=== PATIENT | male | born 1955 | race Caucasian/White ===

== ENCOUNTER 2020-03-31 13:02 | Inpatient (IN) | payer OTHER ==
[~2020-03-31] VITALS: Ht 182.9 cm; Wt 99.9 kg
[2020-03-31] MEDS ORDERED: DEXTROSE 50% 25 GM / 50ML DISP.SYRIN. IV ONE ×2 (13:15→15:30)
[2020-03-31 13:38] LABS: BASO % 0 % (0-3); EOS % 1 % (0-3); HEMATOCRIT 27.5 % (39.0-53.0); HEMOGLOBIN 9.1 g/dL (13.0-17.5); LYMPH # 0.4 x10^3/uL (1.0-4.8); LYMPH % 7 % (24-48); MEAN CORPUSCULAR HEMOGLOBIN 31 pg (25-35); MEAN CORPUSCULAR HGB CONC 33 g/dL (31-37); MEAN CORPUSCULAR VOLUME 93 fL (79-100); MONO # 0.4 x10^3/uL (0.0-1.1); MONO % 8 % (0-9); NEUT # 4.9 x10^3/uL (1.8-7.7); NEUT % 84 % (31-73); PLATELET COUNT 84 x10^3/uL (140-400); RED BLOOD COUNT 2.97 x10^6/uL (4.30-5.70); RED CELL DISTRIBUTION WIDTH 28.4 % (11.5-14.5); WHITE BLOOD COUNT 5.8 x10^3/uL (4.0-11.0)
--- NOTE | 2020-03-31 14:00 | RAD ---
EXAM: Chest, single view. HISTORY: Aspiration. COMPARISON: None. FINDINGS: A frontal view of the chest is obtained. There is diffuse interstitial infiltrate. There ar e small pleural effusions. There is a right central venous catheter with the tip in the superior cavo atrial junction. There is no pneumothorax. The heart is normal in size for supine portable technique. IMPRESSION: Diffuse interstitial infiltrate and small pleural effusions. Electronically signed by: Beata Turner MD (03/31/2020 1:57 PM) [facility]
[2020-03-31 14:10] LABS: ALBUMIN 2.6 g/dL (3.4-5.0); ALBUMIN/GLOBULIN RATIO 0.7 (1.0-1.7); CALCIUM 9.2 mg/dL (8.5-10.1); CREATININE 6.2 mg/dL (0.7-1.3); GFR 9.2; MAGNESIUM 2.6 mg/dL (1.8-2.4); TOTAL BILIRUBIN 4.3 mg/dL (0.2-1.0); TOTAL PROTEIN 6.1 g/dL (6.4-8.2)
[2020-03-31 14:16] LABS: POTASSIUM 2.6 mmol/L (3.5-5.1)
[2020-03-31] MEDS ORDERED: PIPERACILLIN/TAZOBACTAM 3.375 GM in IV NORMAL SALINE 50ML 50 ML IV ONE (15:30)
[2020-03-31] MEDS ORDERED: IV NORMAL SALINE 1000ML BAG 1,000 ML IV ONE (15:30)
[2020-03-31] MEDS: POTASSIUM CHLORIDE 40 MEQ in IV DEXTROSE 5% 1,000 ML IV SCH (15:48)
--- NOTE | 2020-03-31 16:03 | PHYS DOC ---
Past Medical History Past Medical History: Diabetes-Type I, Renal Failure (LINDA JOAQUIN DO) General Adult EDM: Chief Complaint: ALTERED MENTAL STATUS HPI: HPI: Patient is a 64 year old male with a history of end-stage renal failure on hemodialysis and diabetes who was sent here for from the dialysis center due to altered mental status. Not much history was able to obtain. Patient was dropped off to the dialysis center for dialysis today, when they tried to obtain his vital signs patient was very confused. They checked his blood sugar and it was really low so EMS were called to take him here for evaluation. His blood sugar was 24 per EMS. Upon arrival to room patient was cold to the touch. COVID STATUS is unknown. (LINDA JOAQUIN DO) Review of Systems: Review of Systems: NOT ABLE TO OBTAIN DUE TO HIS CONDITION. (LINDA JOAQUIN DO) Heart Score: Risk Factors: Risk Factors: DM, Current or recent (<one month) smoker, HTN, HLP, family history of CAD, obesity. Risk Scores: Score 0 - 3: 2.5% MACE over next 6 weeks - Discharge Home Score 4 - 6: 20.3% MACE over next 6 weeks - Admit for Clinical Observation Score 7 - 10: 72.7% MACE over next 6 weeks - Early Invasive Strategies (LINDA JOAQUIN DO) Current Medications: Current Medications Medications (Trade) Dose Ordered Sig/Missy Start Time Stop Time Status Last Admin Dose Admin Cefepime HCl (Maxipime) 2 gm 1X ONCE 03/31/20 16:15 03/31/20 16:16 Dextrose (Dextrose 50%-Water Syringe) 25 gm 1X ONCE 03/31/20 15:30 03/31/20 15:31 DC 03/31/20 15:36 25 GM Lorazepam (Ativan Inj) 1 mg 1X ONCE 03/31/20 15:45 03/31/20 15:46 DC 03/31/20 15:46 1 MG Piperacillin Sod/ Tazobactam Sod 3.375 gm/Sodium Chloride 50 ml @ 100 mls/hr 1X ONCE 03/31/20 15:30 03/31/20 15:59 DC Potassium Chloride 40 meq/ Dextrose 1,020 ml @ 75 mls/hr [id number] 03/31/20 16:00 03/31/20 15:48 75 MLS/HR Sodium Chloride 1,000 ml @ 1,000 mls/hr 1X ONCE 03/31/20 15:30 03/31/20 16:29 (LINDA JOAQUIN DO) Allergies: Allergies: Allergies Coded Allergies Type Severity Reaction Last Updated Verified peanut Allergy Severe Anaphylaxis 03/31/20 Yes Penicillins Allergy Intermediate hives 03/31/20 Yes aspirin Allergy Intermediate rash 03/31/20 Yes latex Allergy Intermediate 03/31/20 Yes metformin Allergy Intermediate 03/31/20 Yes nitroglycerin Allergy Intermediate 03/31/20 Yes ondansetron Allergy Intermediate 03/31/20 Yes (LINDA JOAQUIN DO) Physical Exam: PE: Constitutional: Well developed, well nourished, LETHARGIC.[] HENT: Normocephalic, atraumatic, bilateral external ears normal, oropharynx moist, no oral exudates, nose normal. [] Eyes: PERRLA, EOMI, conjunctiva normal, no discharge. [] Neck: Normal range of motion, no tenderness, supple, no stridor. [] Cardiovascular:Heart rate regular rhythm, no murmur [] Lungs & Thorax: Bilateral breath sounds clear to auscultation [] Abdomen: Bowel sounds normal, soft, no tenderness, no masses, no pulsatile masses. [] Skin:COLD TO TOUCH, no erythema, no rash. [] Back: No tenderness, no CVA tenderness. [] Extremities: No tenderness, no cyanosis, no clubbing, ROM intact, no edema. [] Neurologic: LETHARGIC.. Psychologic: NOT ABLE TO EVALUATE (LINDA JOAQUIN DO) Current Patient Data: Labs: Laboratory Tests Test 03/31/20 13:07 03/31/20 13:20 03/31/20 14:18 03/31/20 15:26 Glucose (Fingerstick) 48 mg/dL (70-99) *L 138 mg/dL (70-99) H 92 mg/dL (70-99) White Blood Count 5.8 x10^3/uL (4.0-11.0) Red Blood Count 2.97 x10^6/uL (4.30-5.70) L Hemoglobin 9.1 g/dL (13.0-17.5) L Hematocrit 27.5 % (39.0-53.0) L Mean Corpuscular Volume 93 fL (79-100) Mean Corpuscular Hemoglobin 31 pg (25-35) Mean Corpuscular Hemoglobin Concent 33 g/dL (31-37) Red Cell Distribution Width 28.4 % (11.5-14.5) H Platelet Count 84 x10^3/uL (140-400) L Neutrophils (%) (Auto) 84 % (31-73) H Lymphocytes (%) (Auto) 7 % (24-48) L Monocytes (%) (Auto) 8 % (0-9) Eosinophils (%) (Auto) 1 % (0-3) Basophils (%) (Auto) 0 % (0-3) Neutrophils # (Auto) 4.9 x10^3/uL (1.8-7.7) Lymphocytes # (Auto) 0.4 x10^3/uL (1.0-4.8) L Monocytes # (Auto) 0.4 x10^3/uL (0.0-1.1) Eosinophils # (Auto) 0.0 x10^3/uL (0.0-0.7) Basophils # (Auto) 0.0 x10^3/uL (0.0-0.2) Platelet Estimate Pending Sodium Level 126 mmol/L (136-145) L Potassium Level 2.6 mmol/L (3.5-5.1) *L Chloride Level 88 mmol/L (98-107) L Carbon Dioxide Level 18 mmol/L (21-32) L Anion Gap 20 (6-14) H Blood Urea Nitrogen 62 mg/dL (8-26) H Creatinine 6.2 mg/dL (0.7-1.3) H Estimated GFR (Cockcroft-Gault) 9.2 BUN/Creatinine Ratio 10 (6-20) Glucose Level 47 mg/dL (70-99) L Lactic Acid Level 3.8 mmol/L (0.4-2.0) H Calcium Level 9.2 mg/dL (8.5-10.1) Magnesium Level 2.6 mg/dL (1.8-2.4) H Total Bilirubin 4.3 mg/dL (0.2-1.0) H Aspartate Amino Transferase (AST) 40 U/L (15-37) H Alanine Aminotransferase (ALT) 30 U/L (16-63) Alkaline Phosphatase 190 U/L (46-116) H Total Protein 6.1 g/dL (6.4-8.2) L Albumin 2.6 g/dL (3.4-5.0) L Albumin/Globulin Ratio 0.7 (1.0-1.7) L Laboratory Tests 03/31/20 13:20 Laboratory Tests 03/31/20 13:20 (LINDA JOAQUIN DO) EKG: EKG: EKG was done at 1320, heart rate of 70 beats per minute, sinus rhythm, no ST segment elevation. (LINDA JOAQUIN DO) Radiology/Procedures: Radiology/Procedures: [][facility] [address] [place] [address] IMAGING REPORT Signed PATIENT: HILDA MORE ACCOUNT: [id number] : 1955 LOCATION: ER AGE: 64 SEX: M EXAM STATUS: REG ER ORD. PHYSICIAN: LINDA JOAQUIN DO REASON: ams PROCEDURE: CT HEAD WO CONTRAST Exam: CT head INDICATION: Altered mental status TECHNIQUE: Sequential axial images through the head were obtained without the administration of IV contrast. Comparisons: None FINDINGS: No focal parenchymal lesion or hemorrhage is identified. There is no midline s hift or sulcal effacement. Patchy hypodensity in the periventricular white matter. No acute vascular territory infarction is identified. Conn-white distinction is preserved. The ventricular system is within normal limits without compression hydrocephalus. The basal cisterns are well maintained. The visualized portions of the paranasal sinuses and mastoid air cells are well- pneumatized. No acute fractures. IMPRESSION: Mild small vessel ischemic change, technically age indeterminate without recent prior imaging Exposure: One or more of the following in the visualized dose reduction techniqu es were utilized for this examination: 1. Automated exposure control 2. Adjustment of the MA and/or KV according to patient size Use of iterative of reconstructive technique Electronically signed by: Ethan Lopez MD (03/31/2020 4:18 PM) [facility] DICTATED and SIGNED BY: ETHAN LOPEZ MD DATE: 03/31/20 [id number] [place] [address] IMAGING REPORT Signed PATIENT: HILDA MORE ACCOUNT: [id number] : 1955 LOCATION: ER AGE: 64 SEX: M EXAM STATUS: PRE ER ORD. PHYSICIAN: LINDA JOAQUIN DO REASON: aspiration PROCEDURE: CHEST AP ONLY EXAM: Chest, single view. HISTORY: Aspiration. COMPARISON: None. FINDINGS: A frontal view of the chest is obtained. There is diffuse interstitial infiltrate. There are small pleural effusions. There is a right central venous catheter with the tip in the superior cavoatrial junction. There is no pneu mothorax. The heart is normal in size for supine portable technique. IMPRESSION: Diffuse interstitial infiltrate and small pleural effusions. Electronically signed by: Jarrett Raza MD (03/31/2020 1:57 PM) [facility] DICTATED and SIGNED BY: JARRETT RAZA MD DATE: 03/31/20 [id number] (LINDA JOAQUIN DO) Course & Med Decision Making: Course & Med Decision Making Pertinent Labs and Imaging studies reviewed. (See chart for details) Patient is a 64-year-old male who was brought here by EMS from the dialysis c enter due to altered mental status. Patient was found to be hypoglycemic, hypothermia, lactic acidosis, infiltration on chest x-ray consistent with severe sepsis. Patient also had low potassium level. Patient was given IV fluid, IV potassium, IV antibiotic, dextrose. Patient will need to be admitted to hospital for further evaluation and treatment. Discussed with Dr. Daly who agrees admit the patient. (LINDA JOAQUIN DO) Dragon Disclaimer: Dragon Disclaimer: This electronic medical record was generated, in whole or in part, using a voice recognition dictation system. (LINDA JOAQUIN DO) Departure Departure Impression: Primary Impression: Severe sepsis Additional Impressions: Hypokalemia Hypoglycemia ESRD (end stage renal disease) on dialysis Disposition: ADMITTED INPT THIS HOSP Admitting Physician: SKYLAR SILVESTRE) (LINDA JOAQUIN DO) Condition: CRITICAL Referrals: RAY WARD (PCP) LINDA JOAQUIN DO Mar 31, 2020 16:03 ARSEN DALY MD Mar 31, 2020 21:04
[2020-03-31] MEDS ORDERED: CEFEPIME HCL IV Push 2 GM VIAL. IVP ONE (16:15)
--- NOTE | 2020-03-31 16:21 | RAD ---
Exam: CT head INDICATION: Altered mental status TECHNIQUE: Sequential axial images through the head were obtained without the administration of IV co ntrast. Comparisons: None FINDINGS: No focal parenchymal lesion or hemorrhage is identified. There is no midline shift or sulcal effaceme nt. Patchy hypodensity in the periventricular white matter. No acute vascular territory infarction is yuliya ntified. Conn-white distinction is preserved. The ventricular system is within normal limits without compression hydrocephalus. The basal cisterns are well maintained. The visualized portions of the paranasal sinuses and mastoid air cells are well-pneumatized. No acute fractures. IMPRESSION: Mild small vessel ischemic change, technically age indeterminate without recent prior imaging Exposure: One or more of the following in the visualized dose reduction techniques were utilized for this examination: 1. Automated exposure control 2. Adjustment of the MA and/or KV according to patient size Use of iterative of reconstructive technique Electronically signed by: Ethan Love MD (03/31/2020 4:18 PM) [facility]
[2020-03-31] MEDS: IV NORMAL SALINE 1000ML BAG 1,000 ML IV SCH ×3 (18:36→23:30)
--- NOTE | 2020-03-31 18:49 | PDOC1 ---
History and Physical Date of Admission Date of Admission DATE: 03/31/20 TIME: 18:48 Identification/Chief Complaint Chief Complaint seen in er with hypothermia, 64 year old male with a history of end-stage renal failure on hemodialysis and diabetes who was sent here for from the dialysis center due to altered mental status. Not much history was able to obtain. Patient was dropped off to the dialysis center by van transport , for dialysis today, when they tried to obtain his vital signs patient was very confused. EMS was, called blood sugar was 24 per EMS. Upon arrival to room patient was hypothermic and encephalopathic COVID STATUS is unknown. no family present to assist with history Past Medical History Past Medical History Past Medical History Past Medical History Past Medical History: Diabetes-Type I, Renal Failure Cardiovascular: HTN Renal/: Chronic renal failure Endocrine: Diabetes Family History Family History: No Significant, Hypertension Social History Smoke: No ALCOHOL: none Drugs: None Current Problem List Problem List Problems Medical Problems: (1) ESRD (end stage renal disease) on dialysis Status: Acute (2) Hypoglycemia Status: Acute (3) Hypokalemia Status: Acute (4) Severe sepsis Status: Acute Current Medications Current Medications Current Medications Dextrose (Dextrose 50%-Water Syringe) 25 gm 1X ONCE IV Last administered on 03/31/20at 13:51; Start 03/31/20 at 13:15; Stop 03/31/20 at 13:26; Status DC Sodium Chloride 1,000 ml @ 1,000 mls/hr 1X ONCE IV Last administered on 03/31/20at 17:34; Start 03/31/20 at 15:30; Stop 03/31/20 at 16:29; Status DC Piperacillin Sod/ Tazobactam Sod 3.375 gm/Sodium Chloride 50 ml @ 100 mls/hr 1X ONCE IV ; Start 03/31/20 at 15:30; Stop 03/31/20 at 15:59; Status DC Potassium Chloride 40 meq/ Dextrose 1,020 ml @ 75 mls/hr [id number] IV Last administered on 03/31/20at 15:48; Start 03/31/20 at 16:00 Dextrose (Dextrose 50%-Water Syringe) 25 gm 1X ONCE IV Last administered on 03/31/20at 15:36; Start 03/31/20 at 15:30; Stop 03/31/20 at 15:31; Status DC Lorazepam (Ativan Inj) 1 mg 1X ONCE IVP Last administered on 03/31/20at 15:46; Start 03/31/20 at 15:45; Stop 03/31/20 at 15:46; Status DC Cefepime HCl (Maxipime) 2 gm 1X ONCE IVP Last administered on 03/31/20at 16:53; Start 03/31/20 at 16:15; Stop 03/31/20 at 16:16; Status DC Sodium Chloride 1,000 ml @ 75 mls/hr [id number] IV Last administered on 03/31/20at 18:36; Start 03/31/20 at 17:30; Stop 04/01/20 at 17:29 Allergies Allergies: Coded Allergies: peanut (Verified Allergy, Severe, Anaphylaxis, 03/31/20) Penicillins (Verified Allergy, Intermediate, hives, 03/31/20) aspirin (Verified Allergy, Intermediate, rash, 03/31/20) latex (Verified Allergy, Intermediate, 03/31/20) metformin (Verified Allergy, Intermediate, 03/31/20) nitroglycerin (Verified Allergy, Intermediate, 03/31/20) ondansetron (Verified Allergy, Intermediate, 03/31/20) ROS Review of System unable to review due to AMS PSYCHOLOGICAL ROS: YES: Disorientation Neurological: Yes Confusion Physical Exam Physical Exam Skin:COLD TO TOUCH, no erythema, no rash. [] Back: No tenderness, no CVA tenderness. [] Extremities: No tenderness, no cyanosis, no clubbing, ROM intact, no edema. [] Neurologic: LETHARGIC.. General: Cooperative, mild distress HEENT: Atraumatic, PERRLA, EOMI, Mucous membr. moist/pink Lungs: Normal air movement Heart: RRR, no thrills Breasts: Not examined Abdomen: Normal bowel sounds, Soft Rectal Exam: not examined PELVIC: Examination not indicated Extremities: No cyanosis Vitals Vitals Vital Signs Date Time Temp Pulse Resp B/P (MAP) Pulse Ox O2 Delivery O2 Flow Rate FiO2 03/31/20 17:47 82 20 95 03/31/20 17:42 93.7 93.7 03/31/20 13:02 113/56 (75) Room Air Labs Labs Laboratory Tests Test 03/31/20 13:07 03/31/20 13:20 03/31/20 14:18 03/31/20 15:26 Glucose (Fingerstick) 48 mg/dL (70-99) 138 mg/dL (70-99) 92 mg/dL (70-99) White Blood Count 5.8 x10^3/uL (4.0-11.0) Red Blood Count 2.97 x10^6/uL (4.30-5.70) Hemoglobin 9.1 g/dL (13.0-17.5) Hematocrit 27.5 % (39.0-53.0) Mean Corpuscular Volume 93 fL (79-100) Mean Corpuscular Hemoglobin 31 pg (25-35) Mean Corpuscular Hemoglobin Concent 33 g/dL (31-37) Red Cell Distribution Width 28.4 % (11.5-14.5) Platelet Count 84 x10^3/uL (140-400) Neutrophils (%) (Auto) 84 % (31-73) Lymphocytes (%) (Auto) 7 % (24-48) Monocytes (%) (Auto) 8 % (0-9) Eosinophils (%) (Auto) 1 % (0-3) Basophils (%) (Auto) 0 % (0-3) Neutrophils # (Auto) 4.9 x10^3/uL (1.8-7.7) Lymphocytes # (Auto) 0.4 x10^3/uL (1.0-4.8) Monocytes # (Auto) 0.4 x10^3/uL (0.0-1.1) Eosinophils # (Auto) 0.0 x10^3/uL (0.0-0.7) Basophils # (Auto) 0.0 x10^3/uL (0.0-0.2) Sodium Level 126 mmol/L (136-145) Potassium Level 2.6 mmol/L (3.5-5.1) Chloride Level 88 mmol/L (98-107) Carbon Dioxide Level 18 mmol/L (21-32) Anion Gap 20 (6-14) Blood Urea Nitrogen 62 mg/dL (8-26) Creatinine 6.2 mg/dL (0.7-1.3) Estimated GFR (Cockcroft-Gault) 9.2 BUN/Creatinine Ratio 10 (6-20) Glucose Level 47 mg/dL (70-99) Lactic Acid Level 3.8 mmol/L (0.4-2.0) Calcium Level 9.2 mg/dL (8.5-10.1) Magnesium Level 2.6 mg/dL (1.8-2.4) Total Bilirubin 4.3 mg/dL (0.2-1.0) Aspartate Amino Transf (AST/SGOT) 40 U/L (15-37) Alanine Aminotransferase (ALT/SGPT) 30 U/L (16-63) Alkaline Phosphatase 190 U/L (46-116) Total Protein 6.1 g/dL (6.4-8.2) Albumin 2.6 g/dL (3.4-5.0) Albumin/Globulin Ratio 0.7 (1.0-1.7) Test 03/31/20 16:58 03/31/20 17:45 Glucose (Fingerstick) 152 mg/dL (70-99) Lactic Acid Level 2.9 mmol/L (0.4-2.0) Laboratory Tests Test 03/31/20 13:07 03/31/20 13:20 03/31/20 14:18 03/31/20 15:26 Glucose (Fingerstick) 48 mg/dL (70-99) 138 mg/dL (70-99) 92 mg/dL (70-99) White Blood Count 5.8 x10^3/uL (4.0-11.0) Red Blood Count 2.97 x10^6/uL (4.30-5.70) Hemoglobin 9.1 g/dL (13.0-17.5) Hematocrit 27.5 % (39.0-53.0) Mean Corpuscular Volume 93 fL (79-100) Mean Corpuscular Hemoglobin 31 pg (25-35) Mean Corpuscular Hemoglobin Concent 33 g/dL (31-37) Red Cell Distribution Width 28.4 % (11.5-14.5) Platelet Count 84 x10^3/uL (140-400) Neutrophils (%) (Auto) 84 % (31-73) Lymphocytes (%) (Auto) 7 % (24-48) Monocytes (%) (Auto) 8 % (0-9) Eosinophils (%) (Auto) 1 % (0-3) Basophils (%) (Auto) 0 % (0-3) Neutrophils # (Auto) 4.9 x10^3/uL (1.8-7.7) Lymphocytes # (Auto) 0.4 x10^3/uL (1.0-4.8) Monocytes # (Auto) 0.4 x10^3/uL (0.0-1.1) Eosinophils # (Auto) 0.0 x10^3/uL (0.0-0.7) Basophils # (Auto) 0.0 x10^3/uL (0.0-0.2) Sodium Level 126 mmol/L (136-145) Potassium Level 2.6 mmol/L (3.5-5.1) Chloride Level 88 mmol/L (98-107) Carbon Dioxide Level 18 mmol/L (21-32) Anion Gap 20 (6-14) Blood Urea Nitrogen 62 mg/dL (8-26) Creatinine 6.2 mg/dL (0.7-1.3) Estimated GFR (Cockcroft-Gault) 9.2 BUN/Creatinine Ratio 10 (6-20) Glucose Level 47 mg/dL (70-99) Lactic Acid Level 3.8 mmol/L (0.4-2.0) Calcium Level 9.2 mg/dL (8.5-10.1) Magnesium Level 2.6 mg/dL (1.8-2.4) Total Bilirubin 4.3 mg/dL (0.2-1.0) Aspartate Amino Transf (AST/SGOT) 40 U/L (15-37) Alanine Aminotransferase (ALT/SGPT) 30 U/L (16-63) Alkaline Phosphatase 190 U/L (46-116) Total Protein 6.1 g/dL (6.4-8.2) Albumin 2.6 g/dL (3.4-5.0) Albumin/Globulin Ratio 0.7 (1.0-1.7) Test 03/31/20 16:58 03/31/20 17:45 Glucose (Fingerstick) 152 mg/dL (70-99) Lactic Acid Level 2.9 mmol/L (0.4-2.0) Images Images EXAM: Chest, single view. HISTORY: Aspiration. COMPARISON: None. FINDINGS: A frontal view of the chest is obtained. There is diffuse interstitial infiltrate. There are small pleural effusions. There is a right central venous catheter with the tip in the superior cavoatrial junction. There is no pneumothorax. The heart is normal in size for supine portable technique. IMPRESSION: Diffuse interstitial infiltrate and small pleural effusions. Electronically signed by: Beata Raza MD (03/31/2020 1:57 PM) [facility] DICTATED and SIGNED BY: BEATA RAZA MD DATE: 03/31/20 [id number] Exam: CT head INDICATION: Altered mental status TECHNIQUE: Sequential axial images through the head were obtained without the ad ministration of IV contrast. Comparisons: None FINDINGS: No focal parenchymal lesion or hemorrhage is identified. There is no midline shift or sulcal effacement. Patchy hypodensity in the periventricular white matter. No acute vascular territory infarction is identified. Conn-white distinction is preserved. The ventricular system is within normal limits without compression hydr ocephalus. The basal cisterns are well maintained. The visualized portions of the paranasal sinuses and mastoid air cells are well- pneumatized. No acute fractures. IMPRESSION: Mild small vessel ischemic change, technically age indeterminate without recent prior imaging Exposure: One or more of the following in the visualized dose reduction techniques were utilized for this examination: 1. Automated exposure control 2. Adjustment of the MA and/or KV according to patient size Use of iterative of reconstructive technique Electronically signed by: Ethan Lopez MD (03/31/2020 4:18 PM) [facility] DICTATED and SIGNED BY: ETHAN LOPEZ MD DATE: 03/31/20 [id number] VTE Prophylaxis Ordered VTE Prophylaxis Devices: Yes VTE Pharmacological Prophylaxi: Yes Assessment/Plan Assessment/Plan IMPRESSION: SEVERE Sepsis acute metabolic encephalopathy Diffuse interstitial infiltrate and small pleural effusions. severe hypothermia severe hypokalemia ESRD ON DIALYSIS PLAN ADMIT ICU BED Blood cultures warming blanket consult nephrology consult ID Emperic iv antibiotics sepsis protocol NEED RECENT RECORDS [facility] 45 min cc time Justifications for Admission Other Justification ARSEN DALY MD Mar 31, 2020 18:48
[2020-03-31 19:41] LABS: ANISOCYTOSIS MARKED; HYPOCHROMIA SLIGHT; PLT ESTIMATE DECREASED (ADEQUATE); POIKILOCYTOSIS SLIGHT; POLYCHROMASIA SLIGHT; TARGET CELLS OCC
[2020-03-31 19:42] LABS: SCHISTOCYTES OCC
[2020-03-31] MEDS ORDERED: IV NORMAL SALINE 500ML BAG 500 ML IV PRN (21:15)
[2020-03-31 21:50] LABS: D-DIMER 9.36 ug/mlFEU (0.00-0.50)
[2020-04-01] VITALS (13 sets, daily range): BP systolic 62–140; BP diastolic 46–74
[2020-04-01] MEDS: IV NORMAL SALINE 1000ML BAG 1,000 ML IV SCH ×2 (01:05→06:50)
[2020-04-01 01:33] LABS: BASO % 1 % (0-3); EOS # 0.1 x10^3/uL (0.0-0.7); EOS % 2 % (0-3); HEMATOCRIT 23.3 % (39.0-53.0); HEMOGLOBIN 7.9 g/dL (13.0-17.5); LYMPH # 0.5 x10^3/uL (1.0-4.8); LYMPH % 8 % (24-48); MEAN CORPUSCULAR HEMOGLOBIN 31 pg (25-35); MEAN CORPUSCULAR HGB CONC 34 g/dL (31-37); MEAN CORPUSCULAR VOLUME 91 fL (79-100); MONO # 0.6 x10^3/uL (0.0-1.1); MONO % 10 % (0-9); NEUT # 4.6 x10^3/uL (1.8-7.7); NEUT % 79 % (31-73); PLATELET COUNT 107 x10^3/uL (140-400); RED BLOOD COUNT 2.55 x10^6/uL (4.30-5.70); RED CELL DISTRIBUTION WIDTH 28.1 % (11.5-14.5); WHITE BLOOD COUNT 5.9 x10^3/uL (4.0-11.0)
[2020-04-01 04:23] LABS: ALBUMIN 2.1 g/dL (3.4-5.0); ALBUMIN/GLOBULIN RATIO 0.7 (1.0-1.7); CALCIUM 8.2 mg/dL (8.5-10.1); CREATININE 6.2 mg/dL (0.7-1.3); GFR 9.2; TOTAL BILIRUBIN 3.5 mg/dL (0.2-1.0); TOTAL PROTEIN 5.1 g/dL (6.4-8.2)
[2020-04-01 04:32] LABS: POTASSIUM 2.8 mmol/L (3.5-5.1)
[2020-04-01] MEDS ORDERED: DEXTROSE 50% 25 GM / 50ML DISP.SYRIN. IV ONE ×2 (05:20→08:45)
[2020-04-01] MEDS: FOLIC/VIT B COMP W-C (RENAL) TABLET. PO SCH (09:00)
[2020-04-01] MEDS: POTASSIUM CHLORIDE 40 MEQ in IV DEXTROSE 5% 1,000 ML IV SCH (09:55)
--- NOTE | 2020-04-01 10:54 | PDOC ---
PROGRESS NOTES Date of Service: DATE: 04/01/20 TIME: 10:54 Chief Complaint Chief Complaint VTE Prophylaxis Ordered VTE Prophylaxis Devices: Yes VTE Pharmacological Prophylaxi: Yes Assessment/Plan Assessment/Plan IMPRESSION: SEVERE Sepsis with shock ALTERED Mental status acute metabolic encephalopathy Diffuse interstitial infiltrate and small pleural effusions. severe hypothermia severe hypokalemia SEVERE Hypoglycemia ESRD ON DIALYSIS PUI COVID recent WV hy hypothyroid state PLAN ADMIT ICU BED Blood cultures warming blanket consult nephrology consult ID Emperic iv antibiotics sepsis protocol CONSULT DR ARTEAGA cardiology consult May need tunneled dialysis catheter removal in the near future glucose management protocol D/W RN NO FAMILY PRESENT to give accurate hx NEED RECENT RECORDS [facility] 35 min cc time Justifications for Admission Justifications for Admission Other Justification History of Present Illness History of Present Illness Identification/Chief Complaint Chief Complaint seen in er with hypothermia, 64 year old male with a history of end-stage renal failure on hemodialysis and diabetes who was [facility] due to altered mental status. Not much history was able to obtain. Patient was dropped off to the dialysis center by van transport , for dialysis today, when they tried to obtain his vital signs patient was very confused. EMS was, called blood sugar was 24 per EMS. Upon arrival to room patient was hypothermic and encephalopathic COVID STATUS is unknown. no family present to assist with history Past Medical History Past Medical History Past Medical History Past Medical History Past Medical History: Diabetes-Type I, Renal Failure Cardiovascular: HTN Renal/: Chronic renal failure Endocrine: Diabetes Family History Family History: No Significant, Hypertension Social History Smoke: No ALCOHOL: none Drugs: None Current Problem List Problem List Problems Medical Problems: (1) ESRD (end stage renal disease) on dialysis Status: Acute (2) Hypoglycemia Status: Acute Vitals Vitals Vital Signs Date Time Temp Pulse Resp B/P (MAP) Pulse Ox O2 Delivery O2 Flow Rate FiO2 04/01/20 05:17 91 22 95 04/01/20 03:17 96.3 96.3 03/31/20 13:02 113/56 (75) Room Air Physical Exam Physical Exam Back: No tenderness, no CVA tenderness. [] Extremities: No tenderness, no cyanosis, no clubbing, ROM intact, no edema. [] Neurologic: LETHARGIC.. General: Cooperative, mild distress HEENT: Atraumatic, PERRLA, EOMI, Mucous membr. moist/pink Lungs: Normal air movement Heart: RRR, no thrills Breasts: Not examined Abdomen: Normal bowel sounds, Soft Rectal Exam: not examined PELVIC: Examination not indicated Extremities: No cyanosis General: Cooperative, mild distress Abdomen: Normal bowel sounds, Soft Extremities: No cyanosis Labs LABS XR CHEST 1V INDICATION: SEPSIS . COMPARISON STUDY: 03/31/2020. FINDINGS: Life Support Devices: Stable right IJ dual-lumen catheter. Lungs: Low lung volume. Bilateral interstitial opacities, improving on the right. Pleura: Stable small left pleural effusion. Heart and Mediastinum: Stable cardiomediastinal silhouette and great vessels. IMPRESSION: 1. Bilateral opacities, improving on the right. 2. Stable small left pleural effusion. Electronically signed by: Madison Eubanks MD (04/01/2020 1:07 PM) [id number] DICTATED and SIGNED BY: MADISON EUBANKS MD Images Images EXAM: Chest, single view. HISTORY: Aspiration. COMPARISON: None. FINDINGS: A frontal view of the chest is obtained. There is diffuse interstitial infiltrate. There are small pleural effusions. There is a right central venous catheter with the tip in the superior cavoatrial junction. There is no pneumot horax. The heart is normal in size for supine portable technique. IMPRESSION: Diffuse interstitial infiltrate and small pleural effusions. Electronically signed by: Beata Raza MD (03/31/2020 1:57 PM) [facility] DICTATED and SIGNED BY: BEATA RAZA MD DATE: 03/31/20 [id number] Exam: CT head INDICATION: Altered mental status TECHNIQUE: Sequential axial images through the head were obtained without the administration of IV contrast. Comparisons: None FINDINGS: No focal parenchymal lesion or hemorrhage is identified. There is no midline shift or sulcal effacement. Patchy hypodensity in the periventricular white matter. No acute vascular territory infarction is identified. Conn-white distinction is preserved. The ventricular system is within normal limits without compression hydrocephalus. The basal cisterns are well maintained. The visualized portions of the paranasal sinuses and mastoid air cells are well- pneumatized. No acute fractures. IMPRESSION: Mild small vessel ischemic change, technically age indeterminate without recent prior imaging Exposure: One or more of the following in the visualized dose reduction techniques were utilized for this examination: 1. Automated exposure control 2. Adjustment of the MA and/or KV according to patient size Use of iterative of reconstructive technique Electronically signed by: Ethan Love MD (03/31/2020 4:18 PM) [facility] Laboratory Tests Test 03/31/20 13:07 03/31/20 13:20 03/31/20 13:30 03/31/20 14:18 Glucose (Fingerstick) 48 mg/dL (70-99) 138 mg/dL (70-99) White Blood Count 5.8 x10^3/uL (4.0-11.0) Red Blood Count 2.97 x10^6/uL (4.30-5.70) Hemoglobin 9.1 g/dL (13.0-17.5) Hematocrit 27.5 % (39.0-53.0) Mean Corpuscular Volume 93 fL (79-100) Mean Corpuscular Hemoglobin 31 pg (25-35) Mean Corpuscular Hemoglobin Concent 33 g/dL (31-37) Red Cell Distribution Width 28.4 % (11.5-14.5) Platelet Count 84 x10^3/uL (140-400) Neutrophils (%) (Auto) 84 % (31-73) Lymphocytes (%) (Auto) 7 % (24-48) Monocytes (%) (Auto) 8 % (0-9) Eosinophils (%) (Auto) 1 % (0-3) Basophils (%) (Auto) 0 % (0-3) Neutrophils # (Auto) 4.9 x10^3/uL (1.8-7.7) Lymphocytes # (Auto) 0.4 x10^3/uL (1.0-4.8) Monocytes # (Auto) 0.4 x10^3/uL (0.0-1.1) Eosinophils # (Auto) 0.0 x10^3/uL (0.0-0.7) Basophils # (Auto) 0.0 x10^3/uL (0.0-0.2) Platelet Estimate Decreased (ADEQUATE) Polychromasia Slight Hypochromasia Slight Poikilocytosis Slight Anisocytosis Marked Target Cells Occ Schistocytes Occ Sodium Level 126 mmol/L (136-145) Potassium Level 2.6 mmol/L (3.5-5.1) Chloride Level 88 mmol/L (98-107) Carbon Dioxide Level 18 mmol/L (21-32) Anion Gap 20 (6-14) Blood Urea Nitrogen 62 mg/dL (8-26) Creatinine 6.2 mg/dL (0.7-1.3) Estimated GFR (Cockcroft-Gault) 9.2 BUN/Creatinine Ratio 10 (6-20) Glucose Level 47 mg/dL (70-99) Lactic Acid Level 3.8 mmol/L (0.4-2.0) Calcium Level 9.2 mg/dL (8.5-10.1) Magnesium Level 2.6 mg/dL (1.8-2.4) Total Bilirubin 4.3 mg/dL (0.2-1.0) Aspartate Amino Transf (AST/SGOT) 40 U/L (15-37) Alanine Aminotransferase (ALT/SGPT) 30 U/L (16-63) Alkaline Phosphatase 190 U/L (46-116) Total Protein 6.1 g/dL (6.4-8.2) Albumin 2.6 g/dL (3.4-5.0) Albumin/Globulin Ratio 0.7 (1.0-1.7) Fibrinogen 313 mg/dL (200-440) D-Dimer (Radha) 9.36 ug/mlFEU (0.00-0.50) Procalcitonin 1.10 ng/mL (0.00-0.10) Test 03/31/20 15:26 03/31/20 16:58 03/31/20 17:45 03/31/20 18:40 Glucose (Fingerstick) 92 mg/dL (70-99) 152 mg/dL (70-99) Lactic Acid Level 2.9 mmol/L (0.4-2.0) Ammonia 62 mcmol/L (11-34) Test 03/31/20 20:39 03/31/20 22:40 04/01/20 01:20 04/01/20 03:20 Glucose (Fingerstick) 110 mg/dL (70-99) Lactic Acid Level 2.4 mmol/L (0.4-2.0) White Blood Count 5.9 x10^3/uL (4.0-11.0) Red Blood Count 2.55 x10^6/uL (4.30-5.70) Hemoglobin 7.9 g/dL (13.0-17.5) Hematocrit 23.3 % (39.0-53.0) Mean Corpuscular Volume 91 fL (79-100) Mean Corpuscular Hemoglobin 31 pg (25-35) Mean Corpuscular Hemoglobin Concent 34 g/dL (31-37) Red Cell Distribution Width 28.1 % (11.5-14.5) Platelet Count 107 x10^3/uL (140-400) Neutrophils (%) (Auto) 79 % (31-73) Lymphocytes (%) (Auto) 8 % (24-48) Monocytes (%) (Auto) 10 % (0-9) Eosinophils (%) (Auto) 2 % (0-3) Basophils (%) (Auto) 1 % (0-3) Neutrophils # (Auto) 4.6 x10^3/uL (1.8-7.7) Lymphocytes # (Auto) 0.5 x10^3/uL (1.0-4.8) Monocytes # (Auto) 0.6 x10^3/uL (0.0-1.1) Eosinophils # (Auto) 0.1 x10^3/uL (0.0-0.7) Basophils # (Auto) 0.0 x10^3/uL (0.0-0.2) Sodium Level 127 mmol/L (136-145) Potassium Level 2.8 mmol/L (3.5-5.1) Chloride Level 92 mmol/L (98-107) Carbon Dioxide Level 18 mmol/L (21-32) Anion Gap 17 (6-14) Blood Urea Nitrogen 61 mg/dL (8-26) Creatinine 6.2 mg/dL (0.7-1.3) Estimated GFR (Cockcroft-Gault) 9.2 BUN/Creatinine Ratio 10 (6-20) Glucose Level 53 mg/dL (70-99) Calcium Level 8.2 mg/dL (8.5-10.1) Total Bilirubin 3.5 mg/dL (0.2-1.0) Aspartate Amino Transf (AST/SGOT) 43 U/L (15-37) Alanine Aminotransferase (ALT/SGPT) 29 U/L (16-63) Alkaline Phosphatase 153 U/L (46-116) Total Protein 5.1 g/dL (6.4-8.2) Albumin 2.1 g/dL (3.4-5.0) Albumin/Globulin Ratio 0.7 (1.0-1.7) Test 04/01/20 05:19 04/01/20 05:40 04/01/20 08:01 Glucose (Fingerstick) 38 mg/dL (70-99) 132 mg/dL (70-99) 78 mg/dL (70-99) Assessment and Plan Assessmemt and Plan Problems Medical Problems: (1) ESRD (end stage renal disease) on dialysis Status: Acute (2) Hypoglycemia Status: Acute (3) Hypokalemia Status: Acute (4) Severe sepsis Status: Acute Comment Review of Relevant I have reviewed the following items jaqueline (where applicable) has been applied. Labs Laboratory Tests Test 03/31/20 13:07 03/31/20 13:20 03/31/20 13:30 03/31/20 14:18 Glucose (Fingerstick) 48 mg/dL (70-99) 138 mg/dL (70-99) White Blood Count 5.8 x10^3/uL (4.0-11.0) Red Blood Count 2.97 x10^6/uL (4.30-5.70) Hemoglobin 9.1 g/dL (13.0-17.5) Hematocrit 27.5 % (39.0-53.0) Mean Corpuscular Volume 93 fL (79-100) Mean Corpuscular Hemoglobin 31 pg (25-35) Mean Corpuscular Hemoglobin Concent 33 g/dL (31-37) Red Cell Distribution Width 28.4 % (11.5-14.5) Platelet Count 84 x10^3/uL (140-400) Neutrophils (%) (Auto) 84 % (31-73) Lymphocytes (%) (Auto) 7 % (24-48) Monocytes (%) (Auto) 8 % (0-9) Eosinophils (%) (Auto) 1 % (0-3) Basophils (%) (Auto) 0 % (0-3) Neutrophils # (Auto) 4.9 x10^3/uL (1.8-7.7) Lymphocytes # (Auto) 0.4 x10^3/uL (1.0-4.8) Monocytes # (Auto) 0.4 x10^3/uL (0.0-1.1) Eosinophils # (Auto) 0.0 x10^3/uL (0.0-0.7) Basophils # (Auto) 0.0 x10^3/uL (0.0-0.2) Platelet Estimate Decreased (ADEQUATE) Polychromasia Slight Hypochromasia Slight Poikilocytosis Slight Anisocytosis Marked Target Cells Occ Schistocytes Occ Sodium Level 126 mmol/L (136-145) Potassium Level 2.6 mmol/L (3.5-5.1) Chloride Level 88 mmol/L (98-107) Carbon Dioxide Level 18 mmol/L (21-32) Anion Gap 20 (6-14) Blood Urea Nitrogen 62 mg/dL (8-26) Creatinine 6.2 mg/dL (0.7-1.3) Estimated GFR (Cockcroft-Gault) 9.2 BUN/Creatinine Ratio 10 (6-20) Glucose Level 47 mg/dL (70-99) Lactic Acid Level 3.8 mmol/L (0.4-2.0) Calcium Level 9.2 mg/dL (8.5-10.1) Magnesium Level 2.6 mg/dL (1.8-2.4) Total Bilirubin 4.3 mg/dL (0.2-1.0) Aspartate Amino Transf (AST/SGOT) 40 U/L (15-37) Alanine Aminotransferase (ALT/SGPT) 30 U/L (16-63) Alkaline Phosphatase 190 U/L (46-116) Total Protein 6.1 g/dL (6.4-8.2) Albumin 2.6 g/dL (3.4-5.0) Albumin/Globulin Ratio 0.7 (1.0-1.7) Fibrinogen 313 mg/dL (200-440) D-Dimer (Radha) 9.36 ug/mlFEU (0.00-0.50) Procalcitonin 1.10 ng/mL (0.00-0.10) Test 03/31/20 15:26 03/31/20 16:58 03/31/20 17:45 03/31/20 18:40 Glucose (Fingerstick) 92 mg/dL (70-99) 152 mg/dL (70-99) Lactic Acid Level 2.9 mmol/L (0.4-2.0) Ammonia 62 mcmol/L (11-34) Test 03/31/20 20:39 03/31/20 22:40 04/01/20 01:20 04/01/20 03:20 Glucose (Fingerstick) 110 mg/dL (70-99) Lactic Acid Level 2.4 mmol/L (0.4-2.0) White Blood Count 5.9 x10^3/uL (4.0-11.0) Red Blood Count 2.55 x10^6/uL (4.30-5.70) Hemoglobin 7.9 g/dL (13.0-17.5) Hematocrit 23.3 % (39.0-53.0) Mean Corpuscular Volume 91 fL (79-100) Mean Corpuscular Hemoglobin 31 pg (25-35) Mean Corpuscular Hemoglobin Concent 34 g/dL (31-37) Red Cell Distribution Width 28.1 % (11.5-14.5) Platelet Count 107 x10^3/uL (140-400) Neutrophils (%) (Auto) 79 % (31-73) Lymphocytes (%) (Auto) 8 % (24-48) Monocytes (%) (Auto) 10 % (0-9) Eosinophils (%) (Auto) 2 % (0-3) Basophils (%) (Auto) 1 % (0-3) Neutrophils # (Auto) 4.6 x10^3/uL (1.8-7.7) Lymphocytes # (Auto) 0.5 x10^3/uL (1.0-4.8) Monocytes # (Auto) 0.6 x10^3/uL (0.0-1.1) Eosinophils # (Auto) 0.1 x10^3/uL (0.0-0.7) Basophils # (Auto) 0.0 x10^3/uL (0.0-0.2) Sodium Level 127 mmol/L (136-145) Potassium Level 2.8 mmol/L (3.5-5.1) Chloride Level 92 mmol/L (98-107) Carbon Dioxide Level 18 mmol/L (21-32) Anion Gap 17 (6-14) Blood Urea Nitrogen 61 mg/dL (8-26) Creatinine 6.2 mg/dL (0.7-1.3) Estimated GFR (Cockcroft-Gault) 9.2 BUN/Creatinine Ratio 10 (6-20) Glucose Level 53 mg/dL (70-99) Calcium Level 8.2 mg/dL (8.5-10.1) Total Bilirubin 3.5 mg/dL (0.2-1.0) Aspartate Amino Transf (AST/SGOT) 43 U/L (15-37) Alanine Aminotransferase (ALT/SGPT) 29 U/L (16-63) Alkaline Phosphatase 153 U/L (46-116) Total Protein 5.1 g/dL (6.4-8.2) Albumin 2.1 g/dL (3.4-5.0) Albumin/Globulin Ratio 0.7 (1.0-1.7) Test 04/01/20 05:19 04/01/20 05:40 04/01/20 08:01 Glucose (Fingerstick) 38 mg/dL (70-99) 132 mg/dL (70-99) 78 mg/dL (70-99) Laboratory Tests Test 03/31/20 13:07 03/31/20 13:20 03/31/20 13:30 03/31/20 14:18 Glucose (Fingerstick) 48 mg/dL (70-99) 138 mg/dL (70-99) White Blood Count 5.8 x10^3/uL (4.0-11.0) Red Blood Count 2.97 x10^6/uL (4.30-5.70) Hemoglobin 9.1 g/dL (13.0-17.5) Hematocrit 27.5 % (39.0-53.0) Mean Corpuscular Volume 93 fL (79-100) Mean Corpuscular Hemoglobin 31 pg (25-35) Mean Corpuscular Hemoglobin Concent 33 g/dL (31-37) Red Cell Distribution Width 28.4 % (11.5-14.5) Platelet Count 84 x10^3/uL (140-400) Neutrophils (%) (Auto) 84 % (31-73) Lymphocytes (%) (Auto) 7 % (24-48) Monocytes (%) (Auto) 8 % (0-9) Eosinophils (%) (Auto) 1 % (0-3) Basophils (%) (Auto) 0 % (0-3) Neutrophils # (Auto) 4.9 x10^3/uL (1.8-7.7) Lymphocytes # (Auto) 0.4 x10^3/uL (1.0-4.8) Monocytes # (Auto) 0.4 x10^3/uL (0.0-1.1) Eosinophils # (Auto) 0.0 x10^3/uL (0.0-0.7) Basophils # (Auto) 0.0 x10^3/uL (0.0-0.2) Platelet Estimate Decreased (ADEQUATE) Polychromasia Slight Hypochromasia Slight Poikilocytosis Slight Anisocytosis Marked Target Cells Occ Schistocytes Occ Sodium Level 126 mmol/L (136-145) Potassium Level 2.6 mmol/L (3.5-5.1) Chloride Level 88 mmol/L (98-107) Carbon Dioxide Level 18 mmol/L (21-32) Anion Gap 20 (6-14) Blood Urea Nitrogen 62 mg/dL (8-26) Creatinine 6.2 mg/dL (0.7-1.3) Estimated GFR (Cockcroft-Gault) 9.2 BUN/Creatinine Ratio 10 (6-20) Glucose Level 47 mg/dL (70-99) Lactic Acid Level 3.8 mmol/L (0.4-2.0) Calcium Level 9.2 mg/dL (8.5-10.1) Magnesium Level 2.6 mg/dL (1.8-2.4) Total Bilirubin 4.3 mg/dL (0.2-1.0) Aspartate Amino Transf (AST/SGOT) 40 U/L (15-37) Alanine Aminotransferase (ALT/SGPT) 30 U/L (16-63) Alkaline Phosphatase 190 U/L (46-116) Total Protein 6.1 g/dL (6.4-8.2) Albumin 2.6 g/dL (3.4-5.0) Albumin/Globulin Ratio 0.7 (1.0-1.7) Fibrinogen 313 mg/dL (200-440) D-Dimer (Radha) 9.36 ug/mlFEU (0.00-0.50) Procalcitonin 1.10 ng/mL (0.00-0.10) Test 03/31/20 15:26 03/31/20 16:58 03/31/20 17:45 03/31/20 18:40 Glucose (Fingerstick) 92 mg/dL (70-99) 152 mg/dL (70-99) Lactic Acid Level 2.9 mmol/L (0.4-2.0) Ammonia 62 mcmol/L (11-34) Test 03/31/20 20:39 03/31/20 22:40 04/01/20 01:20 04/01/20 03:20 Glucose (Fingerstick) 110 mg/dL (70-99) Lactic Acid Level 2.4 mmol/L (0.4-2.0) White Blood Count 5.9 x10^3/uL (4.0-11.0) Red Blood Count 2.55 x10^6/uL (4.30-5.70) Hemoglobin 7.9 g/dL (13.0-17.5) Hematocrit 23.3 % (39.0-53.0) Mean Corpuscular Volume 91 fL (79-100) Mean Corpuscular Hemoglobin 31 pg (25-35) Mean Corpuscular Hemoglobin Concent 34 g/dL (31-37) Red Cell Distribution Width 28.1 % (11.5-14.5) Platelet Count 107 x10^3/uL (140-400) Neutrophils (%) (Auto) 79 % (31-73) Lymphocytes (%) (Auto) 8 % (24-48) Monocytes (%) (Auto) 10 % (0-9) Eosinophils (%) (Auto) 2 % (0-3) Basophils (%) (Auto) 1 % (0-3) Neutrophils # (Auto) 4.6 x10^3/uL (1.8-7.7) Lymphocytes # (Auto) 0.5 x10^3/uL (1.0-4.8) Monocytes # (Auto) 0.6 x10^3/uL (0.0-1.1) Eosinophils # (Auto) 0.1 x10^3/uL (0.0-0.7) Basophils # (Auto) 0.0 x10^3/uL (0.0-0.2) Sodium Level 127 mmol/L (136-145) Potassium Level 2.8 mmol/L (3.5-5.1) Chloride Level 92 mmol/L (98-107) Carbon Dioxide Level 18 mmol/L (21-32) Anion Gap 17 (6-14) Blood Urea Nitrogen 61 mg/dL (8-26) Creatinine 6.2 mg/dL (0.7-1.3) Estimated GFR (Cockcroft-Gault) 9.2 BUN/Creatinine Ratio 10 (6-20) Glucose Level 53 mg/dL (70-99) Calcium Level 8.2 mg/dL (8.5-10.1) Total Bilirubin 3.5 mg/dL (0.2-1.0) Aspartate Amino Transf (AST/SGOT) 43 U/L (15-37) Alanine Aminotransferase (ALT/SGPT) 29 U/L (16-63) Alkaline Phosphatase 153 U/L (46-116) Total Protein 5.1 g/dL (6.4-8.2) Albumin 2.1 g/dL (3.4-5.0) Albumin/Globulin Ratio 0.7 (1.0-1.7) Test 04/01/20 05:19 04/01/20 05:40 04/01/20 08:01 Glucose (Fingerstick) 38 mg/dL (70-99) 132 mg/dL (70-99) 78 mg/dL (70-99) Medications Current Medications Dextrose (Dextrose 50%-Water Syringe) 25 gm 1X ONCE IV Last administered on 03/31/20at 13:51; Start 03/31/20 at 13:15; Stop 03/31/20 at 13:26; Status DC Sodium Chloride 1,000 ml @ 1,000 mls/hr 1X ONCE IV Last administered on 03/31/20at 17:34; Start 03/31/20 at 15:30; Stop 03/31/20 at 16:29; Status DC Piperacillin Sod/ Tazobactam Sod 3.375 gm/Sodium Chloride 50 ml @ 100 mls/hr 1X ONCE IV ; Start 03/31/20 at 15:30; Stop 03/31/20 at 15:59; Status DC Potassium Chloride 40 meq/ Dextrose 1,020 ml @ 75 mls/hr [id number] IV Last administered on 04/01/20at 09:55; Start 03/31/20 at 16:00 Dextrose (Dextrose 50%-Water Syringe) 25 gm 1X ONCE IV Last administered on 03/31/20at 15:36; Start 03/31/20 at 15:30; Stop 03/31/20 at 15:31; Status DC Lorazepam (Ativan Inj) 1 mg 1X ONCE IVP Last administered on 03/31/20at 15:46; Start 03/31/20 at 15:45; Stop 03/31/20 at 15:46; Status DC Cefepime HCl (Maxipime) 2 gm 1X ONCE IVP Last administered on 03/31/20at 16:53; Start 03/31/20 at 16:15; Stop 03/31/20 at 16:16; Status DC Sodium Chloride 1,000 ml @ 75 mls/hr [id number] IV Last administered on 03/31/20at 18:36; Start 03/31/20 at 17:30; Stop 04/01/20 at 17:29 Sodium Chloride 1,000 ml @ 1,000 mls/hr Q1H IV Last administered on 04/01/20at 01:05; Start 03/31/20 at 21:30; Stop 03/31/20 at 23:49; Status DC Sodium Chloride 500 ml @ 1,000 mls/hr PRN Q30MIN PRN IV SEE COMMENTS; Start 03/31/20 at 21:15 Norepinephrine Bitartrate 8 mg/ Dextrose 258 ml @ 0 mls/hr CONT PRN IV SEE I/O RECORD; Start 03/31/20 at 21:15 Dextrose (Dextrose 50%-Water Syringe) 25 gm STK-MED ONCE IV ; Start 04/01/20 at 05:20; Stop 04/01/20 at 05:20; Status DC Dextrose (Dextrose 50%-Water Syringe) 25 gm 1X ONCE IV Last administered on 04/01/20at 05:21; Start 04/01/20 at 08:45; Stop 04/01/20 at 08:46; Status DC Vitals/I & O Vital Sign - Last 24 Hours 03/31/20 03/31/20 03/31/20 03/31/20 13:02 13:16 13:46 14:16 Temp 90.9 90.9 Pulse 70 72 68 70 Resp 24 24 24 24 B/P (MAP) 113/56 (75) Pulse Ox 97 96 96 96 O2 Delivery Room Air 03/31/20 03/31/20 03/31/20 03/31/20 14:46 15:30 15:46 16:52 Temp 92.5 92.5 Pulse 70 90 80 76 Resp 24 24 20 24 Pulse Ox 97 96 98 96 03/31/20 03/31/20 03/31/20 03/31/20 17:11 17:17 17:42 17:47 Temp 93.7 93.7 Pulse 76 78 78 82 Resp 24 24 24 20 Pulse Ox 95 95 95 95 03/31/20 03/31/20 03/31/20 03/31/20 18:17 18:47 19:47 20:17 Pulse 86 88 90 94 Resp 20 24 20 20 Pulse Ox 95 92 92 96 03/31/20 03/31/20 03/31/20 03/31/20 20:47 21:17 21:47 22:17 Temp 96.9 96.9 Pulse 94 100 100 100 Resp 20 14 15 14 Pulse Ox 95 97 96 97 03/31/20 03/31/20 03/31/20 04/01/20 22:47 23:17 23:47 01:17 Pulse 94 96 94 98 Resp 16 20 17 27 Pulse Ox 94 94 100 94 04/01/20 04/01/20 04/01/20 04/01/20 02:17 03:17 04:17 05:17 Temp 96.3 96.3 Pulse 88 82 79 91 Resp 22 Pulse Ox 95 95 95 95 Intake and Output 03/31/20 03/31/20 04/01/20 15:00 23:00 07:00 Intake Total 1000 ml 1000 ml Balance 1000 ml 1000 ml Justicifation of Admission Dx: Justifications for Admission: Justification of Admission Dx: Yes Acute Renal Failure: 75% Reduction in GFR Sepsis: Altered Mental Status Comments: SEPSIS ARSEN DALY MD Apr 01, 2020 10:54
[2020-04-01] MEDS ORDERED: DEXTROSE 50% 25 GM / 50ML DISP.SYRIN. IV PRN (11:00)
[2020-04-01] MEDS: INSULIN LISPRO 300 UNITS/3 ML VIAL. SQ SCH ×2 (12:00→17:00)
[2020-04-01] MEDS ORDERED: ALBUMIN HUMAN 25% 200 ML IV PRN (12:15)
[2020-04-01] MEDS ORDERED: DIALYSIS PATIENT. MC PRN ×2 (12:15)
[2020-04-01] MEDS ORDERED: 0.9 % SODIUM CHLORIDE 10 ML DISP.SYRIN. IV PRN ×2 (12:15)
[2020-04-01] MEDS ORDERED: IV NORMAL SALINE 1000ML BAG 1,000 ML IV PRN ×2 (12:15)
[2020-04-01] MEDS: NOREPINEPHRINE VIAL 8 MG in IV DEXTROSE 5% 250 ML IV PRN (12:18)
[2020-04-01] MEDS ORDERED: VANCOMYCIN 2 GM in IV NORMAL SALINE 500ML BAG 500 ML IV ONE (12:45)
--- NOTE | 2020-04-01 12:53 | PDOC2 ---
CONSULT Date of Consult Date of Consult DATE: 04/01/20 TIME: 12:47 Reason for Consult Reason for Consult: Renal failure on dialysis Referring Physician Referring Physician: jani Identification/Chief Complaint Chief Complaint Altered mental status Source Source: Chart review History of Present Illness Reason for Visit: Patient currently a COVID-19 PUI and is unable to obtain history from the patient. Most of it been obtained from electronic records and available dialysis records Patient is a 64-year-old gentleman appears to be a resident of [facility]. It is reported that he had an MRI in October of this year and was treated for the same at . Around that time dialysis was initiated and he is currently under the care of nephrology and dialyzes on [facility]. He apparently was at dialysis yesterday and was sent to the ER with altered mental status. Reportedly was very confused and when blood sugars were checked it was 24. Patient was grossly hypothermic with a temperature reported from the ER in the 90s. We were asked to evaluate him for dialysis. He is now been admitted to the ICU remains on a dextrose drip. Potassium was noted to be low and he remains on supplementation for the same. Is also noted to have significant metabolic acidosis with a bicarb of 18 BUN of 61 creatinine 6.2 Past Medical History Cardiovascular: HTN Renal/: Chronic renal failure Endocrine: Diabetes Family History Family History: No Significant, Hypertension Social History No ALCOHOL: none Drugs: None Current Problem List Problem List Problems Medical Problems: (1) ESRD (end stage renal disease) on dialysis Status: Acute (2) Hypoglycemia Status: Acute (3) Hypokalemia Status: Acute (4) Severe sepsis Status: Acute Current Medications Current Medications Current Medications Dextrose (Dextrose 50%-Water Syringe) 25 gm 1X ONCE IV Last administered on 03/31/20at 13:51; Start 03/31/20 at 13:15; Stop 03/31/20 at 13:26; Status DC Sodium Chloride 1,000 ml @ 1,000 mls/hr 1X ONCE IV Last administered on 03/31/20at 17:34; Start 03/31/20 at 15:30; Stop 03/31/20 at 16:29; Status DC Piperacillin Sod/ Tazobactam Sod 3.375 gm/Sodium Chloride 50 ml @ 100 mls/hr 1X ONCE IV ; Start 03/31/20 at 15:30; Stop 03/31/20 at 15:59; Status DC Potassium Chloride 40 meq/ Dextrose 1,020 ml @ 75 mls/hr [id number] IV Last administered on 04/01/20at 09:55; Start 03/31/20 at 16:00 Dextrose (Dextrose 50%-Water Syringe) 25 gm 1X ONCE IV Last administered on 03/31/20at 15:36; Start 03/31/20 at 15:30; Stop 03/31/20 at 15:31; Status DC Lorazepam (Ativan Inj) 1 mg 1X ONCE IVP Last administered on 03/31/20at 15:46; Start 03/31/20 at 15:45; Stop 03/31/20 at 15:46; Status DC Cefepime HCl (Maxipime) 2 gm 1X ONCE IVP Last administered on 03/31/20at 16:53; Start 03/31/20 at 16:15; Stop 03/31/20 at 16:16; Status DC Sodium Chloride 1,000 ml @ 75 mls/hr [id number] IV Last administered on 03/31/20at 18:36; Start 03/31/20 at 17:30; Stop 04/01/20 at 17:29 Sodium Chloride 1,000 ml @ 1,000 mls/hr Q1H IV Last administered on 04/01/20at 01:05; Start 03/31/20 at 21:30; Stop 03/31/20 at 23:49; Status DC Sodium Chloride 500 ml @ 1,000 mls/hr PRN Q30MIN PRN IV SEE COMMENTS; Start 03/31/20 at 21:15 Norepinephrine Bitartrate 8 mg/ Dextrose 258 ml @ 0 mls/hr CONT PRN IV SEE I/O RECORD Last administered on 04/01/20at 12:18; Start 03/31/20 at 21:15 Dextrose (Dextrose 50%-Water Syringe) 25 gm STK-MED ONCE IV ; Start 04/01/20 at 05:20; Stop 04/01/20 at 05:20; Status DC Dextrose (Dextrose 50%-Water Syringe) 25 gm 1X ONCE IV Last administered on 04/01/20at 05:21; Start 04/01/20 at 08:45; Stop 04/01/20 at 08:46; Status DC Insulin Human Lispro (HumaLOG) 0-5 UNITS TIDWMEALS SQ ; Start 04/01/20 at 12:00 Dextrose (Dextrose 50%-Water Syringe) 12.5 gm PRN Q15MIN PRN IV SEE COMMENTS; Start 04/01/20 at 11:00 Sodium Chloride 1,000 ml @ 1,000 mls/hr Q1H PRN IV hypotension; Start 04/01/20 at 12:15; Stop 04/01/20 at 18:14 Albumin Human 200 ml @ 200 mls/hr 1X PRN PRN IV Hypotension Last administered on 04/01/20at 12:16; Start 04/01/20 at 12:15; Stop 04/01/20 at 18:14 Sodium Chloride (Normal Saline Flush) 10 ml 1X PRN PRN IV AP catheter pack; Start 04/01/20 at 12:15; Stop 04/02/20 at 12:14 Sodium Chloride (Normal Saline Flush) 10 ml 1X PRN PRN IV FOUNDRY HAND catheter pack; Start 04/01/20 at 12:15; Stop 04/02/20 at 12:14 Sodium Chloride 1,000 ml @ 400 mls/hr Q2H30M PRN IV PATENCY; Start 04/01/20 at 12:15; Stop 04/02/20 at 00:14 Info (PHARMACY MONITORING -- do not chart) 1 each PRN DAILY PRN MC SEE COMMENTS; Start 04/01/20 at 12:15; Stop 04/01/20 at 12:12; Status DC Info (PHARMACY MONITORING -- do not chart) 1 each PRN DAILY PRN MC SEE COMMENTS; Start 04/01/20 at 12:15 Vancomycin HCl (Vanco Per Pharmacy) 1 each PRN DAILY PRN MC SEE COMMENTS; Start 04/01/20 at 12:30 Meropenem 1 gm/ Sodium Chloride 100 ml @ 200 mls/hr DAILY IV ; Start 04/01/20 at 13:00 Vancomycin HCl 2 gm/Sodium Chloride 500 ml @ 250 mls/hr 1X ONCE IV ; Start 04/01/20 at 12:45; Stop 04/01/20 at 14:44 Allergies Allergies: Coded Allergies: peanut (Verified Allergy, Severe, Anaphylaxis, 03/31/20) Penicillins (Verified Allergy, Intermediate, hives, 03/31/20) aspirin (Verified Allergy, Intermediate, rash, 03/31/20) latex (Verified Allergy, Intermediate, 03/31/20) metformin (Verified Allergy, Intermediate, 03/31/20) nitroglycerin (Verified Allergy, Intermediate, 03/31/20) ondansetron (Verified Allergy, Intermediate, 03/31/20) ROS Review of System Unable to obtain from the patient currently due to COVID-19 PUI status Physical Exam Physical Exam Unable to comprehensively examine due to COVID-19 PUI status. I have reviewed documentation of other providers and corroborated his physical exam with the nurse. He appears awake but confused and unable to provide much in terms of history. Vital Signs Vital Signs Date Time Temp Pulse Resp B/P (MAP) Pulse Ox O2 Delivery O2 Flow Rate FiO2 04/01/20 11:00 87 18 95/53 (67) 96 Nasal Cannula 5.0 04/01/20 10:00 94.8 94.8 Assessment & Plan ESRD: Dialysis as ordered Hypotension: Now on small doses of pressors Hyponatremia: Suspect due to dextrose containing IV fluids Hypo kalemia: Potassium replacement as ordered. He will be dialyzed on a 4K bath and potassium will be rechecked and replaced as needed Tendency to hypoglycemia: Defer to primary team to evaluate and treat Severe hypoalbuminemia: Cannot rule out malnutrition Anemia: Epogen as ordered Fluid overload on chest x-ray: We may not be able to ultrafiltrate much due to marginal hemodynamics Edema: Cannot rule out liver failure Discussed Plan of Care and prognosis etc. at length with family. Labs Labs Laboratory Tests Test 03/31/20 13:07 03/31/20 13:20 03/31/20 13:30 03/31/20 14:18 Glucose (Fingerstick) 48 mg/dL (70-99) 138 mg/dL (70-99) White Blood Count 5.8 x10^3/uL (4.0-11.0) Red Blood Count 2.97 x10^6/uL (4.30-5.70) Hemoglobin 9.1 g/dL (13.0-17.5) Hematocrit 27.5 % (39.0-53.0) Mean Corpuscular Volume 93 fL (79-100) Mean Corpuscular Hemoglobin 31 pg (25-35) Mean Corpuscular Hemoglobin Concent 33 g/dL (31-37) Red Cell Distribution Width 28.4 % (11.5-14.5) Platelet Count 84 x10^3/uL (140-400) Neutrophils (%) (Auto) 84 % (31-73) Lymphocytes (%) (Auto) 7 % (24-48) Monocytes (%) (Auto) 8 % (0-9) Eosinophils (%) (Auto) 1 % (0-3) Basophils (%) (Auto) 0 % (0-3) Neutrophils # (Auto) 4.9 x10^3/uL (1.8-7.7) Lymphocytes # (Auto) 0.4 x10^3/uL (1.0-4.8) Monocytes # (Auto) 0.4 x10^3/uL (0.0-1.1) Eosinophils # (Auto) 0.0 x10^3/uL (0.0-0.7) Basophils # (Auto) 0.0 x10^3/uL (0.0-0.2) Platelet Estimate Decreased (ADEQUATE) Polychromasia Slight Hypochromasia Slight Poikilocytosis Slight Anisocytosis Marked Target Cells Occ Schistocytes Occ Sodium Level 126 mmol/L (136-145) Potassium Level 2.6 mmol/L (3.5-5.1) Chloride Level 88 mmol/L (98-107) Carbon Dioxide Level 18 mmol/L (21-32) Anion Gap 20 (6-14) Blood Urea Nitrogen 62 mg/dL (8-26) Creatinine 6.2 mg/dL (0.7-1.3) Estimated GFR (Cockcroft-Gault) 9.2 BUN/Creatinine Ratio 10 (6-20) Glucose Level 47 mg/dL (70-99) Lactic Acid Level 3.8 mmol/L (0.4-2.0) Calcium Level 9.2 mg/dL (8.5-10.1) Magnesium Level 2.6 mg/dL (1.8-2.4) Total Bilirubin 4.3 mg/dL (0.2-1.0) Aspartate Amino Transf (AST/SGOT) 40 U/L (15-37) Alanine Aminotransferase (ALT/SGPT) 30 U/L (16-63) Alkaline Phosphatase 190 U/L (46-116) Total Protein 6.1 g/dL (6.4-8.2) Albumin 2.6 g/dL (3.4-5.0) Albumin/Globulin Ratio 0.7 (1.0-1.7) Fibrinogen 313 mg/dL (200-440) D-Dimer (Radha) 9.36 ug/mlFEU (0.00-0.50) Procalcitonin 1.10 ng/mL (0.00-0.10) Test 03/31/20 15:26 03/31/20 16:58 03/31/20 17:45 03/31/20 18:40 Glucose (Fingerstick) 92 mg/dL (70-99) 152 mg/dL (70-99) Lactic Acid Level 2.9 mmol/L (0.4-2.0) Ammonia 62 mcmol/L (11-34) Test 03/31/20 20:39 03/31/20 22:40 04/01/20 01:20 04/01/20 03:20 Glucose (Fingerstick) 110 mg/dL (70-99) Lactic Acid Level 2.4 mmol/L (0.4-2.0) White Blood Count 5.9 x10^3/uL (4.0-11.0) Red Blood Count 2.55 x10^6/uL (4.30-5.70) Hemoglobin 7.9 g/dL (13.0-17.5) Hematocrit 23.3 % (39.0-53.0) Mean Corpuscular Volume 91 fL (79-100) Mean Corpuscular Hemoglobin 31 pg (25-35) Mean Corpuscular Hemoglobin Concent 34 g/dL (31-37) Red Cell Distribution Width 28.1 % (11.5-14.5) Platelet Count 107 x10^3/uL (140-400) Neutrophils (%) (Auto) 79 % (31-73) Lymphocytes (%) (Auto) 8 % (24-48) Monocytes (%) (Auto) 10 % (0-9) Eosinophils (%) (Auto) 2 % (0-3) Basophils (%) (Auto) 1 % (0-3) Neutrophils # (Auto) 4.6 x10^3/uL (1.8-7.7) Lymphocytes # (Auto) 0.5 x10^3/uL (1.0-4.8) Monocytes # (Auto) 0.6 x10^3/uL (0.0-1.1) Eosinophils # (Auto) 0.1 x10^3/uL (0.0-0.7) Basophils # (Auto) 0.0 x10^3/uL (0.0-0.2) Sodium Level 127 mmol/L (136-145) Potassium Level 2.8 mmol/L (3.5-5.1) Chloride Level 92 mmol/L (98-107) Carbon Dioxide Level 18 mmol/L (21-32) Anion Gap 17 (6-14) Blood Urea Nitrogen 61 mg/dL (8-26) Creatinine 6.2 mg/dL (0.7-1.3) Estimated GFR (Cockcroft-Gault) 9.2 BUN/Creatinine Ratio 10 (6-20) Glucose Level 53 mg/dL (70-99) Calcium Level 8.2 mg/dL (8.5-10.1) Total Bilirubin 3.5 mg/dL (0.2-1.0) Aspartate Amino Transf (AST/SGOT) 43 U/L (15-37) Alanine Aminotransferase (ALT/SGPT) 29 U/L (16-63) Alkaline Phosphatase 153 U/L (46-116) Total Protein 5.1 g/dL (6.4-8.2) Albumin 2.1 g/dL (3.4-5.0) Albumin/Globulin Ratio 0.7 (1.0-1.7) Test 04/01/20 05:19 04/01/20 05:40 04/01/20 08:01 04/01/20 11:45 Glucose (Fingerstick) 38 mg/dL (70-99) 132 mg/dL (70-99) 78 mg/dL (70-99) Potassium Level 2.9 mmol/L (3.5-5.1) Laboratory Tests Test 03/31/20 13:07 03/31/20 13:20 03/31/20 13:30 03/31/20 14:18 Glucose (Fingerstick) 48 mg/dL (70-99) 138 mg/dL (70-99) White Blood Count 5.8 x10^3/uL (4.0-11.0) Red Blood Count 2.97 x10^6/uL (4.30-5.70) Hemoglobin 9.1 g/dL (13.0-17.5) Hematocrit 27.5 % (39.0-53.0) Mean Corpuscular Volume 93 fL (79-100) Mean Corpuscular Hemoglobin 31 pg (25-35) Mean Corpuscular Hemoglobin Concent 33 g/dL (31-37) Red Cell Distribution Width 28.4 % (11.5-14.5) Platelet Count 84 x10^3/uL (140-400) Neutrophils (%) (Auto) 84 % (31-73) Lymphocytes (%) (Auto) 7 % (24-48) Monocytes (%) (Auto) 8 % (0-9) Eosinophils (%) (Auto) 1 % (0-3) Basophils (%) (Auto) 0 % (0-3) Neutrophils # (Auto) 4.9 x10^3/uL (1.8-7.7) Lymphocytes # (Auto) 0.4 x10^3/uL (1.0-4.8) Monocytes # (Auto) 0.4 x10^3/uL (0.0-1.1) Eosinophils # (Auto) 0.0 x10^3/uL (0.0-0.7) Basophils # (Auto) 0.0 x10^3/uL (0.0-0.2) Platelet Estimate Decreased (ADEQUATE) Polychromasia Slight Hypochromasia Slight Poikilocytosis Slight Anisocytosis Marked Target Cells Occ Schistocytes Occ Sodium Level 126 mmol/L (136-145) Potassium Level 2.6 mmol/L (3.5-5.1) Chloride Level 88 mmol/L (98-107) Carbon Dioxide Level 18 mmol/L (21-32) Anion Gap 20 (6-14) Blood Urea Nitrogen 62 mg/dL (8-26) Creatinine 6.2 mg/dL (0.7-1.3) Estimated GFR (Cockcroft-Gault) 9.2 BUN/Creatinine Ratio 10 (6-20) Glucose Level 47 mg/dL (70-99) Lactic Acid Level 3.8 mmol/L (0.4-2.0) Calcium Level 9.2 mg/dL (8.5-10.1) Magnesium Level 2.6 mg/dL (1.8-2.4) Total Bilirubin 4.3 mg/dL (0.2-1.0) Aspartate Amino Transf (AST/SGOT) 40 U/L (15-37) Alanine Aminotransferase (ALT/SGPT) 30 U/L (16-63) Alkaline Phosphatase 190 U/L (46-116) Total Protein 6.1 g/dL (6.4-8.2) Albumin 2.6 g/dL (3.4-5.0) Albumin/Globulin Ratio 0.7 (1.0-1.7) Fibrinogen 313 mg/dL (200-440) D-Dimer (Radha) 9.36 ug/mlFEU (0.00-0.50) Procalcitonin 1.10 ng/mL (0.00-0.10) Test 03/31/20 15:26 03/31/20 16:58 03/31/20 17:45 03/31/20 18:40 Glucose (Fingerstick) 92 mg/dL (70-99) 152 mg/dL (70-99) Lactic Acid Level 2.9 mmol/L (0.4-2.0) Ammonia 62 mcmol/L (11-34) Test 03/31/20 20:39 03/31/20 22:40 04/01/20 01:20 04/01/20 03:20 Glucose (Fingerstick) 110 mg/dL (70-99) Lactic Acid Level 2.4 mmol/L (0.4-2.0) White Blood Count 5.9 x10^3/uL (4.0-11.0) Red Blood Count 2.55 x10^6/uL (4.30-5.70) Hemoglobin 7.9 g/dL (13.0-17.5) Hematocrit 23.3 % (39.0-53.0) Mean Corpuscular Volume 91 fL (79-100) Mean Corpuscular Hemoglobin 31 pg (25-35) Mean Corpuscular Hemoglobin Concent 34 g/dL (31-37) Red Cell Distribution Width 28.1 % (11.5-14.5) Platelet Count 107 x10^3/uL (140-400) Neutrophils (%) (Auto) 79 % (31-73) Lymphocytes (%) (Auto) 8 % (24-48) Monocytes (%) (Auto) 10 % (0-9) Eosinophils (%) (Auto) 2 % (0-3) Basophils (%) (Auto) 1 % (0-3) Neutrophils # (Auto) 4.6 x10^3/uL (1.8-7.7) Lymphocytes # (Auto) 0.5 x10^3/uL (1.0-4.8) Monocytes # (Auto) 0.6 x10^3/uL (0.0-1.1) Eosinophils # (Auto) 0.1 x10^3/uL (0.0-0.7) Basophils # (Auto) 0.0 x10^3/uL (0.0-0.2) Sodium Level 127 mmol/L (136-145) Potassium Level 2.8 mmol/L (3.5-5.1) Chloride Level 92 mmol/L (98-107) Carbon Dioxide Level 18 mmol/L (21-32) Anion Gap 17 (6-14) Blood Urea Nitrogen 61 mg/dL (8-26) Creatinine 6.2 mg/dL (0.7-1.3) Estimated GFR (Cockcroft-Gault) 9.2 BUN/Creatinine Ratio 10 (6-20) Glucose Level 53 mg/dL (70-99) Calcium Level 8.2 mg/dL (8.5-10.1) Total Bilirubin 3.5 mg/dL (0.2-1.0) Aspartate Amino Transf (AST/SGOT) 43 U/L (15-37) Alanine Aminotransferase (ALT/SGPT) 29 U/L (16-63) Alkaline Phosphatase 153 U/L (46-116) Total Protein 5.1 g/dL (6.4-8.2) Albumin 2.1 g/dL (3.4-5.0) Albumin/Globulin Ratio 0.7 (1.0-1.7) Test 04/01/20 05:19 04/01/20 05:40 04/01/20 08:01 04/01/20 11:45 Glucose (Fingerstick) 38 mg/dL (70-99) 132 mg/dL (70-99) 78 mg/dL (70-99) Potassium Level 2.9 mmol/L (3.5-5.1) Review All relevant outside records, renal labs, imaging studies, telemetry/EKG's were reviewed. Images Images FINDINGS: A frontal view of the chest is obtained. There is diffuse interstitial infiltrate. There are small pleural effusions. There is a right central venous catheter with the tip in the superior cavoatrial junction. There is no pneumothorax. The heart is normal in size for supine portable technique. IMPRESSION: Diffuse interstitial infiltrate and small pleural effusions. ERIC BROWER MD Apr 01, 2020 12:53
[2020-04-01] MEDS ORDERED: MAGNESIUM SULFATE 2GM 50 ML IV PRN ×2 (13:00)
--- NOTE | 2020-04-01 13:10 | RAD ---
XR CHEST 1V INDICATION: SEPSIS . COMPARISON STUDY: 03/31/2020. FINDINGS: Life Support Devices: Stable right IJ dual-lumen catheter. Lungs: Low lung volume. Bilateral interstitial opacities, improving on the right. Pleura: Stable small left pleural effusion. Heart and Mediastinum: Stable cardiomediastinal silhouette and great vessels. IMPRESSION: 1. Bilateral opacities, improving on the right. 2. Stable small left pleural effusion. Electronically signed by: Rubin Eubanks MD (04/01/2020 1:07 PM) [id number]
--- NOTE | 2020-04-01 13:14 | PDOC ---
Dialysis Progress Note Date of Service: DATE: 04/01/20 TIME: 13:01 Dialysis Note Dialysis Note Seen on Hemodialysis, tolerating treatment Okay for now with pressors Vitals on Hemodialysis: 95/57 105 afeb General Appearance: Awake but min verbal ESRD v/s ARF: Dialysis as below F 180 NR 3.0 Hrs 4 K 2.5 Ca 140 Na 40 HC03 Qb 350 + Qd 500+ Heparin 0 Units Uf 0-1 Kgs or to dry weight as tolerated May give 25-50 gms of 25% Albumin if needed to maintain Hemodynamic stability Treatment plan reviewed and discussed with document advisor Discussed plan with Dr. Felton Brower: May need tunneled dialysis catheter removal in the near future Vitals Vital Signs Vital Signs Date Time Temp Pulse Resp B/P (MAP) Pulse Ox O2 Delivery O2 Flow Rate FiO2 04/01/20 11:00 87 18 95/53 (67) 96 Nasal Cannula 5.0 04/01/20 10:00 94.8 94.8 Labs Last Labs Laboratory Tests Test 03/31/20 13:07 03/31/20 13:20 03/31/20 13:30 03/31/20 14:18 Glucose (Fingerstick) 48 mg/dL (70-99) 138 mg/dL (70-99) White Blood Count 5.8 x10^3/uL (4.0-11.0) Red Blood Count 2.97 x10^6/uL (4.30-5.70) Hemoglobin 9.1 g/dL (13.0-17.5) Hematocrit 27.5 % (39.0-53.0) Mean Corpuscular Volume 93 fL (79-100) Mean Corpuscular Hemoglobin 31 pg (25-35) Mean Corpuscular Hemoglobin Concent 33 g/dL (31-37) Red Cell Distribution Width 28.4 % (11.5-14.5) Platelet Count 84 x10^3/uL (140-400) Neutrophils (%) (Auto) 84 % (31-73) Lymphocytes (%) (Auto) 7 % (24-48) Monocytes (%) (Auto) 8 % (0-9) Eosinophils (%) (Auto) 1 % (0-3) Basophils (%) (Auto) 0 % (0-3) Neutrophils # (Auto) 4.9 x10^3/uL (1.8-7.7) Lymphocytes # (Auto) 0.4 x10^3/uL (1.0-4.8) Monocytes # (Auto) 0.4 x10^3/uL (0.0-1.1) Eosinophils # (Auto) 0.0 x10^3/uL (0.0-0.7) Basophils # (Auto) 0.0 x10^3/uL (0.0-0.2) Platelet Estimate Decreased (ADEQUATE) Polychromasia Slight Hypochromasia Slight Poikilocytosis Slight Anisocytosis Marked Target Cells Occ Schistocytes Occ Sodium Level 126 mmol/L (136-145) Potassium Level 2.6 mmol/L (3.5-5.1) Chloride Level 88 mmol/L (98-107) Carbon Dioxide Level 18 mmol/L (21-32) Anion Gap 20 (6-14) Blood Urea Nitrogen 62 mg/dL (8-26) Creatinine 6.2 mg/dL (0.7-1.3) Estimated GFR (Cockcroft-Gault) 9.2 BUN/Creatinine Ratio 10 (6-20) Glucose Level 47 mg/dL (70-99) Lactic Acid Level 3.8 mmol/L (0.4-2.0) Calcium Level 9.2 mg/dL (8.5-10.1) Magnesium Level 2.6 mg/dL (1.8-2.4) Total Bilirubin 4.3 mg/dL (0.2-1.0) Aspartate Amino Transf (AST/SGOT) 40 U/L (15-37) Alanine Aminotransferase (ALT/SGPT) 30 U/L (16-63) Alkaline Phosphatase 190 U/L (46-116) Total Protein 6.1 g/dL (6.4-8.2) Albumin 2.6 g/dL (3.4-5.0) Albumin/Globulin Ratio 0.7 (1.0-1.7) Fibrinogen 313 mg/dL (200-440) D-Dimer (Radha) 9.36 ug/mlFEU (0.00-0.50) Procalcitonin 1.10 ng/mL (0.00-0.10) Test 03/31/20 15:26 03/31/20 16:58 03/31/20 17:45 03/31/20 18:40 Glucose (Fingerstick) 92 mg/dL (70-99) 152 mg/dL (70-99) Lactic Acid Level 2.9 mmol/L (0.4-2.0) Ammonia 62 mcmol/L (11-34) Test 03/31/20 20:39 03/31/20 22:40 04/01/20 01:20 04/01/20 03:20 Glucose (Fingerstick) 110 mg/dL (70-99) Lactic Acid Level 2.4 mmol/L (0.4-2.0) White Blood Count 5.9 x10^3/uL (4.0-11.0) Red Blood Count 2.55 x10^6/uL (4.30-5.70) Hemoglobin 7.9 g/dL (13.0-17.5) Hematocrit 23.3 % (39.0-53.0) Mean Corpuscular Volume 91 fL (79-100) Mean Corpuscular Hemoglobin 31 pg (25-35) Mean Corpuscular Hemoglobin Concent 34 g/dL (31-37) Red Cell Distribution Width 28.1 % (11.5-14.5) Platelet Count 107 x10^3/uL (140-400) Neutrophils (%) (Auto) 79 % (31-73) Lymphocytes (%) (Auto) 8 % (24-48) Monocytes (%) (Auto) 10 % (0-9) Eosinophils (%) (Auto) 2 % (0-3) Basophils (%) (Auto) 1 % (0-3) Neutrophils # (Auto) 4.6 x10^3/uL (1.8-7.7) Lymphocytes # (Auto) 0.5 x10^3/uL (1.0-4.8) Monocytes # (Auto) 0.6 x10^3/uL (0.0-1.1) Eosinophils # (Auto) 0.1 x10^3/uL (0.0-0.7) Basophils # (Auto) 0.0 x10^3/uL (0.0-0.2) Sodium Level 127 mmol/L (136-145) Potassium Level 2.8 mmol/L (3.5-5.1) Chloride Level 92 mmol/L (98-107) Carbon Dioxide Level 18 mmol/L (21-32) Anion Gap 17 (6-14) Blood Urea Nitrogen 61 mg/dL (8-26) Creatinine 6.2 mg/dL (0.7-1.3) Estimated GFR (Cockcroft-Gault) 9.2 BUN/Creatinine Ratio 10 (6-20) Glucose Level 53 mg/dL (70-99) Calcium Level 8.2 mg/dL (8.5-10.1) Total Bilirubin 3.5 mg/dL (0.2-1.0) Aspartate Amino Transf (AST/SGOT) 43 U/L (15-37) Alanine Aminotransferase (ALT/SGPT) 29 U/L (16-63) Alkaline Phosphatase 153 U/L (46-116) Total Protein 5.1 g/dL (6.4-8.2) Albumin 2.1 g/dL (3.4-5.0) Albumin/Globulin Ratio 0.7 (1.0-1.7) Test 04/01/20 05:19 04/01/20 05:40 04/01/20 08:01 04/01/20 11:45 Glucose (Fingerstick) 38 mg/dL (70-99) 132 mg/dL (70-99) 78 mg/dL (70-99) Potassium Level 2.9 mmol/L (3.5-5.1) Laboratory Tests Test 03/31/20 13:07 03/31/20 13:20 03/31/20 13:30 03/31/20 14:18 Glucose (Fingerstick) 48 mg/dL (70-99) 138 mg/dL (70-99) White Blood Count 5.8 x10^3/uL (4.0-11.0) Red Blood Count 2.97 x10^6/uL (4.30-5.70) Hemoglobin 9.1 g/dL (13.0-17.5) Hematocrit 27.5 % (39.0-53.0) Mean Corpuscular Volume 93 fL (79-100) Mean Corpuscular Hemoglobin 31 pg (25-35) Mean Corpuscular Hemoglobin Concent 33 g/dL (31-37) Red Cell Distribution Width 28.4 % (11.5-14.5) Platelet Count 84 x10^3/uL (140-400) Neutrophils (%) (Auto) 84 % (31-73) Lymphocytes (%) (Auto) 7 % (24-48) Monocytes (%) (Auto) 8 % (0-9) Eosinophils (%) (Auto) 1 % (0-3) Basophils (%) (Auto) 0 % (0-3) Neutrophils # (Auto) 4.9 x10^3/uL (1.8-7.7) Lymphocytes # (Auto) 0.4 x10^3/uL (1.0-4.8) Monocytes # (Auto) 0.4 x10^3/uL (0.0-1.1) Eosinophils # (Auto) 0.0 x10^3/uL (0.0-0.7) Basophils # (Auto) 0.0 x10^3/uL (0.0-0.2) Platelet Estimate Decreased (ADEQUATE) Polychromasia Slight Hypochromasia Slight Poikilocytosis Slight Anisocytosis Marked Target Cells Occ Schistocytes Occ Sodium Level 126 mmol/L (136-145) Potassium Level 2.6 mmol/L (3.5-5.1) Chloride Level 88 mmol/L (98-107) Carbon Dioxide Level 18 mmol/L (21-32) Anion Gap 20 (6-14) Blood Urea Nitrogen 62 mg/dL (8-26) Creatinine 6.2 mg/dL (0.7-1.3) Estimated GFR (Cockcroft-Gault) 9.2 BUN/Creatinine Ratio 10 (6-20) Glucose Level 47 mg/dL (70-99) Lactic Acid Level 3.8 mmol/L (0.4-2.0) Calcium Level 9.2 mg/dL (8.5-10.1) Magnesium Level 2.6 mg/dL (1.8-2.4) Total Bilirubin 4.3 mg/dL (0.2-1.0) Aspartate Amino Transf (AST/SGOT) 40 U/L (15-37) Alanine Aminotransferase (ALT/SGPT) 30 U/L (16-63) Alkaline Phosphatase 190 U/L (46-116) Total Protein 6.1 g/dL (6.4-8.2) Albumin 2.6 g/dL (3.4-5.0) Albumin/Globulin Ratio 0.7 (1.0-1.7) Fibrinogen 313 mg/dL (200-440) D-Dimer (Radha) 9.36 ug/mlFEU (0.00-0.50) Procalcitonin 1.10 ng/mL (0.00-0.10) Test 03/31/20 15:26 03/31/20 16:58 03/31/20 17:45 03/31/20 18:40 Glucose (Fingerstick) 92 mg/dL (70-99) 152 mg/dL (70-99) Lactic Acid Level 2.9 mmol/L (0.4-2.0) Ammonia 62 mcmol/L (11-34) Test 03/31/20 20:39 03/31/20 22:40 04/01/20 01:20 04/01/20 03:20 Glucose (Fingerstick) 110 mg/dL (70-99) Lactic Acid Level 2.4 mmol/L (0.4-2.0) White Blood Count 5.9 x10^3/uL (4.0-11.0) Red Blood Count 2.55 x10^6/uL (4.30-5.70) Hemoglobin 7.9 g/dL (13.0-17.5) Hematocrit 23.3 % (39.0-53.0) Mean Corpuscular Volume 91 fL (79-100) Mean Corpuscular Hemoglobin 31 pg (25-35) Mean Corpuscular Hemoglobin Concent 34 g/dL (31-37) Red Cell Distribution Width 28.1 % (11.5-14.5) Platelet Count 107 x10^3/uL (140-400) Neutrophils (%) (Auto) 79 % (31-73) Lymphocytes (%) (Auto) 8 % (24-48) Monocytes (%) (Auto) 10 % (0-9) Eosinophils (%) (Auto) 2 % (0-3) Basophils (%) (Auto) 1 % (0-3) Neutrophils # (Auto) 4.6 x10^3/uL (1.8-7.7) Lymphocytes # (Auto) 0.5 x10^3/uL (1.0-4.8) Monocytes # (Auto) 0.6 x10^3/uL (0.0-1.1) Eosinophils # (Auto) 0.1 x10^3/uL (0.0-0.7) Basophils # (Auto) 0.0 x10^3/uL (0.0-0.2) Sodium Level 127 mmol/L (136-145) Potassium Level 2.8 mmol/L (3.5-5.1) Chloride Level 92 mmol/L (98-107) Carbon Dioxide Level 18 mmol/L (21-32) Anion Gap 17 (6-14) Blood Urea Nitrogen 61 mg/dL (8-26) Creatinine 6.2 mg/dL (0.7-1.3) Estimated GFR (Cockcroft-Gault) 9.2 BUN/Creatinine Ratio 10 (6-20) Glucose Level 53 mg/dL (70-99) Calcium Level 8.2 mg/dL (8.5-10.1) Total Bilirubin 3.5 mg/dL (0.2-1.0) Aspartate Amino Transf (AST/SGOT) 43 U/L (15-37) Alanine Aminotransferase (ALT/SGPT) 29 U/L (16-63) Alkaline Phosphatase 153 U/L (46-116) Total Protein 5.1 g/dL (6.4-8.2) Albumin 2.1 g/dL (3.4-5.0) Albumin/Globulin Ratio 0.7 (1.0-1.7) Test 04/01/20 05:19 04/01/20 05:40 04/01/20 08:01 04/01/20 11:45 Glucose (Fingerstick) 38 mg/dL (70-99) 132 mg/dL (70-99) 78 mg/dL (70-99) Potassium Level 2.9 mmol/L (3.5-5.1) Assessment Assessment Problems Medical Problems: (1) ESRD (end stage renal disease) on dialysis Status: Acute (2) Hypoglycemia Status: Acute (3) Hypokalemia Status: Acute (4) Severe sepsis Status: Acute Plan Plan of Care Problems Medical Problems: (1) ESRD (end stage renal disease) on dialysis Status: Acute (2) Hypoglycemia Status: Acute (3) Hypokalemia Status: Acute (4) Severe sepsis Status: Acute REIC BROWER MD Apr 01, 2020 13:14
[2020-04-01] MEDS ORDERED: CRESTOR5 MG PO (13:44)
[2020-04-01] MEDS ORDERED: INSU100I32 SQ (13:44)
[2020-04-01] MEDS ORDERED: ACET500T68 PO (13:44)
[2020-04-01] MEDS ORDERED: CETI10TA74 PO (13:44)
[2020-04-01] MEDS ORDERED: MELA3TAB30 PO (13:44)
[2020-04-01] MEDS ORDERED: INSU100V6 SQ (13:44)
[2020-04-01] MEDS ORDERED: LEVO25TA4 PO (13:44)
[2020-04-01] MEDS ORDERED: ZINC220T3 PO (13:44)
[2020-04-01] MEDS ORDERED: CIPR250T30 PO (13:44)
[2020-04-01] MEDS ORDERED: RIFA550T4 PO (13:44)
[2020-04-01] MEDS ORDERED: MIDO5TAB4 PO (13:44)
[2020-04-01] MEDS ORDERED: SILD20TA4 PO (13:44)
[2020-04-01] MEDS ORDERED: LACT10PA3 PO (13:44)
[2020-04-01] MEDS ORDERED: GABA-585 PO (13:44)
[2020-04-01] MEDS ORDERED: POLY2500 PO (13:44)
[2020-04-01] MEDS ORDERED: MULT1TAB68 PO (13:44)
[2020-04-01] MEDS ORDERED: DEXL60CA2 PO (13:44)
--- NOTE | 2020-04-01 13:54 | CONS ---
DATE OF CONSULTATION: 04/01/2020 REFERRING PHYSICIAN: Mor Ponce MD REASON FOR CONSULTATION: Sepsis, antibiotic management. HISTORY OF PRESENT ILLNESS: A 64-year-old male with history of end-stage renal disease, on dialysis through right HDC catheter, diabetes, was sent to [place] ED from dialysis center due to altered mental status. He was also found to have hypoglycemia. Here, he was hypothermic, hypotensive requiring pressure support. His blood sugars were 24, later on went up to 47. He was given a dose of vancomycin and cefepime. White count was 5.8; hemoglobin of 9.1, dropped to 7.9; platelets of 84. D-dimer of 9.36. Chest x-ray showed diffuse interstitial infiltrate and small pleural effusion. Head CT showed mild small vessel ischemic changes. The patient is very confused. History obtained from chart and medical staff. No family is present by the patient's bedside in ICU. PAST MEDICAL HISTORY: Diabetes; end-stage renal disease, on dialysis; hypertension. FAMILY HISTORY: Noncontributory. SOCIAL HISTORY: No smoking, ETOH, or illicit drug use. CURRENT MEDICATIONS: One dose of cefepime, albumin, potassium, norepinephrine. ALLERGIES: PEANUT, ANAPHYLAXIS; PENICILLIN, HIVES; HAS TOLERATED CEFEPIME; ASPIRIN; LATEX; METFORMIN; NITROGLYCERIN, ZOFRAN. REVIEW OF SYSTEMS: Unable to obtain. PHYSICAL EXAMINATION: VITAL SIGNS: Temperature 94.8, pulse 87, respiratory rate 18, blood pressure 95/53, oxygen saturation 96% on 5 liters O2 by nasal cannula. The patient is on Jonathan Hugger. GENERAL: Confused male, arousable, does not answer all questions. HEENT: Normocephalic, atraumatic. Anicteric. Oral mucosa dry. NECK: Supple. LUNGS: Decreased breath sounds at the bases, some expiratory rhonchi. HEART: S1, S2, no murmurs. ABDOMEN: Soft, mildly distended, nontender, nondistended. EXTREMITIES: No edema, no cyanosis. DERMATOLOGIC: No generalized rash. LABORATORY DATA: WBC 5.9; hemoglobin 7.9, was 9.1; platelets 107, was 84. Sodium 126, potassium 2.6, chloride 88, bicarbonate 18, BUN 62, creatinine 6.2. Procalcitonin 1.10. D-dimer 9.36. DIAGNOSTICS: Chest x-ray as above. CT head as above. MICROBIOLOGY: Blood culture pending. IMPRESSION: 1. Severe sepsis, source unclear. 2. Hypothermia. 3. Metabolic encephalopathy. 4. End-stage renal disease, on hemodialysis. 5. Hypoglycemia. 6. COVID upper respiratory infection. 7. Lactic acidosis. 8. Thrombocytopenia. 9. Diabetes mellitus 2. RECOMMENDATIONS: 1. Start Merrem, renal dosing. Discussed with pharmacy. 2. Start vancomycin. 3. Follow up blood cultures. 4. Obtain CT abdomen and pelvis and chest. 5. Follow up COVID-19 PCR. 6. Obtain influenza rapid screen. 7. Critically ill. 8. Prognosis is guarded. 9. Discussed with RN. Thank you for allowing me to participate in this patient's care. If you have any questions, do not hesitate to contact me. NIKITA BROWER MD DR: SANDRA/pedro JOB#: [id number] / [id number]
[2020-04-01] MEDS: ACETAMINOPHEN 500 MG TABLET PO SCH ×2 (14:00→22:27)
--- NOTE | 2020-04-01 14:02 | PDOC2 ---
NEUROLOGY CONSULT Date of Service DOS: DATE: 04/01/20 TIME: 13:55 Reason for Consult Reason for Consult: Altered mental status Referring Physician Referring Physician: Dr. Ponce Source Source: Chart review, Patient History of Present Illness History of Present Illness The patient is a 64-year-old right-handed male transferred from dialysis with altered mental status. He was found to have hypothermia and hypoglycemia. He tells me he has no history of stroke or seizure. Apparently he has been in snf for general debility. He is getting dialysis today as I see him. 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 Current Medications Current Medications Current Medications Dextrose (Dextrose 50%-Water Syringe) 25 gm 1X ONCE IV Last administered on 03/31/20at 13:51; Start 03/31/20 at 13:15; Stop 03/31/20 at 13:26; Status DC Sodium Chloride 1,000 ml @ 1,000 mls/hr 1X ONCE IV Last administered on 03/31/20at 17:34; Start 03/31/20 at 15:30; Stop 03/31/20 at 16:29; Status DC Piperacillin Sod/ Tazobactam Sod 3.375 gm/Sodium Chloride 50 ml @ 100 mls/hr 1X ONCE IV ; Start 03/31/20 at 15:30; Stop 03/31/20 at 15:59; Status DC Potassium Chloride 40 meq/ Dextrose 1,020 ml @ 75 mls/hr [id number] IV Last administered on 04/01/20at 09:55; Start 03/31/20 at 16:00; Stop 04/01/20 at 12:59; Status DC Dextrose (Dextrose 50%-Water Syringe) 25 gm 1X ONCE IV Last administered on 03/31/20at 15:36; Start 03/31/20 at 15:30; Stop 03/31/20 at 15:31; Status DC Lorazepam (Ativan Inj) 1 mg 1X ONCE IVP Last administered on 03/31/20at 15:46; Start 03/31/20 at 15:45; Stop 03/31/20 at 15:46; Status DC Cefepime HCl (Maxipime) 2 gm 1X ONCE IVP Last administered on 03/31/20at 16:53; Start 03/31/20 at 16:15; Stop 03/31/20 at 16:16; Status DC Sodium Chloride 1,000 ml @ 75 mls/hr [id number] IV Last administered on 03/31/20at 18:36; Start 03/31/20 at 17:30; Stop 04/01/20 at 17:29 Sodium Chloride 1,000 ml @ 1,000 mls/hr Q1H IV Last administered on 04/01/20at 01:05; Start 03/31/20 at 21:30; Stop 03/31/20 at 23:49; Status DC Sodium Chloride 500 ml @ 1,000 mls/hr PRN Q30MIN PRN IV SEE COMMENTS; Start 03/31/20 at 21:15 Norepinephrine Bitartrate 8 mg/ Dextrose 258 ml @ 0 mls/hr CONT PRN IV SEE I/O RECORD Last administered on 04/01/20at 12:18; Start 03/31/20 at 21:15 Dextrose (Dextrose 50%-Water Syringe) 25 gm STK-MED ONCE IV ; Start 04/01/20 at 05:20; Stop 04/01/20 at 05:20; Status DC Dextrose (Dextrose 50%-Water Syringe) 25 gm 1X ONCE IV Last administered on 04/01/20at 05:21; Start 04/01/20 at 08:45; Stop 04/01/20 at 08:46; Status DC Insulin Human Lispro (HumaLOG) 0-5 UNITS TIDWMEALS SQ ; Start 04/01/20 at 12:00 Dextrose (Dextrose 50%-Water Syringe) 12.5 gm PRN Q15MIN PRN IV SEE COMMENTS; Start 04/01/20 at 11:00 Sodium Chloride 1,000 ml @ 1,000 mls/hr Q1H PRN IV hypotension; Start 04/01/20 at 12:15; Stop 04/01/20 at 18:14 Albumin Human 200 ml @ 200 mls/hr 1X PRN PRN IV Hypotension Last administered on 04/01/20at 12:16; Start 04/01/20 at 12:15; Stop 04/01/20 at 18:14 Sodium Chloride (Normal Saline Flush) 10 ml 1X PRN PRN IV AP catheter pack; Start 04/01/20 at 12:15; Stop 04/02/20 at 12:14 Sodium Chloride (Normal Saline Flush) 10 ml 1X PRN PRN IV [employer] catheter pack; Start 04/01/20 at 12:15; Stop 04/02/20 at 12:14 Sodium Chloride 1,000 ml @ 400 mls/hr Q2H30M PRN IV PATENCY; Start 04/01/20 at 12:15; Stop 04/02/20 at 00:14 Info (PHARMACY MONITORING -- do not chart) 1 each PRN DAILY PRN MC SEE COMMENTS; Start 04/01/20 at 12:15; Stop 04/01/20 at 12:12; Status DC Info (PHARMACY MONITORING -- do not chart) 1 each PRN DAILY PRN MC SEE COMMENTS; Start 04/01/20 at 12:15 Vancomycin HCl (Vanco Per Pharmacy) 1 each PRN DAILY PRN MC SEE COMMENTS; Start 04/01/20 at 12:30 Meropenem 1 gm/ Sodium Chloride 100 ml @ 200 mls/hr DAILY IV ; Start 04/01/20 at 13:00 Vancomycin HCl 2 gm/Sodium Chloride 500 ml @ 250 mls/hr 1X ONCE IV ; Start 04/01/20 at 12:45; Stop 04/01/20 at 14:44 Sodium Bicarbonate 50 meq/Potassium Chloride 20 meq/ Sodium Chloride 80 meq/Dextrose 580 ml @ 30 mls/hr [id number] IV ; Start 04/01/20 at 15:00 Magnesium Sulfate 50 ml @ 25 mls/hr PRN DAILY PRN IV for Mag < 1.7 on am labs; Start 04/01/20 at 13:00 Epoetin Sree (PROCRIT for DIALYSIS PTS) 10,000 unit QMWF SQ ; Start 04/02/20 at 16:00 Magnesium Sulfate 50 ml @ 25 mls/hr PRN DAILY PRN IV for Mag < 1.7 on am labs; Start 04/01/20 at 13:00; Stop 04/01/20 at 13:01; Status DC Vitamin B Complex/ Vitamin C (Meg-Severiano) 1 tab DAILY PO ; Start 04/01/20 at 09:00 Acetaminophen (Tylenol) 500 mg Q8HRS PO ; Start 04/01/20 at 14:00; Status UNV Cetirizine HCl (ZyrTEC) 10 mg DAILY PO ; Start 04/02/20 at 09:00; Status UNV Levothyroxine Sodium (Synthroid) 25 mcg DAILY PO ; Start 04/02/20 at 09:00; Status UNV Non-Formulary Medication (Dexlansoprazole (Dexilant)) 1 cap DAILY PO ; Start 04/02/20 at 09:00; Status UNV Non-Formulary Medication (Multivits,Stress Formula (Stress Formula)) 600 each DAILY PO ; Start 04/02/20 at 09:00; Status UNV Non-Formulary Medication (Polyethylene Glycol 3350 ) 17 gm BID PO ; Start 04/01/20 at 21:00; Status UNV Non-Formulary Medication (Zinc Sulfate ) 220 mg DAILY PO ; Start 04/02/20 at 09:00; Status UNV Active Scripts Active Reported Zyrtec (Cetirizine Hcl) 10 Mg Tablet 1 Tab PO DAILY Zinc Sulfate 220 Mg Tablet 220 Mg PO DAILY Xifaxan (Rifaximin) 550 Mg Tablet 1 Tab PO BID 10 Days Stress Formula (Multivits,Stress Formula) 1 Each Tablet 600 Each PO DAILY Sildenafil (Sildenafil Citrate) 20 Mg Tablet 20 Mg PO TID Crestor (Rosuvastatin Calcium) 5 Mg Tablet 1 Tab PO HS Polyethylene Glycol 3350 2,500 Gm Powder 17 Gm PO BID Midodrine Hcl 5 Mg Tablet 15 Mg PO TID Melatonin 3 Mg Tablet.er 1 Tab PO QHS 30 Days Lactulose 10 Gm Packet 10 Gm PO PRN DAILY PRN Gabapentin (Gabapentin) 100 Mg Capsule 100 Mg PO HS Levothyroxine Sodium 25 Mcg Tablet 1 Tab PO DAILY Humalog (Insulin Lispro) 100 Unit/1 Ml Vial 3 Unit SQ TIDWMEALS Dexilant (Dexlansoprazole) 60 Mg Cap. 1 Cap PO DAILY 30 Days Cipro (Ciprofloxacin Hcl) 250 Mg Tablet 1 Tab PO DAILY 7 Days Basaglar Kwikpen U-100 (Insulin Glargine,Hum.rec.anlog) 100 Unit/1 Ml Insuln.pen 22 Unit SQ BID Acetaminophen 500 Mg Tablet 1 Tab PO Q8HRS 15 Days Allergies Allergies: Coded Allergies: peanut (Verified Allergy, Severe, Anaphylaxis, 03/31/20) Penicillins (Verified Allergy, Intermediate, hives, 03/31/20) aspirin (Verified Allergy, Intermediate, rash, 03/31/20) latex (Verified Allergy, Intermediate, 03/31/20) metformin (Verified Allergy, Intermediate, 03/31/20) nitroglycerin (Verified Allergy, Intermediate, 03/31/20) ondansetron (Verified Allergy, Intermediate, 03/31/20) ROS Review of System Not reliably obtained. Physical Exam Physical Examination General: Well-developed, well-nourished white male in no acute distress HEENT: Normocephalic andatraumatic. Temporal arteriespulsatile and nontender. Neck: Supple without bruit, no meningismus Musculoskeletal: Stability:see neurologic. Gait exam:see neurologic. Tone:see neurologic.Strength:see neurologic. Neurological: Mental Status:He can alert to voice and tell me his name, but no other details of history, does not follow commands, was able to name my watch. Cranial Nerves:Pupils equal and reactive to light, extraocular movements areintact, visual hale are full to confrontation. Facial sensation is normal. There is no facial asymmetry. Vestibulo-ocular reflex is intact. Palate elevates and tongue protrudes in midline. All other cranial related problems are negative except as mentioned before.Reflexes:0+ and symmetric with flexor plantar responses. Motor:3/5 strength with normal tone and bulk. Coordination and gait:Not cooperative, not tested. Sensory:I get impression of a stocking loss, exam difficult due to mental status. Vitals VITALS Vital Signs Date Time Temp Pulse Resp B/P (MAP) Pulse Ox O2 Delivery O2 Flow Rate FiO2 04/01/20 11:00 87 18 95/53 (67) 96 Nasal Cannula 5.0 04/01/20 10:00 94.8 94.8 Labs Labs Laboratory Tests Test 03/31/20 13:07 03/31/20 13:20 03/31/20 13:30 03/31/20 14:18 Glucose (Fingerstick) 48 mg/dL (70-99) 138 mg/dL (70-99) White Blood Count 5.8 x10^3/uL (4.0-11.0) Red Blood Count 2.97 x10^6/uL (4.30-5.70) Hemoglobin 9.1 g/dL (13.0-17.5) Hematocrit 27.5 % (39.0-53.0) Mean Corpuscular Volume 93 fL (79-100) Mean Corpuscular Hemoglobin 31 pg (25-35) Mean Corpuscular Hemoglobin Concent 33 g/dL (31-37) Red Cell Distribution Width 28.4 % (11.5-14.5) Platelet Count 84 x10^3/uL (140-400) Neutrophils (%) (Auto) 84 % (31-73) Lymphocytes (%) (Auto) 7 % (24-48) Monocytes (%) (Auto) 8 % (0-9) Eosinophils (%) (Auto) 1 % (0-3) Basophils (%) (Auto) 0 % (0-3) Neutrophils # (Auto) 4.9 x10^3/uL (1.8-7.7) Lymphocytes # (Auto) 0.4 x10^3/uL (1.0-4.8) Monocytes # (Auto) 0.4 x10^3/uL (0.0-1.1) Eosinophils # (Auto) 0.0 x10^3/uL (0.0-0.7) Basophils # (Auto) 0.0 x10^3/uL (0.0-0.2) Platelet Estimate Decreased (ADEQUATE) Polychromasia Slight Hypochromasia Slight Poikilocytosis Slight Anisocytosis Marked Target Cells Occ Schistocytes Occ Sodium Level 126 mmol/L (136-145) Potassium Level 2.6 mmol/L (3.5-5.1) Chloride Level 88 mmol/L (98-107) Carbon Dioxide Level 18 mmol/L (21-32) Anion Gap 20 (6-14) Blood Urea Nitrogen 62 mg/dL (8-26) Creatinine 6.2 mg/dL (0.7-1.3) Estimated GFR (Cockcroft-Gault) 9.2 BUN/Creatinine Ratio 10 (6-20) Glucose Level 47 mg/dL (70-99) Lactic Acid Level 3.8 mmol/L (0.4-2.0) Calcium Level 9.2 mg/dL (8.5-10.1) Magnesium Level 2.6 mg/dL (1.8-2.4) Total Bilirubin 4.3 mg/dL (0.2-1.0) Aspartate Amino Transf (AST/SGOT) 40 U/L (15-37) Alanine Aminotransferase (ALT/SGPT) 30 U/L (16-63) Alkaline Phosphatase 190 U/L (46-116) Total Protein 6.1 g/dL (6.4-8.2) Albumin 2.6 g/dL (3.4-5.0) Albumin/Globulin Ratio 0.7 (1.0-1.7) Fibrinogen 313 mg/dL (200-440) D-Dimer (Radha) 9.36 ug/mlFEU (0.00-0.50) Procalcitonin 1.10 ng/mL (0.00-0.10) Test 03/31/20 15:26 03/31/20 16:58 03/31/20 17:45 03/31/20 18:40 Glucose (Fingerstick) 92 mg/dL (70-99) 152 mg/dL (70-99) Lactic Acid Level 2.9 mmol/L (0.4-2.0) Ammonia 62 mcmol/L (11-34) Test 03/31/20 20:39 03/31/20 22:40 04/01/20 01:20 04/01/20 03:20 Glucose (Fingerstick) 110 mg/dL (70-99) Lactic Acid Level 2.4 mmol/L (0.4-2.0) White Blood Count 5.9 x10^3/uL (4.0-11.0) Red Blood Count 2.55 x10^6/uL (4.30-5.70) Hemoglobin 7.9 g/dL (13.0-17.5) Hematocrit 23.3 % (39.0-53.0) Mean Corpuscular Volume 91 fL (79-100) Mean Corpuscular Hemoglobin 31 pg (25-35) Mean Corpuscular Hemoglobin Concent 34 g/dL (31-37) Red Cell Distribution Width 28.1 % (11.5-14.5) Platelet Count 107 x10^3/uL (140-400) Neutrophils (%) (Auto) 79 % (31-73) Lymphocytes (%) (Auto) 8 % (24-48) Monocytes (%) (Auto) 10 % (0-9) Eosinophils (%) (Auto) 2 % (0-3) Basophils (%) (Auto) 1 % (0-3) Neutrophils # (Auto) 4.6 x10^3/uL (1.8-7.7) Lymphocytes # (Auto) 0.5 x10^3/uL (1.0-4.8) Monocytes # (Auto) 0.6 x10^3/uL (0.0-1.1) Eosinophils # (Auto) 0.1 x10^3/uL (0.0-0.7) Basophils # (Auto) 0.0 x10^3/uL (0.0-0.2) Sodium Level 127 mmol/L (136-145) Potassium Level 2.8 mmol/L (3.5-5.1) Chloride Level 92 mmol/L (98-107) Carbon Dioxide Level 18 mmol/L (21-32) Anion Gap 17 (6-14) Blood Urea Nitrogen 61 mg/dL (8-26) Creatinine 6.2 mg/dL (0.7-1.3) Estimated GFR (Cockcroft-Gault) 9.2 BUN/Creatinine Ratio 10 (6-20) Glucose Level 53 mg/dL (70-99) Calcium Level 8.2 mg/dL (8.5-10.1) Total Bilirubin 3.5 mg/dL (0.2-1.0) Aspartate Amino Transf (AST/SGOT) 43 U/L (15-37) Alanine Aminotransferase (ALT/SGPT) 29 U/L (16-63) Alkaline Phosphatase 153 U/L (46-116) Total Protein 5.1 g/dL (6.4-8.2) Albumin 2.1 g/dL (3.4-5.0) Albumin/Globulin Ratio 0.7 (1.0-1.7) Test 04/01/20 05:19 04/01/20 05:40 04/01/20 08:01 04/01/20 11:45 Glucose (Fingerstick) 38 mg/dL (70-99) 132 mg/dL (70-99) 78 mg/dL (70-99) Potassium Level 2.9 mmol/L (3.5-5.1) Thyroid Stimulating Hormone (TSH) 2.057 uIU/mL (0.358-3.74) Laboratory Tests Test 03/31/20 14:18 03/31/20 15:26 03/31/20 16:58 03/31/20 17:45 Glucose (Fingerstick) 138 mg/dL (70-99) 92 mg/dL (70-99) 152 mg/dL (70-99) Lactic Acid Level 2.9 mmol/L (0.4-2.0) Test 03/31/20 18:40 03/31/20 20:39 03/31/20 22:40 04/01/20 01:20 Ammonia 62 mcmol/L (11-34) Glucose (Fingerstick) 110 mg/dL (70-99) Lactic Acid Level 2.4 mmol/L (0.4-2.0) White Blood Count 5.9 x10^3/uL (4.0-11.0) Red Blood Count 2.55 x10^6/uL (4.30-5.70) Hemoglobin 7.9 g/dL (13.0-17.5) Hematocrit 23.3 % (39.0-53.0) Mean Corpuscular Volume 91 fL (79-100) Mean Corpuscular Hemoglobin 31 pg (25-35) Mean Corpuscular Hemoglobin Concent 34 g/dL (31-37) Red Cell Distribution Width 28.1 % (11.5-14.5) Platelet Count 107 x10^3/uL (140-400) Neutrophils (%) (Auto) 79 % (31-73) Lymphocytes (%) (Auto) 8 % (24-48) Monocytes (%) (Auto) 10 % (0-9) Eosinophils (%) (Auto) 2 % (0-3) Basophils (%) (Auto) 1 % (0-3) Neutrophils # (Auto) 4.6 x10^3/uL (1.8-7.7) Lymphocytes # (Auto) 0.5 x10^3/uL (1.0-4.8) Monocytes # (Auto) 0.6 x10^3/uL (0.0-1.1) Eosinophils # (Auto) 0.1 x10^3/uL (0.0-0.7) Basophils # (Auto) 0.0 x10^3/uL (0.0-0.2) Test 04/01/20 03:20 04/01/20 05:19 04/01/20 05:40 04/01/20 08:01 Sodium Level 127 mmol/L (136-145) Potassium Level 2.8 mmol/L (3.5-5.1) Chloride Level 92 mmol/L (98-107) Carbon Dioxide Level 18 mmol/L (21-32) Anion Gap 17 (6-14) Blood Urea Nitrogen 61 mg/dL (8-26) Creatinine 6.2 mg/dL (0.7-1.3) Estimated GFR (Cockcroft-Gault) 9.2 BUN/Creatinine Ratio 10 (6-20) Glucose Level 53 mg/dL (70-99) Calcium Level 8.2 mg/dL (8.5-10.1) Total Bilirubin 3.5 mg/dL (0.2-1.0) Aspartate Amino Transf (AST/SGOT) 43 U/L (15-37) Alanine Aminotransferase (ALT/SGPT) 29 U/L (16-63) Alkaline Phosphatase 153 U/L (46-116) Total Protein 5.1 g/dL (6.4-8.2) Albumin 2.1 g/dL (3.4-5.0) Albumin/Globulin Ratio 0.7 (1.0-1.7) Glucose (Fingerstick) 38 mg/dL (70-99) 132 mg/dL (70-99) 78 mg/dL (70-99) Test 04/01/20 11:45 Potassium Level 2.9 mmol/L (3.5-5.1) Thyroid Stimulating Hormone (TSH) 2.057 uIU/mL (0.358-3.74) Images Images CT head INDICATION: Altered mental status TECHNIQUE: Sequential axial images through the head were obtained without the administration of IV contrast. Comparisons: None FINDINGS: No focal parenchymal lesion or hemorrhage is identified. There is no midline shift or sulcal effacement. Patchy hypodensity in the periventricular white matter. No acute vascular territory infarction is identified. Conn-white distinction is preserved. The ventricular system is within normal limits without compression hydrocephalus. The basal cisterns are well maintained. The visualized portions of the paranasal sinuses and mastoid air cells are well- pneumatized. No acute fractures. IMPRESSION: Mild small vessel ischemic change, technically age indeterminate without recent prior imaging Assessment/Plan Assessment/Plan Impression: Metabolic encephalopathy due to hypoglycemia, diabetes, renal disease, hypothermia. He is better today. I find no evidence of stroke, ongoing seizure activity, or intracranial infection. Other medical issues include under investigation for Covid, lactic acidosis, thrombocytopenia, anemia, sepsis. Recommendations: Holding on additional neurological test Observation Treat medical diseases. Thank you for letting me help with the patient's care. CUATE OMER MD Apr 01, 2020 14:02
[2020-04-01] MEDS ORDERED: POTASSIUM CHLORIDE IV SCH (15:00)
[2020-04-01] MEDS ORDERED: SODIUM BICARBONATE IV SCH (15:00)
[2020-04-01] MEDS ORDERED: [UNRECOGNIZED DRUG - OTHER] IV SCH (15:00)
[2020-04-01] MEDS: MEROPENEM 1 GM in IV NORMAL SALINE 100ML 100 ML IV SCH (15:05)
[2020-04-01] MEDS: VANCOMYCIN PER PHARMACY MC PRN (15:23)
--- NOTE | 2020-04-01 15:28 | NUR ---
Pharmacy Vancomycin Dosing Note S:Consulted to monitor and dose vancomycin started 04/01/20. O:HILDA MORE is a 64 year old M with Sepsis . Height: 6 feet, 0 inches Weight: 111.0 kg Oscar Body Weight: 77.60 Adjusted Body Weight: 90.96 Dosing Weight: Actual Other Antibiotics: MERREM LABS: Last BUN: Last Creatinine: Creatinine Clearance: mL/min Last WBC: 5.9 Last Procalcitonin: Tmax (past 24 hours): 96.9 Microbiology: I/O: Drug Levels: Last level: on at Last dose given 04/01/20 at 1500 Vancomycin Dosing: Loading Dose: 2000 mg x1 Dosing Weight: Actual Target Trough: 15-20 A: Based on: WEIGHT AND RENAL FUNCTION, P: 1. Begin Vancomycin IV 2GM BOLUS X1 2. Follow up Random level on 04/03/20 at 1500 3. Pharmacy will continue to monitor, follow and adjust therapy as needed. DANIEL AUSTIN [facility], 04/01/20 [id number]
--- NOTE | 2020-04-01 15:54 | PDOC ---
PULMONARY PROGRESS NOTES DATE: 04/01/20 TIME: 15:53 Vitals Vital Signs Date Time Temp Pulse Resp B/P (MAP) Pulse Ox O2 Delivery O2 Flow Rate FiO2 04/01/20 11:00 87 18 95/53 (67) 96 Nasal Cannula 5.0 04/01/20 10:00 94.8 94.8 Labs Laboratory Tests Test 03/31/20 13:07 03/31/20 13:20 03/31/20 13:30 03/31/20 14:18 Glucose (Fingerstick) 48 mg/dL (70-99) 138 mg/dL (70-99) White Blood Count 5.8 x10^3/uL (4.0-11.0) Red Blood Count 2.97 x10^6/uL (4.30-5.70) Hemoglobin 9.1 g/dL (13.0-17.5) Hematocrit 27.5 % (39.0-53.0) Mean Corpuscular Volume 93 fL (79-100) Mean Corpuscular Hemoglobin 31 pg (25-35) Mean Corpuscular Hemoglobin Concent 33 g/dL (31-37) Red Cell Distribution Width 28.4 % (11.5-14.5) Platelet Count 84 x10^3/uL (140-400) Neutrophils (%) (Auto) 84 % (31-73) Lymphocytes (%) (Auto) 7 % (24-48) Monocytes (%) (Auto) 8 % (0-9) Eosinophils (%) (Auto) 1 % (0-3) Basophils (%) (Auto) 0 % (0-3) Neutrophils # (Auto) 4.9 x10^3/uL (1.8-7.7) Lymphocytes # (Auto) 0.4 x10^3/uL (1.0-4.8) Monocytes # (Auto) 0.4 x10^3/uL (0.0-1.1) Eosinophils # (Auto) 0.0 x10^3/uL (0.0-0.7) Basophils # (Auto) 0.0 x10^3/uL (0.0-0.2) Platelet Estimate Decreased (ADEQUATE) Polychromasia Slight Hypochromasia Slight Poikilocytosis Slight Anisocytosis Marked Target Cells Occ Schistocytes Occ Sodium Level 126 mmol/L (136-145) Potassium Level 2.6 mmol/L (3.5-5.1) Chloride Level 88 mmol/L (98-107) Carbon Dioxide Level 18 mmol/L (21-32) Anion Gap 20 (6-14) Blood Urea Nitrogen 62 mg/dL (8-26) Creatinine 6.2 mg/dL (0.7-1.3) Estimated GFR (Cockcroft-Gault) 9.2 BUN/Creatinine Ratio 10 (6-20) Glucose Level 47 mg/dL (70-99) Lactic Acid Level 3.8 mmol/L (0.4-2.0) Calcium Level 9.2 mg/dL (8.5-10.1) Magnesium Level 2.6 mg/dL (1.8-2.4) Total Bilirubin 4.3 mg/dL (0.2-1.0) Aspartate Amino Transf (AST/SGOT) 40 U/L (15-37) Alanine Aminotransferase (ALT/SGPT) 30 U/L (16-63) Alkaline Phosphatase 190 U/L (46-116) Total Protein 6.1 g/dL (6.4-8.2) Albumin 2.6 g/dL (3.4-5.0) Albumin/Globulin Ratio 0.7 (1.0-1.7) Fibrinogen 313 mg/dL (200-440) D-Dimer (Radha) 9.36 ug/mlFEU (0.00-0.50) Procalcitonin 1.10 ng/mL (0.00-0.10) Test 03/31/20 15:26 03/31/20 16:58 03/31/20 17:45 03/31/20 18:40 Glucose (Fingerstick) 92 mg/dL (70-99) 152 mg/dL (70-99) Lactic Acid Level 2.9 mmol/L (0.4-2.0) Ammonia 62 mcmol/L (11-34) Test 03/31/20 20:39 03/31/20 22:40 04/01/20 01:20 04/01/20 03:20 Glucose (Fingerstick) 110 mg/dL (70-99) Lactic Acid Level 2.4 mmol/L (0.4-2.0) White Blood Count 5.9 x10^3/uL (4.0-11.0) Red Blood Count 2.55 x10^6/uL (4.30-5.70) Hemoglobin 7.9 g/dL (13.0-17.5) Hematocrit 23.3 % (39.0-53.0) Mean Corpuscular Volume 91 fL (79-100) Mean Corpuscular Hemoglobin 31 pg (25-35) Mean Corpuscular Hemoglobin Concent 34 g/dL (31-37) Red Cell Distribution Width 28.1 % (11.5-14.5) Platelet Count 107 x10^3/uL (140-400) Neutrophils (%) (Auto) 79 % (31-73) Lymphocytes (%) (Auto) 8 % (24-48) Monocytes (%) (Auto) 10 % (0-9) Eosinophils (%) (Auto) 2 % (0-3) Basophils (%) (Auto) 1 % (0-3) Neutrophils # (Auto) 4.6 x10^3/uL (1.8-7.7) Lymphocytes # (Auto) 0.5 x10^3/uL (1.0-4.8) Monocytes # (Auto) 0.6 x10^3/uL (0.0-1.1) Eosinophils # (Auto) 0.1 x10^3/uL (0.0-0.7) Basophils # (Auto) 0.0 x10^3/uL (0.0-0.2) Sodium Level 127 mmol/L (136-145) Potassium Level 2.8 mmol/L (3.5-5.1) Chloride Level 92 mmol/L (98-107) Carbon Dioxide Level 18 mmol/L (21-32) Anion Gap 17 (6-14) Blood Urea Nitrogen 61 mg/dL (8-26) Creatinine 6.2 mg/dL (0.7-1.3) Estimated GFR (Cockcroft-Gault) 9.2 BUN/Creatinine Ratio 10 (6-20) Glucose Level 53 mg/dL (70-99) Calcium Level 8.2 mg/dL (8.5-10.1) Total Bilirubin 3.5 mg/dL (0.2-1.0) Aspartate Amino Transf (AST/SGOT) 43 U/L (15-37) Alanine Aminotransferase (ALT/SGPT) 29 U/L (16-63) Alkaline Phosphatase 153 U/L (46-116) Total Protein 5.1 g/dL (6.4-8.2) Albumin 2.1 g/dL (3.4-5.0) Albumin/Globulin Ratio 0.7 (1.0-1.7) Test 04/01/20 05:19 04/01/20 05:40 04/01/20 08:01 04/01/20 11:45 Glucose (Fingerstick) 38 mg/dL (70-99) 132 mg/dL (70-99) 78 mg/dL (70-99) Potassium Level 2.9 mmol/L (3.5-5.1) Thyroid Stimulating Hormone (TSH) 2.057 uIU/mL (0.358-3.74) Test 04/01/20 14:47 Glucose (Fingerstick) 95 mg/dL (70-99) Laboratory Tests Test 03/31/20 16:58 03/31/20 17:45 03/31/20 18:40 03/31/20 20:39 Glucose (Fingerstick) 152 mg/dL (70-99) 110 mg/dL (70-99) Lactic Acid Level 2.9 mmol/L (0.4-2.0) Ammonia 62 mcmol/L (11-34) Test 03/31/20 22:40 04/01/20 01:20 04/01/20 03:20 04/01/20 05:19 Lactic Acid Level 2.4 mmol/L (0.4-2.0) White Blood Count 5.9 x10^3/uL (4.0-11.0) Red Blood Count 2.55 x10^6/uL (4.30-5.70) Hemoglobin 7.9 g/dL (13.0-17.5) Hematocrit 23.3 % (39.0-53.0) Mean Corpuscular Volume 91 fL (79-100) Mean Corpuscular Hemoglobin 31 pg (25-35) Mean Corpuscular Hemoglobin Concent 34 g/dL (31-37) Red Cell Distribution Width 28.1 % (11.5-14.5) Platelet Count 107 x10^3/uL (140-400) Neutrophils (%) (Auto) 79 % (31-73) Lymphocytes (%) (Auto) 8 % (24-48) Monocytes (%) (Auto) 10 % (0-9) Eosinophils (%) (Auto) 2 % (0-3) Basophils (%) (Auto) 1 % (0-3) Neutrophils # (Auto) 4.6 x10^3/uL (1.8-7.7) Lymphocytes # (Auto) 0.5 x10^3/uL (1.0-4.8) Monocytes # (Auto) 0.6 x10^3/uL (0.0-1.1) Eosinophils # (Auto) 0.1 x10^3/uL (0.0-0.7) Basophils # (Auto) 0.0 x10^3/uL (0.0-0.2) Sodium Level 127 mmol/L (136-145) Potassium Level 2.8 mmol/L (3.5-5.1) Chloride Level 92 mmol/L (98-107) Carbon Dioxide Level 18 mmol/L (21-32) Anion Gap 17 (6-14) Blood Urea Nitrogen 61 mg/dL (8-26) Creatinine 6.2 mg/dL (0.7-1.3) Estimated GFR (Cockcroft-Gault) 9.2 BUN/Creatinine Ratio 10 (6-20) Glucose Level 53 mg/dL (70-99) Calcium Level 8.2 mg/dL (8.5-10.1) Total Bilirubin 3.5 mg/dL (0.2-1.0) Aspartate Amino Transf (AST/SGOT) 43 U/L (15-37) Alanine Aminotransferase (ALT/SGPT) 29 U/L (16-63) Alkaline Phosphatase 153 U/L (46-116) Total Protein 5.1 g/dL (6.4-8.2) Albumin 2.1 g/dL (3.4-5.0) Albumin/Globulin Ratio 0.7 (1.0-1.7) Glucose (Fingerstick) 38 mg/dL (70-99) Test 04/01/20 05:40 04/01/20 08:01 04/01/20 11:45 04/01/20 14:47 Glucose (Fingerstick) 132 mg/dL (70-99) 78 mg/dL (70-99) 95 mg/dL (70-99) Potassium Level 2.9 mmol/L (3.5-5.1) Thyroid Stimulating Hormone (TSH) 2.057 uIU/mL (0.358-3.74) Medications Active Scripts Medications Dose Route/Sig Max Daily Dose Days Date Category Zyrtec (Cetirizine Hcl) 10 Mg Tablet 1 Tab PO DAILY 04/01/20 Reported Zinc Sulfate 220 Mg Tablet 220 Mg PO DAILY 04/01/20 Reported Xifaxan (Rifaximin) 550 Mg Tablet 1 Tab PO BID 10 04/01/20 Reported Stress Formula (Multivits,Stress Formula) 1 Each Tablet 600 Each PO DAILY 04/01/20 Reported Sildenafil (Sildenafil Citrate) 20 Mg Tablet 20 Mg PO TID 04/01/20 Reported Crestor (Rosuvastatin Calcium) 5 Mg Tablet 1 Tab PO HS 04/01/20 Reported Polyethylene Glycol 3350 2,500 Gm Powder 17 Gm PO BID 04/01/20 Reported Midodrine Hcl 5 Mg Tablet 15 Mg PO TID 04/01/20 Reported Melatonin 3 Mg Tablet.er 1 Tab PO QHS 30 04/01/20 Reported Lactulose 10 Gm Packet 10 Gm PO PRN DAILY PRN 04/01/20 Reported Gabapentin (Gabapentin) 100 Mg Capsule 100 Mg PO HS 04/01/20 Reported Levothyroxine Sodium 25 Mcg Tablet 1 Tab PO DAILY 04/01/20 Reported Humalog (Insulin Lispro) 100 Unit/1 Ml Vial 3 Unit SQ TIDWMEALS 04/01/20 Reported Dexilant (Dexlansoprazole) 60 Mg Cap.mp 1 Cap PO DAILY 30 04/01/20 Reported Cipro (Ciprofloxacin Hcl) 250 Mg Tablet 1 Tab PO DAILY 7 04/01/20 Reported Basaglar Williamikpen U-100 (Insulin Glargine,Hum.rec.anlog) 100 Unit/1 Ml Insuln.pen 22 Unit SQ BID 04/01/20 Reported Acetaminophen 500 Mg Tablet 1 Tab PO Q8HRS 15 04/01/20 Reported Impression . Full consult dictated Respiratory failure secondary to sepsis, metabolic toxic encephalopathy. Continue current support STONEY ARTEAGA MD Apr 01, 2020 15:54
[2020-04-01] MEDS: SODIUM BICARBONATE IV SCH (16:16)
[2020-04-01] MEDS: [UNRECOGNIZED DRUG - OTHER] IV SCH (16:16)
[2020-04-01] MEDS: POTASSIUM CHLORIDE IV SCH (16:16)
[2020-04-01] MEDS: LEVOTHYROXINE 25 MCG TABLET. PO SCH (18:11)
--- NOTE | 2020-04-01 19:11 | RAD ---
EXAM: CT OF THE CHEST, ABDOMEN AND PELVIS WITHOUT CONTRAST. HISTORY: Severe sepsis, infiltrates, abdominal distention. TECHNIQUE: Computed tomography of the chest, abdomen and pelvis was performed without intravenous con trast. One or more of the following individualized dose reduction techniques were utilized for this e xamination: 1. Automated exposure control. 2. Adjustment of the mA and/or kV according to patient size. 3. Use of iterative reconstruction technique. COMPARISON: None. FINDINGS: Bone windows reveal no suspicious lesions. A right internal jugular hemodialysis catheter h as its tip in the superior cavoatrial junction. There are no pathologically enlarged mediastinal or axillary lymph nodes. There is a moderate left pl eural effusion. There is no pericardial effusion. The heart is not enlarged. The main pulmonary arter y is enlarged at 4.2 cm. Mild interstitial infiltrates in the lung apices suggest atelectasis or mild pulmonary edema. There i s compressive atelectasis of the left lower lobe. The liver is shrunken and nodular consistent with cirrhotic change. Paraesophageal varices are noted. The spleen is moderately enlarged at 16.3 cm. There is a large amount of ascites. Bilateral gynecoma stia is moderate. The kidneys are unremarkable. A gallstone is noted in the gallbladder neck. There is no clear gallbla dder wall thickening. The pancreas and adrenal glands are unremarkable. Prominent gastrohepatic lymph nodes can be seen in the setting of cirrhosis and hepatic inflammation. Mild small bowel wall thickening may reflect edema in the setting of portal hypertension. There is no small bowel obstruction. There is no evidence of appendicitis. Body wall edema is noted. IMPRESSION: 1. Moderate left pleural effusion with compressive atelectasis of the left lower lobe. 2. Mild bilateral opacities may reflect atelectasis or mild pulmonary edema. 3. Enlargement of the main pulmonary artery is consistent with pulmonary arterial hypertension. 4. Morphologic changes of cirrhosis. Moderate hepatosplenomegaly. Large ascites. Paraesophageal varic es. 5. Small bowel wall thickening likely reflects portal hypertension. Correlate for enteritis. 6. Cholelithiasis without evidence of acute cholecystitis. Electronically signed by: Rico Finley MD (04/01/2020 7:08 PM) [facility]
--- NOTE | 2020-04-01 20:26 | CONS ---
DATE OF CONSULTATION: 04/01/2020 ATTENDING PHYSICIAN: Dr. Ponce. CONSULTING PHYSICIAN: Stoney Arteaga MD REASON FOR CONSULTATION: The patient is seen in pulmonary consultation at the request of Dr. Ponce for hypoxemia. HISTORY OF PRESENT ILLNESS: The patient is a 64-year-old with type 1 diabetes, renal failure, on hemodialysis. Apparently, he had a mental status change during his dialysis. He was sent to the Emergency Room directly from the dialysis center. The patient was dropped off the dialysis center by van transport, he became confused. Vital signs were obtained. EMS was summoned. He had blood sugar initially of 24. The patient was also hypothermic. The patient presented with the above. He was admitted. He is currently in the intensive care unit. He has been seen by Neurology. Clinically, there are no clinical symptoms and signs of stroke. It was felt that he has metabolic encephalopathy due to hypoglycemia, diabetes, renal failure and hypothermia. The patient was seen by the Infectious Disease Service and is currently on meropenem for severe sepsis, hypothermia and metabolic encephalopathy. His SARS-CoV-2 is pending. During my evaluation, the patient was sleepy, but arousable. He knew his first and second name. He knew he was at [place]. He stated yes to wearing oxygen at home. Denied any shortness of breath. I reviewed his chest x-ray, which revealed bilateral opacities. PAST MEDICAL HISTORY: Type 1 diabetes, renal failure, hypertension. PAST SURGICAL HISTORY: No recent major surgeries. REVIEW OF SYSTEMS: As indicated above, otherwise other systems could not be adequately reviewed. SOCIAL HISTORY: He does not smoke. MEDICATIONS: List was reviewed. ALLERGIES: LISTED TO PENICILLIN, ASPIRIN, LATEX, METFORMIN, NITROGLYCERIN ONDANSETRON, AND PEANUTS. PHYSICAL EXAMINATION: GENERAL: The patient was in the Intensive Care Unit. Since admission, he has been hypothermic. He is currently on 5 liters of oxygen supplementation. HEENT: Eyes: The sclerae were nonicteric. NECK: Jugular venous distention was not elevated. No lymphadenopathy. CHEST: Rhonchi bilaterally. CARDIOVASCULAR: Regular rate and rhythm with S1, S2, no S3. ABDOMEN: Soft. EXTREMITIES: No clubbing, cyanosis. Minimal edema. NEUROLOGIC: The patient knew his name. Moved all extremities. He knew he was at [place]. A detailed neuro exam was not performed. LABORATORY DATA: Reviewed. White count was 5.9 and hemoglobin and hematocrit chronically low. Electrolytes were noted. Potassium was low at 2.9. His carbon dioxide level was low at 18, BUN was elevated, creatinine was elevated. Glucose was low. Total bilirubin was elevated. Albumin was low. INR was 9.36. Chest x-ray as indicated above. IMPRESSION: 1. Acute respiratory failure, multifactorial, suspect possible pneumonia, rule out COVID-19. 2. Sepsis. 3. Hypothermia. 4. Metabolic toxic encephalopathy. 5. End-stage renal disease. 6. Hypoglycemia. 7. Thrombocytopenia. 8. Elevated bilirubin. PLAN: 1. Continue oxygen supplementation. 2. Empiric antibiotics per ID. The patient is currently on meropenem and vancomycin. 3. Follow up on blood cultures. 4. CT abdomen and pelvis and chest is pending. 5. SARS-CoV-2. 6. Influenza screen. 7. Follow Neurology input. I do appreciate the privilege in sharing in patient's care. Total cumulative critical care time from 3:00 p.m. to 3:53 p.m. STONEY ARTEAGA MD DR: LIV/epdro JOB#: [id number] / [id number]
[2020-04-01] MEDS: POLYETHYLENE GLYCOL 3350 17 GM PACKET. PO SCH (21:00)
--- NOTE | 2020-04-01 21:37 | NUR ---
Pt transferred to room 265 with all belongings including wheelchair, O2 concentrator and clothing. Report given to Kya Hurd RN
[2020-04-01 23:22] LABS: INFLUENZA A PATIENT NEGATIVE (NEGATIVE); INFLUENZA B PATIENT NEGATIVE (NEGATIVE)
--- NOTE | 2020-04-01 23:24 | RAD ---
INDICATION: Reason: ASCITES / Spl. Instructions: / History: COMPARISON: CT from same day TECHNIQUE: Grayscale and color ultrasound images obtained through the abdomen. FINDINGS: Aorta/IVC: Largely obscured by bowel gas Pancreas: Largely obscured by bowel gas Liver: Heterogenous echotexture Gallbladder: Gallstones. Wall measures up to about 4 mm. Common Bile Duct: Not dilated. Right Kidney: No hydronephrosis. Left Kidney: No hydronephrosis. Spleen: Prominent in size. Ascites is seen throughout abdomen, large. IMPRESSION: * Large amount of ascites. * Cirrhotic liver morphology. * Internal echoes within the gallbladder which could be from sludge and stones. There is also some w all thickening seen which is nonspecific in nature but could be related to the adjacent ascites with other possible causes including primary gallbladder inflammation or reactive changes to adjacent hepa tic disease. Electronically signed by: Waylon Irby MD (04/01/2020 11:22 PM) [id number]
[2020-04-02] VITALS (20 sets, daily range): BP systolic 104–141; BP diastolic 49–99
[2020-04-02] MEDS: POTASSIUM CHLORIDE 20 MEQ TABLET.ER. PO PRN ×3 (00:25→23:01)
[2020-04-02] MEDS: NOREPINEPHRINE VIAL 8 MG in IV DEXTROSE 5% 250 ML IV PRN (02:23)
[2020-04-02] MEDS: LEVOTHYROXINE 25 MCG TABLET. PO SCH (05:18)
[2020-04-02] MEDS: ACETAMINOPHEN 500 MG TABLET PO SCH ×3 (05:18→20:32)
[2020-04-02] MEDS ORDERED: PANTOPRAZOLE 40 MG TABLET.DR. PO SCH (07:30)
[2020-04-02] MEDS: CETIRIZINE HCL 10 MG TABLET. PO SCH (08:54)
[2020-04-02] MEDS: ZINC SULFATE 220 MG CAPSULE. PO SCH (08:54)
[2020-04-02] MEDS: MEROPENEM 1 GM in IV NORMAL SALINE 100ML 100 ML IV SCH (08:54)
[2020-04-02] MEDS: FOLIC/VIT B COMP W-C (RENAL) TABLET. PO SCH (08:54)
[2020-04-02] MEDS: [UNRECOGNIZED DRUG - OTHER] IV SCH (08:55)
[2020-04-02] MEDS: POTASSIUM CHLORIDE IV SCH (08:55)
[2020-04-02] MEDS: SODIUM BICARBONATE IV SCH (08:55)
[2020-04-02] MEDS: POLYETHYLENE GLYCOL 3350 17 GM PACKET. PO SCH ×2 (09:00→20:31)
[2020-04-02] MEDS ORDERED: MULTIVITAMIN with MINERAL TABLET. PO SCH (09:00)
[2020-04-02] MEDS: INSULIN LISPRO 300 UNITS/3 ML VIAL. SQ SCH ×5 (09:01→18:44)
--- NOTE | 2020-04-02 09:26 | PDOC ---
Infectious Disease Note Subjective Subjective pt is awake, says feeling better, bit confused ROS ROS no n/v/d/sob Vital Sign Vital Signs Vital Signs Date Time Temp Pulse Resp B/P (MAP) Pulse Ox O2 Delivery O2 Flow Rate FiO2 04/02/20 07:00 90 22 140/71 (94) 96 Nasal Cannula 4.0 04/02/20 05:28 97.4 97.4 Physical Exam PHYSICAL EXAM GENERAL: Confused male, arousable, does not answer all questions. HEENT: Normocephalic, atraumatic. Anicteric. Oral mucosa dry. NECK: Supple. LUNGS: Decreased breath sounds at the bases, some expiratory rhonchi. HEART: S1, S2, no murmurs. ABDOMEN: Soft, mildly distended, nontender, nondistended. EXTREMITIES: No edema, no cyanosis. DERMATOLOGIC: No generalized rash. ACID LOADER awake, appropriate, no focal deficit Labs Lab Laboratory Tests Test 04/01/20 11:45 04/01/20 14:47 04/01/20 17:00 04/01/20 18:20 Potassium Level 2.9 mmol/L (3.5-5.1) Thyroid Stimulating Hormone (TSH) 2.057 uIU/mL (0.358-3.74) Glucose (Fingerstick) 95 mg/dL (70-99) 79 mg/dL (70-99) SARS-CoV-2 Antigen (Rapid) Negative (NEGATIVE) Test 04/01/20 22:40 04/01/20 23:40 04/01/20 23:56 04/02/20 08:43 Influenza Type A Antigen Negative (NEGATIVE) Influenza Type B Antigen Negative (NEGATIVE) Potassium Level 3.1 mmol/L (3.5-5.1) Glucose (Fingerstick) 253 mg/dL (70-99) 295 mg/dL (70-99) Micro Microbiology 03/31/20 Blood Culture - Preliminary, Resulted NO GROWTH AFTER 1 DAY Objective Assessment 1. sepsis, source unclear. 2. Hypothermia. 3. Metabolic encephalopathy. 4. End-stage renal disease, on hemodialysis. 5. Hypoglycemia. 6. COVID upper respiratory infection. 7. Lactic acidosis. 8. Thrombocytopenia. 9. Diabetes mellitus 2. Plan Plan of Care RECOMMENDATIONS: 1. Merrem, renal dosing. 2. vancomycin. 3. Follow up blood cultures. 4. CT abdomen and pelvis and chest IMPRESSION: 1. Moderate left pleural effusion with compressive atelectasis of the left lower lobe. 2. Mild bilateral opacities may reflect atelectasis or mild pulmonary edema. 3. Enlargement of the main pulmonary artery is consistent with pulmonary arter ial hypertension. 4. Morphologic changes of cirrhosis. Moderate hepatosplenomegaly. Large ascites. Paraesophageal varices. 5. Small bowel wall thickening likely reflects portal hypertension. Correlate for enteritis. 6. Cholelithiasis without evidence of acute cholecystitis. COVID neg Influenza neg culture so far neg NORI BROWER MD Apr 02, 2020 09:26
--- NOTE | 2020-04-02 10:25 | PDOC ---
PROGRESS NOTES Date of Service DATE: 04/02/20 TIME: 10:22 Assessment Problems Medical Problems: (1) ESRD (end stage renal disease) on dialysis Status: Acute (2) Hypoglycemia Status: Acute (3) Hypokalemia Status: Acute (4) Severe sepsis Status: Acute Metabolic encephalopathy due to hypoglycemia, diabetes, renal disease, hypothermia. He is getting better No evidence of stroke, ongoing seizure activity, or intracranial infection. Other medical issues include under investigation for Covid, lactic acidosis, thrombocytopenia, anemia, sepsis. Diabetic neuropathy Plan Holding on additional neurological test Observation Treat medical diseases. Subjective Denies pain Objective Vital Signs Date Time Temp Pulse Resp B/P (MAP) Pulse Ox O2 Delivery O2 Flow Rate FiO2 04/02/20 10:00 86 22 137/73 (94) 96 Nasal Cannula 4.0 04/02/20 08:45 97.6 97.6 Intake and Output 04/02/20 07:00 Intake Total 948 ml Output Total 0 ml Balance 948 ml Intake Oral 690 ml IV Total 258 ml Output Urine Total 0 ml # Bowel Movements 2 PHYSICAL EXAM Alert. Oriented to person. PERRL. EOMI. CN: no focal findings. Muscle tone: normal. Muscle strength: 3/5 DTR: 0+ Plantar reflex: flexor Gait: not examined in bed. Sensory exam: stocking loss suspected. No cerebellar signs elicited, poorly cooperative. Review of Relevant I have reviewed the following items jaqueline (where applicable) has been applied. Labs Laboratory Tests Test 03/31/20 13:07 03/31/20 13:20 03/31/20 13:30 03/31/20 14:06 Glucose (Fingerstick) 48 mg/dL (70-99) White Blood Count 5.8 x10^3/uL (4.0-11.0) Red Blood Count 2.97 x10^6/uL (4.30-5.70) Hemoglobin 9.1 g/dL (13.0-17.5) Hematocrit 27.5 % (39.0-53.0) Mean Corpuscular Volume 93 fL (79-100) Mean Corpuscular Hemoglobin 31 pg (25-35) Mean Corpuscular Hemoglobin Concent 33 g/dL (31-37) Red Cell Distribution Width 28.4 % (11.5-14.5) Platelet Count 84 x10^3/uL (140-400) Neutrophils (%) (Auto) 84 % (31-73) Lymphocytes (%) (Auto) 7 % (24-48) Monocytes (%) (Auto) 8 % (0-9) Eosinophils (%) (Auto) 1 % (0-3) Basophils (%) (Auto) 0 % (0-3) Neutrophils # (Auto) 4.9 x10^3/uL (1.8-7.7) Lymphocytes # (Auto) 0.4 x10^3/uL (1.0-4.8) Monocytes # (Auto) 0.4 x10^3/uL (0.0-1.1) Eosinophils # (Auto) 0.0 x10^3/uL (0.0-0.7) Basophils # (Auto) 0.0 x10^3/uL (0.0-0.2) Platelet Estimate Decreased (ADEQUATE) Polychromasia Slight Hypochromasia Slight Poikilocytosis Slight Anisocytosis Marked Target Cells Occ Schistocytes Occ Sodium Level 126 mmol/L (136-145) Potassium Level 2.6 mmol/L (3.5-5.1) Chloride Level 88 mmol/L (98-107) Carbon Dioxide Level 18 mmol/L (21-32) Anion Gap 20 (6-14) Blood Urea Nitrogen 62 mg/dL (8-26) Creatinine 6.2 mg/dL (0.7-1.3) Estimated GFR (Cockcroft-Gault) 9.2 BUN/Creatinine Ratio 10 (6-20) Glucose Level 47 mg/dL (70-99) Lactic Acid Level 3.8 mmol/L (0.4-2.0) Calcium Level 9.2 mg/dL (8.5-10.1) Magnesium Level 2.6 mg/dL (1.8-2.4) Total Bilirubin 4.3 mg/dL (0.2-1.0) Aspartate Amino Transf (AST/SGOT) 40 U/L (15-37) Alanine Aminotransferase (ALT/SGPT) 30 U/L (16-63) Alkaline Phosphatase 190 U/L (46-116) Total Protein 6.1 g/dL (6.4-8.2) Albumin 2.6 g/dL (3.4-5.0) Albumin/Globulin Ratio 0.7 (1.0-1.7) Fibrinogen 313 mg/dL (200-440) D-Dimer (Radha) 9.36 ug/mlFEU (0.00-0.50) Procalcitonin 1.10 ng/mL (0.00-0.10) Coronavirus (PCR) Not detected (Not Detected) Test 03/31/20 14:18 03/31/20 15:26 03/31/20 16:58 03/31/20 17:45 Glucose (Fingerstick) 138 mg/dL (70-99) 92 mg/dL (70-99) 152 mg/dL (70-99) Lactic Acid Level 2.9 mmol/L (0.4-2.0) Test 03/31/20 18:40 03/31/20 20:39 03/31/20 22:40 04/01/20 01:20 Ammonia 62 mcmol/L (11-34) Glucose (Fingerstick) 110 mg/dL (70-99) Lactic Acid Level 2.4 mmol/L (0.4-2.0) White Blood Count 5.9 x10^3/uL (4.0-11.0) Red Blood Count 2.55 x10^6/uL (4.30-5.70) Hemoglobin 7.9 g/dL (13.0-17.5) Hematocrit 23.3 % (39.0-53.0) Mean Corpuscular Volume 91 fL (79-100) Mean Corpuscular Hemoglobin 31 pg (25-35) Mean Corpuscular Hemoglobin Concent 34 g/dL (31-37) Red Cell Distribution Width 28.1 % (11.5-14.5) Platelet Count 107 x10^3/uL (140-400) Neutrophils (%) (Auto) 79 % (31-73) Lymphocytes (%) (Auto) 8 % (24-48) Monocytes (%) (Auto) 10 % (0-9) Eosinophils (%) (Auto) 2 % (0-3) Basophils (%) (Auto) 1 % (0-3) Neutrophils # (Auto) 4.6 x10^3/uL (1.8-7.7) Lymphocytes # (Auto) 0.5 x10^3/uL (1.0-4.8) Monocytes # (Auto) 0.6 x10^3/uL (0.0-1.1) Eosinophils # (Auto) 0.1 x10^3/uL (0.0-0.7) Basophils # (Auto) 0.0 x10^3/uL (0.0-0.2) Test 04/01/20 03:20 04/01/20 05:19 04/01/20 05:40 04/01/20 08:01 Sodium Level 127 mmol/L (136-145) Potassium Level 2.8 mmol/L (3.5-5.1) Chloride Level 92 mmol/L (98-107) Carbon Dioxide Level 18 mmol/L (21-32) Anion Gap 17 (6-14) Blood Urea Nitrogen 61 mg/dL (8-26) Creatinine 6.2 mg/dL (0.7-1.3) Estimated GFR (Cockcroft-Gault) 9.2 BUN/Creatinine Ratio 10 (6-20) Glucose Level 53 mg/dL (70-99) Calcium Level 8.2 mg/dL (8.5-10.1) Total Bilirubin 3.5 mg/dL (0.2-1.0) Aspartate Amino Transf (AST/SGOT) 43 U/L (15-37) Alanine Aminotransferase (ALT/SGPT) 29 U/L (16-63) Alkaline Phosphatase 153 U/L (46-116) Total Protein 5.1 g/dL (6.4-8.2) Albumin 2.1 g/dL (3.4-5.0) Albumin/Globulin Ratio 0.7 (1.0-1.7) Glucose (Fingerstick) 38 mg/dL (70-99) 132 mg/dL (70-99) 78 mg/dL (70-99) Test 04/01/20 11:45 04/01/20 14:47 04/01/20 17:00 04/01/20 18:20 Potassium Level 2.9 mmol/L (3.5-5.1) Thyroid Stimulating Hormone (TSH) 2.057 uIU/mL (0.358-3.74) Glucose (Fingerstick) 95 mg/dL (70-99) 79 mg/dL (70-99) SARS-CoV-2 Antigen (Rapid) Negative (NEGATIVE) Test 04/01/20 22:40 04/01/20 23:40 04/01/20 23:56 04/02/20 08:43 Influenza Type A Antigen Negative (NEGATIVE) Influenza Type B Antigen Negative (NEGATIVE) Potassium Level 3.1 mmol/L (3.5-5.1) Glucose (Fingerstick) 253 mg/dL (70-99) 295 mg/dL (70-99) Laboratory Tests Test 04/01/20 11:45 04/01/20 14:47 04/01/20 17:00 04/01/20 18:20 Potassium Level 2.9 mmol/L (3.5-5.1) Thyroid Stimulating Hormone (TSH) 2.057 uIU/mL (0.358-3.74) Glucose (Fingerstick) 95 mg/dL (70-99) 79 mg/dL (70-99) SARS-CoV-2 Antigen (Rapid) Negative (NEGATIVE) Test 04/01/20 22:40 04/01/20 23:40 04/01/20 23:56 04/02/20 08:43 Influenza Type A Antigen Negative (NEGATIVE) Influenza Type B Antigen Negative (NEGATIVE) Potassium Level 3.1 mmol/L (3.5-5.1) Glucose (Fingerstick) 253 mg/dL (70-99) 295 mg/dL (70-99) Microbiology 03/31/20 Blood Culture - Preliminary, Resulted NO GROWTH AFTER 1 DAY Medications Current Medications Dextrose (Dextrose 50%-Water Syringe) 25 gm 1X ONCE IV Last administered on 03/31/20at 13:51; Start 03/31/20 at 13:15; Stop 03/31/20 at 13:26; Status DC Sodium Chloride 1,000 ml @ 1,000 mls/hr 1X ONCE IV Last administered on 03/31/20at 17:34; Start 03/31/20 at 15:30; Stop 03/31/20 at 16:29; Status DC Piperacillin Sod/ Tazobactam Sod 3.375 gm/Sodium Chloride 50 ml @ 100 mls/hr 1X ONCE IV ; Start 03/31/20 at 15:30; Stop 03/31/20 at 15:59; Status DC Potassium Chloride 40 meq/ Dextrose 1,020 ml @ 75 mls/hr [id number] IV Last administered on 04/01/20at 09:55; Start 03/31/20 at 16:00; Stop 04/01/20 at 12:59; Status DC Dextrose (Dextrose 50%-Water Syringe) 25 gm 1X ONCE IV Last administered on 03/31/20at 15:36; Start 03/31/20 at 15:30; Stop 03/31/20 at 15:31; Status DC Lorazepam (Ativan Inj) 1 mg 1X ONCE IVP Last administered on 03/31/20at 15:46; Start 03/31/20 at 15:45; Stop 03/31/20 at 15:46; Status DC Cefepime HCl (Maxipime) 2 gm 1X ONCE IVP Last administered on 03/31/20at 16:53; Start 03/31/20 at 16:15; Stop 03/31/20 at 16:16; Status DC Sodium Chloride 1,000 ml @ 75 mls/hr [id number] IV Last administered on 03/31/20at 18:36; Start 03/31/20 at 17:30; Stop 04/01/20 at 17:29; Status DC Sodium Chloride 1,000 ml @ 1,000 mls/hr Q1H IV Last administered on 04/01/20at 01:05; Start 03/31/20 at 21:30; Stop 03/31/20 at 23:49; Status DC Sodium Chloride 500 ml @ 1,000 mls/hr PRN Q30MIN PRN IV SEE COMMENTS; Start 03/31/20 at 21:15 Norepinephrine Bitartrate 8 mg/ Dextrose 258 ml @ 0 mls/hr CONT PRN IV SEE I/O RECORD Last administered on 04/02/20at 02:23; Start 03/31/20 at 21:15 Dextrose (Dextrose 50%-Water Syringe) 25 gm STK-MED ONCE IV ; Start 04/01/20 at 05:20; Stop 04/01/20 at 05:20; Status DC Dextrose (Dextrose 50%-Water Syringe) 25 gm 1X ONCE IV Last administered on 04/01/20at 05:21; Start 04/01/20 at 08:45; Stop 04/01/20 at 08:46; Status DC Insulin Human Lispro (HumaLOG) 0-5 UNITS TIDWMEALS SQ Last administered on 04/02/20at 09:01; Start 04/01/20 at 12:00 Dextrose (Dextrose 50%-Water Syringe) 12.5 gm PRN Q15MIN PRN IV SEE COMMENTS; Start 04/01/20 at 11:00 Sodium Chloride 1,000 ml @ 1,000 mls/hr Q1H PRN IV hypotension; Start 04/01/20 at 12:15; Stop 04/01/20 at 18:14; Status DC Albumin Human 200 ml @ 200 mls/hr 1X PRN PRN IV Hypotension Last administered on 04/01/20at 12:16; Start 04/01/20 at 12:15; Stop 04/01/20 at 18:14; Status DC Sodium Chloride (Normal Saline Flush) 10 ml 1X PRN PRN IV AP catheter pack; Start 04/01/20 at 12:15; Stop 04/02/20 at 12:14 Sodium Chloride (Normal Saline Flush) 10 ml 1X PRN PRN IV H[employer]KE [employer]PERATOR catheter pack; Start 04/01/20 at 12:15; Stop 04/02/20 at 12:14 Sodium Chloride 1,000 ml @ 400 mls/hr Q2H30M PRN IV PATENCY; Start 04/01/20 at 12:15; Stop 04/02/20 at 00:14; Status DC Info (PHARMACY MONITORING -- do not chart) 1 each PRN DAILY PRN MC SEE COMMENTS; Start 04/01/20 at 12:15; Stop 04/01/20 at 12:12; Status DC Info (PHARMACY MONITORING -- do not chart) 1 each PRN DAILY PRN MC SEE COMMENTS; Start 04/01/20 at 12:15 Vancomycin HCl (Vanco Per Pharmacy) 1 each PRN DAILY PRN MC SEE COMMENTS Last administered on 04/01/20at 15:23; Start 04/01/20 at 12:30 Meropenem 1 gm/ Sodium Chloride 100 ml @ 200 mls/hr DAILY IV Last administered on 04/02/20at 08:54; Start 04/01/20 at 13:00 Vancomycin HCl 2 gm/Sodium Chloride 500 ml @ 250 mls/hr 1X ONCE IV Last administered on 04/01/20at 15:06; Start 04/01/20 at 12:45; Stop 04/01/20 at 14:44; Status DC Sodium Bicarbonate 50 meq/Potassium Chloride 20 meq/ Sodium Chloride 80 meq/Dextrose 580 ml @ 30 mls/hr [id number] IV ; Start 04/01/20 at 15:00 Magnesium Sulfate 50 ml @ 25 mls/hr PRN DAILY PRN IV for Mag < 1.7 on am labs; Start 04/01/20 at 13:00 Epoetin Sree (PROCRIT for DIALYSIS PTS) 10,000 unit QMWF SQ ; Start 04/02/20 at 16:00 Magnesium Sulfate 50 ml @ 25 mls/hr PRN DAILY PRN IV for Mag < 1.7 on am labs; Start 04/01/20 at 13:00; Stop 04/01/20 at 13:01; Status DC Vitamin B Complex/ Vitamin C (Meg-Severiano) 1 tab DAILY PO Last administered on 04/02/20at 08:54; Start 04/01/20 at 09:00 Acetaminophen (Tylenol) 500 mg Q8HRS PO Last administered on 04/02/20at 05:18; Start 04/01/20 at 14:00 Cetirizine HCl (ZyrTEC) 10 mg DAILY PO Last administered on 04/02/20at 08:54; Start 04/02/20 at 09:00 Levothyroxine Sodium (Synthroid) 25 mcg DAILY06 PO Last administered on 04/02/20at 05:18; Start 04/01/20 at 16:00 Pantoprazole Sodium (Protonix) 40 mg DAILYAC PO Last administered on 04/02/20at 08:54; Start 04/02/20 at 07:30 Multivitamins (Thera M Plus) 1 tab DAILY PO ; Start 04/02/20 at 09:00 Polyethylene Glycol (miraLAX PACKET) 17 gm BID PO ; Start 04/01/20 at 21:00 Zinc Sulfate (Orazinc) 220 mg DAILY PO Last administered on 04/02/20at 08:54; Start 04/02/20 at 09:00 Vancomycin HCl (Vancomycin Random Level) 1 each 1X ONCE MC ; Start 04/03/20 at 15:00; Stop 04/03/20 at 15:01 Sodium Bicarbonate 50 meq/Potassium Chloride 20 meq/ Sodium Chloride 80 meq/Dextrose 580 ml @ 30 mls/hr [id number] IV Last administered on 04/02/20at 08:55; Start 04/01/20 at 16:00; Stop 04/04/20 at 21:19 Potassium Chloride (Klor-Con) 20 meq PRN Q6HRS PRN PO SEE COMMENTS Last administered on 04/02/20at 00:25; Start 04/01/20 at 21:00 Active Scripts Active Reported Zyrtec (Cetirizine Hcl) 10 Mg Tablet 1 Tab PO DAILY Zinc Sulfate 220 Mg Tablet 220 Mg PO DAILY Xifaxan (Rifaximin) 550 Mg Tablet 1 Tab PO BID 10 Days Stress Formula (Multivits,Stress Formula) 1 Each Tablet 600 Each PO DAILY Sildenafil (Sildenafil Citrate) 20 Mg Tablet 20 Mg PO TID Crestor (Rosuvastatin Calcium) 5 Mg Tablet 1 Tab PO HS Polyethylene Glycol 3350 2,500 Gm Powder 17 Gm PO BID Midodrine Hcl 5 Mg Tablet 15 Mg PO TID Melatonin 3 Mg Tablet.er 1 Tab PO QHS 30 Days Lactulose 10 Gm Packet 10 Gm PO PRN DAILY PRN Gabapentin (Gabapentin) 100 Mg Capsule 100 Mg PO HS Levothyroxine Sodium 25 Mcg Tablet 1 Tab PO DAILY Humalog (Insulin Lispro) 100 Unit/1 Ml Vial 3 Unit SQ TIDWMEALS Dexilant (Dexlansoprazole) 60 Mg Cap.mp 1 Cap PO DAILY 30 Days Cipro (Ciprofloxacin Hcl) 250 Mg Tablet 1 Tab PO DAILY 7 Days Basaglar Kwikpen U-100 (Insulin Glargine,Hum.rec.anlog) 100 Unit/1 Ml Insuln.pen 22 Unit SQ BID Acetaminophen 500 Mg Tablet 1 Tab PO Q8HRS 15 Days Vitals/I & O Vital Sign - Last 24 Hours 04/01/20 04/01/20 04/01/20 04/01/20 11:00 12:00 12:00 13:00 Temp 96.5 97.8 96.5 97.8 Pulse 87 98 104 Resp 18 24 B/P (MAP) 95/53 (67) 96/54 (68) 95/57 (70) Pulse Ox 96 91 96 O2 Delivery Nasal Cannula Nasal Cannula Nasal Cannula Nasal Cannula O2 Flow Rate 5.0 5.0 4.0 5.0 04/01/20 04/01/20 04/01/20 04/01/20 14:00 16:00 16:00 17:00 Temp 97.8 97.8 Pulse 108 108 102 Resp 18 22 B/P (MAP) 96/64 (75) 140/69 (92) 113/57 (75) Pulse Ox 95 94 96 O2 Delivery Nasal Cannula Nasal Cannula Nasal Cannula Nasal Cannula O2 Flow Rate 5.0 5.0 4.0 4.0 04/01/20 04/01/20 04/01/20 04/01/20 18:00 20:00 20:00 23:30 Temp 97.8 97.8 Pulse 82 102 90 Resp 24 17 22 B/P (MAP) 129/74 (92) 107/46 (66) 62/50 (54) Pulse Ox 96 97 97 O2 Delivery Nasal Cannula Nasal Cannula Nasal Cannula Nasal Cannula O2 Flow Rate 5.0 4.0 4.0 4.0 04/02/20 04/02/20 04/02/20 04/02/20 00:05 00:20 01:31 02:29 Pulse 90 94 95 B/P (MAP) 112/70 (84) 121/66 (84) 113/61 (78) Pulse Ox 97 96 95 O2 Delivery Nasal Cannula Nasal Cannula Nasal Cannula Nasal Cannula O2 Flow Rate 4.0 4.0 4.0 4.0 04/02/20 04/02/20 04/02/20 04/02/20 03:30 04:00 04:00 05:01 Pulse 96 96 96 Resp B/P (MAP) 104/58 (73) 111/63 (79) 124/68 (86) Pulse Ox 96 96 97 O2 Delivery Nasal Cannula Nasal Cannula Nasal Cannula Nasal Cannula O2 Flow Rate 4.0 4.0 4.0 4.0 04/02/20 04/02/20 04/02/20 04/02/20 05:28 07:00 08:45 09:15 Temp 97.4 97.6 97.4 97.6 Pulse 90 88 86 Resp 22 14 20 B/P (MAP) 140/71 (94) 104/61 (75) 104/55 (71) Pulse Ox 96 96 94 O2 Delivery Nasal Cannula Nasal Cannula Nasal Cannula O2 Flow Rate 4.0 4.0 4.0 04/02/20 04/02/20 04/02/20 09:30 09:45 10:00 Pulse 86 84 86 Resp 22 B/P (MAP) 106/53 (70) 141/99 (113) 137/73 (94) Pulse Ox 97 96 96 O2 Delivery Nasal Cannula Nasal Cannula Nasal Cannula O2 Flow Rate 4.0 4.0 4.0 Intake and Output 1/3/21 1/3/21 1/4/21 15:00 23:00 07:00 Intake Total 570 ml 378 ml Output Total 0 ml Balance 0 ml 570 ml 378 ml Justicifation of Admission Dx: Justifications for Admission: Justification of Admission Dx: Yes Acute Renal Failure: 75% Reduction in GFR Sepsis: Altered Mental Status CUATE OMER MD Apr 02, 2020 10:25
--- NOTE | 2020-04-02 10:26 | PDOC2 ---
GI CONSULT Date of Service: DATE: 04/02/20 TIME: 10:26 Reason For Consult: cirrhosis, portal hypertension HPI: HPI: 64 y/o male admitted 03/31/20 w/ AMS. From [place]. Says he is at home and cannot tell me the year. Says he already told me when he dialyzes and says "Thursday." Also eating breakfast when I saw and spilled coffee on hid leg and bedding - I alerted nurse to this. He tells me he's had liver disease for 14 years related to Hep C that was reportedly treated at . Also says he has weekly paracentesis at . Says he takes lactulose BID and has had "surgery for varices." Not sure about Xifaxan. Cannot recall when last had EGD or colonoscopy. "I got a stone!" Denies abdominal pain. Significant labs: elevated D-dimer and procalcitonin, Hgb 9.1 to 7.9, MCV 91, plt 84 (to 107), Na 127, K 3.1, bili 3.5, AST 43, ALT 29, Alk Phos 153, ammonia 62 (to 47). On US: large ascites, cirrhosis, GB sludge/stones. On CT: left pleural effusion, pulmonary hypertension, cirrhosis, moderate hepatosplenomegaly, paraesophageal varices, SB wall thickening possibly related to portal hypertension, and cholelithiasis. PMH: PMH: per chart: HTN, ESRD on HD, DM, hypothyroidism, neuropathy, depression FH: Family History: Other (difficult to obtain) Social History: Smoke: No ALCOHOL: none Drugs: None ROS: Difficult to obtain, see HPI. Vitals: Vitals: Vital Signs Date Time Temp Pulse Resp B/P (MAP) Pulse Ox O2 Delivery O2 Flow Rate FiO2 04/02/20 10:00 86 22 137/73 (94) 96 Nasal Cannula 4.0 04/02/20 08:45 97.6 97.6 Labs: Labs: Laboratory Tests Test 04/01/20 11:45 04/01/20 14:47 04/01/20 17:00 04/01/20 18:20 Potassium Level 2.9 mmol/L (3.5-5.1) Thyroid Stimulating Hormone (TSH) 2.057 uIU/mL (0.358-3.74) Glucose (Fingerstick) 95 mg/dL (70-99) 79 mg/dL (70-99) SARS-CoV-2 Antigen (Rapid) Negative (NEGATIVE) Test 04/01/20 22:40 04/01/20 23:40 04/01/20 23:56 04/02/20 08:43 Influenza Type A Antigen Negative (NEGATIVE) Influenza Type B Antigen Negative (NEGATIVE) Potassium Level 3.1 mmol/L (3.5-5.1) Glucose (Fingerstick) 253 mg/dL (70-99) 295 mg/dL (70-99) BLOOD CULTURE Preliminary NO GROWTH AFTER 1 DAY Allergies: Coded Allergies: peanut (Verified Allergy, Severe, Anaphylaxis, 03/31/20) Penicillins (Verified Allergy, Intermediate, hives, 03/31/20) aspirin (Verified Allergy, Intermediate, rash, 03/31/20) latex (Verified Allergy, Intermediate, 03/31/20) metformin (Verified Allergy, Intermediate, 03/31/20) nitroglycerin (Verified Allergy, Intermediate, 03/31/20) ondansetron (Verified Allergy, Intermediate, 03/31/20) Medications: Current Medications Medications (Trade) Dose Ordered Sig/Missy Route PRN Reason Start Time Stop Time Status Last Admin Dose Admin Insulin Human Lispro (HumaLOG) 0-5 UNITS TIDWMEALS SQ 04/01/20 12:00 04/02/20 09:01 Albumin Human 200 ml @ 200 mls/hr 1X PRN PRN IV Hypotension 04/01/20 12:15 04/01/20 18:14 DC 04/01/20 12:16 Vancomycin HCl (Vanco Per Pharmacy) 1 each PRN DAILY PRN MC SEE COMMENTS 04/01/20 12:30 04/01/20 15:23 Meropenem 1 gm/ Sodium Chloride 100 ml @ 200 mls/hr DAILY IV 04/01/20 13:00 04/02/20 08:54 Vancomycin HCl 2 gm/Sodium Chloride 500 ml @ 250 mls/hr 1X ONCE IV 04/01/20 12:45 04/01/20 14:44 DC 04/01/20 15:06 Acetaminophen (Tylenol) 500 mg Q8HRS PO 04/01/20 14:00 04/02/20 05:18 Cetirizine HCl (ZyrTEC) 10 mg DAILY PO 04/02/20 09:00 1/4/21 08:54 Levothyroxine Sodium (Synthroid) 25 mcg DAILY06 PO 04/01/20 16:00 04/02/20 05:18 Pantoprazole Sodium (Protonix) 40 mg DAILYAC PO 04/02/20 07:30 04/02/20 08:54 Zinc Sulfate (Orazinc) 220 mg DAILY PO 04/02/20 09:00 04/02/20 08:54 Sodium Bicarbonate 50 meq/Potassium Chloride 20 meq/ Sodium Chloride 80 meq/Dextrose 580 ml @ 30 mls/hr [id number] IV 04/01/20 16:00 04/04/20 21:19 04/02/20 08:55 Potassium Chloride (Klor-Con) 20 meq PRN Q6HRS PRN PO SEE COMMENTS 04/01/20 21:00 04/02/20 00:25 Imaging: Imaging: CXR 1 IMPRESSION: Diffuse interstitial infiltrate and small pleural effusions. Head CT 03/31 IMPRESSION: Mild small vessel ischemic change, technically age indeterminate without recent prior imaging. CXR 1/2 IMPRESSION: 1. Bilateral opacities, improving on the right. 2. Stable small left pleural effusion. CT A/P 04/01 IMPRESSION: 1. Moderate left pleural effusion with compressive atelectasis of the left lower lobe. 2. Mild bilateral opacities may reflect atelectasis or mild pulmonary edema. 3. Enlargement of the main pulmonary artery is consistent with pulmonary arterial hypertension. 4. Morphologic changes of cirrhosis. Moderate hepatosplenomegaly. Large ascites. Paraesophageal varices. 5. Small bowel wall thickening likely reflects portal hypertension. Correlate for enteritis. 6. Cholelithiasis without evidence of acute cholecystitis. Abd US IMPRESSION: * Large amount of ascites. * Cirrhotic liver morphology. * Internal echoes within the gallbladder which could be from sludge and stones. There is also some wall thickening seen which is nonspecific in nature but could be related to the adjacent ascites with other possible causes including primary gallbladder inflammation or reactive changes to adjacent hepatic disease. PE: GEN: NAD, eating breakfast enthusiastically HEENT: Atraumatic, PERRL LUNGS: diminished anteriorly, 4L NC HEART: RRR, ABD: round and tight, non-tender EXTREMITY: BLE edema SKIN: No rashes, no jaundice NEURO/PSYCH:confused A/P: A/P: Sepsis, encephalopathy Normocytic anemia, thrombocytopenia, hyponatremia, hypokalemia, elevated LFTs (upward trend), mildly elevated ammonia (improved) Cirrhosis, h/o Hep C (?treated), ascites ?and frequent paracentesis, ?h/o variceal banding CRC screen - unclear timing GB sludge, cholelithiasis ESRD on HD, DM COVID negative 03/31/20 -- Still confused but reports history of liver disease w/ frequent paracentesis as above. Check INR, ask for paracentesis and fluid studies. Await other labs from today. Check hepatitis panel for completeness/confirm Hep C treatment. Agree w/ Xifaxan and lactulose. Can try to get records from . MARISSA AYALA Apr 02, 2020 10:26
--- NOTE | 2020-04-02 10:36 | PDOC ---
[facility] PROGRESS NOTE Date of Service DOS: DATE: 04/02/20 TIME: 10:17 Chief Complaint Chief Complaint A/P: SEVERE Sepsis with shock ALTERED Mental status acute metabolic encephalopathy Diffuse interstitial infiltrate and small pleural effusions. severe hypothermia severe hypokalemia SEVERE Hypoglycemia ESRD ON DIALYSIS PUI COVID recent NV hypothyroid state Hep C in remission PLAN ADMIT ICU BED Blood cultures warming blanket consult nephrology consult ID Emperic iv antibiotics sepsis protocol CONSULT DR ARTEAGA cardiology consult May need tunneled dialysis catheter removal in the near future glucose management protocol D/W RN NO FAMILY PRESENT to give accurate hx NEED RECENT RECORDS [facility] 35 min cc time History of Present Illness History of Present Illness Mr Prieto is a 64 year old male with a history of end-stage renal failure on hemodialysis and diabetes who was sent here for from the dialysis center due to altered mental status. Not much history was able to obtain. Patient was dropped off to the dialysis center by van transport , for dialysis today, when they tried to obtain his vital signs patient was very confused. EMS was, called blood sugar was 24 per EMS. Upon arrival to room patient was hypothermic and encephalopathic COVID STATUS is unknown. No family present to assist with history. Afebrile. Still on O2. He is very confused continues to ask to get coffee. Labs pending today. Vitals/I&O Vitals/I&O: Vital Signs Date Time Temp Pulse Resp B/P (MAP) Pulse Ox O2 Delivery O2 Flow Rate FiO2 04/02/20 07:00 90 22 140/71 (94) 96 Nasal Cannula 4.0 04/02/20 05:28 97.4 97.4 I & O 04/01/20 04/01/20 04/02/20 15:00 23:00 07:00 Intake Total 570 ml 378 ml Output Total 0 ml Balance 0 ml 570 ml 378 ml Physical Exam Physical Exam: GENERAL: Confused male, arousable, does not answer all questions. HEENT: Normocephalic, atraumatic. Anicteric. Oral mucosa dry. NECK: Supple. LUNGS: Decreased breath sounds at the bases, some expiratory rhonchi. HEART: S1, S2, no murmurs. ABDOMEN: Soft, mildly distended, nontender, nondistended. EXTREMITIES: No edema, no cyanosis. DERMATOLOGIC: No generalized rash. 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1 mmol/L (3.5-5.1) Glucose (Fingerstick) 253 mg/dL (70-99) 295 mg/dL (70-99) Assessment and Plan Assessmemt and Plan Problems Medical Problems: (1) ESRD (end stage renal disease) on dialysis Status: Acute (2) Hypoglycemia Status: Acute (3) Hypokalemia Status: Acute (4) Severe sepsis Status: Acute Comment Review of Relevant I have reviewed the following items jaqueline (where applicable) has been applied. Medications: Current Medications Medications (Trade) Dose Ordered Sig/Missy Route PRN Reason Start Time Stop Time Status Last Admin Dose Admin Insulin Human Lispro (HumaLOG) 0-5 UNITS TIDWMEALS SQ 04/01/20 12:00 04/02/20 09:01 Albumin Human 200 ml @ 200 mls/hr 1X PRN PRN IV Hypotension 04/01/20 12:15 04/01/20 18:14 DC 04/01/20 12:16 Vancomycin HCl (Vanco Per Pharmacy) 1 each PRN DAILY PRN MC SEE COMMENTS 04/01/20 12:30 04/01/20 15:23 Meropenem 1 gm/ Sodium Chloride 100 ml @ 200 mls/hr DAILY IV 04/01/20 13:00 04/02/20 08:54 Vancomycin HCl 2 gm/Sodium Chloride 500 ml @ 250 mls/hr 1X ONCE IV 04/01/20 12:45 04/01/20 14:44 DC 04/01/20 15:06 Acetaminophen (Tylenol) 500 mg Q8HRS PO 04/01/20 14:00 04/02/20 05:18 Cetirizine HCl (ZyrTEC) 10 mg DAILY PO 04/02/20 09:00 04/02/20 08:54 Levothyroxine Sodium (Synthroid) 25 mcg DAILY06 PO 04/01/20 16:00 04/02/20 05:18 Pantoprazole Sodium (Protonix) 40 mg DAILYAC PO 04/02/20 07:30 04/02/20 08:54 Zinc Sulfate (Orazinc) 220 mg DAILY PO 04/02/20 09:00 04/02/20 08:54 Sodium Bicarbonate 50 meq/Potassium Chloride 20 meq/ Sodium Chloride 80 meq/Dextrose 580 ml @ 30 mls/hr [id number] IV 04/01/20 16:00 04/04/20 21:19 04/02/20 08:55 Potassium Chloride (Klor-Con) 20 meq PRN Q6HRS PRN PO SEE COMMENTS 04/01/20 21:00 04/02/20 00:25 Justifications for Admission Other Justification DAYO CANSECO MD Apr 02, 2020 10:36
--- NOTE | 2020-04-02 10:47 | PDOC ---
DATE OF SERVICE DATE: 04/02/20 TIME: 10:47 SUBJECTIVE ROS stable, No acute concerns voiced by RN OBJECTIVE Vital Signs Vital Signs Date Time Temp Pulse Resp B/P (MAP) Pulse Ox O2 Delivery O2 Flow Rate FiO2 04/02/20 10:00 86 22 137/73 (94) 96 Nasal Cannula 4.0 04/02/20 08:45 97.6 97.6 I & 0 Intake and Output 04/02/20 07:00 Intake Total 948 ml Output Total 0 ml Balance 948 ml Intake Oral 690 ml IV Total 258 ml Output Urine Total 0 ml # Bowel Movements 2 PHYSICAL EXAM Physical Exam GENERAL: Confused , sitting up in bed, finished eating HEENT: Normocephalic, atraumatic. Oral mucosa moist NECK: Supple. LUNGS: Decreased breath sounds at the bases,non labored HEART: S1, S2, no murmurs. ABDOMEN: Soft, nontender, EXTREMITIES: Edema 1-2 + DERMATOLOGIC: No generalized rash. HAND WOV[employer]PET [employer] RUG MENDER awake, appropriate, no focal deficit DIAGNOSIS/ASSESSMENT Assessment & Plan ESRD: on HD TTS FMS/[facility] . Currently no indication for HD Hypo kalemia: Potassium replacement as ordered sepsis, source unclear- ID following, Discussed with ID for HDC removal, recommned holding off as BC negative. Will Re-evaluate in am Metabolic encephalopathy. COVID upper respiratory infection Negative 03/31/20 Diabetes mellitus 2-Elevated BG Elevated LFT's per primary/GI Cirrhosis, h/o Hep C (?treated), ascites ?and frequent paracentesis, ?h/o variceal banding. Per GI CT abdomen and pelvis and chest IMPRESSION: 1. Moderate left pleural effusion with compressive atelectasis of the left lower lobe. 2. Mild bilateral opacities may reflect atelectasis or mild pulmonary edema. 3. Enlargement of the main pulmonary artery is consistent with pulmonary arterial hypertension. 4. Morphologic changes of cirrhosis. Moderate hepatosplenomegaly. Large ascites. Paraesophageal varices. 5. Small bowel wall thickening likely reflects portal hypertension. Correlate for enteritis. 6. Cholelithiasis without evidence of acute cholecystitis. Severe hypoalbuminemia: malnutrition Anemia:Epogen as ordered Edema: Cannot rule out liver failure COMMENT/RELEVANT DATA Meds Current Medications Medications (Trade) Dose Ordered Sig/Missy Start Time Stop Time Status Last Admin Dose Admin Acetaminophen (Tylenol) 500 mg Q8HRS 04/01/20 14:00 04/02/20 05:18 500 MG Albumin Human 200 ml @ 200 mls/hr 1X PRN PRN 04/01/20 12:15 04/01/20 18:14 DC 04/01/20 12:16 200 MLS/HR Cefepime HCl (Maxipime) 2 gm 1X ONCE 03/31/20 16:15 03/31/20 16:16 DC 03/31/20 16:53 2 GM Cetirizine HCl (ZyrTEC) 10 mg DAILY 04/02/20 09:00 04/02/20 08:54 10 MG Dextrose (Dextrose 50%-Water Syringe) 12.5 gm PRN Q15MIN PRN 04/01/20 11:00 Epoetin Sree (PROCRIT for DIALYSIS PTS) 10,000 unit QMWF 04/02/20 16:00 Info (PHARMACY MONITORING -- do not chart) 1 each PRN DAILY PRN 04/01/20 12:15 Insulin Human Lispro (HumaLOG) 0-5 UNITS TIDWMEALS 04/01/20 12:00 04/02/20 09:01 4 UNITS Levothyroxine Sodium (Synthroid) 25 mcg DAILY06 04/01/20 16:00 04/02/20 05:18 25 MCG Lorazepam (Ativan Inj) 1 mg 1X ONCE 03/31/20 15:45 03/31/20 15:46 DC 03/31/20 15:46 1 MG Magnesium Sulfate 50 ml @ 25 mls/hr PRN DAILY PRN 04/01/20 13:00 04/01/20 13:01 DC Meropenem 1 gm/ Sodium Chloride 100 ml @ 200 mls/hr DAILY 04/01/20 13:00 04/02/20 08:54 200 MLS/HR Multivitamins (Thera M Plus) 1 tab DAILY 04/02/20 09:00 Norepinephrine Bitartrate 8 mg/ Dextrose 258 ml @ 0 mls/hr CONT PRN 03/31/20 21:15 04/02/20 02:23 17.8 MLS/HR Pantoprazole Sodium (Protonix) 40 mg DAILYAC 04/02/20 07:30 04/02/20 08:54 40 MG Piperacillin Sod/ Tazobactam Sod 3.375 gm/Sodium Chloride 50 ml @ 100 mls/hr 1X ONCE 03/31/20 15:30 03/31/20 15:59 DC Polyethylene Glycol (miraLAX PACKET) 17 gm BID 04/01/20 21:00 Potassium Chloride 40 meq/ Dextrose 1,020 ml @ 75 mls/hr [id number] 03/31/20 16:00 04/01/20 12:59 DC 04/01/20 09:55 75 MLS/HR Potassium Chloride (Klor-Con) 20 meq PRN Q6HRS PRN 04/01/20 21:00 04/02/20 00:25 20 MEQ Sodium Bicarbonate 50 meq/Potassium Chloride 20 meq/ Sodium Chloride 80 meq/Dextrose 580 ml @ 30 mls/hr [id number] 04/01/20 16:00 04/04/20 21:19 04/02/20 08:55 30 MLS/HR Sodium Chloride 1,000 ml @ 400 mls/hr Q2H30M PRN 04/01/20 12:15 04/02/20 00:14 DC Sodium Chloride (Normal Saline Flush) 10 ml 1X PRN PRN 04/01/20 12:15 04/02/20 12:14 Vancomycin HCl (Vanco Per Pharmacy) 1 each PRN DAILY PRN 04/01/20 12:30 04/01/20 15:23 1 EACH Vancomycin HCl (Vancomycin Random Level) 1 each 1X ONCE 04/03/20 15:00 04/03/20 15:01 Vancomycin HCl 2 gm/Sodium Chloride 500 ml @ 250 mls/hr 1X ONCE 04/01/20 12:45 04/01/20 14:44 DC 04/01/20 15:06 250 MLS/HR Vitamin B Complex/ Vitamin C (Meg-Severiano) 1 tab DAILY 04/01/20 09:00 04/02/20 08:54 1 TAB Zinc Sulfate (Orazinc) 220 mg DAILY 04/02/20 09:00 04/02/20 08:54 220 MG Lab Laboratory Tests Test 04/01/20 11:45 04/01/20 14:47 04/01/20 17:00 04/01/20 18:20 Potassium Level 2.9 mmol/L (3.5-5.1) Thyroid Stimulating Hormone (TSH) 2.057 uIU/mL (0.358-3.74) Glucose (Fingerstick) 95 mg/dL (70-99) 79 mg/dL (70-99) SARS-CoV-2 Antigen (Rapid) Negative (NEGATIVE) Test 04/01/20 22:40 04/01/20 23:40 04/01/20 23:56 04/02/20 08:43 Influenza Type A Antigen Negative (NEGATIVE) Influenza Type B Antigen Negative (NEGATIVE) Potassium Level 3.1 mmol/L (3.5-5.1) Glucose (Fingerstick) 253 mg/dL (70-99) 295 mg/dL (70-99) Results All relevant outside records, renal labs, imaging studies, telemetry/EKG's were reviewed. Justicifation of Admission Dx: Justifications for Admission: Justification of Admission Dx: Yes Acute Renal Failure: 75% Reduction in GFR Sepsis: Altered Mental Status JASPREET BUNDY MD Apr 02, 2020 10:47
[2020-04-02 10:49] LABS: BASO % 0 % (0-3); EOS # 0.1 x10^3/uL (0.0-0.7); EOS % 2 % (0-3); HEMATOCRIT 22.8 % (39.0-53.0); HEMOGLOBIN 7.5 g/dL (13.0-17.5); LYMPH # 0.4 x10^3/uL (1.0-4.8); LYMPH % 9 % (24-48); MEAN CORPUSCULAR HEMOGLOBIN 31 pg (25-35); MEAN CORPUSCULAR HGB CONC 33 g/dL (31-37); MEAN CORPUSCULAR VOLUME 93 fL (79-100); MONO # 0.5 x10^3/uL (0.0-1.1); MONO % 11 % (0-9); NEUT # 3.5 x10^3/uL (1.8-7.7); NEUT % 78 % (31-73); PLATELET COUNT 60 x10^3/uL (140-400); RED BLOOD COUNT 2.46 x10^6/uL (4.30-5.70); WHITE BLOOD COUNT 4.5 x10^3/uL (4.0-11.0)
[2020-04-02 10:51] LABS: ALBUMIN 2.5 g/dL (3.4-5.0); ALBUMIN/GLOBULIN RATIO 0.9 (1.0-1.7); CALCIUM 8.2 mg/dL (8.5-10.1); CREATININE 3.8 mg/dL (0.7-1.3); GFR 16.2; PHOSPHORUS 4.3 mg/dL (2.6-4.7); POTASSIUM 3.1 mmol/L (3.5-5.1); TOTAL BILIRUBIN 4.8 mg/dL (0.2-1.0); TOTAL PROTEIN 5.3 g/dL (6.4-8.2)
[2020-04-02 10:59] LABS: PROTHROMBIN TIME PATIENT 22.7 SEC (11.7-14.0)
--- NOTE | 2020-04-02 11:38 | PDOC ---
PULMONARY PROGRESS NOTES DATE: 04/02/20 TIME: 11:38 Subjective remains on 4 liters N/C no SOA or cough no overnight events Vitals Vital Signs Date Time Temp Pulse Resp B/P (MAP) Pulse Ox O2 Delivery O2 Flow Rate FiO2 04/02/20 10:00 86 22 137/73 (94) 96 Nasal Cannula 4.0 04/02/20 08:45 97.6 97.6 ROS: No Nausea, No Chest Pain, No Abdominal Pain, No Increase Cough General: Confused Lungs: Crackles Cardiovascular: S1, S2 Abdomen: Soft, Non-tender Extremities: No Edema Skin: Warm Labs Laboratory Tests Test 03/31/20 13:07 03/31/20 13:20 03/31/20 13:30 03/31/20 14:06 Glucose (Fingerstick) 48 mg/dL (70-99) White Blood Count 5.8 x10^3/uL (4.0-11.0) Red Blood Count 2.97 x10^6/uL (4.30-5.70) Hemoglobin 9.1 g/dL (13.0-17.5) Hematocrit 27.5 % (39.0-53.0) Mean Corpuscular Volume 93 fL (79-100) Mean Corpuscular Hemoglobin 31 pg (25-35) Mean Corpuscular Hemoglobin Concent 33 g/dL (31-37) Red Cell Distribution Width 28.4 % (11.5-14.5) Platelet Count 84 x10^3/uL (140-400) Neutrophils (%) (Auto) 84 % (31-73) Lymphocytes (%) (Auto) 7 % (24-48) Monocytes (%) (Auto) 8 % (0-9) Eosinophils (%) (Auto) 1 % (0-3) Basophils (%) (Auto) 0 % (0-3) Neutrophils # (Auto) 4.9 x10^3/uL (1.8-7.7) Lymphocytes # (Auto) 0.4 x10^3/uL (1.0-4.8) Monocytes # (Auto) 0.4 x10^3/uL (0.0-1.1) Eosinophils # (Auto) 0.0 x10^3/uL (0.0-0.7) Basophils # (Auto) 0.0 x10^3/uL (0.0-0.2) Platelet Estimate Decreased (ADEQUATE) Polychromasia Slight Hypochromasia Slight Poikilocytosis Slight Anisocytosis Marked Target Cells Occ Schistocytes Occ Sodium Level 126 mmol/L (136-145) Potassium Level 2.6 mmol/L (3.5-5.1) Chloride Level 88 mmol/L (98-107) Carbon Dioxide Level 18 mmol/L (21-32) Anion Gap 20 (6-14) Blood Urea Nitrogen 62 mg/dL (8-26) Creatinine 6.2 mg/dL (0.7-1.3) Estimated GFR (Cockcroft-Gault) 9.2 BUN/Creatinine Ratio 10 (6-20) Glucose Level 47 mg/dL (70-99) Lactic Acid Level 3.8 mmol/L (0.4-2.0) Calcium Level 9.2 mg/dL (8.5-10.1) Magnesium Level 2.6 mg/dL (1.8-2.4) Total Bilirubin 4.3 mg/dL (0.2-1.0) Aspartate Amino Transf (AST/SGOT) 40 U/L (15-37) Alanine Aminotransferase (ALT/SGPT) 30 U/L (16-63) Alkaline Phosphatase 190 U/L (46-116) Total Protein 6.1 g/dL (6.4-8.2) Albumin 2.6 g/dL (3.4-5.0) Albumin/Globulin Ratio 0.7 (1.0-1.7) Fibrinogen 313 mg/dL (200-440) D-Dimer (Radha) 9.36 ug/mlFEU (0.00-0.50) Procalcitonin 1.10 ng/mL (0.00-0.10) Coronavirus (PCR) Not detected (Not Detected) Test 03/31/20 14:18 03/31/20 15:26 03/31/20 16:58 03/31/20 17:45 Glucose (Fingerstick) 138 mg/dL (70-99) 92 mg/dL (70-99) 152 mg/dL (70-99) Lactic Acid Level 2.9 mmol/L (0.4-2.0) Test 03/31/20 18:40 03/31/20 20:39 1/2/21 22:40 04/01/20 01:20 Ammonia 62 mcmol/L (11-34) Glucose (Fingerstick) 110 mg/dL (70-99) Lactic Acid Level 2.4 mmol/L (0.4-2.0) White Blood Count 5.9 x10^3/uL (4.0-11.0) Red Blood Count 2.55 x10^6/uL (4.30-5.70) Hemoglobin 7.9 g/dL (13.0-17.5) Hematocrit 23.3 % (39.0-53.0) Mean Corpuscular Volume 91 fL (79-100) Mean Corpuscular Hemoglobin 31 pg (25-35) Mean Corpuscular Hemoglobin Concent 34 g/dL (31-37) Red Cell Distribution Width 28.1 % (11.5-14.5) Platelet Count 107 x10^3/uL (140-400) Neutrophils (%) (Auto) 79 % (31-73) Lymphocytes (%) (Auto) 8 % (24-48) Monocytes (%) (Auto) 10 % (0-9) Eosinophils (%) (Auto) 2 % (0-3) Basophils (%) (Auto) 1 % (0-3) Neutrophils # (Auto) 4.6 x10^3/uL (1.8-7.7) Lymphocytes # (Auto) 0.5 x10^3/uL (1.0-4.8) Monocytes # (Auto) 0.6 x10^3/uL (0.0-1.1) Eosinophils # (Auto) 0.1 x10^3/uL (0.0-0.7) Basophils # (Auto) 0.0 x10^3/uL (0.0-0.2) Test 04/01/20 03:20 04/01/20 05:19 04/01/20 05:40 04/01/20 08:01 Sodium Level 127 mmol/L (136-145) Potassium Level 2.8 mmol/L (3.5-5.1) Chloride Level 92 mmol/L (98-107) Carbon Dioxide Level 18 mmol/L (21-32) Anion Gap 17 (6-14) Blood Urea Nitrogen 61 mg/dL (8-26) Creatinine 6.2 mg/dL (0.7-1.3) Estimated GFR (Cockcroft-Gault) 9.2 BUN/Creatinine Ratio 10 (6-20) Glucose Level 53 mg/dL (70-99) Calcium Level 8.2 mg/dL (8.5-10.1) Total Bilirubin 3.5 mg/dL (0.2-1.0) Aspartate Amino Transf (AST/SGOT) 43 U/L (15-37) Alanine Aminotransferase (ALT/SGPT) 29 U/L (16-63) Alkaline Phosphatase 153 U/L (46-116) Total Protein 5.1 g/dL (6.4-8.2) Albumin 2.1 g/dL (3.4-5.0) Albumin/Globulin Ratio 0.7 (1.0-1.7) Glucose (Fingerstick) 38 mg/dL (70-99) 132 mg/dL (70-99) 78 mg/dL (70-99) Test 04/01/20 11:45 04/01/20 14:47 04/01/20 17:00 04/01/20 18:20 Potassium Level 2.9 mmol/L (3.5-5.1) Thyroid Stimulating Hormone (TSH) 2.057 uIU/mL (0.358-3.74) Glucose (Fingerstick) 95 mg/dL (70-99) 79 mg/dL (70-99) SARS-CoV-2 Antigen (Rapid) Negative (NEGATIVE) Test 04/01/20 22:40 04/01/20 23:40 04/01/20 23:56 04/02/20 08:43 Influenza Type A Antigen Negative (NEGATIVE) Influenza Type B Antigen Negative (NEGATIVE) Potassium Level 3.1 mmol/L (3.5-5.1) Glucose (Fingerstick) 253 mg/dL (70-99) 295 mg/dL (70-99) Test 04/02/20 09:55 White Blood Count 4.5 x10^3/uL (4.0-11.0) Red Blood Count 2.46 x10^6/uL (4.30-5.70) Hemoglobin 7.5 g/dL (13.0-17.5) Hematocrit 22.8 % (39.0-53.0) Mean Corpuscular Volume 93 fL (79-100) Mean Corpuscular Hemoglobin 31 pg (25-35) Mean Corpuscular Hemoglobin Concent 33 g/dL (31-37) Red Cell Distribution Width 28.0 % (11.5-14.5) Platelet Count 60 x10^3/uL (140-400) Neutrophils (%) (Auto) 78 % (31-73) Lymphocytes (%) (Auto) 9 % (24-48) Monocytes (%) (Auto) 11 % (0-9) Eosinophils (%) (Auto) 2 % (0-3) Basophils (%) (Auto) 0 % (0-3) Neutrophils # (Auto) 3.5 x10^3/uL (1.8-7.7) Lymphocytes # (Auto) 0.4 x10^3/uL (1.0-4.8) Monocytes # (Auto) 0.5 x10^3/uL (0.0-1.1) Eosinophils # (Auto) 0.1 x10^3/uL (0.0-0.7) Basophils # (Auto) 0.0 x10^3/uL (0.0-0.2) Prothrombin Time 22.7 SEC (11.7-14.0) Prothromb Time International Ratio 2.0 (0.8-1.1) Sodium Level 132 mmol/L (136-145) Potassium Level 3.1 mmol/L (3.5-5.1) Chloride Level 94 mmol/L (98-107) Carbon Dioxide Level 24 mmol/L (21-32) Anion Gap 14 (6-14) Blood Urea Nitrogen 32 mg/dL (8-26) Creatinine 3.8 mg/dL (0.7-1.3) Estimated GFR (Cockcroft-Gault) 16.2 BUN/Creatinine Ratio 8 (6-20) Glucose Level 290 mg/dL (70-99) Calcium Level 8.2 mg/dL (8.5-10.1) Phosphorus Level 4.3 mg/dL (2.6-4.7) Magnesium Level 2.1 mg/dL (1.8-2.4) Iron Level 39 ug/dL (65-175) Total Iron Binding Capacity 99 ug/dL (250-450) Iron Saturation 39 % (15-34) Total Bilirubin 4.8 mg/dL (0.2-1.0) Aspartate Amino Transf (AST/SGOT) 42 U/L (15-37) Alanine Aminotransferase (ALT/SGPT) 29 U/L (16-63) Alkaline Phosphatase 155 U/L (46-116) Ammonia 47 mcmol/L (11-34) Total Protein 5.3 g/dL (6.4-8.2) Albumin 2.5 g/dL (3.4-5.0) Albumin/Globulin Ratio 0.9 (1.0-1.7) Laboratory Tests Test 04/01/20 11:45 04/01/20 14:47 04/01/20 17:00 04/01/20 18:20 Potassium Level 2.9 mmol/L (3.5-5.1) Thyroid Stimulating Hormone (TSH) 2.057 uIU/mL (0.358-3.74) Glucose (Fingerstick) 95 mg/dL (70-99) 79 mg/dL (70-99) SARS-CoV-2 Antigen (Rapid) Negative (NEGATIVE) Test 04/01/20 22:40 04/01/20 23:40 04/01/20 23:56 04/02/20 08:43 Influenza Type A Antigen Negative (NEGATIVE) Influenza Type B Antigen Negative (NEGATIVE) Potassium Level 3.1 mmol/L (3.5-5.1) Glucose (Fingerstick) 253 mg/dL (70-99) 295 mg/dL (70-99) Test 04/02/20 09:55 White Blood Count 4.5 x10^3/uL (4.0-11.0) Red Blood Count 2.46 x10^6/uL (4.30-5.70) Hemoglobin 7.5 g/dL (13.0-17.5) Hematocrit 22.8 % (39.0-53.0) Mean Corpuscular Volume 93 fL (79-100) Mean Corpuscular Hemoglobin 31 pg (25-35) Mean Corpuscular Hemoglobin Concent 33 g/dL (31-37) Red Cell Distribution Width 28.0 % (11.5-14.5) Platelet Count 60 x10^3/uL (140-400) Neutrophils (%) (Auto) 78 % (31-73) Lymphocytes (%) (Auto) 9 % (24-48) Monocytes (%) (Auto) 11 % (0-9) Eosinophils (%) (Auto) 2 % (0-3) Basophils (%) (Auto) 0 % (0-3) Neutrophils # (Auto) 3.5 x10^3/uL (1.8-7.7) Lymphocytes # (Auto) 0.4 x10^3/uL (1.0-4.8) Monocytes # (Auto) 0.5 x10^3/uL (0.0-1.1) Eosinophils # (Auto) 0.1 x10^3/uL (0.0-0.7) Basophils # (Auto) 0.0 x10^3/uL (0.0-0.2) Prothrombin Time 22.7 SEC (11.7-14.0) Prothromb Time International Ratio 2.0 (0.8-1.1) Sodium Level 132 mmol/L (136-145) Potassium Level 3.1 mmol/L (3.5-5.1) Chloride Level 94 mmol/L (98-107) Carbon Dioxide Level 24 mmol/L (21-32) Anion Gap 14 (6-14) Blood Urea Nitrogen 32 mg/dL (8-26) Creatinine 3.8 mg/dL (0.7-1.3) Estimated GFR (Cockcroft-Gault) 16.2 BUN/Creatinine Ratio 8 (6-20) Glucose Level 290 mg/dL (70-99) Calcium Level 8.2 mg/dL (8.5-10.1) Phosphorus Level 4.3 mg/dL (2.6-4.7) Magnesium Level 2.1 mg/dL (1.8-2.4) Iron Level 39 ug/dL (65-175) Total Iron Binding Capacity 99 ug/dL (250-450) Iron Saturation 39 % (15-34) Total Bilirubin 4.8 mg/dL (0.2-1.0) Aspartate Amino Transf (AST/SGOT) 42 U/L (15-37) Alanine Aminotransferase (ALT/SGPT) 29 U/L (16-63) Alkaline Phosphatase 155 U/L (46-116) Ammonia 47 mcmol/L (11-34) Total Protein 5.3 g/dL (6.4-8.2) Albumin 2.5 g/dL (3.4-5.0) Albumin/Globulin Ratio 0.9 (1.0-1.7) Medications Active Scripts Medications Dose Route/Sig Max Daily Dose Days Date Category Zyrtec (Cetirizine Hcl) 10 Mg Tablet 1 Tab PO DAILY 04/01/20 Reported Zinc Sulfate 220 Mg Tablet 220 Mg PO DAILY 04/01/20 Reported Xifaxan (Rifaximin) 550 Mg Tablet 1 Tab PO BID 10 04/01/20 Reported Stress Formula (Multivits,Stress Formula) 1 Each Tablet 600 Each PO DAILY 04/01/20 Reported Sildenafil (Sildenafil Citrate) 20 Mg Tablet 20 Mg PO TID 04/01/20 Reported Crestor (Rosuvastatin Calcium) 5 Mg Tablet 1 Tab PO HS 04/01/20 Reported Polyethylene Glycol 3350 2,500 Gm Powder 17 Gm PO BID 04/01/20 Reported Midodrine Hcl 5 Mg Tablet 15 Mg PO TID 04/01/20 Reported Melatonin 3 Mg Tablet.er 1 Tab PO QHS 30 04/01/20 Reported Lactulose 10 Gm Packet 10 Gm PO PRN DAILY PRN 04/01/20 Reported Gabapentin (Gabapentin) 100 Mg Capsule 100 Mg PO HS 04/01/20 Reported Levothyroxine Sodium 25 Mcg Tablet 1 Tab PO DAILY 04/01/20 Reported Humalog (Insulin Lispro) 100 Unit/1 Ml Vial 3 Unit SQ TIDWMEALS 04/01/20 Reported Dexilant (Dexlansoprazole) 60 Mg Mason. 1 Cap PO DAILY 30 04/01/20 Reported Cipro (Ciprofloxacin Hcl) 250 Mg Tablet 1 Tab PO DAILY 7 04/01/20 Reported Basaglar Kwikpen U-100 (Insulin Glargine,Hum.rec.anlog) 100 Unit/1 Ml Insuln.pen 22 Unit SQ BID 04/01/20 Reported Acetaminophen 500 Mg Tablet 1 Tab PO Q8HRS 15 04/01/[address] chest ABD and pelvis IMPRESSION: 1. Moderate left pleural effusion with compressive atelectasis of the left lower lobe. 2. Mild bilateral opacities may reflect atelectasis or mild pulmonary edema. 3. Enlargement of the main pulmonary artery is consistent with pulmonary a rterial hypertension. 4. Morphologic changes of cirrhosis. Moderate hepatosplenomegaly. Large ascites. Paraesophageal varices. 5. Small bowel wall thickening likely reflects portal hypertension. Correlate for enteritis. 6. Cholelithiasis without evidence of acute cholecystitis. Impression . IMPRESSION: 1. Acute respiratory failure, multifactorial, suspect possible pneumonia, rule out COVID-19. 2. Sepsis. 3. Hypothermia. 4. Metabolic toxic encephalopathy. 5. End-stage renal disease. 6. Hypoglycemia. 7. Thrombocytopenia. 8. Elevated bilirubin. Plan . PLAN: Continue oxygen supplementation to keep sats above 92%, on 4 liters N/C Continue ABX per ID, follow cultures CT reviewed COVID-19 negative, influenza negative Follow cardiology recs Follow nephrology recs-- HD Follow neurology recs DVT/GI PPX D/W STONEY GARCIA MD Apr 02, 2020 11:38
[2020-04-02] MEDS: MIDODRINE 5 MG TABLET PO SCH ×2 (12:35→18:06)
[2020-04-02] MEDS: LACTULOSE 20 GM/30 ML SOLUTION. PO SCH ×3 (12:35→21:00)
[2020-04-02] MEDS: rifAXIMin 550 MG TABLET PO SCH ×2 (12:35→20:31)
--- NOTE | 2020-04-02 13:58 | PDOC2 ---
[facility] REHABILIT[facility] PROGRAM COORDINATOR 04/02/20 1358: CARDIAC CONSULT DATE OF CONSULT Date of Consult DATE: 04/02/20 TIME: 13:47 REASON FOR CONSULT Reason for Consult: CHF REFERRING PHYSICIAN Referring Physician: Dr. Ponce SOURCE Source: Chart review HISTORY OF PRESENT ILLNESS HISTORY OF PRESENT ILLNESS This is a 64 yo male who presented secondary to altered mental status. Has a history of ESRD on HD. Presented to HD with altered mental status. EMS was called. Blood sugar noted at 24. Was brought to the ED for further evaluation and treatment. Patient has a history of Hepatis C and cirrhosis. Has had recurrent ascites requiring multiple paracentesis. CT abdomen/pelvis and abdominal US with recurrent ascites. Is presently alert, but confused. Unable to provide any meaningful history. Presently denies any chest pain or SOA. Does have additional history of hypotension on Midodrine. PAST MEDICAL HISTORY Cardiovascular: Pulmonary hypertension, Other (hypotension ) CENTRAL NERVOUS SYSTEM: Periperal neuropathy GI: GERD, Other (esophageal varices s/p banding, refractory ascites requiring frequent paracentesis) Hepatobiliary: Cirrhosis, Hep A/B/C (C), Other (portopulmonary hypertension) Renal/: Chronic renal failure (ESRD on HD) Endocrine: Diabetes, Hypothyroidism PAST SURGICAL HISTORY Past Surgical History: Other (see PMH above ) FAMILY HISTORY Family History: Family History Unknown SOCIAL HISTORY Smoke: No ALCOHOL: none Drugs: None Lives: Retirement CURRENT MEDICATIONS CURRENT MEDICATIONS Current Medications Medications (Trade) Dose Ordered Sig/Missy Route PRN Reason Start Time Stop Time Status Last Admin Dose Admin Acetaminophen (Tylenol) 500 mg Q8HRS PO 04/01/20 14:00 04/02/20 12:35 Cetirizine HCl (ZyrTEC) 10 mg DAILY PO 04/02/20 09:00 04/02/20 08:54 Levothyroxine Sodium (Synthroid) 25 mcg DAILY06 PO 04/01/20 16:00 04/02/20 05:18 Pantoprazole Sodium (Protonix) 40 mg DAILYAC PO 04/02/20 07:30 04/02/20 08:54 Zinc Sulfate (Orazinc) 220 mg DAILY PO 04/02/20 09:00 04/02/20 08:54 Sodium Bicarbonate 50 meq/Potassium Chloride 20 meq/ Sodium Chloride 80 meq/Dextrose 580 ml @ 30 mls/hr [id number] IV 04/01/20 16:00 04/04/20 21:19 04/02/20 08:55 Potassium Chloride (Klor-Con) 20 meq PRN Q6HRS PRN PO SEE COMMENTS 04/01/20 21:00 04/02/20 00:25 Insulin Human Lispro (HumaLOG) 3 units TIDWMEALS SQ 04/02/20 12:00 04/02/20 12:38 Midodrine (Proamatine) 10 mg [id number] PO 04/02/20 13:00 04/02/20 12:35 Rifaximin (Xifaxan) 550 mg BID PO 04/02/20 12:00 04/02/20 12:35 Lactulose (Lactulose) 10 gm TID PO 04/02/20 14:00 04/02/20 12:35 ALLERGIES ALLERGIES: Coded Allergies: peanut (Verified Allergy, Severe, Anaphylaxis, 03/31/20) Penicillins (Verified Allergy, Intermediate, hives, 03/31/20) aspirin (Verified Allergy, Intermediate, rash, 03/31/20) latex (Verified Allergy, Intermediate, 03/31/20) metformin (Verified Allergy, Intermediate, 03/31/20) nitroglycerin (Verified Allergy, Intermediate, 03/31/20) ondansetron (Verified Allergy, Intermediate, 03/31/20) ROS Review of System unobtainable PHYSICAL EXAM General: Alert, Cooperative, No acute distress HEENT: Atraumatic, Mucous membr. moist/pink Lungs: Other (crackles ) Heart: Regular rate (SR) Abdomen: Soft, Other (distended ) Extremities: Other (2+ bilateral LE pitting edema ) Skin: No significant lesion Neuro: Sensation intact, Other (mumbled speech ) MUSCULOSKELETAL: Osteoarthritic changes both hands VITALS/I&O VITALS/I&O: Vital Signs Date Time Temp Pulse Resp B/P (MAP) Pulse Ox O2 Delivery O2 Flow Rate FiO2 04/02/20 12:35 86 137/73 04/02/20 10:00 22 96 Nasal Cannula 4.0 04/02/20 08:45 97.6 97.6 I & O 04/01/20 04/01/20 04/02/20 15:00 23:00 07:00 Intake Total 570 ml 378 ml Output Total 0 ml Balance 0 ml 570 ml 378 ml LABS Lab: Laboratory Tests Test 04/01/20 14:47 04/01/20 17:00 04/01/20 18:20 04/01/20 22:40 Glucose (Fingerstick) 95 mg/dL (70-99) 79 mg/dL (70-99) SARS-CoV-2 Antigen (Rapid) Negative (NEGATIVE) Influenza Type A Antigen Negative (NEGATIVE) Influenza Type B Antigen Negative (NEGATIVE) Test 04/01/20 23:40 04/01/20 23:56 04/02/20 08:43 04/02/20 09:55 Potassium Level 3.1 mmol/L (3.5-5.1) L 3.1 mmol/L (3.5-5.1) L Glucose (Fingerstick) 253 mg/dL (70-99) H 295 mg/dL (70-99) H White Blood Count 4.5 x10^3/uL (4.0-11.0) Red Blood Count 2.46 x10^6/uL (4.30-5.70) L Hemoglobin 7.5 g/dL (13.0-17.5) L Hematocrit 22.8 % (39.0-53.0) L Mean Corpuscular Volume 93 fL (79-100) Mean Corpuscular Hemoglobin 31 pg (25-35) Mean Corpuscular Hemoglobin Concent 33 g/dL (31-37) Red Cell Distribution Width 28.0 % (11.5-14.5) H Platelet Count 60 x10^3/uL (140-400) L Neutrophils (%) (Auto) 78 % (31-73) H Lymphocytes (%) (Auto) 9 % (24-48) L Monocytes (%) (Auto) 11 % (0-9) H Eosinophils (%) (Auto) 2 % (0-3) Basophils (%) (Auto) 0 % (0-3) Neutrophils # (Auto) 3.5 x10^3/uL (1.8-7.7) Lymphocytes # (Auto) 0.4 x10^3/uL (1.0-4.8) L Monocytes # (Auto) 0.5 x10^3/uL (0.0-1.1) Eosinophils # (Auto) 0.1 x10^3/uL (0.0-0.7) Basophils # (Auto) 0.0 x10^3/uL (0.0-0.2) Prothrombin Time 22.7 SEC (11.7-14.0) H Prothrombin Time INR 2.0 (0.8-1.1) H Sodium Level 132 mmol/L (136-145) L Chloride Level 94 mmol/L (98-107) L Carbon Dioxide Level 24 mmol/L (21-32) Anion Gap 14 (6-14) Blood Urea Nitrogen 32 mg/dL (8-26) H Creatinine 3.8 mg/dL (0.7-1.3) H Estimated GFR (Cockcroft-Gault) 16.2 BUN/Creatinine Ratio 8 (6-20) Glucose Level 290 mg/dL (70-99) H Calcium Level 8.2 mg/dL (8.5-10.1) L Phosphorus Level 4.3 mg/dL (2.6-4.7) Magnesium Level 2.1 mg/dL (1.8-2.4) Iron Level 39 ug/dL (65-175) L Total Iron Binding Capacity 99 ug/dL (250-450) L Iron Saturation 39 % (15-34) H Total Bilirubin 4.8 mg/dL (0.2-1.0) H Aspartate Amino Transferase (AST) 42 U/L (15-37) H Alanine Aminotransferase (ALT) 29 U/L (16-63) Alkaline Phosphatase 155 U/L (46-116) H Ammonia 47 mcmol/L (11-34) H Total Protein 5.3 g/dL (6.4-8.2) L Albumin 2.5 g/dL (3.4-5.0) L Albumin/Globulin Ratio 0.9 (1.0-1.7) L Hepatitis A IgM Antibody Nonreactive (Nonreactive) Hepatitis B Surface Antigen Nonreactive (Nonreactive) Hepatitis B Core IgM Antibody Nonreactive (Nonreactive) Hepatitis C IgG Antibody Reactive (Nonreactive) Test 04/02/20 11:43 Glucose (Fingerstick) 339 mg/dL (70-99) H Laboratory Tests 04/02/20 09:55 Laboratory Tests 04/01/20 23:40 04/02/20 09:55 ECHOCARDIOGRAM ECHOCARDIOGRAM 11/29/19 - LIMITED ECHO Limited study, just 2 images with agitated saline injection for assessment of PFO. Refer to complete study completed earlier today Agitated saline contrast injection with and without Valsalva demonstrates no evidence of right to left interatrial shunt. 12/06/19 - TRANSESOPHAGEAL ECHO Interpretation Summary Left ventricular systolic function is hyperdynamic. The visually estimated ejection fraction is 70% The right ventricle is at least mildly, but probably moderately dilated with preserved RV systolic function. There is no conclusive evidence of right ventricular hypertrophy The pulmonic valve is not ideally visualized but without apparent evidence of stenosis or significant regurgitation The other cardiac valves appear normal without evidence of vegetation, stenosis or significant regurgitation Moderately dilated pulmonary artery Estimated pulmonary artery systolic pressure is ~43 mmHg + CVP. The measured PASP is ~= 1/2 of systemic pressure at time of imaging Mild soft and calcific atheromatous plaquing of the descending and transverse thoracic aorta Ascites noted In comparison to prior study dated 11.29.19: The estimated systolic pulmonary artery pressure was approximately 80 mmHg which was roughly 2/3 of the documented systemic pressure at time of imaging. HEART CATH HEART CATH RIGHT HEART CATHETERIZATION: DATE 12/08/2019 HEMODYNAMICS: Body surface area 2.11 sq m. Hemoglobin 11.4 g/dL. Blood pressure 101/69 mmHg with mean of 78 mmHg. Heart rate 99 beats per minute. SATURATIONS: Aorta saturation 100%. Right atrial saturation 68%. Pulmonary arterial saturation 70%. A-VO2 difference 4.96. PRESSURES: Right atrial pressure, end expiratory 8 mmHg. Right ventricular systolic pressure 54 mmHg, end-diastolic pressure 8 mmHg. Pulmonary arterial pressure 54/30 mmHg, with mean of 35 mmHg. Pulmonary capillary wedge pressure, end expiratory 12 mmHg. Transpulmonary gradient 23 mmHg. Pulmonary vascular resistance 4.1 Wood unit. OUTPUTS: Using Crystal calculation, cardiac output was 5.32 L/min and cardiac index was 2.52 L/min per sq m. Using thermodilution technique, cardiac output was 5.60 L/min and cardiac index was 2.65 L/min per sq m. CONTRAST: No contrast was given. FLUOROSCOPY TIME: 0.9 minutes. AIR KERMA: 22 mGy. My attending, Dr. Travis Lubin, was present for the entirety of the case performing when necessary gutierrez portions of the procedures. FINAL IMPRESSION: Elevated pulmonary arterial pressure, mean pulmonary arterial pressure 35 mmHg. Normal cardiac output and index. ASSESSMENT/PLAN ASSESSMENT/PLAN 1. Altered mental status in the setting of profound hypoglycemia 2. Metabolic encephalopathy, elevated ammonia level 3. Acute respiratory failure with possible PNA. ? aspiration 4. Sepsis; off pressor support 5. ESRD on HD 6. Diabetes, II 7. Acute on chronic diastolic CHF; recent echo with preserved LV systolic as noted above 8. H/o hypotension; on Midodrine 9. Protein calorie malnutrition, anasarca 10. Ascites, cirrhosis, hepatits; s/p multiple previous paracentesis 11. Anemia, thrombocytopenia, coagulopathy with liver disease; INR 2.0 12. Hypokalemia; Mg WNL 13. H/o esophageal varices s/p banding 14. PUI; COVID negative Recommendations Fluid offloading via HD ST evaluation Replace K as warranted No ASA, OAC with thrombocytopenia Follow GI recs Ongoing treatment of PNA, lung optimization as per pulm Supportive care QING GALVAN MD 04/02/201917: CARDIAC CONSULT ASSESSMENT/PLAN ASSESSMENT/PLAN Patient seen and examined. Agree with PROFESSOR OF MARKETING's assessment and plan. Continue fluid removal with HD for ac on chr diastolic HF Recent echo showed normal LV systolic function, Recent right heart cath with elevated PAP noted above. GI consulted for metabolic encephalopathy and elevated ammonia level with known history of cirrhosis Sepsis and pneumonia improving, off pressors, pulm following. Covid negative Thank you for your consultation FLAVIO DEL VALLE APRN Apr 02, 2020 13:58 QING GALVAN MD Apr 02, 2020 19:18
--- NOTE | 2020-04-02 14:19 | NUR ---
SS following for discharge planning. SS reviewed pt chart and discussed with pt RN. [facility], ; fax [phone]. SS received notification from [facility] that pt was under a single contract agreement with [facility] Medicaid and pt's insurance has notified them that they will not authorize another rehabilitation stay. SS was notified that pt was discharging to home with hospice. Pt has outpatient dialysis at [facility] on [address], ; fax [phone], Thursday, Thursday, and Thursday. SS contacted pt's sister, Tay, , and was notified that she and ex-, Leigh Ann, , are agreeable to hospice and would like him in a facility where the ex- works. Pt's sister did not know name of facility. SS contacted pt's ex- and left voicemail requesting return call. Pt is currently requiring oxygen. COVID19 negative. Per RN, pt confused. SS will continue to follow for discharge planning.
[2020-04-02] MEDS: VANCOMYCIN PER PHARMACY MC PRN (15:10)
[2020-04-02] MEDS: EPOETIN ALFA 20,000 UNIT/ML VIAL for DIALYSIS PTS. SQ SCH (18:06)
[2020-04-02] MEDS: GABAPENTIN 100 MG CAPSULE. PO SCH (20:31)
[2020-04-02] MEDS: ATORVASTATIN CALCIUM 20 MG TABLET PO SCH (20:31)
[2020-04-02] MEDS: INSULIN GLARGINE SYRINGE. SQ SCH (21:21)
[2020-04-03] VITALS (7 sets, daily range): BP systolic 81–122; BP diastolic 44–62
[2020-04-03] MEDS: LEVOTHYROXINE 25 MCG TABLET. PO SCH (05:49)
[2020-04-03] MEDS: ACETAMINOPHEN 500 MG TABLET PO SCH ×3 (05:49→20:09)
--- NOTE | 2020-04-03 07:57 | PDOC ---
[employer] PROGRESS NOTE Date of Service DOS: DATE: 04/03/20 TIME: 07:57 Chief Complaint Chief Complaint A/P: SEVERE Sepsis with shock ALTERED Mental status acute metabolic encephalopathy Diffuse interstitial infiltrate and small pleural effusions. severe hypothermia severe hypokalemia SEVERE Hypoglycemia ESRD ON DIALYSIS PUI COVID recent NH hypothyroid state Hep C in remission PLAN ADMIT ICU BED Blood cultures warming blanket consult nephrology consult ID Emperic iv antibiotics sepsis protocol CONSULT DR ARTEAGA cardiology consult May need tunneled dialysis catheter removal in the near future glucose management protocol D/W RN NO FAMILY PRESENT to give accurate hx NEED RECENT RECORDS [facility] 35 min cc time History of Present Illness History of Present Illness Mr Prieto is a 64 year old male with a history of end-stage renal failure on hemodialysis and diabetes who was sent here for from the dialysis center due to altered mental status. Not much history was able to obtain. Patient was dropped off to the dialysis center by van transport , for dialysis today, when they tried to obtain his vital signs patient was very confused. EMS was, called blood sugar was 24 per EMS. Upon arrival to room patient was hypothermic and encephalopathic COVID STATUS is unknown. No family present to assist with history. 04/02: Afebrile. Still on O2. He is very confused continues to ask to get coffee. Ammonia elevated. Family wishes for referral to palliative care. To paracentesis this morning. Still confused. NA 130. Ex- and sister have made it clear that they would like a referral for hospice at [facility] facility on discharge. Vitals/I&O Vitals/I&O: Vital Signs Date Time Temp Pulse Resp B/P (MAP) Pulse Ox O2 Delivery O2 Flow Rate FiO2 04/03/20 03:30 97.2 78 103/50 (67) 97 Nasal Cannula 4.0 97.2 04/02/20 19:44 17 I & O 04/02/20 04/02/20 04/03/20 15:00 23:00 07:00 Intake Total 100 ml 1935 ml 0 ml Balance 100 ml 1935 ml 0 ml Physical Exam Physical Exam: GENERAL: Confused male, arousable, does not answer all questions. HEENT: Normocephalic, atraumatic. Anicteric. Oral mucosa dry. NECK: Supple. LUNGS: Decreased breath sounds at the bases, some expiratory rhonchi. HEART: S1, S2, no murmurs. ABDOMEN: Soft, mildly distended, nontender, nondistended. EXTREMITIES: No edema, no cyanosis. DERMATOLOGIC: No generalized rash. CHARGE ENTRY awake, appropriate, no focal deficit General: Alert, Cooperative, No acute distress Heart: Regular rate (SR) Lungs: Crackles Abdomen: Soft, Other (distended ) Extremities: Other (2+ bilateral LE pitting edema ) Skin: No significant lesion Labs Labs: Laboratory Tests Test 04/02/20 08:43 04/02/20 09:55 04/02/20 11:43 04/02/20 15:45 Glucose (Fingerstick) 295 mg/dL (70-99) 339 mg/dL (70-99) White Blood Count 4.5 x10^3/uL (4.0-11.0) Red Blood Count 2.46 x10^6/uL (4.30-5.70) Hemoglobin 7.5 g/dL (13.0-17.5) Hematocrit 22.8 % (39.0-53.0) Mean Corpuscular Volume 93 fL (79-100) Mean Corpuscular Hemoglobin 31 pg (25-35) Mean Corpuscular Hemoglobin Concent 33 g/dL (31-37) Red Cell Distribution Width 28.0 % (11.5-14.5) Platelet Count 60 x10^3/uL (140-400) Neutrophils (%) (Auto) 78 % (31-73) Lymphocytes (%) (Auto) 9 % (24-48) Monocytes (%) (Auto) 11 % (0-9) Eosinophils (%) (Auto) 2 % (0-3) Basophils (%) (Auto) 0 % (0-3) Neutrophils # (Auto) 3.5 x10^3/uL (1.8-7.7) Lymphocytes # (Auto) 0.4 x10^3/uL (1.0-4.8) Monocytes # (Auto) 0.5 x10^3/uL (0.0-1.1) Eosinophils # (Auto) 0.1 x10^3/uL (0.0-0.7) Basophils # (Auto) 0.0 x10^3/uL (0.0-0.2) Prothrombin Time 22.7 SEC (11.7-14.0) Prothromb Time International Ratio 2.0 (0.8-1.1) Sodium Level 132 mmol/L (136-145) Potassium Level 3.1 mmol/L (3.5-5.1) 3.0 mmol/L (3.5-5.1) Chloride Level 94 mmol/L (98-107) Carbon Dioxide Level 24 mmol/L (21-32) Anion Gap 14 (6-14) Blood Urea Nitrogen 32 mg/dL (8-26) Creatinine 3.8 mg/dL (0.7-1.3) Estimated GFR (Cockcroft-Gault) 16.2 BUN/Creatinine Ratio 8 (6-20) Glucose Level 290 mg/dL (70-99) Calcium Level 8.2 mg/dL (8.5-10.1) Phosphorus Level 4.3 mg/dL (2.6-4.7) Magnesium Level 2.1 mg/dL (1.8-2.4) Iron Level 39 ug/dL (65-175) Total Iron Binding Capacity 99 ug/dL (250-450) Iron Saturation 39 % (15-34) Total Bilirubin 4.8 mg/dL (0.2-1.0) Aspartate Amino Transf (AST/SGOT) 42 U/L (15-37) Alanine Aminotransferase (ALT/SGPT) 29 U/L (16-63) Alkaline Phosphatase 155 U/L (46-116) Ammonia 47 mcmol/L (11-34) Total Protein 5.3 g/dL (6.4-8.2) Albumin 2.5 g/dL (3.4-5.0) Albumin/Globulin Ratio 0.9 (1.0-1.7) Hepatitis A IgM Antibody Nonreactive (Nonreactive) Hepatitis B Surface Antigen Nonreactive (Nonreactive) Hepatitis B Core IgM Antibody Nonreactive (Nonreactive) Hepatitis C IgG Antibody Reactive (Nonreactive) Test 04/02/20 18:10 04/02/20 20:48 04/02/20 21:16 04/03/20 04:05 Glucose (Fingerstick) 238 mg/dL (70-99) 233 mg/dL (70-99) 214 mg/dL (70-99) Potassium Level 3.2 mmol/L (3.5-5.1) Assessment and Plan Assessmemt and Plan Problems Medical Problems: (1) ESRD (end stage renal disease) on dialysis Status: Acute (2) Hypoglycemia Status: Acute (3) Hypokalemia Status: Acute (4) Severe sepsis Status: Acute Comment Review of Relevant I have reviewed the following items jaqueline (where applicable) has been applied. Medications: Current Medications Medications (Trade) Dose Ordered Sig/Missy Route PRN Reason Start Time Stop Time Status Last Admin Dose Admin Epoetin Sree (PROCRIT for DIALYSIS PTS) 10,000 unit QMWF SQ 04/02/20 16:00 04/02/20 18:06 Cetirizine HCl (ZyrTEC) 10 mg DAILY PO 04/02/20 09:00 04/02/20 08:54 Zinc Sulfate (Orazinc) 220 mg DAILY PO 04/02/20 09:00 04/02/20 08:54 Gabapentin (Neurontin) 100 mg HS PO 04/02/20 21:00 04/02/20 20:31 Insulin Human Lispro (HumaLOG) 3 units TIDWMEALS SQ 04/02/20 12:00 04/02/20 18:44 Midodrine (Proamatine) 10 mg [id number] PO 04/02/20 13:00 04/02/20 18:06 Rifaximin (Xifaxan) 550 mg BID PO 04/02/20 12:00 04/02/20 20:31 Insulin Glargine (Lantus Syringe) 22 unit QHS SQ 04/02/20 21:00 04/02/20 21:21 Lactulose (Lactulose) 10 gm TID PO 04/02/20 14:00 04/02/20 12:35 Atorvastatin Calcium (Lipitor) 20 mg QHS PO 04/02/20 21:00 04/02/20 20:31 Justifications for Admission Other Justification DAYO CANSECO MD Apr 03, 2020 07:57
[2020-04-03] MEDS: INSULIN LISPRO 300 UNITS/3 ML VIAL. SQ SCH ×6 (08:00→18:05)
[2020-04-03] MEDS: MIDODRINE 5 MG TABLET PO SCH ×3 (08:18→18:02)
[2020-04-03] MEDS ORDERED: LIDOCAINE WITH 8.4% SOD BICARB 3 ML DISP.SYRIN. ONE (08:35)
--- NOTE | 2020-04-03 08:43 | PDOC ---
Infectious Disease Note Subjective Subjective pt is awake, says feeling better, bit confused ROS ROS no n/v/d/ Vital Sign Vital Signs Vital Signs Date Time Temp Pulse Resp B/P (MAP) Pulse Ox O2 Delivery O2 Flow Rate FiO2 04/03/20 08:18 90/44 04/03/20 07:30 97.3 77 18 92 Nasal Cannula 4.0 97.3 Physical Exam PHYSICAL EXAM GENERAL: Confused male, arousable, does answer all questions. HEENT: Normocephalic, atraumatic. Anicteric. Oral mucosa dry. NECK: Supple. LUNGS: Decreased breath sounds at the bases, some expiratory rhonchi. HEART: S1, S2, no murmurs. ABDOMEN: Soft, mildly distended, nontender, nondistended. EXTREMITIES: No edema, no cyanosis. DERMATOLOGIC: No generalized rash. SNACK STEWARDESS awake, appropriate, no focal deficit Labs Lab Laboratory Tests Test 04/02/20 08:43 04/02/20 09:55 04/02/20 11:43 04/02/20 15:45 Glucose (Fingerstick) 295 mg/dL (70-99) 339 mg/dL (70-99) White Blood Count 4.5 x10^3/uL (4.0-11.0) Red Blood Count 2.46 x10^6/uL (4.30-5.70) Hemoglobin 7.5 g/dL (13.0-17.5) Hematocrit 22.8 % (39.0-53.0) Mean Corpuscular Volume 93 fL (79-100) Mean Corpuscular Hemoglobin 31 pg (25-35) Mean Corpuscular Hemoglobin Concent 33 g/dL (31-37) Red Cell Distribution Width 28.0 % (11.5-14.5) Platelet Count 60 x10^3/uL (140-400) Neutrophils (%) (Auto) 78 % (31-73) Lymphocytes (%) (Auto) 9 % (24-48) Monocytes (%) (Auto) 11 % (0-9) Eosinophils (%) (Auto) 2 % (0-3) Basophils (%) (Auto) 0 % (0-3) Neutrophils # (Auto) 3.5 x10^3/uL (1.8-7.7) Lymphocytes # (Auto) 0.4 x10^3/uL (1.0-4.8) Monocytes # (Auto) 0.5 x10^3/uL (0.0-1.1) Eosinophils # (Auto) 0.1 x10^3/uL (0.0-0.7) Basophils # (Auto) 0.0 x10^3/uL (0.0-0.2) Prothrombin Time 22.7 SEC (11.7-14.0) Prothromb Time International Ratio 2.0 (0.8-1.1) Sodium Level 132 mmol/L (136-145) Potassium Level 3.1 mmol/L (3.5-5.1) 3.0 mmol/L (3.5-5.1) Chloride Level 94 mmol/L (98-107) Carbon Dioxide Level 24 mmol/L (21-32) Anion Gap 14 (6-14) Blood Urea Nitrogen 32 mg/dL (8-26) Creatinine 3.8 mg/dL (0.7-1.3) Estimated GFR (Cockcroft-Gault) 16.2 BUN/Creatinine Ratio 8 (6-20) Glucose Level 290 mg/dL (70-99) Calcium Level 8.2 mg/dL (8.5-10.1) Phosphorus Level 4.3 mg/dL (2.6-4.7) Magnesium Level 2.1 mg/dL (1.8-2.4) Iron Level 39 ug/dL (65-175) Total Iron Binding Capacity 99 ug/dL (250-450) Iron Saturation 39 % (15-34) Total Bilirubin 4.8 mg/dL (0.2-1.0) Aspartate Amino Transf (AST/SGOT) 42 U/L (15-37) Alanine Aminotransferase (ALT/SGPT) 29 U/L (16-63) Alkaline Phosphatase 155 U/L (46-116) Ammonia 47 mcmol/L (11-34) Total Protein 5.3 g/dL (6.4-8.2) Albumin 2.5 g/dL (3.4-5.0) Albumin/Globulin Ratio 0.9 (1.0-1.7) Hepatitis A IgM Antibody Nonreactive (Nonreactive) Hepatitis B Surface Antigen Nonreactive (Nonreactive) Hepatitis B Core IgM Antibody Nonreactive (Nonreactive) Hepatitis C IgG Antibody Reactive (Nonreactive) Test 04/02/20 18:10 04/02/20 20:48 04/02/20 21:16 04/03/20 04:05 Glucose (Fingerstick) 238 mg/dL (70-99) 233 mg/dL (70-99) 214 mg/dL (70-99) Potassium Level 3.2 mmol/L (3.5-5.1) Micro Microbiology 03/31/20 Blood Culture - Preliminary, Resulted NO GROWTH AFTER 1 DAY Objective Assessment 1. sepsis, source unclear. 2. Hypothermia. 3. Metabolic encephalopathy. 4. End-stage renal disease, on hemodialysis. 5. Hypoglycemia. 6. COVID upper respiratory infection. 7. Lactic acidosis. 8. Thrombocytopenia. 9. Diabetes mellitus 2. Plan Plan of Care RECOMMENDATIONS: 1. Merrem, renal dosing. 2. vancomycin. 3. Follow up blood cultures. 4. CT abdomen and pelvis and chest IMPRESSION: 1. Moderate left pleural effusion with compressive atelectasis of the left lower lobe. 2. Mild bilateral opacities may reflect atelectasis or mild pulmonary edema. 3. Enlargement of the main pulmonary artery is consistent with pulmonary arterial hypertension. 4. Morphologic changes of cirrhosis. Moderate hepatosplenomegaly. Large ascites. Paraesophageal varices. 5. Small bowel wall thickening likely reflects portal hypertension. Correlate for enteritis. 6. Cholelithiasis without evidence of acute cholecystitis. COVID neg Influenza neg culture so far neg NORI BROWER MD Apr 03, 2020 08:43
[2020-04-03] MEDS: POLYETHYLENE GLYCOL 3350 17 GM PACKET. PO SCH ×2 (09:00→20:10)
[2020-04-03] MEDS: LACTULOSE 20 GM/30 ML SOLUTION. PO SCH ×3 (09:00→20:09)
[2020-04-03 09:01] LABS: ALBUMIN 2.3 g/dL (3.4-5.0); CALCIUM 8.1 mg/dL (8.5-10.1); CREATININE 3.9 mg/dL (0.7-1.3); GFR 15.7; PHOSPHORUS 4.4 mg/dL (2.6-4.7); POTASSIUM 3.6 mmol/L (3.5-5.1)
[2020-04-03] MEDS ORDERED: LIDOCAINE WITH 8.4% SOD BICARB 3 ML DISP.SYRIN. INJ ONE (09:15)
[2020-04-03] MEDS: MEROPENEM 1 GM in IV NORMAL SALINE 100ML 100 ML IV SCH (09:16)
[2020-04-03] MEDS ORDERED: ALBUMIN HUMAN 25% 200 ML IV ONE (09:25)
[2020-04-03] MEDS ORDERED: ALBUMIN HUMAN 25% 100 ML IV ONE ×2 (09:30)
[2020-04-03] MEDS ORDERED: DIALYSIS PATIENT. MC PRN ×2 (09:45)
[2020-04-03] MEDS ORDERED: ALBUMIN HUMAN 25% 200 ML IV PRN (09:45)
[2020-04-03] MEDS ORDERED: IV NORMAL SALINE 1000ML BAG 1,000 ML IV PRN ×2 (09:45)
--- NOTE | 2020-04-03 10:05 | PDOC ---
Date of Service: DATE: 04/03/20 TIME: 09:58 Objective: Objective: D/w nurse - out for paracentesis, then will go to dialysis. Vital Signs: Vital Signs Date Time Temp Pulse Resp B/P (MAP) Pulse Ox O2 Delivery O2 Flow Rate FiO2 04/03/20 09:30 91 18 110/62 (78) 96 Nasal Cannula 4.0 04/03/20 07:30 97.3 97.3 Labs: Laboratory Tests Test 04/02/20 11:43 04/02/20 15:45 04/02/20 18:10 04/02/20 20:48 Glucose (Fingerstick) 339 mg/dL 238 mg/dL Potassium Level 3.0 mmol/L 3.2 mmol/L Test 04/02/20 21:16 04/03/20 04:05 04/03/20 08:15 Glucose (Fingerstick) 233 mg/dL 214 mg/dL Sodium Level 130 mmol/L Potassium Level 3.6 mmol/L Chloride Level 94 mmol/L Carbon Dioxide Level 24 mmol/L Anion Gap 12 Blood Urea Nitrogen 35 mg/dL Creatinine 3.9 mg/dL Estimated GFR (Cockcroft-Gault) 15.7 Glucose Level 159 mg/dL Calcium Level 8.1 mg/dL Phosphorus Level 4.4 mg/dL Magnesium Level 2.0 mg/dL Albumin 2.3 g/dL Imaging: Paracentesis 04/03 pending [employer] Bedside Swallow Eval 04/02 Pt demo's mild-mod oropharyngeal dysphagia w/ intermittent overt and subtle s/s aspiration w/ puree, honey thick liquids, and thin liquids. Pt demo's oral holding and anterior laryngeal excursion is decreased to palpation. Pt's altered mental status and inability to self-monitor bolus sizes results in increased risk for aspiration w/ all PO intake. See BSE full report in Interventions for add'l details. Recommendations: NPO w/ aggressive oral care. Will continue [employer] f/u to determine safety of PO intake. PE: out of room A/P: Sepsis, encephalopathy Anemia, thrombocytopenia, coagulopathy, elevated LFTs (checked 04/02), mild hyperammonemia (better 04/02) Cirrhosis, h/o Hep C, ascites, ?h/o variceal banding GB sludge, cholelithiasis COVID negative 03/31/20 ESRD on HD -- NPO per speech eval - still has renal diet ordered - ?able to take PO Xifaxan, lactulose, and PPI? Await paracentesis and fluid studies and Hep C PCR. Will follow-up re: [facility] records. Recheck LFTs. Justicifation of Admission Dx: Justifications for Admission: Justification of Admission Dx: Yes Acute Renal Failure: 75% Reduction in GFR Sepsis: Altered Mental Status MARISSA AYALA Apr 03, 2020 10:05
--- NOTE | 2020-04-03 10:23 | PDOC ---
PROGRESS NOTES Date of Service DATE: 04/03/20 TIME: 10:18 Assessment Problems Medical Problems: (1) ESRD (end stage renal disease) on dialysis Status: Acute (2) Hypoglycemia Status: Acute (3) Hypokalemia Status: Acute (4) Severe sepsis Status: Acute Metabolic encephalopathy due to hypoglycemia, diabetes, renal disease, hypothermia/sepsis. No evidence of stroke, ongoing seizure activity, or intracranial infection. 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 Send back to [place] when stable Subjective He denies pain Objective Vital Signs Date Time Temp Pulse Resp B/P (MAP) Pulse Ox O2 Delivery O2 Flow Rate FiO2 04/03/20 09:30 91 18 110/62 (78) 96 Nasal Cannula 4.0 04/03/20 07:30 97.3 97.3 Intake and Output 04/03/20 07:00 Intake Total 2035 ml Balance 2035 ml Intake Oral 1500 ml IV Total 535 ml # Bowel Movements 3 PHYSICAL EXAM Alert. Oriented to person. PERRL. EOMI. CN: no focal findings. Muscle tone: normal. Muscle strength: 3/5 DTR: 0+ Plantar reflex: flexor Gait: not examined in bed. Sensory exam: stocking loss suspected. No cerebellar signs elicited, poorly cooperative. Review of Relevant I have reviewed the following items jaqueline (where applicable) has been applied. Labs Laboratory Tests Test 04/01/20 11:45 04/01/20 14:47 04/01/20 17:00 04/01/20 18:20 Potassium Level 2.9 mmol/L (3.5-5.1) Thyroid Stimulating Hormone (TSH) 2.057 uIU/mL (0.358-3.74) Glucose (Fingerstick) 95 mg/dL (70-99) 79 mg/dL (70-99) SARS-CoV-2 Antigen (Rapid) Negative (NEGATIVE) Test 04/01/20 22:40 04/01/20 23:40 04/01/20 23:56 04/02/20 08:43 Influenza Type A Antigen Negative (NEGATIVE) Influenza Type B Antigen Negative (NEGATIVE) Potassium Level 3.1 mmol/L (3.5-5.1) Glucose (Fingerstick) 253 mg/dL (70-99) 295 mg/dL (70-99) Test 04/02/20 09:55 04/02/20 11:43 04/02/20 15:45 04/02/20 18:10 White Blood Count 4.5 x10^3/uL (4.0-11.0) Red Blood Count 2.46 x10^6/uL (4.30-5.70) Hemoglobin 7.5 g/dL (13.0-17.5) Hematocrit 22.8 % (39.0-53.0) Mean Corpuscular Volume 93 fL (79-100) Mean Corpuscular Hemoglobin 31 pg (25-35) Mean Corpuscular Hemoglobin Concent 33 g/dL (31-37) Red Cell Distribution Width 28.0 % (11.5-14.5) Platelet Count 60 x10^3/uL (140-400) Neutrophils (%) (Auto) 78 % (31-73) Lymphocytes (%) (Auto) 9 % (24-48) Monocytes (%) (Auto) 11 % (0-9) Eosinophils (%) (Auto) 2 % (0-3) Basophils (%) (Auto) 0 % (0-3) Neutrophils # (Auto) 3.5 x10^3/uL (1.8-7.7) Lymphocytes # (Auto) 0.4 x10^3/uL (1.0-4.8) Monocytes # (Auto) 0.5 x10^3/uL (0.0-1.1) Eosinophils # (Auto) 0.1 x10^3/uL (0.0-0.7) Basophils # (Auto) 0.0 x10^3/uL (0.0-0.2) Prothrombin Time 22.7 SEC (11.7-14.0) Prothromb Time International Ratio 2.0 (0.8-1.1) Sodium Level 132 mmol/L (136-145) Potassium Level 3.1 mmol/L (3.5-5.1) 3.0 mmol/L (3.5-5.1) Chloride Level 94 mmol/L (98-107) Carbon Dioxide Level 24 mmol/L (21-32) Anion Gap 14 (6-14) Blood Urea Nitrogen 32 mg/dL (8-26) Creatinine 3.8 mg/dL (0.7-1.3) Estimated GFR (Cockcroft-Gault) 16.2 BUN/Creatinine Ratio 8 (6-20) Glucose Level 290 mg/dL (70-99) Calcium Level 8.2 mg/dL (8.5-10.1) Phosphorus Level 4.3 mg/dL (2.6-4.7) Magnesium Level 2.1 mg/dL (1.8-2.4) Iron Level 39 ug/dL (65-175) Total Iron Binding Capacity 99 ug/dL (250-450) Iron Saturation 39 % (15-34) Total Bilirubin 4.8 mg/dL (0.2-1.0) Aspartate Amino Transf (AST/SGOT) 42 U/L (15-37) Alanine Aminotransferase (ALT/SGPT) 29 U/L (16-63) Alkaline Phosphatase 155 U/L (46-116) Ammonia 47 mcmol/L (11-34) Total Protein 5.3 g/dL (6.4-8.2) Albumin 2.5 g/dL (3.4-5.0) Albumin/Globulin Ratio 0.9 (1.0-1.7) Hepatitis A IgM Antibody Nonreactive (Nonreactive) Hepatitis B Surface Antigen Nonreactive (Nonreactive) Hepatitis B Core IgM Antibody Nonreactive (Nonreactive) Hepatitis C IgG Antibody Reactive (Nonreactive) Glucose (Fingerstick) 339 mg/dL (70-99) 238 mg/dL (70-99) Test 04/02/20 20:48 04/02/20 21:16 04/03/20 04:05 04/03/20 08:15 Potassium Level 3.2 mmol/L (3.5-5.1) 3.6 mmol/L (3.5-5.1) Glucose (Fingerstick) 233 mg/dL (70-99) 214 mg/dL (70-99) Sodium Level 130 mmol/L (136-145) Chloride Level 94 mmol/L (98-107) Carbon Dioxide Level 24 mmol/L (21-32) Anion Gap 12 (6-14) Blood Urea Nitrogen 35 mg/dL (8-26) Creatinine 3.9 mg/dL (0.7-1.3) Estimated GFR (Cockcroft-Gault) 15.7 Glucose Level 159 mg/dL (70-99) Calcium Level 8.1 mg/dL (8.5-10.1) Phosphorus Level 4.4 mg/dL (2.6-4.7) Magnesium Level 2.0 mg/dL (1.8-2.4) Albumin 2.3 g/dL (3.4-5.0) Laboratory Tests Test 04/02/20 11:43 04/02/20 15:45 04/02/20 18:10 04/02/20 20:48 Glucose (Fingerstick) 339 mg/dL (70-99) 238 mg/dL (70-99) Potassium Level 3.0 mmol/L (3.5-5.1) 3.2 mmol/L (3.5-5.1) Test 04/02/20 21:16 04/03/20 04:05 04/03/20 08:15 Glucose (Fingerstick) 233 mg/dL (70-99) 214 mg/dL (70-99) Sodium Level 130 mmol/L (136-145) Potassium Level 3.6 mmol/L (3.5-5.1) Chloride Level 94 mmol/L (98-107) Carbon Dioxide Level 24 mmol/L (21-32) Anion Gap 12 (6-14) Blood Urea Nitrogen 35 mg/dL (8-26) Creatinine 3.9 mg/dL (0.7-1.3) Estimated GFR (Cockcroft-Gault) 15.7 Glucose Level 159 mg/dL (70-99) Calcium Level 8.1 mg/dL (8.5-10.1) Phosphorus Level 4.4 mg/dL (2.6-4.7) Magnesium Level 2.0 mg/dL (1.8-2.4) Albumin 2.3 g/dL (3.4-5.0) Microbiology 04/01/20 Blood Culture - Preliminary, Resulted NO GROWTH AFTER 1 DAY Medications Current Medications Dextrose (Dextrose 50%-Water Syringe) 25 gm 1X ONCE IV Last administered on 03/31/20at 13:51; Start 03/31/20 at 13:15; Stop 03/31/20 at 13:26; Status DC Sodium Chloride 1,000 ml @ 1,000 mls/hr 1X ONCE IV Last administered on 03/31/20at 17:34; Start 03/31/20 at 15:30; Stop 03/31/20 at 16:29; Status DC Piperacillin Sod/ Tazobactam Sod 3.375 gm/Sodium Chloride 50 ml @ 100 mls/hr 1X ONCE IV ; Start 03/31/20 at 15:30; Stop 03/31/20 at 15:59; Status DC Potassium Chloride 40 meq/ Dextrose 1,020 ml @ 75 mls/hr [id number] IV Last administered on 04/01/20at 09:55; Start 03/31/20 at 16:00; Stop 04/01/20 at 12:59; Status DC Dextrose (Dextrose 50%-Water Syringe) 25 gm 1X ONCE IV Last administered on 03/31/20at 15:36; Start 03/31/20 at 15:30; Stop 03/31/20 at 15:31; Status DC Lorazepam (Ativan Inj) 1 mg 1X ONCE IVP Last administered on 03/31/20at 15:46; Start 03/31/20 at 15:45; Stop 03/31/20 at 15:46; Status DC Cefepime HCl (Maxipime) 2 gm 1X ONCE IVP Last administered on 03/31/20at 16:53; Start 03/31/20 at 16:15; Stop 03/31/20 at 16:16; Status DC Sodium Chloride 1,000 ml @ 75 mls/hr [id number] IV Last administered on 03/31/20at 18:36; Start 03/31/20 at 17:30; Stop 04/01/20 at 17:29; Status DC Sodium Chloride 1,000 ml @ 1,000 mls/hr Q1H IV Last administered on 04/01/20at 01:05; Start 03/31/20 at 21:30; Stop 03/31/20 at 23:49; Status DC Sodium Chloride 500 ml @ 1,000 mls/hr PRN Q30MIN PRN IV SEE COMMENTS; Start 03/31/20 at 21:15 Norepinephrine Bitartrate 8 mg/ Dextrose 258 ml @ 0 mls/hr CONT PRN IV SEE I/O RECORD Last administered on 04/02/20at 02:23; Start 03/31/20 at 21:15 Dextrose (Dextrose 50%-Water Syringe) 25 gm STK-MED ONCE IV ; Start 04/01/20 at 05:20; Stop 04/01/20 at 05:20; Status DC Dextrose (Dextrose 50%-Water Syringe) 25 gm 1X ONCE IV Last administered on 04/01/20at 05:21; Start 04/01/20 at 08:45; Stop 04/01/20 at 08:46; Status DC Insulin Human Lispro (HumaLOG) 0-5 UNITS TIDWMEALS SQ Last administered on 04/02/20at 18:44; Start 04/01/20 at 12:00 Dextrose (Dextrose 50%-Water Syringe) 12.5 gm PRN Q15MIN PRN IV SEE COMMENTS; Start 04/01/20 at 11:00 Sodium Chloride 1,000 ml @ 1,000 mls/hr Q1H PRN IV hypotension; Start 04/01/20 at 12:15; Stop 04/01/20 at 18:14; Status DC Albumin Human 200 ml @ 200 mls/hr 1X PRN PRN IV Hypotension Last administered on 04/01/20at 12:16; Start 04/01/20 at 12:15; Stop 04/01/20 at 18:14; Status DC Sodium Chloride (Normal Saline Flush) 10 ml 1X PRN PRN IV AP catheter pack; Start 04/01/20 at 12:15; Stop 04/02/20 at 12:14; Status DC Sodium Chloride (Normal Saline Flush) 10 ml 1X PRN PRN IV CCIE catheter pack; Start 04/01/20 at 12:15; Stop 04/02/20 at 12:14; Status DC Sodium Chloride 1,000 ml @ 400 mls/hr Q2H30M PRN IV PATENCY; Start 04/01/20 at 12:15; Stop 04/02/20 at 00:14; Status DC Info (PHARMACY MONITORING -- do not chart) 1 each PRN DAILY PRN MC SEE COMMENTS; Start 04/01/20 at 12:15; Stop 04/01/20 at 12:12; Status DC Info (PHARMACY MONITORING -- do not chart) 1 each PRN DAILY PRN MC SEE SUSI TS; Start 04/01/20 at 12:15 Vancomycin HCl (Vanco Per Pharmacy) 1 each PRN DAILY PRN MC SEE COMMENTS Last administered on 04/02/20at 15:10; Start 04/01/20 at 12:30 Meropenem 1 gm/ Sodium Chloride 100 ml @ 200 mls/hr DAILY IV Last administered on 04/03/20at 09:16; Start 04/01/20 at 13:00 Vancomycin HCl 2 gm/Sodium Chloride 500 ml @ 250 mls/hr 1X ONCE IV Last administered on 04/01/20at 15:06; Start 04/01/20 at 12:45; Stop 04/01/20 at 14:44; Status DC Sodium Bicarbonate 50 meq/Potassium Chloride 20 meq/ Sodium Chloride 80 meq/Dextrose 580 ml @ 30 mls/hr [id number] IV ; Start 04/01/20 at 15:00 Magnesium Sulfate 50 ml @ 25 mls/hr PRN DAILY PRN IV for Mag < 1.7 on am labs; Start 04/01/20 at 13:00 Epoetin Sree (PROCRIT for DIALYSIS PTS) 10,000 unit QMWF SQ Last administered on 04/02/20at 18:06; Start 04/02/20 at 16:00 Magnesium Sulfate 50 ml @ 25 mls/hr PRN DAILY PRN IV for Mag < 1.7 on am labs; Start 04/01/20 at 13:00; Stop 04/01/20 at 13:01; Status DC Vitamin B Complex/ Vitamin C (Meg-Severiano) 1 tab DAILY PO Last administered on 04/02/20at 08:54; Start 04/01/20 at 09:00 Acetaminophen (Tylenol) 500 mg Q8HRS PO Last administered on 04/02/20at 20:32; Start 04/01/20 at 14:00 Cetirizine HCl (ZyrTEC) 10 mg DAILY PO Last administered on 04/02/20at 08:54; Start 04/02/20 at 09:00 Levothyroxine Sodium (Synthroid) 25 mcg DAILY06 PO Last administered on 04/02/20at 05:18; Start 04/01/20 at 16:00 Pantoprazole Sodium (Protonix) 40 mg DAILYAC PO Last administered on 04/02/20at 08:54; Start 04/02/20 at 07:30; Stop 04/03/20 at 10:08; Status DC Multivitamins (Thera M Plus) 1 tab DAILY PO ; Start 04/02/20 at 09:00; Stop 04/02/20 at 16:19; Status DC Polyethylene Glycol (miraLAX PACKET) 17 gm BID PO ; Start 04/01/20 at 21:00 Zinc Sulfate (Orazinc) 220 mg DAILY PO Last administered on 04/02/20at 08:54; Start 04/02/20 at 09:00 Vancomycin HCl (Vancomycin Random Level) 1 each 1X ONCE MC ; Start 04/03/20 at 15:00; Stop 04/03/20 at 15:01 Sodium Bicarbonate 50 meq/Potassium Chloride 20 meq/ Sodium Chloride 80 meq/Dextrose 580 ml @ 30 mls/hr [id number] IV Last administered on 04/02/20at 08:55; Start 04/01/20 at 16:00; Stop 04/04/20 at 21:19 Potassium Chloride (Klor-Con) 20 meq PRN Q6HRS PRN PO SEE COMMENTS Last administered on 04/02/20at 23:01; Start 04/01/20 at 21:00 Gabapentin (Neurontin) 100 mg HS PO Last administered on 04/02/20at 20:31; Start 04/02/20 at 21:00 Insulin Human Lispro (HumaLOG) 3 units TIDWMEALS SQ Last administered on 04/02/20at 18:44; Start 04/02/20 at 12:00 Midodrine (Proamatine) 10 mg [id number] PO Last administered on 04/03/20at 08:18; Start 04/02/20 at 13:00 Rifaximin (Xifaxan) 550 mg BID PO Last administered on 04/02/20at 20:31; Start 04/02/20 at 12:00 Insulin Glargine (Lantus Syringe) 22 unit QHS SQ Last administered on 04/02/20at 21:21; Start 04/02/20 at 21:00 Lactulose (Lactulose) 10 gm TID PO Last administered on 04/02/20at 12:35; Start 04/02/20 at 14:00 Atorvastatin Calcium (Lipitor) 20 mg QHS PO Last administered on 04/02/20at 20:31; Start 04/02/20 at 21:00 Lidocaine HCl (Buffered Lidocaine 1%) 3 ml STK-MED ONCE .ROUTE ; Start 04/03/20 at 08:35; Stop 04/03/20 at 08:36; Status DC Lidocaine HCl (Buffered Lidocaine 1%) 6 ml 1X ONCE INJ Last administered on 04/03/20at 09:05; Start 04/03/20 at 09:15; Stop 04/03/20 at 09:16; Status DC Albumin Human 200 ml @ As Directed STK-MED ONCE IV ; Start 04/03/20 at 09:25; Stop 04/03/20 at 09:25; Status DC Albumin Human 100 ml @ 100 mls/hr 1X ONCE IV Last administered on 04/03/20at 09:30; Start 04/03/20 at 09:30; Stop 04/03/20 at 10:29 Albumin Human 100 ml @ 100 mls/hr 1X ONCE IV ; Start 04/03/20 at 09:30; Stop 04/03/20 at 10:29 Sodium Chloride 1,000 ml @ 1,000 mls/hr Q1H PRN IV hypotension; Start 04/03/20 at 09:45; Stop 04/03/20 at 15:44 Albumin Human 200 ml @ 200 mls/hr 1X PRN PRN IV Hypotension; Start 04/03/20 at 09:45; Stop 04/03/20 at 15:44 Sodium Chloride 1,000 ml @ 400 mls/hr Q2H30M PRN IV PATENCY; Start 04/03/20 at 09:45; Stop 04/03/20 at 21:44 Info (PHARMACY MONITORING -- do not chart) 1 each PRN DAILY PRN MC SEE COMMENTS; Start 04/03/20 at 09:45; Stop 04/03/20 at 09:46; Status DC Info (PHARMACY MONITORING -- do not chart) 1 each PRN DAILY PRN MC SEE COMMENTS; Start 04/03/20 at 09:45; Stop 04/03/20 at 09:46; Status DC Active Scripts Active Reported Zyrtec (Cetirizine Hcl) 10 Mg Tablet 1 Tab PO DAILY Zinc Sulfate 220 Mg Tablet 220 Mg PO DAILY Xifaxan (Rifaximin) 550 Mg Tablet 1 Tab PO BID 10 Days Stress Formula (Multivits,Stress Formula) 1 Each Tablet 600 Each PO DAILY Sildenafil (Sildenafil Citrate) 20 Mg Tablet 20 Mg PO TID Crestor (Rosuvastatin Calcium) 5 Mg Tablet 1 Tab PO HS Polyethylene Glycol 3350 2,500 Gm Powder 17 Gm PO BID Midodrine Hcl 5 Mg Tablet 15 Mg PO TID Melatonin 3 Mg Tablet.er 1 Tab PO QHS 30 Days Lactulose 10 Gm Packet 10 Gm PO PRN DAILY PRN Gabapentin (Gabapentin) 100 Mg Capsule 100 Mg PO HS Levothyroxine Sodium 25 Mcg Tablet 1 Tab PO DAILY Humalog (Insulin Lispro) 100 Unit/1 Ml Vial 3 Unit SQ TIDWMEALS Dexilant (Dexlansoprazole) 60 Mg Mason. 1 Cap PO DAILY 30 Days Cipro (Ciprofloxacin Hcl) 250 Mg Tablet 1 Tab PO DAILY 7 Days Basaglar Kwikpen U-100 (Insulin Glargine,Hum.rec.anlog) 100 Unit/1 Ml Insuln.pen 22 Unit SQ BID Acetaminophen 500 Mg Tablet 1 Tab PO Q8HRS 15 Days Vitals/I & O Vital Sign - Last 24 Hours 04/02/20 04/02/20 04/02/20 04/02/20 11:00 12:00 12:00 12:35 Temp 97.6 97.6 Pulse 83 80 86 Resp 22 B/P (MAP) 125/81 (96) 109/80 (90) 137/73 Pulse Ox 95 95 O2 Delivery Nasal Cannula Nasal Cannula Nasal Cannula O2 Flow Rate 4.0 4.0 4.0 04/02/20 04/02/20 04/02/20 04/02/20 13:00 14:00 15:00 16:00 Temp 98.1 98.1 Pulse 82 80 78 76 Resp 16 12 13 17 B/P (MAP) 137/84 (101) 132/81 (98) 107/49 (68) 113/54 (73) Pulse Ox 96 98 98 98 O2 Delivery Nasal Cannula Nasal Cannula Nasal Cannula Nasal Cannula O2 Flow Rate 4.0 4.0 4.0 4.0 04/02/20 04/02/20 04/02/20 04/02/20 18:06 19:44 19:45 23:30 Temp 98.1 97.6 98.1 97.6 Pulse 76 82 78 Resp 17 B/P (MAP) 79/54 107/60 (76) 106/57 (73) Pulse Ox 97 97 O2 Delivery Nasal Cannula Nasal Cannula Nasal Cannula O2 Flow Rate 4.0 4.0 4.0 04/03/20 04/03/20 04/03/20 04/03/20 03:30 07:30 08:18 09:03 Temp 97.2 97.3 97.2 97.3 Pulse 78 77 90 Resp 18 18 B/P (MAP) 103/50 (67) 90/44 (59) 90/44 122/61 (81) Pulse Ox 97 92 99 O2 Delivery Nasal Cannula Nasal Cannula Nasal Cannula O2 Flow Rate 4.0 4.0 4.0 04/03/20 09:30 Pulse 91 Resp 18 B/P (MAP) 110/62 (78) Pulse Ox 96 O2 Delivery Nasal Cannula O2 Flow Rate 4.0 Intake and Output 04/02/20 04/02/20 04/03/20 15:00 23:00 07:00 Intake Total 100 ml 1935 ml 0 ml Balance 100 ml 1935 ml 0 ml Justicifation of Admission Dx: Justifications for Admission: Justification of Admission Dx: Yes Acute Renal Failure: 75% Reduction in GFR Sepsis: Altered Mental Status CUATE OMER MD Apr 03, 2020 10:23
--- NOTE | 2020-04-03 10:28 | PDOC ---
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 Oral mucosa moist NECK: Supple. LUNGS: Decreased breath sounds at the bases,non labored HEART: S1, S2, no murmurs. ABDOMEN: Soft, nontender, EXTREMITIES: Edema 1-2 + DERMATOLOGIC: No generalized rash. 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 Seen on Dialysis, tolerating well, continue as ordered, Jose Atkins Hypo kalemia:Normal , sepsis, source unclear- ID following, Discussed with ID for HDC removal, recommned holding off as BC negative. Will Re-evaluate in am Metabolic encephalopathy. COVID upper respiratory infection Negative 03/31/20 Diabetes mellitus 2-Elevated BG Elevated LFT's per primary/GI Cirrhosis, h/o Hep C (?treated), ascites ?and frequent paracentesis, ?h/o variceal banding. Per GI COMMENT/RELEVANT DATA Meds Current Medications Medications (Trade) Dose Ordered Sig/Missy Start Time Stop Time Status Last Admin Dose Admin Acetaminophen (Tylenol) 500 mg Q8HRS 04/01/20 14:00 04/02/20 20:32 500 MG Albumin Human 200 ml @ 200 mls/hr 1X PRN PRN 04/03/20 09:45 04/03/20 15:44 Atorvastatin Calcium (Lipitor) 20 mg QHS 04/02/20 21:00 04/02/20 20:31 20 MG Cefepime HCl (Maxipime) 2 gm 1X ONCE 03/31/20 16:15 03/31/20 16:16 DC 03/31/20 16:53 2 GM Cetirizine HCl (ZyrTEC) 10 mg DAILY 04/02/20 09:00 04/02/20 08:54 10 MG Dextrose (Dextrose 50%-Water Syringe) 12.5 gm PRN Q15MIN PRN 04/01/20 11:00 Epoetin Sree (PROCRIT for DIALYSIS PTS) 10,000 unit QMWF 04/02/20 16:00 04/02/20 18:06 10,000 UNIT Gabapentin (Neurontin) 100 mg HS 04/02/20 21:00 04/02/20 20:31 100 MG Info (PHARMACY MONITORING -- do not chart) 1 each PRN DAILY PRN 04/03/20 09:45 04/03/20 09:46 DC Insulin Glargine (Lantus Syringe) 22 unit QHS 04/02/20 21:00 04/02/20 21:21 22 UNIT Insulin Human Lispro (HumaLOG) 3 units TIDWMEALS 04/02/20 12:00 04/02/20 18:44 3 UNITS Lactulose (Lactulose) 10 gm TID 04/02/20 14:00 04/02/20 12:35 10 GM Levothyroxine Sodium (Synthroid) 25 mcg DAILY06 04/01/20 16:00 04/02/20 05:18 25 MCG Lidocaine HCl (Buffered Lidocaine 1%) 6 ml 1X ONCE 04/03/20 09:15 04/03/20 09:16 DC 04/03/20 09:05 6 ML Lorazepam (Ativan Inj) 1 mg 1X ONCE 03/31/20 15:45 03/31/20 15:46 DC 03/31/20 15:46 1 MG Magnesium Sulfate 50 ml @ 25 mls/hr PRN DAILY PRN 04/01/20 13:00 04/01/20 13:01 DC Meropenem 1 gm/ Sodium Chloride 100 ml @ 200 mls/hr DAILY 04/01/20 13:00 04/03/20 09:16 200 MLS/HR Midodrine (Proamatine) 10 mg [id number] 04/02/20 13:00 04/03/20 08:18 10 MG Multivitamins (Thera M Plus) 1 tab DAILY 04/02/20 09:00 04/02/20 16:19 DC Norepinephrine Bitartrate 8 mg/ Dextrose 258 ml @ 0 mls/hr CONT PRN 03/31/20 21:15 04/02/20 02:23 17.8 MLS/HR Pantoprazole Sodium (Protonix) 40 mg DAILYAC 04/02/20 07:30 04/03/20 10:08 DC 04/02/20 08:54 40 MG Piperacillin Sod/ Tazobactam Sod 3.375 gm/Sodium Chloride 50 ml @ 100 mls/hr 1X ONCE 03/31/20 15:30 03/31/20 15:59 DC Polyethylene Glycol (miraLAX PACKET) 17 gm BID 04/01/20 21:00 Potassium Chloride 40 meq/ Dextrose 1,020 ml @ 75 mls/hr [id number] 03/31/20 16:00 04/01/20 12:59 DC 04/01/20 09:55 75 MLS/HR Potassium Chloride (Klor-Con) 20 meq PRN Q6HRS PRN 04/01/20 21:00 04/02/20 23:01 20 MEQ Rifaximin (Xifaxan) 550 mg BID 04/02/20 12:00 04/02/20 20:31 550 MG Sodium Bicarbonate 50 meq/Potassium Chloride 20 meq/ Sodium Chloride 80 meq/Dextrose 580 ml @ 30 mls/hr [id number] 04/01/20 16:00 04/04/20 21:19 04/02/20 08:55 30 MLS/HR Sodium Chloride 1,000 ml @ 400 mls/hr Q2H30M PRN 04/03/20 09:45 04/03/20 21:44 Sodium Chloride (Normal Saline Flush) 10 ml 1X PRN PRN 04/01/20 12:15 04/02/20 12:14 DC Vancomycin HCl (Vanco Per Pharmacy) 1 each PRN DAILY PRN 04/01/20 12:30 04/02/20 15:10 1 EACH Vancomycin HCl (Vancomycin Random Level) 1 each 1X ONCE 04/03/20 15:00 04/03/20 15:01 Vancomycin HCl 2 gm/Sodium Chloride 500 ml @ 250 mls/hr 1X ONCE 04/01/20 12:45 04/01/20 14:44 DC 04/01/20 15:06 250 MLS/HR Vitamin B Complex/ Vitamin C (Meg-Severiano) 1 tab DAILY 04/01/20 09:00 04/02/20 08:54 1 TAB Zinc Sulfate (Orazinc) 220 mg DAILY 04/02/20 09:00 04/02/20 08:54 220 MG Lab Laboratory Tests Test 04/02/20 11:43 04/02/20 15:45 04/02/20 18:10 04/02/20 20:48 Glucose (Fingerstick) 339 mg/dL (70-99) 238 mg/dL (70-99) Potassium Level 3.0 mmol/L (3.5-5.1) 3.2 mmol/L (3.5-5.1) Test 04/02/20 21:16 04/03/20 04:05 04/03/20 08:15 Glucose (Fingerstick) 233 mg/dL (70-99) 214 mg/dL (70-99) Sodium Level 130 mmol/L (136-145) Potassium Level 3.6 mmol/L (3.5-5.1) Chloride Level 94 mmol/L (98-107) Carbon Dioxide Level 24 mmol/L (21-32) Anion Gap 12 (6-14) Blood Urea Nitrogen 35 mg/dL (8-26) Creatinine 3.9 mg/dL (0.7-1.3) Estimated GFR (Cockcroft-Gault) 15.7 Glucose Level 159 mg/dL (70-99) Calcium Level 8.1 mg/dL (8.5-10.1) Phosphorus Level 4.4 mg/dL (2.6-4.7) Magnesium Level 2.0 mg/dL (1.8-2.4) Albumin 2.3 g/dL (3.4-5.0) Results All relevant outside records, renal labs, imaging studies, telemetry/EKG's were reviewed. Justicifation of Admission Dx: Justifications for Admission: Justification of Admission Dx: Yes Acute Renal Failure: 75% Reduction in GFR Sepsis: Altered Mental Status JASPREET BUNDY MD Apr 03, 2020 10:28
[2020-04-03 10:29] LABS: ALBUMIN 2.4 g/dL (3.4-5.0); DIRECT BILIRUBIN 2.8 mg/dL (0.0-0.2); TOTAL BILIRUBIN 3.9 mg/dL (0.2-1.0); TOTAL PROTEIN 4.8 g/dL (6.4-8.2)
--- NOTE | 2020-04-03 10:31 | RAD ---
Ultrasound-guided paracentesis 04/03/2020 8:28 AM Procedure: The risks and benefits of the procedure were discussed the patient. Informed consent was obtained. A timeout procedure was performed. Sonographic evaluation of the abdomen was performed demonstrating ascites . The right lower quadrant was prepped and draped using maximum sterile barrier technique. 1% lidocaine without epinephrine was administered for local anesthesia. Real-time ultrasonographic guidance was used in passing a 5 Romansh Yueh catheter into the fluid collection. 7 L of serous ascites was removed. The catheter was removed and pressure held to achieve hemostasis. A sterile dressing was applied. Impression: Successful ultrasound-guided paracentesis
--- NOTE | 2020-04-03 11:23 | NUR ---
SS following up with discharge planning. SS received phone contact from pt's ex-, Leigh Ann, , requesting referral for LTC with hospice be phoned and faxed to [facility], ; fax [phone]. SS phoned and faxed referral as requested. Pt is currently requiring oxygen via nasal canula. Pt on IV Meropenem. COVID19 negative. SS will continue to follow for discharge planning.
--- NOTE | 2020-04-03 12:45 | PDOC ---
FLAVIO DEL VALLE AUTOMATION SPECIALIST 04/03/20 1245: CARDIO Progress Notes Date and Time Date of Service 04/03/19 Time of Evaluation 1245 Subjective Subjective: No Chest Pain, No Palpitations Vitals Vitals Vital Signs Date Time Temp Pulse Resp B/P (MAP) Pulse Ox O2 Delivery O2 Flow Rate FiO2 04/03/20 09:30 91 18 110/62 (78) 96 Nasal Cannula 4.0 04/03/20 07:30 97.3 97.3 Weight Weight [ ] Input and Output Intake and Output Intake and Output 04/03/20 07:00 Intake Total 2035 ml Balance 2035 ml Intake Oral 1500 ml IV Total 535 ml # Bowel Movements 3 Laboratory Labs Laboratory Tests Test 04/02/20 15:45 04/02/20 18:10 04/02/20 20:48 04/02/20 21:16 Potassium Level 3.0 mmol/L (3.5-5.1) 3.2 mmol/L (3.5-5.1) Glucose (Fingerstick) 238 mg/dL (70-99) 233 mg/dL (70-99) Test 04/03/20 04:05 04/03/20 08:15 04/03/20 12:06 Glucose (Fingerstick) 214 mg/dL (70-99) 112 mg/dL (70-99) Sodium Level 130 mmol/L (136-145) Potassium Level 3.6 mmol/L (3.5-5.1) Chloride Level 94 mmol/L (98-107) Carbon Dioxide Level 24 mmol/L (21-32) Anion Gap 12 (6-14) Blood Urea Nitrogen 35 mg/dL (8-26) Creatinine 3.9 mg/dL (0.7-1.3) Estimated GFR (Cockcroft-Gault) 15.7 Glucose Level 159 mg/dL (70-99) Calcium Level 8.1 mg/dL (8.5-10.1) Phosphorus Level 4.4 mg/dL (2.6-4.7) Magnesium Level 2.0 mg/dL (1.8-2.4) Total Bilirubin 3.9 mg/dL (0.2-1.0) Direct Bilirubin 2.8 mg/dL (0.0-0.2) Aspartate Amino Transf (AST/SGOT) 37 U/L (15-37) Alanine Aminotransferase (ALT/SGPT) 32 U/L (16-63) Alkaline Phosphatase 167 U/L (46-116) Total Protein 4.8 g/dL (6.4-8.2) Albumin 2.4 g/dL (3.4-5.0) Microbiology Micro Microbiology 04/01/20 Blood Culture - Preliminary, Resulted NO GROWTH AFTER 1 DAY Physical Exam HEENT: Neck Supple W Full Motion Chest: Symmetric LUNGS: Other (diminished ) Heart: RRR (SR/ST with PACs) Abdomen: Other (ascites ) Extremities: Other (anasarca ) Neurology: alert, confused Assessment Assessment 1. Altered mental status in the setting of profound hypoglycemia 2. Metabolic encephalopathy, elevated ammonia level 3. Acute respiratory failure with possible PNA. ? aspiration 4. Sepsis; off pressor support 5. ESRD on HD 6. Diabetes, II 7. Acute on chronic diastolic CHF; recent echo with preserved LV systolic function. Recent RHC with elevated PAP 8. H/o hypotension; on Midodrine 9. Protein calorie malnutrition, anasarca 10. Ascites, cirrhosis, hepatits; s/p multiple previous paracentesis (weekly as patient refused Pleurx drain placement). Paracentesis today 11. Anemia, thrombocytopenia, coagulopathy with liver disease; INR 2.0 12. Hypokalemia; Mg WNL 13. H/o esophageal varices s/p banding 14. PUI; COVID negative Recommendations Fluid offloading via HD Replace K as warranted No ASA, OAC with thrombocytopenia Follow GI recs Ongoing treatment of PNA, lung optimization as per pulm Supportive care Justicifation of Admission Dx: Justifications for Admission: Justification of Admission Dx: Yes Acute Renal Failure: 75% Reduction in GFR Sepsis: Altered Mental Status QING GALVAN MD 04/03/20 1850: CARDIO Progress Notes Assessment Assessment Patient seen and examined. Agree with LIPSTICK MOLDER's assessment and plan. Continue fluid removal with HD for ac on chr diastolic HF Recent echo showed normal LV systolic function, Recent right heart cath with elevated PAP noted above. GI following for metabolic encephalopathy and elevated ammonia level with known history of cirrhosis Sepsis and pneumonia improving, off pressors, pulm following. Covid negative FLAVIO DEL VALLE APRN Apr 03, 2020 12:45 QING GALVAN MD Apr 03, 2020 18:50
[2020-04-03 13:51] LABS: BF CLARITY CLOUDY; BF COLOR YELLOW; BF SOURCE ASCITES
[2020-04-03 13:52] LABS: BF MON % 85 %; BF OTHER % 5 %; BF PMN % 10 %; BF RBC COUNT 4565 /cmm (Not Established); BF WBC COUNT 76 /cmm (Not Established)
[2020-04-03] MEDS: VANCOMYCIN PER PHARMACY MC PRN (14:26)
--- NOTE | 2020-04-03 14:27 | NUR ---
Pharmacy Vancomycin Dosing Note S:Consulted to monitor and dose vancomycin started 04/01/20. O:HILDA MORE is a 64 year old M with Sepsis Pneumonia . Height: 6 feet, 0 inches Weight: 101.8 kg [place] Body Weight: 77.60 Adjusted Body Weight: 87.28 Dosing Weight: Actual Other Antibiotics: MERREM LABS: Last BUN: 35 Last Creatinine: 3.9 Creatinine Clearance: HD TUTHSA mL/min Last WBC: 4.5 Last Procalcitonin: - Tmax (past 24 hours): 97.3 Microbiology: 04/02 BCX NGTD I/O: 2034/- Drug Levels: Last Random level: 16.5 on 04/03/20 at 0815 Last dose given 04/01/20 at 1500 Vancomycin Dosing: Loading Dose: 2000 mg x1 Dosing Weight: Actual Target Trough: 15-20 A: Based on: Random level P: 1. Schedule Vancomycin 500 mg IV AFTER HD TUTHSA 2. Follow up Random level as needed 3. Pharmacy will continue to monitor, follow and adjust therapy as needed. FLAVIO KNIGHT [facility] [place], 04/03/20 [id number]
[2020-04-03] MEDS: rifAXIMin 550 MG TABLET PO SCH ×2 (14:44→20:09)
[2020-04-03] MEDS: FOLIC/VIT B COMP W-C (RENAL) TABLET. PO SCH (14:44)
[2020-04-03] MEDS: CETIRIZINE HCL 10 MG TABLET. PO SCH (14:44)
[2020-04-03] MEDS: ZINC SULFATE 220 MG CAPSULE. PO SCH (14:44)
[2020-04-03] MEDS ORDERED: VANCOMYCIN RANDOM LEVEL. MC ONE (15:00)
[2020-04-03] MEDS ORDERED: VANCOMYCIN 500 MG in IV NORMAL SALINE 100ML 100 ML IV SCH (16:00)
[2020-04-03] MEDS: POTASSIUM CHLORIDE 20 MEQ TABLET.ER. PO PRN (20:09)
[2020-04-03] MEDS: ATORVASTATIN CALCIUM 20 MG TABLET PO SCH (20:09)
[2020-04-03] MEDS: LACTOBACILLUS RHAMNOSUS GG 1 CAPSULE. PO SCH (20:09)
[2020-04-03] MEDS: GABAPENTIN 100 MG CAPSULE. PO SCH (20:09)
[2020-04-03] MEDS: INSULIN GLARGINE SYRINGE. SQ SCH (20:11)
[2020-04-04 03:30] VITALS: BP 100/62
[2020-04-04] MEDS: ACETAMINOPHEN 500 MG TABLET PO SCH ×3 (05:02→21:52)
[2020-04-04] MEDS: LEVOTHYROXINE 25 MCG TABLET. PO SCH (05:02)
[2020-04-04] MEDS: MIDODRINE 5 MG TABLET PO SCH ×3 (05:03→17:39)
[2020-04-04 07:27] VITALS: BP 84/48
[2020-04-04] MEDS: VANCOMYCIN PER PHARMACY MC PRN (07:32)
--- NOTE | 2020-04-04 08:04 | PDOC ---
[facility] PROGRESS NOTE Date of Service DOS: DATE: 04/04/20 TIME: 07:57 Chief Complaint Chief Complaint A/P: SEVERE Sepsis with shock ALTERED Mental status acute metabolic encephalopathy Diffuse interstitial infiltrate and small pleural effusions. severe hypothermia severe hypokalemia SEVERE Hypoglycemia ESRD ON DIALYSIS PUI COVID recent NM hypothyroid state Hep C in remission PLAN ADMIT ICU BED Blood cultures warming blanket consult nephrology consult ID Emperic iv antibiotics sepsis protocol CONSULT DR ARTEAGA cardiology consult May need tunneled dialysis catheter removal in the near future glucose management protocol D/W RN NO FAMILY PRESENT to give accurate hx NEED RECENT RECORDS [facility] 35 min cc time History of Present Illness History of Present Illness Mr Prieto is a 64 year old male with a history of end-stage renal failure on hemodialysis and diabetes who was sent here for from the dialysis center due to altered mental status. Not much history was able to obtain. Patient was dropped off to the dialysis center by van transport , for dialysis today, when they tried to obtain his vital signs patient was very confused. EMS was, called blood sugar was 24 per EMS. Upon arrival to room patient was hypothermic and encephalopathic COVID STATUS is unknown. No family present to assist with history. 04/02: Afebrile. Still on O2. He is very confused continues to ask to get coffee. Ammonia elevated. Family wishes for referral to palliative care. 04/03: To paracentesis this morning with 7L removal. To dialysis Still confused. NA 130. Ex- and sister have made it clear that they would like a referral for hospice at [facility] facility on discharge. Afebrile. Little more alert. Having bowel movements. Abdomen swollen again today despite paracentesis on 04/03. Vitals/I&O Vitals/I&O: Vital Signs Date Time Temp Pulse Resp B/P (MAP) Pulse Ox O2 Delivery O2 Flow Rate FiO2 04/04/20 07:27 98.0 104 84/48 (60) 99 Nasal Cannula 4.0 98.0 04/03/20 23:27 20 I & O 04/03/20 04/03/20 04/04/20 15:00 23:00 07:00 Intake Total 0 ml 1080 ml 420 ml Output Total 6700 ml 1 ml Balance -6700 ml 1080 ml 419 ml Physical Exam Physical Exam: GENERAL: Confused male, arousable, does answer all questions. HEENT: Normocephalic, atraumatic. Anicteric. Oral mucosa dry. NECK: Supple. LUNGS: Decreased breath sounds at the bases, some expiratory rhonchi. HEART: S1, S2, no murmurs. ABDOMEN: Soft, mildly distended, nontender, nondistended. EXTREMITIES: No edema, no cyanosis. DERMATOLOGIC: No generalized rash. METAL DRILL OPERATOR awake, appropriate, no focal deficit General: Alert, Cooperative, No acute distress Heart: Regular rate (SR) Lungs: Crackles Abdomen: Soft, Other (distended ) Extremities: Other (2+ bilateral LE pitting edema ) Skin: No significant lesion Labs Labs: Laboratory Tests Test 04/03/20 08:15 04/03/20 09:07 04/03/20 12:06 04/03/20 16:35 Sodium Level 130 mmol/L (136-145) Potassium Level 3.6 mmol/L (3.5-5.1) Chloride Level 94 mmol/L (98-107) Carbon Dioxide Level 24 mmol/L (21-32) Anion Gap 12 (6-14) Blood Urea Nitrogen 35 mg/dL (8-26) Creatinine 3.9 mg/dL (0.7-1.3) Estimated GFR (Cockcroft-Gault) 15.7 Glucose Level 159 mg/dL (70-99) Calcium Level 8.1 mg/dL (8.5-10.1) Phosphorus Level 4.4 mg/dL (2.6-4.7) Magnesium Level 2.0 mg/dL (1.8-2.4) Total Bilirubin 3.9 mg/dL (0.2-1.0) Direct Bilirubin 2.8 mg/dL (0.0-0.2) Aspartate Amino Transf (AST/SGOT) 37 U/L (15-37) Alanine Aminotransferase (ALT/SGPT) 32 U/L (16-63) Alkaline Phosphatase 167 U/L (46-116) Total Protein 4.8 g/dL (6.4-8.2) Albumin 2.4 g/dL (3.4-5.0) Random Vancomycin Level 16.5 mcg/mL Body Fluid Source Ascites Body Fluid Color Yellow Body Fluid Clarity Cloudy Body Fluid Nucleated Cells 76 /cmm (Not Established) Body Fluid Mononuclear WBCs (%) 85 % Body Fluid Polymorphonuclear Cells 10 % Body Fluid Total RBCs Counted 4565 /cmm (Not Established) Body Fluid Other Cells (%) 5 % Glucose (Fingerstick) 112 mg/dL (70-99) 173 mg/dL (70-99) Test 04/03/20 20:05 04/04/20 07:20 Glucose (Fingerstick) 213 mg/dL (70-99) 213 mg/dL (70-99) Assessment and Plan Assessmemt and Plan Problems Medical Problems: (1) ESRD (end stage renal disease) on dialysis Status: Acute (2) Hypoglycemia Status: Acute (3) Hypokalemia Status: Acute (4) Severe sepsis Status: Acute Comment Review of Relevant I have reviewed the following items jaqueline (where applicable) has been applied. Medications: Current Medications Medications (Trade) Dose Ordered Sig/Missy Route PRN Reason Start Time Stop Time Status Last Admin Dose Admin Vancomycin HCl (Vancomycin Random Level) 1 each 1X ONCE MC 04/03/20 15:00 04/03/20 15:01 DC 04/03/20 15:00 Lidocaine HCl (Buffered Lidocaine 1%) 6 ml 1X ONCE INJ 04/03/20 09:15 04/03/20 09:16 DC 04/03/20 09:05 Albumin Human 100 ml @ 100 mls/hr 1X ONCE IV 04/03/20 09:30 04/03/20 10:29 DC 04/03/20 09:30 Albumin Human 100 ml @ 100 mls/hr 1X ONCE IV 04/03/20 09:30 04/03/20 10:29 DC 04/03/20 10:20 Vancomycin HCl 500 mg/Sodium Chloride 100 ml @ 100 mls/hr QTUTHSA IV 04/03/20 16:00 04/03/20 16:20 Lactobacillus Rhamnosus (Culturelle) 1 cap BID PO 04/03/20 21:00 04/03/20 20:09 Justifications for Admission Other Justification DAYO CANSECO MD Apr 04, 2020 08:04
[2020-04-04] MEDS: MEROPENEM 1 GM in IV NORMAL SALINE 100ML 100 ML IV SCH (08:37)
[2020-04-04] MEDS: INSULIN LISPRO 300 UNITS/3 ML VIAL. SQ SCH ×6 (08:38→17:44)
[2020-04-04] MEDS: POLYETHYLENE GLYCOL 3350 17 GM PACKET. PO SCH ×2 (08:39→21:00)
[2020-04-04] MEDS: ZINC SULFATE 220 MG CAPSULE. PO SCH (08:39)
[2020-04-04] MEDS: LACTULOSE 20 GM/30 ML SOLUTION. PO SCH ×3 (08:39→21:00)
[2020-04-04] MEDS: rifAXIMin 550 MG TABLET PO SCH ×2 (08:39→21:52)
[2020-04-04] MEDS: FOLIC/VIT B COMP W-C (RENAL) TABLET. PO SCH (08:39)
[2020-04-04] MEDS: CETIRIZINE HCL 10 MG TABLET. PO SCH (08:39)
[2020-04-04] MEDS: LACTOBACILLUS RHAMNOSUS GG 1 CAPSULE. PO SCH ×2 (08:39→21:52)
[2020-04-04 09:05] LABS: ALBUMIN 2.5 g/dL (3.4-5.0); CALCIUM 7.7 mg/dL (8.5-10.1); CREATININE 2.9 mg/dL (0.7-1.3); GFR 22.1; PHOSPHORUS 2.8 mg/dL (2.6-4.7)
--- NOTE | 2020-04-04 09:38 | PDOC ---
Date of Service: DATE: 04/04/20 TIME: 09:37 Subjective: Subjective: Recalls discussing PleurX in the past - "I don't know about that." Objective: Objective: Nurse says was cleared for PO. Help from cardiology/Paige yesterday w/ [facility] records: ESLD and refractory ascites/frequent paracentesis, hepatorenal syndrome/ESRD, PSE, pancytopenia, chronic hyponatremia, esophageal varices see Dr. 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 last month w/ subsequent cultures negative - saw ID, no atbx unwilling to consider palliative care resp failure 2/2 ascites small esophageal varices EGD 07/2019 intermittent compliance w/ lactulose, Xifaxan Vital Signs: Vital Signs Date Time Temp Pulse Resp B/P (MAP) Pulse Ox O2 Delivery O2 Flow Rate FiO2 04/04/20 07:27 98.0 104 84/48 (60) 99 Nasal Cannula 4.0 98.0 04/03/20 23:27 20 Labs: Laboratory Tests Test 04/03/20 12:06 04/03/20 16:35 04/03/20 20:05 04/04/20 06:42 Glucose (Fingerstick) 112 mg/dL 173 mg/dL 213 mg/dL Sodium Level 133 mmol/L Potassium Level 4.0 mmol/L Chloride Level 98 mmol/L Carbon Dioxide Level 26 mmol/L Anion Gap 9 Blood Urea Nitrogen 20 mg/dL Creatinine 2.9 mg/dL Estimated GFR (Cockcroft-Gault) 22.1 Glucose Level 207 mg/dL Calcium Level 7.7 mg/dL Phosphorus Level 2.8 mg/dL Magnesium Level 2.0 mg/dL Albumin 2.5 g/dL Test 04/04/20 07:20 Glucose (Fingerstick) 213 mg/dL BLOOD CULTURE Preliminary NO GROWTH AFTER 3 DAYS Imaging: Paracentesis 04/03 7L PE: GEN: NAD - eating breakfast with enthusiasm LUNGS: NC 4L HEART: tachycardic (mild) ABD: still pretty tight NEURO/PSYCH: appropriate A/P: ESLD, ESRD Refractory ascites -- Continue paracentesis, lactulose, Xifaxan, and dialysis. Justicifation of Admission Dx: Justifications for Admission: Justification of Admission Dx: Yes Acute Renal Failure: 75% Reduction in GFR Sepsis: Altered Mental Status MARISSA AYALA Apr 04, 2020 09:38
[2020-04-04 10:18] LABS: HCV ULTRA QUANT PCR HCV Not Detected IU/mL (.)
[2020-04-04 10:33] VITALS: BP 84/48
--- NOTE | 2020-04-04 10:43 | PDOC ---
PROGRESS NOTES Date of Service DATE: 04/04/20 TIME: 10:41 Assessment Problems Medical Problems: (1) ESRD (end stage renal disease) on dialysis Status: Acute (2) Hypoglycemia Status: Acute (3) Hypokalemia Status: Acute (4) Severe sepsis Status: Acute Metabolic encephalopathy due to hypoglycemia, diabetes, renal disease, hypothermia/sepsis, much better today. No evidence of stroke, ongoing seizure activity, or intracranial infection. Diabetic neuropathy Other medical issues: Covid negative, end-stage renal disease on dialysis, lactic acidosis, thrombocytopenia, anemia, sepsis, thrombocytopenia, coagulopathy, elevated LFTs , mild hyperammonemia, cirrhosis, hepatis C history, ascites, possible history of variceal banding, cholelithiasis S/P paracentesis (04/03) Plan Holding on additional neurological tests Observation Treat medical diseases. Send back to [place] when stable Subjective Denies complaints Objective Vital Signs Date Time Temp Pulse Resp B/P (MAP) Pulse Ox O2 Delivery O2 Flow Rate FiO2 04/04/20 10:33 98.0 99 84/48 (60) 99 Nasal Cannula 4.0 98.0 04/03/20 23:27 20 Intake and Output 04/04/20 07:00 Intake Total 1500 ml Output Total 6701 ml Balance -5201 ml Intake Oral 1500 ml Stool Total 1 ml Drainage Total 6700 ml # Bowel Movements 4 PHYSICAL EXAM Alert. Oriented to person, place, and time. PERRL. EOMI. CN: no focal findings. Muscle tone: normal. Muscle strength: 4/5 DTR: 0+ Plantar reflex: flexor Gait: not examined in bed. Sensory exam: stocking loss No cerebellar signs elicited. Review of Relevant I have reviewed the following items jaqueline (where applicable) has been applied. Labs Laboratory Tests Test 04/02/20 11:43 04/02/20 15:45 04/02/20 18:10 04/02/20 20:48 Glucose (Fingerstick) 339 mg/dL (70-99) 238 mg/dL (70-99) Potassium Level 3.0 mmol/L (3.5-5.1) 3.2 mmol/L (3.5-5.1) Test 04/02/20 21:16 04/03/20 04:05 04/03/20 08:15 04/03/20 09:07 Glucose (Fingerstick) 233 mg/dL (70-99) 214 mg/dL (70-99) Sodium Level 130 mmol/L (136-145) Potassium Level 3.6 mmol/L (3.5-5.1) Chloride Level 94 mmol/L (98-107) Carbon Dioxide Level 24 mmol/L (21-32) Anion Gap 12 (6-14) Blood Urea Nitrogen 35 mg/dL (8-26) Creatinine 3.9 mg/dL (0.7-1.3) Estimated GFR (Cockcroft-Gault) 15.7 Glucose Level 159 mg/dL (70-99) Calcium Level 8.1 mg/dL (8.5-10.1) Phosphorus Level 4.4 mg/dL (2.6-4.7) Magnesium Level 2.0 mg/dL (1.8-2.4) Total Bilirubin 3.9 mg/dL (0.2-1.0) Direct Bilirubin 2.8 mg/dL (0.0-0.2) Aspartate Amino Transf (AST/SGOT) 37 U/L (15-37) Alanine Aminotransferase (ALT/SGPT) 32 U/L (16-63) Alkaline Phosphatase 167 U/L (46-116) Total Protein 4.8 g/dL (6.4-8.2) Albumin 2.4 g/dL (3.4-5.0) Random Vancomycin Level 16.5 mcg/mL Body Fluid Source Ascites Body Fluid Color Yellow Body Fluid Clarity Cloudy Body Fluid Nucleated Cells 76 /cmm (Not Established) Body Fluid Mononuclear WBCs (%) 85 % Body Fluid Polymorphonuclear Cells 10 % Body Fluid Total RBCs Counted 4565 /cmm (Not Established) Body Fluid Other Cells (%) 5 % Test 04/03/20 12:06 04/03/20 16:35 04/03/20 20:05 04/04/20 06:42 Glucose (Fingerstick) 112 mg/dL (70-99) 173 mg/dL (70-99) 213 mg/dL (70-99) Sodium Level 133 mmol/L (136-145) Potassium Level 4.0 mmol/L (3.5-5.1) Chloride Level 98 mmol/L (98-107) Carbon Dioxide Level 26 mmol/L (21-32) Anion Gap 9 (6-14) Blood Urea Nitrogen 20 mg/dL (8-26) Creatinine 2.9 mg/dL (0.7-1.3) Estimated GFR (Cockcroft-Gault) 22.1 Glucose Level 207 mg/dL (70-99) Calcium Level 7.7 mg/dL (8.5-10.1) Phosphorus Level 2.8 mg/dL (2.6-4.7) Magnesium Level 2.0 mg/dL (1.8-2.4) Albumin 2.5 g/dL (3.4-5.0) Test 04/04/20 07:20 Glucose (Fingerstick) 213 mg/dL (70-99) Laboratory Tests Test 04/03/20 12:06 04/03/20 16:35 04/03/20 20:05 04/04/20 06:42 Glucose (Fingerstick) 112 mg/dL (70-99) 173 mg/dL (70-99) 213 mg/dL (70-99) Sodium Level 133 mmol/L (136-145) Potassium Level 4.0 mmol/L (3.5-5.1) Chloride Level 98 mmol/L (98-107) Carbon Dioxide Level 26 mmol/L (21-32) Anion Gap 9 (6-14) Blood Urea Nitrogen 20 mg/dL (8-26) Creatinine 2.9 mg/dL (0.7-1.3) Estimated GFR (Cockcroft-Gault) 22.1 Glucose Level 207 mg/dL (70-99) Calcium Level 7.7 mg/dL (8.5-10.1) Phosphorus Level 2.8 mg/dL (2.6-4.7) Magnesium Level 2.0 mg/dL (1.8-2.4) Albumin 2.5 g/dL (3.4-5.0) Test 04/04/20 07:20 Glucose (Fingerstick) 213 mg/dL (70-99) Microbiology 04/01/20 Blood Culture - Preliminary, Resulted NO GROWTH AFTER 2 DAYS Medications Current Medications Dextrose (Dextrose 50%-Water Syringe) 25 gm 1X ONCE IV Last administered on 03/31/20at 13:51; Start 03/31/20 at 13:15; Stop 03/31/20 at 13:26; Status DC Sodium Chloride 1,000 ml @ 1,000 mls/hr 1X ONCE IV Last administered on 03/31/20at 17:34; Start 03/31/20 at 15:30; Stop 03/31/20 at 16:29; Status DC Piperacillin Sod/ Tazobactam Sod 3.375 gm/Sodium Chloride 50 ml @ 100 mls/hr 1X ONCE IV ; Start 03/31/20 at 15:30; Stop 03/31/20 at 15:59; Status DC Potassium Chloride 40 meq/ Dextrose 1,020 ml @ 75 mls/hr [id number] IV Last administered on 04/01/20at 09:55; Start 03/31/20 at 16:00; Stop 04/01/20 at 12:59; Status DC Dextrose (Dextrose 50%-Water Syringe) 25 gm 1X ONCE IV Last administered on 03/31/20at 15:36; Start 03/31/20 at 15:30; Stop 03/31/20 at 15:31; Status DC Lorazepam (Ativan Inj) 1 mg 1X ONCE IVP Last administered on 03/31/20at 15:46; Start 03/31/20 at 15:45; Stop 03/31/20 at 15:46; Status DC Cefepime HCl (Maxipime) 2 gm 1X ONCE IVP Last administered on 03/31/20at 16:53; Start 03/31/20 at 16:15; Stop 03/31/20 at 16:16; Status DC Sodium Chloride 1,000 ml @ 75 mls/hr [id number] IV Last administered on 03/31/20at 18:36; Start 03/31/20 at 17:30; Stop 04/01/20 at 17:29; Status DC Sodium Chloride 1,000 ml @ 1,000 mls/hr Q1H IV Last administered on 04/01/20at 01:05; Start 03/31/20 at 21:30; Stop 03/31/20 at 23:49; Status DC Sodium Chloride 500 ml @ 1,000 mls/hr PRN Q30MIN PRN IV SEE COMMENTS; Start 03/31/20 at 21:15 Norepinephrine Bitartrate 8 mg/ Dextrose 258 ml @ 0 mls/hr CONT PRN IV SEE I/O RECORD Last administered on 04/02/20at 02:23; Start 03/31/20 at 21:15 Dextrose (Dextrose 50%-Water Syringe) 25 gm STK-MED ONCE IV ; Start 04/01/20 at 05:20; Stop 04/01/20 at 05:20; Status DC Dextrose (Dextrose 50%-Water Syringe) 25 gm 1X ONCE IV Last administered on 04/01/20at 05:21; Start 04/01/20 at 08:45; Stop 04/01/20 at 08:46; Status DC Insulin Human Lispro (HumaLOG) 0-5 UNITS TIDWMEALS SQ Last administered on at 08:38; Start 04/01/20 at 12:00 Dextrose (Dextrose 50%-Water Syringe) 12.5 gm PRN Q15MIN PRN IV SEE COMMENTS; Start 04/01/20 at 11:00 Sodium Chloride 1,000 ml @ 1,000 mls/hr Q1H PRN IV hypotension; Start 04/01/20 at 12:15; Stop 04/01/20 at 18:14; Status DC Albumin Human 200 ml @ 200 mls/hr 1X PRN PRN IV Hypotension Last administered on 04/01/20at 12:16; Start 04/01/20 at 12:15; Stop 04/01/20 at 18:14; Status DC Sodium Chloride (Normal Saline Flush) 10 ml 1X PRN PRN IV AP catheter pack; Start 04/01/20 at 12:15; Stop 04/02/20 at 12:14; Status DC Sodium Chloride (Normal Saline Flush) 10 ml 1X PRN PRN IV STACKER ATTENDANT catheter pack; Start 04/01/20 at 12:15; Stop 04/02/20 at 12:14; Status DC Sodium Chloride 1,000 ml @ 400 mls/hr Q2H30M PRN IV PATENCY; Start 04/01/20 at 12:15; Stop 04/02/20 at 00:14; Status DC Info (PHARMACY MONITORING -- do not chart) 1 each PRN DAILY PRN MC SEE COMMENTS; Start 04/01/20 at 12:15; Stop 04/01/20 at 12:12; Status DC Info (PHARMACY MONITORING -- do not chart) 1 each PRN DAILY PRN MC SEE COMME NTS; Start 04/01/20 at 12:15 Vancomycin HCl (Vanco Per Pharmacy) 1 each PRN DAILY PRN MC SEE COMMENTS Last administered on 04/04/20at 07:32; Start 04/01/20 at 12:30 Meropenem 1 gm/ Sodium Chloride 100 ml @ 200 mls/hr DAILY IV Last administered on 04/04/20at 08:37; Start 04/01/20 at 13:00 Vancomycin HCl 2 gm/Sodium Chloride 500 ml @ 250 mls/hr 1X ONCE IV Last administered on 04/01/20at 15:06; Start 04/01/20 at 12:45; Stop 04/01/20 at 14:44; Status DC Sodium Bicarbonate 50 meq/Potassium Chloride 20 meq/ Sodium Chloride 80 meq/Dextrose 580 ml @ 30 mls/hr [id number] IV ; Start 04/01/20 at 15:00; Stop 04/03/20 at 11:12; Status DC Magnesium Sulfate 50 ml @ 25 mls/hr PRN DAILY PRN IV for Mag < 1.7 on am labs; Start 04/01/20 at 13:00 Epoetin Sree (PROCRIT for DIALYSIS PTS) 10,000 unit QMWF SQ Last administered on 04/02/20at 18:06; Start 04/02/20 at 16:00 Magnesium Sulfate 50 ml @ 25 mls/hr PRN DAILY PRN IV for Mag < 1.7 on am labs; Start 04/01/20 at 13:00; Stop 04/01/20 at 13:01; Status DC Vitamin B Complex/ Vitamin C (Meg-Severiano) 1 tab DAILY PO Last administered on 04/04/20at 08:39; Start 04/01/20 at 09:00 Acetaminophen (Tylenol) 500 mg Q8HRS PO Last administered on 04/04/20at 05:02; Start 04/01/20 at 14:00 Cetirizine HCl (ZyrTEC) 10 mg DAILY PO Last administered on 04/04/20at 08:39; Start 04/02/20 at 09:00 Levothyroxine Sodium (Synthroid) 25 mcg DAILY06 PO Last administered on 04/04/20at 05:02; Start 04/01/20 at 16:00 Pantoprazole Sodium (Protonix) 40 mg DAILYAC PO Last administered on 04/02/20at 08:54; Start 04/02/20 at 07:30; Stop 04/03/20 at 10:08; Status DC Multivitamins (Thera M Plus) 1 tab DAILY PO ; Start 04/02/20 at 09:00; Stop 04/02/20 at 16:19; Status DC Polyethylene Glycol (miraLAX PACKET) 17 gm BID PO ; Start 04/01/20 at 21:00 Zinc Sulfate (Orazinc) 220 mg DAILY PO Last administered on 04/04/20at 08:39; Start 04/02/20 at 09:00 Vancomycin HCl (Vancomycin Random Level) 1 each 1X ONCE MC Last administered on 04/03/20at 15:00; Start 04/03/20 at 15:00; Stop 04/03/20 at 15:01; Status DC Sodium Bicarbonate 50 meq/Potassium Chloride 20 meq/ Sodium Chloride 80 meq/Dextrose 580 ml @ 30 mls/hr [id number] IV Last administered on 04/02/20at 08:55; Start 04/01/20 at 16:00; Stop 04/03/20 at 11:31; Status DC Potassium Chloride (Klor-Con) 20 meq PRN Q6HRS PRN PO SEE COMMENTS Last administered on 04/03/20at 20:09; Start 04/01/20 at 21:00 Gabapentin (Neurontin) 100 mg HS PO Last administered on 04/03/20at 20:09; Start 04/02/20 at 21:00 Insulin Human Lispro (HumaLOG) 3 units TIDWMEALS SQ Last administered on 04/04/20at 08:38; Start 04/02/20 at 12:00 Midodrine (Proamatine) 10 mg [id number] PO Last administered on 04/04/20at 05:03; Start 04/02/20 at 13:00 Rifaximin (Xifaxan) 550 mg BID PO Last administered on 04/04/20at 08:39; Start 04/02/20 at 12:00 Insulin Glargine (Lantus Syringe) 22 unit QHS SQ Last administered on 04/03/20at 20:11; Start 04/02/20 at 21:00 Lactulose (Lactulose) 10 gm TID PO Last administered on 04/02/20at 12:35; Start 04/02/20 at 14:00 Atorvastatin Calcium (Lipitor) 20 mg QHS PO Last administered on 04/03/20at 20:09; Start 04/02/20 at 21:00 Lidocaine HCl (Buffered Lidocaine 1%) 3 ml STK-MED ONCE .ROUTE ; Start 04/03/20 at 08:35; Stop 04/03/20 at 08:36; Status DC Lidocaine HCl (Buffered Lidocaine 1%) 6 ml 1X ONCE INJ Last administered on 04/03/20at 09:05; Start 04/03/20 at 09:15; Stop 04/03/20 at 09:16; Status DC Albumin Human 200 ml @ As Directed STK-MED ONCE IV ; Start 04/03/20 at 09:25; Stop 04/03/20 at 09:25; Status DC Albumin Human 100 ml @ 100 mls/hr 1X ONCE IV Last administered on 04/03/20at 09:30; Start 04/03/20 at 09:30; Stop 04/03/20 at 10:29; Status DC Albumin Human 100 ml @ 100 mls/hr 1X ONCE IV Last administered on 04/03/20at 10:20; Start 04/03/20 at 09:30; Stop 04/03/20 at 10:29; Status DC Sodium Chloride 1,000 ml @ 1,000 mls/hr Q1H PRN IV hypotension; Start 04/03/20 at 09:45; Stop 04/03/20 at 15:44; Status DC Albumin Human 200 ml @ 200 mls/hr 1X PRN PRN IV Hypotension; Start 04/03/20 at 09:45; Stop 04/03/20 at 15:44; Status DC Sodium Chloride 1,000 ml @ 400 mls/hr Q2H30M PRN IV PATENCY; Start 04/03/20 at 09:45; Stop 04/03/20 at 21:44; Status DC Info (PHARMACY MONITORING -- do not chart) 1 each PRN DAILY PRN MC SEE COMMENTS; Start 04/03/20 at 09:45; Stop 04/03/20 at 09:46; Status DC Info (PHARMACY MONITORING -- do not chart) 1 each PRN DAILY PRN MC SEE COMMENTS; Start 04/03/20 at 09:45; Stop 04/03/20 at 09:46; Status DC Vancomycin HCl 500 mg/Sodium Chloride 100 ml @ 100 mls/hr QTUTHSA IV Last administered on 04/03/20at 16:20; Start 04/03/20 at 16:00 Lactobacillus Rhamnosus (Culturelle) 1 cap BID PO Last administered on 04/04/20at 08:39; Start 04/03/20 at 21:00 Active Scripts Active Reported Zyrtec (Cetirizine Hcl) 10 Mg Tablet 1 Tab PO DAILY Zinc Sulfate 220 Mg Tablet 220 Mg PO DAILY Xifaxan (Rifaximin) 550 Mg Tablet 1 Tab PO BID 10 Days Stress Formula (Multivits,Stress Formula) 1 Each Tablet 600 Each PO DAILY Sildenafil (Sildenafil Citrate) 20 Mg Tablet 20 Mg PO TID Crestor (Rosuvastatin Calcium) 5 Mg Tablet 1 Tab PO HS Polyethylene Glycol 3350 2,500 Gm Powder 17 Gm PO BID Midodrine Hcl 5 Mg Tablet 15 Mg PO TID Melatonin 3 Mg Tablet.er 1 Tab PO QHS 30 Days Lactulose 10 Gm Packet 10 Gm PO PRN DAILY PRN Gabapentin (Gabapentin) 100 Mg Capsule 100 Mg PO HS Levothyroxine Sodium 25 Mcg Tablet 1 Tab PO DAILY Humalog (Insulin Lispro) 100 Unit/1 Ml Vial 3 Unit SQ TIDWMEALS Dexilant (Dexlansoprazole) 60 Mg Cap.mp 1 Cap PO DAILY 30 Days Cipro (Ciprofloxacin Hcl) 250 Mg Tablet 1 Tab PO DAILY 7 Days Basaglar Kwikpen U-100 (Insulin Glargine,Hum.rec.anlog) 100 Unit/1 Ml Insuln.pen 22 Unit SQ BID Acetaminophen 500 Mg Tablet 1 Tab PO Q8HRS 15 Days Vitals/I & O Vital Sign - Last 24 Hours 04/03/20 04/03/20 04/03/20 04/03/20 14:45 15:07 18:02 19:12 Temp 97.3 97.7 97.3 97.7 Pulse 103 96 96 95 Resp 22 22 B/P (MAP) 82/48 81/50 (60) 81/50 99/55 (70) Pulse Ox 94 94 O2 Delivery Nasal Cannula Nasal Cannula O2 Flow Rate 4.0 4.0 04/03/20 04/03/20 04/04/20 04/04/20 19:35 23:27 03:30 05:03 Temp 97.7 97.9 97.7 97.9 Pulse 102 105 105 Resp 20 B/P (MAP) 87/47 (60) 100/62 (75) 100/62 Pulse Ox 99 99 O2 Delivery Nasal Cannula Nasal Cannula Nasal Cannula O2 Flow Rate 4.0 4.0 4.0 04/04/20 04/04/20 07:27 10:33 Temp 98.0 98.0 98.0 98.0 Pulse 104 99 B/P (MAP) 84/48 (60) 84/48 (60) Pulse Ox 99 99 O2 Delivery Nasal Cannula Nasal Cannula O2 Flow Rate 4.0 4.0 Intake and Output 04/03/20 04/03/20 04/04/20 15:00 23:00 07:00 Intake Total 0 ml 1080 ml 420 ml Output Total 6700 ml 1 ml Balance -6700 ml 1080 ml 419 ml Justicifation of Admission Dx: Justifications for Admission: Justification of Admission Dx: Yes Acute Renal Failure: 75% Reduction in GFR Sepsis: Altered Mental Status CUATE OMER MD Apr 04, 2020 10:43
--- NOTE | 2020-04-04 10:53 | PDOC ---
Infectious Disease Note Subjective Subjective pt is awake, says feeling better, ROS ROS No nausea vomiting diarrhea Vital Sign Vital Signs Vital Signs Date Time Temp Pulse Resp B/P (MAP) Pulse Ox O2 Delivery O2 Flow Rate FiO2 04/04/20 10:33 98.0 99 84/48 (60) 99 Nasal Cannula 4.0 98.0 04/03/20 23:27 20 Physical Exam PHYSICAL EXAM GENERAL: Confused male, arousable, does answer all questions. HEENT: Normocephalic, atraumatic. Anicteric. Oral mucosa dry. NECK: Supple. LUNGS: Decreased breath sounds at the bases, some expiratory rhonchi. HEART: S1, S2, no murmurs. ABDOMEN: Soft, mildly distended, nontender, nondistended. EXTREMITIES: No edema, no cyanosis. DERMATOLOGIC: No generalized rash. 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, appropriate, no focal deficit Labs Lab Laboratory Tests Test 04/03/20 12:06 04/03/20 16:35 04/03/20 20:05 04/04/20 06:42 Glucose (Fingerstick) 112 mg/dL (70-99) 173 mg/dL (70-99) 213 mg/dL (70-99) Sodium Level 133 mmol/L (136-145) Potassium Level 4.0 mmol/L (3.5-5.1) Chloride Level 98 mmol/L (98-107) Carbon Dioxide Level 26 mmol/L (21-32) Anion Gap 9 (6-14) Blood Urea Nitrogen 20 mg/dL (8-26) Creatinine 2.9 mg/dL (0.7-1.3) Estimated GFR (Cockcroft-Gault) 22.1 Glucose Level 207 mg/dL (70-99) Calcium Level 7.7 mg/dL (8.5-10.1) Phosphorus Level 2.8 mg/dL (2.6-4.7) Magnesium Level 2.0 mg/dL (1.8-2.4) Albumin 2.5 g/dL (3.4-5.0) Test 04/04/20 07:20 Glucose (Fingerstick) 213 mg/dL (70-99) Micro Microbiology 03/31/20 Blood Culture - Preliminary, Resulted NO GROWTH AFTER 1 DAY Objective Assessment 1. sepsis, source unclear. 2. Hypothermia. 3. Metabolic encephalopathy. 4. End-stage renal disease, on hemodialysis. 5. Hypoglycemia. 6. COVID upper respiratory infection. 7. Lactic acidosis. 8. Thrombocytopenia. 9. Diabetes mellitus 2. Plan Plan of Care Change antibiotics to p.o. cefdinir All cultures are negative PT OT NORI BROWER MD Apr 04, 2020 10:53
--- NOTE | 2020-04-04 10:58 | PDOC ---
PULMONARY PROGRESS NOTES DATE: 04/04/20 TIME: 10:55 Subjective Now on room air no SOA or cough no overnight events Vitals Vital Signs Date Time Temp Pulse Resp B/P (MAP) Pulse Ox O2 Delivery O2 Flow Rate FiO2 04/04/20 10:33 98.0 99 84/48 (60) 99 Nasal Cannula 4.0 98.0 04/03/20 23:27 20 ROS: No Nausea, No Chest Pain, No Abdominal Pain, No Increase Cough General: Alert Lungs: Clear Cardiovascular: S1, S2 Abdomen: Soft, Non-tender Extremities: No Edema Skin: Warm Labs Laboratory Tests Test 04/02/20 11:43 04/02/20 15:45 04/02/20 18:10 04/02/20 20:48 Glucose (Fingerstick) 339 mg/dL (70-99) 238 mg/dL (70-99) Potassium Level 3.0 mmol/L (3.5-5.1) 3.2 mmol/L (3.5-5.1) Test 04/02/20 21:16 04/03/20 04:05 04/03/20 08:15 04/03/20 09:07 Glucose (Fingerstick) 233 mg/dL (70-99) 214 mg/dL (70-99) Sodium Level 130 mmol/L (136-145) Potassium Level 3.6 mmol/L (3.5-5.1) Chloride Level 94 mmol/L (98-107) Carbon Dioxide Level 24 mmol/L (21-32) Anion Gap 12 (6-14) Blood Urea Nitrogen 35 mg/dL (8-26) Creatinine 3.9 mg/dL (0.7-1.3) Estimated GFR (Cockcroft-Gault) 15.7 Glucose Level 159 mg/dL (70-99) Calcium Level 8.1 mg/dL (8.5-10.1) Phosphorus Level 4.4 mg/dL (2.6-4.7) Magnesium Level 2.0 mg/dL (1.8-2.4) Total Bilirubin 3.9 mg/dL (0.2-1.0) Direct Bilirubin 2.8 mg/dL (0.0-0.2) Aspartate Amino Transf (AST/SGOT) 37 U/L (15-37) Alanine Aminotransferase (ALT/SGPT) 32 U/L (16-63) Alkaline Phosphatase 167 U/L (46-116) Total Protein 4.8 g/dL (6.4-8.2) Albumin 2.4 g/dL (3.4-5.0) Random Vancomycin Level 16.5 mcg/mL Body Fluid Source Ascites Body Fluid Color Yellow Body Fluid Clarity Cloudy Body Fluid Nucleated Cells 76 /cmm (Not Established) Body Fluid Mononuclear WBCs (%) 85 % Body Fluid Polymorphonuclear Cells 10 % Body Fluid Total RBCs Counted 4565 /cmm (Not Established) Body Fluid Other Cells (%) 5 % Test 04/03/20 12:06 04/03/20 16:35 04/03/20 20:05 04/04/20 06:42 Glucose (Fingerstick) 112 mg/dL (70-99) 173 mg/dL (70-99) 213 mg/dL (70-99) Sodium Level 133 mmol/L (136-145) Potassium Level 4.0 mmol/L (3.5-5.1) Chloride Level 98 mmol/L (98-107) Carbon Dioxide Level 26 mmol/L (21-32) Anion Gap 9 (6-14) Blood Urea Nitrogen 20 mg/dL (8-26) Creatinine 2.9 mg/dL (0.7-1.3) Estimated GFR (Cockcroft-Gault) 22.1 Glucose Level 207 mg/dL (70-99) Calcium Level 7.7 mg/dL (8.5-10.1) Phosphorus Level 2.8 mg/dL (2.6-4.7) Magnesium Level 2.0 mg/dL (1.8-2.4) Albumin 2.5 g/dL (3.4-5.0) Test 04/04/20 07:20 Glucose (Fingerstick) 213 mg/dL (70-99) Laboratory Tests Test 04/03/20 12:06 04/03/20 16:35 04/03/20 20:05 04/04/20 06:42 Glucose (Fingerstick) 112 mg/dL (70-99) 173 mg/dL (70-99) 213 mg/dL (70-99) Sodium Level 133 mmol/L (136-145) Potassium Level 4.0 mmol/L (3.5-5.1) Chloride Level 98 mmol/L (98-107) Carbon Dioxide Level 26 mmol/L (21-32) Anion Gap 9 (6-14) Blood Urea Nitrogen 20 mg/dL (8-26) Creatinine 2.9 mg/dL (0.7-1.3) Estimated GFR (Cockcroft-Gault) 22.1 Glucose Level 207 mg/dL (70-99) Calcium Level 7.7 mg/dL (8.5-10.1) Phosphorus Level 2.8 mg/dL (2.6-4.7) Magnesium Level 2.0 mg/dL (1.8-2.4) Albumin 2.5 g/dL (3.4-5.0) Test 04/04/20 07:20 Glucose (Fingerstick) 213 mg/dL (70-99) Medications Active Scripts Medications Dose Route/Sig Max Daily Dose Days Date Category Zyrtec (Cetirizine Hcl) 10 Mg Tablet 1 Tab PO DAILY 04/01/20 Reported Zinc Sulfate 220 Mg Tablet 220 Mg PO DAILY 04/01/20 Reported Xifaxan (Rifaximin) 550 Mg Tablet 1 Tab PO BID 10 04/01/20 Reported Stress Formula (Multivits,Stress Formula) 1 Each Tablet 600 Each PO DAILY 04/01/20 Reported Sildenafil (Sildenafil Citrate) 20 Mg Tablet 20 Mg PO TID 04/01/20 Reported Crestor (Rosuvastatin Calcium) 5 Mg Tablet 1 Tab PO HS 04/01/20 Reported Polyethylene Glycol 3350 2,500 Gm Powder 17 Gm PO BID 04/01/20 Reported Midodrine Hcl 5 Mg Tablet 15 Mg PO TID 04/01/20 Reported Melatonin 3 Mg Tablet.er 1 Tab PO QHS 30 04/01/20 Reported Lactulose 10 Gm Packet 10 Gm PO PRN DAILY PRN 04/01/20 Reported Gabapentin (Gabapentin) 100 Mg Capsule 100 Mg PO HS 04/01/20 Reported Levothyroxine Sodium 25 Mcg Tablet 1 Tab PO DAILY 04/01/20 Reported Humalog (Insulin Lispro) 100 Unit/1 Ml Vial 3 Unit SQ TIDWMEALS 04/01/20 Reported Dexilant (Dexlansoprazole) 60 Mg Cap. 1 Cap PO DAILY 30 04/01/20 Reported Cipro (Ciprofloxacin Hcl) 250 Mg Tablet 1 Tab PO DAILY 7 04/01/20 Reported Basaglar [place]ikpen U-100 (Insulin Glargine,Hum.rec.anlog) 100 Unit/1 Ml Insuln.pen 22 Unit SQ BID 04/01/20 Reported Acetaminophen 500 Mg Tablet 1 Tab PO Q8HRS 15 04/01/[address] chest ABD and pelvis IMPRESSION: 1. Moderate left pleural effusion with compressive atelectasis of the left lower lobe. 2. Mild bilateral opacities may reflect atelectasis or mild pulmonary edema. 3. Enlargement of the main pulmonary artery is consistent with pulmonary arterial hypertension. 4. Morphologic changes of cirrhosis. Moderate hepatosplenomegaly. Large ascites. Paraesophageal varices. 5. Small bowel wall thickening likely reflects portal hypertension. Correlate for enteritis. 6. Cholelithiasis without evidence of acute cholecystitis. Impression . IMPRESSION: 1. Acute respiratory failure, multifactorial, suspect possible pneumonia, rule out COVID-19-- improving 2. Sepsis. 3. Hypothermia. 4. Metabolic toxic encephalopathy. 5. End-stage renal disease on HD 6. Hypoglycemia-- improved 7. Thrombocytopenia. 8. Elevated bilirubin. Plan . PLAN: Continue oxygen supplementation to keep sats above 92%, on room air Continue ABX per ID, follow cultures S/P paracentesis 04/04/20-- removed [address] reviewed COVID-19 negative, influenza negative Follow cardiology recs Follow nephrology recs-- HD Follow neurology recs DVT/GI PPX D/W RN stable from pulmonary stand point, we will see GURJIT SEGURA MD Apr 04, 2020 10:58
--- NOTE | 2020-04-04 12:39 | PDOC ---
FLAVIO DEL VALLE PROFESSOR OF BUSINESS ADMINISTRATION 04/04/20 1238: CARDIO Progress Notes Date and Time Date of Service 04/04/19 Time of Evaluation 1230 Subjective Subjective: No Chest Pain, No Palpitations Vitals Vitals Vital Signs Date Time Temp Pulse Resp B/P (MAP) Pulse Ox O2 Delivery O2 Flow Rate FiO2 04/04/20 10:33 98.0 99 84/48 (60) 99 Nasal Cannula 4.0 98.0 04/03/20 23:27 20 Weight Weight [ ] Input and Output Intake and Output Intake and Output 04/04/20 07:00 Intake Total 1500 ml Output Total 6701 ml Balance -5201 ml Intake Oral 1500 ml Stool Total 1 ml Drainage Total 6700 ml # Bowel Movements 4 Laboratory Labs Laboratory Tests Test 04/03/20 16:35 04/03/20 20:05 04/04/20 06:42 04/04/20 07:20 Glucose (Fingerstick) 173 mg/dL (70-99) 213 mg/dL (70-99) 213 mg/dL (70-99) Sodium Level 133 mmol/L (136-145) Potassium Level 4.0 mmol/L (3.5-5.1) Chloride Level 98 mmol/L (98-107) Carbon Dioxide Level 26 mmol/L (21-32) Anion Gap 9 (6-14) Blood Urea Nitrogen 20 mg/dL (8-26) Creatinine 2.9 mg/dL (0.7-1.3) Estimated GFR (Cockcroft-Gault) 22.1 Glucose Level 207 mg/dL (70-99) Calcium Level 7.7 mg/dL (8.5-10.1) Phosphorus Level 2.8 mg/dL (2.6-4.7) Magnesium Level 2.0 mg/dL (1.8-2.4) Albumin 2.5 g/dL (3.4-5.0) Test 04/04/20 11:27 Glucose (Fingerstick) 157 mg/dL (70-99) Microbiology Micro Microbiology 04/01/20 Blood Culture - Preliminary, Resulted NO GROWTH AFTER 2 DAYS Physical Exam HEENT: Neck Supple W Full Motion Chest: Symmetric LUNGS: Other (diminished ) Heart: RRR (SR/ST with PACs) Abdomen: Other (ascites ) Extremities: Other (anasarca ) Neurology: alert, confused Assessment Assessment 1. Altered mental status in the setting of profound hypoglycemia 2. Metabolic encephalopathy, elevated ammonia level 3. Acute respiratory failure with possible PNA. ? aspiration 4. Sepsis; off pressor support 5. ESRD on HD 6. Diabetes, II 7. Acute on chronic diastolic CHF; recent echo with preserved LV systolic function. Recent RHC with elevated PAP 8. H/o hypotension; on Midodrine 9. Protein calorie malnutrition, anasarca 10. Ascites, cirrhosis, hepatits; s/p multiple previous paracentesis (weekly as patient refused Pleurx drain placement). S/p paracentesis 04/03/20 11. Anemia, thrombocytopenia, coagulopathy with liver disease; INR 2.0 12. Hypokalemia; Mg WNL 13. H/o esophageal varices s/p banding 14. PUI; COVID negative Recommendations Fluid offloading via HD Follow GI recs Ongoing treatment of PNA, lung optimization as per pulm Supportive care Justicifation of Admission Dx: Justifications for Admission: Justification of Admission Dx: Yes Acute Renal Failure: 75% Reduction in GFR Sepsis: Altered Mental Status QING GALVAN MD 04/04/20 1653: CARDIO Progress Notes Assessment Assessment Patient seen and examined. Agree with YARN TEXTURING MACHINE OPERATOR's assessment and plan. Continue fluid removal with HD for ac on chr diastolic HF Recent echo showed normal LV systolic function, Recent right heart cath with elevated PAP GI following for metabolic encephalopathy and elevated ammonia level with known history of cirrhosis Sepsis and pneumonia improving, off pressors, pulm following. Covid negative FLAVIO DEL VALLE APRN Apr 04, 2020 12:38 QING GALVAN MD Apr 04, 2020 16:53
[2020-04-04] MEDS: CEFDINIR 300 MG CAPSULE PO SCH (12:40)
--- NOTE | 2020-04-04 13:14 | PDOC ---
DATE OF SERVICE DATE: 04/04/20 TIME: 13:14 SUBJECTIVE ROS stable, sitting up OBJECTIVE Vital Signs Vital Signs Date Time Temp Pulse Resp B/P (MAP) Pulse Ox O2 Delivery O2 Flow Rate FiO2 04/04/20 12:42 99 84/48 04/04/20 10:33 98.0 99 Nasal Cannula 4.0 98.0 04/03/20 23:27 20 I & 0 Intake and Output 04/04/20 07:00 Intake Total 1500 ml Output Total 6701 ml Balance -5201 ml Intake Oral 1500 ml Stool Total 1 ml Drainage Total 6700 ml # Bowel Movements 4 PHYSICAL EXAM Physical Exam GENERAL: nad HEENT: Normocephalic, atraumatic. Oral mucosa moist NECK: Supple. LUNGS: Decreased breath sounds at the bases,non labored HEART: S1, S2, no murmurs. ABDOMEN: Soft, nontender, EXTREMITIES: Edema 1-2 + DERMATOLOGIC: No generalized rash. 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 No indication for HD Hypokalemia:Normal , Sepsis, source unclear- ID following, Discussed with ID for HDC removal, recommend holding off as BC negative. Metabolic encephalopathy. COVID upper respiratory infection Negative 03/31/20 Diabetes mellitus 2-Elevated BG Elevated LFT's per primary/GI Cirrhosis, h/o Hep C (?treated), ascites ?and frequent paracentesis, ?h/o variceal banding. Per GI COMMENT/RELEVANT DATA Meds Current Medications Medications (Trade) Dose Ordered Sig/Msisy Start Time Stop Time Status Last Admin Dose Admin Acetaminophen (Tylenol) 500 mg Q8HRS 04/01/20 14:00 04/04/20 05:02 500 MG Albumin Human 200 ml @ 200 mls/hr 1X PRN PRN 04/03/20 09:45 04/03/20 15:44 DC Atorvastatin Calcium (Lipitor) 20 mg QHS 04/02/20 21:00 04/03/20 20:09 20 MG Cefdinir (Omnicef) 300 mg DAILY 04/04/20 12:00 04/04/20 12:40 300 MG Cefepime HCl (Maxipime) 2 gm 1X ONCE 03/31/20 16:15 03/31/20 16:16 DC 03/31/20 16:53 2 GM Cetirizine HCl (ZyrTEC) 10 mg DAILY 04/02/20 09:00 04/04/20 08:39 10 MG Dextrose (Dextrose 50%-Water Syringe) 12.5 gm PRN Q15MIN PRN 04/01/20 11:00 Epoetin Sree (PROCRIT for DIALYSIS PTS) 10,000 unit QMWF 04/02/20 16:00 04/02/20 18:06 10,000 UNIT Gabapentin (Neurontin) 100 mg HS 04/02/20 21:00 04/03/20 20:09 100 MG Info (PHARMACY MONITORING -- do not chart) 1 each PRN DAILY PRN 04/03/20 09:45 04/03/20 09:46 DC Insulin Glargine (Lantus Syringe) 22 unit QHS 04/02/20 21:00 04/03/20 20:11 22 UNIT Insulin Human Lispro (HumaLOG) 3 units TIDWMEALS 04/02/20 12:00 04/04/20 12:41 3 UNITS Lactobacillus Rhamnosus (Culturelle) 1 cap BID 04/03/20 21:00 04/04/20 08:39 1 CAP Lactulose (Lactulose) 10 gm TID 04/02/20 14:00 04/02/20 12:35 10 GM Levothyroxine Sodium (Synthroid) 25 mcg DAILY06 04/01/20 16:00 04/04/20 05:02 25 MCG Lidocaine HCl (Buffered Lidocaine 1%) 6 ml 1X ONCE 04/03/20 09:15 04/03/20 09:16 DC 04/03/20 09:05 6 ML Lorazepam (Ativan Inj) 1 mg 1X ONCE 03/31/20 15:45 03/31/20 15:46 DC 03/31/20 15:46 1 MG Magnesium Sulfate 50 ml @ 25 mls/hr PRN DAILY PRN 04/01/20 13:00 04/01/20 13:01 DC Meropenem 1 gm/ Sodium Chloride 100 ml @ 200 mls/hr DAILY 04/01/20 13:00 04/04/20 11:34 DC 04/04/20 08:37 200 MLS/HR Midodrine (Proamatine) 10 mg [id number] 04/02/20 13:00 04/04/20 12:42 10 MG Multivitamins (Thera M Plus) 1 tab DAILY 04/02/20 09:00 04/02/20 16:19 DC Norepinephrine Bitartrate 8 mg/ Dextrose 258 ml @ 0 mls/hr CONT PRN 03/31/20 21:15 04/02/20 02:23 17.8 MLS/HR Pantoprazole Sodium (Protonix) 40 mg DAILYAC 04/02/20 07:30 04/03/20 10:08 DC 04/02/20 08:54 40 MG Piperacillin Sod/ Tazobactam Sod 3.375 gm/Sodium Chloride 50 ml @ 100 mls/hr 1X ONCE 03/31/20 15:30 03/31/20 15:59 DC Polyethylene Glycol (miraLAX PACKET) 17 gm BID 04/01/20 21:00 Potassium Chloride 40 meq/ Dextrose 1,020 ml @ 75 mls/hr [id number] 03/31/20 16:00 04/01/20 12:59 DC 04/01/20 09:55 75 MLS/HR Potassium Chloride (Klor-Con) 20 meq PRN Q6HRS PRN 04/01/20 21:00 04/03/20 20:09 20 MEQ Rifaximin (Xifaxan) 550 mg BID 04/02/20 12:00 04/04/20 08:39 550 MG Sodium Bicarbonate 50 meq/Potassium Chloride 20 meq/ Sodium Chloride 80 meq/Dextrose 580 ml @ 30 mls/hr [id number] 04/01/20 16:00 04/03/20 11:31 DC 04/02/20 08:55 30 MLS/HR Sodium Chloride 1,000 ml @ 400 mls/hr Q2H30M PRN 04/03/20 09:45 04/03/20 21:44 DC Sodium Chloride (Normal Saline Flush) 10 ml 1X PRN PRN 04/01/20 12:15 04/02/20 12:14 DC Vancomycin HCl (Vanco Per Pharmacy) 1 each PRN DAILY PRN 04/01/20 12:30 04/04/20 07:32 1 EACH Vancomycin HCl (Vancomycin Random Level) 1 each 1X ONCE 04/03/20 15:00 04/03/20 15:01 DC 04/03/20 15:00 1 EACH Vancomycin HCl 500 mg/Sodium Chloride 100 ml @ 100 mls/hr QTUTHSA 04/03/20 16:00 04/04/20 11:34 DC 04/03/20 16:20 100 MLS/HR Vancomycin HCl 2 gm/Sodium Chloride 500 ml @ 250 mls/hr 1X ONCE 04/01/20 12:45 04/01/20 14:44 DC 04/01/20 15:06 250 MLS/HR Vitamin B Complex/ Vitamin C (Meg-Severiano) 1 tab DAILY 04/01/20 09:00 04/04/20 08:39 1 TAB Zinc Sulfate (Orazinc) 220 mg DAILY 04/02/20 09:00 04/04/20 08:39 220 MG Lab Laboratory Tests Test 04/03/20 16:35 04/03/20 20:05 04/04/20 06:42 04/04/20 07:20 Glucose (Fingerstick) 173 mg/dL (70-99) 213 mg/dL (70-99) 213 mg/dL (70-99) Sodium Level 133 mmol/L (136-145) Potassium Level 4.0 mmol/L (3.5-5.1) Chloride Level 98 mmol/L (98-107) Carbon Dioxide Level 26 mmol/L (21-32) Anion Gap 9 (6-14) Blood Urea Nitrogen 20 mg/dL (8-26) Creatinine 2.9 mg/dL (0.7-1.3) Estimated GFR (Cockcroft-Gault) 22.1 Glucose Level 207 mg/dL (70-99) Calcium Level 7.7 mg/dL (8.5-10.1) Phosphorus Level 2.8 mg/dL (2.6-4.7) Magnesium Level 2.0 mg/dL (1.8-2.4) Albumin 2.5 g/dL (3.4-5.0) Test 04/04/20 11:27 Glucose (Fingerstick) 157 mg/dL (70-99) Results All relevant outside records, renal labs, imaging studies, telemetry/EKG's were reviewed. Justicifation of Admission Dx: Justifications for Admission: Justification of Admission Dx: Yes Acute Renal Failure: 75% Reduction in GFR Sepsis: Altered Mental Status JASPREET BUNDY MD Apr 04, 2020 13:14
[2020-04-04 14:26] VITALS: BP 111/62
[2020-04-04] MEDS ORDERED: INSU100I32 SQ (15:29)
[2020-04-04] MEDS ORDERED: CEFD300C PO (15:29)
--- NOTE | 2020-04-04 15:32 | SNU/HH DC ---
DISCHARGE ORDERS DISCHARGE INFORMATION: DISCHARGE DATE: Apr 04, 2020 FINAL DIAGNOSIS Problems Medical Problems: (1) ESRD (end stage renal disease) on dialysis Status: Acute (2) Hypoglycemia Status: Acute (3) Hypokalemia Status: Acute (4) Severe sepsis Status: Acute CONDITION ON DISCHARGE: Stable CODE STATUS: Code Status: Full HOSPICE: HOSPICE: Yes HOSPICE EVAL & TREAT: Yes POST DISCHARGE ORDERS: ACTIVITY ORDERS: Activity as tolerated WEIGHT BEARING STATUS: Full weight bearing DIET AFTER DISCHARGE: Renal CHECKS AFTER DISCHARGE: CHECKS AFTER DISCHARGE: Check blood press - daily, Check blood sugar, ac/hs, Weigh Yourself Daily DISCHARGE MEDICATIONS: Home Meds Active Scripts Cefdinir (CEFDINIR) 300 Mg Capsule, 300 MG PO DAILY for Sepsis for 5 Days, #5 CAP Prov:DAYO CANSECO MD 04/04/20 Insulin Glargine,Hum.rec.anlog (Basaglar Kwikpen U-100) 100 Unit/1 Ml Insuln.pen, 22 UNIT SQ QHS for diabetes for 30 Days, #1 EACH Prov:DAYO CANSECO MD 04/04/20 Reported Medications Cetirizine Hcl (ZYRTEC) 10 Mg Tablet, 1 TAB PO DAILY for allergies, #30 TAB 2 Refills 04/01/20 Zinc Sulfate (ZINC SULFATE) 220 Mg Tablet, 220 MG PO DAILY for supplement, TAB 04/01/20 Rifaximin (XIFAXAN) 550 Mg Tablet, 1 TAB PO BID for . for 10 Days, #20 TAB 0 Refills 04/01/20 Multivits,Stress Formula (STRESS FORMULA) 1 Each Tablet, 600 EACH PO DAILY for vitamin, TAB 04/01/20 Sildenafil Citrate (SILDENAFIL) 20 Mg Tablet, 20 MG PO TID for PULMONARY HYPERTENSION, TAB 04/01/20 Rosuvastatin Calcium (CRESTOR) 5 Mg Tablet, 1 TAB PO HS for ., #30 TAB 5 Refills 04/01/20 Polyethylene Glycol 3350 (POLYETHYLENE GLYCOL 3350) 2,500 Gm Powder, 17 GM PO BID for constipation, #255 GM 0 Refills 04/01/20 Midodrine Hcl (MIDODRINE HCL) 5 Mg Tablet, 15 MG PO TID for ., TAB 04/01/20 Melatonin (MELATONIN) 3 Mg Tablet.er, 1 TAB PO QHS for sleep for 30 Days, #30 TAB 0 Refills 04/01/20 Lactulose (Lactulose) 10 Gm Packet, 10 GM PO PRN DAILY PRN for CONSTIPATION, PKT 04/01/20 Gabapentin (GABAPENTIN ) 100 Mg Capsule, 100 MG PO HS for NEUROGENIC PAIN, CAP 04/01/20 Levothyroxine Sodium (LEVOTHYROXINE SODIUM) 25 Mcg Tablet, 1 TAB PO DAILY for hypothyroidism, #30 TAB 5 Refills 04/01/20 Insulin Lispro (HUMALOG) 100 Unit/1 Ml Vial, 3 UNIT SQ TIDWMEALS for diabetes, VIAL 04/01/20 Dexlansoprazole (DEXILANT) 60 Mg Cap., 1 CAP PO DAILY for gerd for 30 Days, #30 CAP 0 Refills 04/01/20 Acetaminophen (ACETAMINOPHEN) 500 Mg Tablet, 1 TAB PO Q8HRS for pain for 15 Days, #60 TAB 0 Refills 04/01/20 Discontinued Reported Medications Ciprofloxacin Hcl (CIPRO) 250 Mg Tablet, 1 TAB PO DAILY for infection for 7 Days , #7 TAB 0 Refills 04/01/20 DAYO CANSECO MD Apr 04, 2020 15:32
--- NOTE | 2020-04-04 16:14 | NUR ---
SS following up with discharge planning. SS reviewed pt chart and discussed with pt RN. Pt is currently requiring oxygen. COVID19 negative. SS received phone contact from [facility] [place], ; fax [phone], stating that referral was received and clinically pt is accepted and okay to come under Medicaid. [facility] reported that they sent clinical to there contracted hospice company and are awaiting response at this time. [facility] reported that they would contact SS once they have heard from there hospice company. Pt's family notified. SS will continue to follow for discharge planning.
--- NOTE | 2020-04-04 17:11 | PATHOLOGY ---
Note [facility] Accession Number: [id number] TESTS RESULT FLAG UNITS REF RANGE LAB Clinician Provided Cytology Information No. of containers..01 Other (Miscellaneous) Source: ASCITES DIAGNOSIS: 02 ASCITES NEGATIVE FOR MALIGNANT CELLS. FEW MESOTHELIAL CELLS AND INFLAMMATORY CELLS PRESENT. THIS INTERPRETATION INCLUDES EVALUATION OF A CELL BLOCK. Signed out by: 02 Jordan Molina MD, Pathologist NPI- [id number] Performed by: Liliane Myers, [employer] ([facility]) Gross description: 30ML, CLOUDY ORANGE, 1 TP 1 CB /LCS 04/03/2020 1712 Local FLAG LEGEND: L-Low Normal,H-High Normal,LL-Alert Low,HH-Alert High <-Panic Low,>-Panic High,A-Abnormal,AA-Critical Abnormal Performed at: 01 [facility] [address] [place] [address] Cruz Perkins MD, 02 [facility] [address] [place] [address] Jordan Molina MD, Specimen Comment: A courtesy copy of this report has been sent to [phone], [phone] Specimen Comment: [phone], Specimen Comment: Report sent to ,DR CANSECO / DR WARD Performed at: 01 [facility] [address], [place], [place] [id number] MD Cruz Perkins MD Phone: [phone]
[2020-04-04] MEDS: EPOETIN ALFA 20,000 UNIT/ML VIAL for DIALYSIS PTS. SQ SCH (17:40)
[2020-04-04 18:30] VITALS: BP 107/63
[2020-04-04] MEDS: GABAPENTIN 100 MG CAPSULE. PO SCH (21:52)
[2020-04-04] MEDS: ATORVASTATIN CALCIUM 20 MG TABLET PO SCH (21:52)
[2020-04-04] MEDS: INSULIN GLARGINE SYRINGE. SQ SCH (21:59)
[2020-04-04 23:00] VITALS: BP 108/67
[2020-04-05 04:00] VITALS: BP 96/57
[2020-04-05] MEDS: ACETAMINOPHEN 500 MG TABLET PO SCH ×3 (06:44→22:06)
[2020-04-05] MEDS: LEVOTHYROXINE 25 MCG TABLET. PO SCH (06:44)
[2020-04-05 07:15] VITALS: BP 103/58
[2020-04-05 07:49] LABS: ALBUMIN 2.4 g/dL (3.4-5.0); CALCIUM 8.4 mg/dL (8.5-10.1); CREATININE 3.8 mg/dL (0.7-1.3); GFR 16.2; PHOSPHORUS 3.4 mg/dL (2.6-4.7); POTASSIUM 3.8 mmol/L (3.5-5.1)
--- NOTE | 2020-04-05 07:49 | PDOC ---
[employer] PROGRESS NOTE Date of Service DOS: DATE: 04/05/20 TIME: 07:41 Chief Complaint Chief Complaint A/P: SEVERE Sepsis with shock ALTERED Mental status acute metabolic encephalopathy Diffuse interstitial infiltrate and small pleural effusions. severe hypothermia severe hypokalemia SEVERE Hypoglycemia ESRD ON DIALYSIS PUI COVID recent NC hypothyroid state Hep C in remission PLAN ADMIT ICU BED Blood cultures warming blanket consult nephrology consult ID Emperic iv antibiotics sepsis protocol CONSULT DR ARTEAGA cardiology consult May need tunneled dialysis catheter removal in the near future glucose management protocol D/W RN NO FAMILY PRESENT to give accurate hx NEED RECENT RECORDS [facility] 35 min cc time History of Present Illness History of Present Illness Mr Prieto is a 64 year old male with a history of end-stage renal failure on hemodialysis and diabetes who was sent here for from the dialysis center due to altered mental status. Not much history was able to obtain. Patient was dropped off to the dialysis center by van transport , for dialysis today, when they tried to obtain his vital signs patient was very confused. EMS was, called blood sugar was 24 per EMS. Upon arrival to room patient was hypothermic and encephalopathic COVID STATUS is unknown. No family present to assist with history. 04/02: Afebrile. Still on O2. He is very confused continues to ask to get coffee. Ammonia elevated. Family wishes for referral to palliative care. 04/03: To paracentesis this morning with 7L removal. To dialysis Still confused. NA 130. Ex- and sister have made it clear that they would like a referral for hospice at nursing home facility on discharge. 04/04: Afebrile. Little more alert. Having bowel movements. Abdomen swollen again today despite paracentesis on 04/03. Afebrile. Seen on dialysis. No chest pain or shortness of breath. Had 4 bowel movements in past 24 hours. He is amenable to going to hospice at [facility] understands that the shortness his life span but he wants to be near his ex-. Vitals/I&O Vitals/I&O: Vital Signs Date Time Temp Pulse Resp B/P (MAP) Pulse Ox O2 Delivery O2 Flow Rate FiO2 04/05/20 07:15 97.7 107 22 103/58 (73) 95 Nasal Cannula 3.5 97.7 I & O 04/04/20 04/04/20 04/05/20 15:00 23:00 07:00 Intake Total 600 ml 800 ml 480 ml Balance 600 ml 800 ml 480 ml Physical Exam Physical Exam: GENERAL: Confused male, arousable, does answer all questions. HEENT: Normocephalic, atraumatic. Anicteric. Oral mucosa dry. NECK: Supple. LUNGS: Decreased breath sounds at the bases, some expiratory rhonchi. HEART: S1, S2, no murmurs. ABDOMEN: Soft, mildly distended, nontender, nondistended. EXTREMITIES: No edema, no cyanosis. DERMATOLOGIC: No generalized rash. 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, appropriate, no focal deficit General: Alert, Cooperative, No acute distress Heart: Regular rate (SR) Lungs: Clear Abdomen: Soft, Other (distended ) Extremities: Other (2+ bilateral LE pitting edema ) Skin: No significant lesion Labs Labs: Laboratory Tests Test 04/04/20 11:27 04/04/20 16:01 04/04/20 21:57 Glucose (Fingerstick) 157 mg/dL (70-99) 253 mg/dL (70-99) 268 mg/dL (70-99) Assessment and Plan Assessmemt and Plan Problems Medical Problems: (1) ESRD (end stage renal disease) on dialysis Status: Acute (2) Hypoglycemia Status: Acute (3) Hypokalemia Status: Acute (4) Severe sepsis Status: Acute Comment Review of Relevant I have reviewed the following items jaqueline (where applicable) has been applied. Medications: Current Medications Medications (Trade) Dose Ordered Sig/Missy Route PRN Reason Start Time Stop Time Status Last Admin Dose Admin Cefdinir (Omnicef) 300 mg DAILY PO 04/04/20 12:00 04/04/20 12:40 Justifications for Admission Other Justification DAYO CANSECO MD Apr 05, 2020 07:49
[2020-04-05] MEDS: INSULIN LISPRO 300 UNITS/3 ML VIAL. SQ SCH ×6 (08:00→17:28)
[2020-04-05] MEDS: MIDODRINE 5 MG TABLET PO SCH ×3 (08:00→17:38)
[2020-04-05] MEDS ORDERED: DIALYSIS PATIENT. MC PRN ×2 (08:30)
[2020-04-05] MEDS ORDERED: ALBUMIN HUMAN 25% 200 ML IV PRN (08:30)
[2020-04-05] MEDS ORDERED: IV NORMAL SALINE 1000ML BAG 1,000 ML IV PRN ×2 (08:30)
[2020-04-05] MEDS: POLYETHYLENE GLYCOL 3350 17 GM PACKET. PO SCH ×2 (08:46→20:07)
[2020-04-05] MEDS: ZINC SULFATE 220 MG CAPSULE. PO SCH (08:46)
[2020-04-05] MEDS: LACTOBACILLUS RHAMNOSUS GG 1 CAPSULE. PO SCH ×2 (08:46→20:06)
[2020-04-05] MEDS: LACTULOSE 20 GM/30 ML SOLUTION. PO SCH ×3 (08:46→20:07)
[2020-04-05] MEDS: rifAXIMin 550 MG TABLET PO SCH ×2 (08:47→20:06)
[2020-04-05] MEDS: FOLIC/VIT B COMP W-C (RENAL) TABLET. PO SCH (08:47)
[2020-04-05] MEDS: CETIRIZINE HCL 10 MG TABLET. PO SCH (08:47)
[2020-04-05] MEDS: CEFDINIR 300 MG CAPSULE PO SCH (09:00)
--- NOTE | 2020-04-05 09:32 | PDOC ---
Infectious Disease Note Subjective Subjective pt is awake, says feeling better, ROS ROS no n/v/d/fever Vital Sign Vital Signs Vital Signs Date Time Temp Pulse Resp B/P (MAP) Pulse Ox O2 Delivery O2 Flow Rate FiO2 04/05/20 08:00 Nasal Cannula 4.0 04/05/20 08:00 107 103/58 04/05/20 07:15 97.7 22 95 97.7 Physical Exam PHYSICAL EXAM GENERAL: Confused male, arousable, does answer all questions. HEENT: Normocephalic, atraumatic. Anicteric. Oral mucosa dry. NECK: Supple. LUNGS: Decreased breath sounds at the bases, some expiratory rhonchi. HEART: S1, S2, no murmurs. ABDOMEN: Soft, mildly distended, nontender, nondistended. EXTREMITIES: No edema, no cyanosis. DERMATOLOGIC: No generalized rash. GENERAL AGENT awake, appropriate, no focal deficit Labs Lab Laboratory Tests Test 04/04/20 11:27 04/04/20 16:01 04/04/20 21:57 04/05/20 06:30 Glucose (Fingerstick) 157 mg/dL (70-99) 253 mg/dL (70-99) 268 mg/dL (70-99) Sodium Level 127 mmol/L (136-145) Potassium Level 3.8 mmol/L (3.5-5.1) Chloride Level 94 mmol/L (98-107) Carbon Dioxide Level 25 mmol/L (21-32) Anion Gap 8 (6-14) Blood Urea Nitrogen 32 mg/dL (8-26) Creatinine 3.8 mg/dL (0.7-1.3) Estimated GFR (Cockcroft-Gault) 16.2 Glucose Level 213 mg/dL (70-99) Calcium Level 8.4 mg/dL (8.5-10.1) Phosphorus Level 3.4 mg/dL (2.6-4.7) Magnesium Level 2.0 mg/dL (1.8-2.4) Albumin 2.4 g/dL (3.4-5.0) Test 04/05/20 07:43 Glucose (Fingerstick) 273 mg/dL (70-99) Micro Microbiology 03/31/20 Blood Culture - Preliminary, Resulted NO GROWTH AFTER 1 DAY Objective Assessment 1. sepsis, source unclear. 2. Hypothermia. 3. Metabolic encephalopathy. 4. End-stage renal disease, on hemodialysis. 5. Hypoglycemia. 6. COVID upper respiratory infection. 7. Lactic acidosis. 8. Thrombocytopenia. 9. Diabetes mellitus 2. Plan Plan of Care p.o. cefdinir for 7 days All cultures are negative PT OT NORI BROWER MD Apr 05, 2020 09:32
--- NOTE | 2020-04-05 11:21 | PDOC ---
Date of Service: DATE: 04/05/20 TIME: 11:14 Subjective: Subjective: Doing fine. Objective: Objective: D/w nurse - plans for SNU/Hospice. Stooled x 4 yesterday. Vital Signs: Vital Signs Date Time Temp Pulse Resp B/P (MAP) Pulse Ox O2 Delivery O2 Flow Rate FiO2 04/05/20 08:00 Nasal Cannula 4.0 04/05/20 08:00 107 103/58 04/05/20 07:15 97.7 22 95 97.7 Labs: Laboratory Tests Test 04/04/20 11:27 04/04/20 16:01 04/04/20 21:57 04/05/20 06:30 Glucose (Fingerstick) 157 mg/dL 253 mg/dL 268 mg/dL Sodium Level 127 mmol/L Potassium Level 3.8 mmol/L Chloride Level 94 mmol/L Carbon Dioxide Level 25 mmol/L Anion Gap 8 Blood Urea Nitrogen 32 mg/dL Creatinine 3.8 mg/dL Estimated GFR (Cockcroft-Gault) 16.2 Glucose Level 213 mg/dL Calcium Level 8.4 mg/dL Phosphorus Level 3.4 mg/dL Magnesium Level 2.0 mg/dL Albumin 2.4 g/dL Test 04/05/20 07:43 Glucose (Fingerstick) 273 mg/dL BLOOD CULTURE Preliminary NO GROWTH AFTER 4 DAYS PE: GEN: dialyzing LUNGS: diminished, NC 4L HEART: tachycardic ABD: still tight NEURO/PSYCH: A & O 3 A/P: ESLD, ESRD Refractory ascites -- Plans as above. Justicifation of Admission Dx: Justifications for Admission: Justification of Admission Dx: Yes Acute Renal Failure: 75% Reduction in GFR Sepsis: Altered Mental Status MARISSA AYALA Apr 05, 2020 11:21
--- NOTE | 2020-04-05 12:06 | NUR ---
SS following up with discharge planning. SS reviewed pt chart and discussed with pt RN. Pt is currently requiring oxygen at four liters nasal canula. Pt accepted at [facility], ; fax [phone], with hospice services through [facility] in [place]. Pt will discharge tomorrow, 04/06/2020, at 1000 via [facility] transport. Discharge orders phoned and faxed to facility. Pt, pt's RN, and pt's family notified. SS will continue to follow for discharge planning.
--- NOTE | 2020-04-05 12:16 | PDOC ---
DATE OF SERVICE DATE: 04/05/20 TIME: 12:15 SUBJECTIVE ROS stable, no complaints, seen on dialysis OBJECTIVE Vital Signs Vital Signs Date Time Temp Pulse Resp B/P (MAP) Pulse Ox O2 Delivery O2 Flow Rate FiO2 04/05/20 08:00 Nasal Cannula 4.0 04/05/20 08:00 107 103/58 04/05/20 07:15 97.7 22 95 97.7 I & 0 Intake and Output 04/05/20 07:00 Intake Total 1880 ml Balance 1880 ml Intake Oral 1880 ml # Bowel Movements 5 PHYSICAL EXAM Physical Exam GENERAL: nad HEENT: Normocephalic, atraumatic. Oral mucosa moist NECK: Supple. LUNGS: Decreased breath sounds at the bases,non labored HEART: S1, S2, no murmurs. ABDOMEN: Soft, nontender, EXTREMITIES: Edema 1-2 + DERMATOLOGIC: No generalized rash. 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 Seen on dialysis , tolerating well . Contine as ordered, Jose Atkins Hypokalemia:Normal , Sepsis, source unclear- ID following, Discussed with ID for HDC removal, recommend holding off as BC negative. Metabolic encephalopathy. COVID upper respiratory infection Negative 03/31/20 Diabetes mellitus 2-Elevated BG Elevated LFT's per primary/GI Cirrhosis, h/o Hep C (?treated), ascites ?and frequent paracentesis, ?h/o variceal banding. Per GI COMMENT/RELEVANT DATA Meds Current Medications Medications (Trade) Dose Ordered Sig/Missy Start Time Stop Time Status Last Admin Dose Admin Acetaminophen (Tylenol) 500 mg Q8HRS 04/01/20 14:00 04/05/20 10:59 500 MG Albumin Human 200 ml @ 200 mls/hr 1X PRN PRN 04/05/20 08:30 04/05/20 14:29 04/05/20 09:05 200 MLS/HR Atorvastatin Calcium (Lipitor) 20 mg QHS 04/02/20 21:00 04/04/20 21:52 20 MG Cefdinir (Omnicef) 300 mg DAILY 04/04/20 12:00 04/04/20 12:40 300 MG Cefepime HCl (Maxipime) 2 gm 1X ONCE 03/31/20 16:15 03/31/20 16:16 DC 03/31/20 16:53 2 GM Cetirizine HCl (ZyrTEC) 10 mg DAILY 04/02/20 09:00 04/04/20 08:39 10 MG Dextrose (Dextrose 50%-Water Syringe) 12.5 gm PRN Q15MIN PRN 04/01/20 11:00 Epoetin Sree (PROCRIT for DIALYSIS PTS) 10,000 unit QMWF 04/02/20 16:00 04/04/20 17:40 10,000 UNIT Gabapentin (Neurontin) 100 mg HS 04/02/20 21:00 04/04/20 21:52 100 MG Info (PHARMACY MONITORING -- do not chart) 1 each PRN DAILY PRN 04/05/20 08:30 Insulin Glargine (Lantus Syringe) 22 unit QHS 04/02/20 21:00 04/04/20 21:59 22 UNIT Insulin Human Lispro (HumaLOG) 3 units TIDWMEALS 04/02/20 12:00 04/04/20 17:43 3 UNITS Lactobacillus Rhamnosus (Culturelle) 1 cap BID 04/03/20 21:00 04/04/20 21:52 1 CAP Lactulose (Lactulose) 10 gm TID 04/02/20 14:00 04/02/20 12:35 10 GM Levothyroxine Sodium (Synthroid) 25 mcg DAILY06 04/01/20 16:00 04/05/20 06:44 25 MCG Lidocaine HCl (Buffered Lidocaine 1%) 6 ml 1X ONCE 04/03/20 09:15 04/03/20 09:16 DC 04/03/20 09:05 6 ML Lorazepam (Ativan Inj) 1 mg 1X ONCE 03/31/20 15:45 03/31/20 15:46 DC 03/31/20 15:46 1 MG Magnesium Sulfate 50 ml @ 25 mls/hr PRN DAILY PRN 04/01/20 13:00 04/01/20 13:01 DC Meropenem 1 gm/ Sodium Chloride 100 ml @ 200 mls/hr DAILY 04/01/20 13:00 04/04/20 11:34 DC 04/04/20 08:37 200 MLS/HR Midodrine (Proamatine) 10 mg [id number] 04/02/20 13:00 04/05/20 08:00 10 MG Multivitamins (Thera M Plus) 1 tab DAILY 04/02/20 09:00 04/02/20 16:19 DC Norepinephrine Bitartrate 8 mg/ Dextrose 258 ml @ 0 mls/hr CONT PRN 03/31/20 21:15 04/02/20 02:23 17.8 MLS/HR Pantoprazole Sodium (Protonix) 40 mg DAILYAC 04/02/20 07:30 04/03/20 10:08 DC 04/02/20 08:54 40 MG Piperacillin Sod/ Tazobactam Sod 3.375 gm/Sodium Chloride 50 ml @ 100 mls/hr 1X ONCE 03/31/20 15:30 03/31/20 15:59 DC Polyethylene Glycol (miraLAX PACKET) 17 gm BID 04/01/20 21:00 Potassium Chloride 40 meq/ Dextrose 1,020 ml @ 75 mls/hr [id number] 03/31/20 16:00 04/01/20 12:59 DC 04/01/20 09:55 75 MLS/HR Potassium Chloride (Klor-Con) 20 meq PRN Q6HRS PRN 04/01/20 21:00 04/03/20 20:09 20 MEQ Rifaximin (Xifaxan) 550 mg BID 04/02/20 12:00 04/04/20 21:52 550 MG Sodium Bicarbonate 50 meq/Potassium Chloride 20 meq/ Sodium Chloride 80 meq/Dextrose 580 ml @ 30 mls/hr [id number] 04/01/20 16:00 04/03/20 11:31 DC 04/02/20 08:55 30 MLS/HR Sodium Chloride 1,000 ml @ 400 mls/hr Q2H30M PRN 04/05/20 08:30 04/05/20 20:29 Sodium Chloride (Normal Saline Flush) 10 ml 1X PRN PRN 04/01/20 12:15 04/02/20 12:14 DC Vancomycin HCl (Vanco Per Pharmacy) 1 each PRN DAILY PRN 04/01/20 12:30 04/04/20 13:22 DC 04/04/20 07:32 1 EACH Vancomycin HCl (Vancomycin Random Level) 1 each 1X ONCE 04/03/20 15:00 04/03/20 15:01 DC 04/03/20 15:00 1 EACH Vancomycin HCl 500 mg/Sodium Chloride 100 ml @ 100 mls/hr QTUTHSA 04/03/20 16:00 04/04/20 11:34 DC 04/03/20 16:20 100 MLS/HR Vancomycin HCl 2 gm/Sodium Chloride 500 ml @ 250 mls/hr 1X ONCE 04/01/20 12:45 04/01/20 14:44 DC 04/01/20 15:06 250 MLS/HR Vitamin B Complex/ Vitamin C (Meg-Severiano) 1 tab DAILY 04/01/20 09:00 04/04/20 08:39 1 TAB Zinc Sulfate (Orazinc) 220 mg DAILY 04/02/20 09:00 04/04/20 08:39 220 MG Lab Laboratory Tests Test 04/04/20 16:01 04/04/20 21:57 04/05/20 06:30 04/05/20 07:43 Glucose (Fingerstick) 253 mg/dL (70-99) 268 mg/dL (70-99) 273 mg/dL (70-99) Sodium Level 127 mmol/L (136-145) Potassium Level 3.8 mmol/L (3.5-5.1) Chloride Level 94 mmol/L (98-107) Carbon Dioxide Level 25 mmol/L (21-32) Anion Gap 8 (6-14) Blood Urea Nitrogen 32 mg/dL (8-26) Creatinine 3.8 mg/dL (0.7-1.3) Estimated GFR (Cockcroft-Gault) 16.2 Glucose Level 213 mg/dL (70-99) Calcium Level 8.4 mg/dL (8.5-10.1) Phosphorus Level 3.4 mg/dL (2.6-4.7) Magnesium Level 2.0 mg/dL (1.8-2.4) Albumin 2.4 g/dL (3.4-5.0) Results All relevant outside records, renal labs, imaging studies, telemetry/EKG's were reviewed. Justicifation of Admission Dx: Justifications for Admission: Justification of Admission Dx: Yes Acute Renal Failure: 75% Reduction in GFR Sepsis: Altered Mental Status JASPREET BUNDY MD Apr 05, 2020 12:15
[2020-04-05 15:00] VITALS: BP 114/68
[2020-04-05 19:22] VITALS: BP 93/59
[2020-04-05] MEDS ORDERED: FAMOTIDINE 20 MG TABLET. PO PRN (20:00)
[2020-04-05] MEDS: ATORVASTATIN CALCIUM 20 MG TABLET PO SCH (20:06)
[2020-04-05] MEDS: GABAPENTIN 100 MG CAPSULE. PO SCH (20:06)
[2020-04-05] MEDS: INSULIN GLARGINE SYRINGE. SQ SCH (20:08)
[2020-04-05 23:00] VITALS: BP 101/52
[2020-04-06 03:11] VITALS: BP 101/64
[2020-04-06 05:13] LABS: ALBUMIN 2.9 g/dL (3.4-5.0); GFR 21.2; PHOSPHORUS 2.6 mg/dL (2.6-4.7); POTASSIUM 3.3 mmol/L (3.5-5.1)
[2020-04-06] MEDS: ACETAMINOPHEN 500 MG TABLET PO SCH (06:13)
[2020-04-06] MEDS: LEVOTHYROXINE 25 MCG TABLET. PO SCH (06:13)
[2020-04-06 07:00] VITALS: BP 103/61
--- NOTE | 2020-04-06 07:57 | PDOC ---
[employer] PROGRESS NOTE Date of Service DOS: DATE: 04/06/20 TIME: 07:50 Chief Complaint Chief Complaint A/P: SEVERE Sepsis with shock ALTERED Mental status acute metabolic encephalopathy Diffuse interstitial infiltrate and small pleural effusions. severe hypothermia severe hypokalemia SEVERE Hypoglycemia ESRD ON DIALYSIS PUI COVID recent MO hypothyroid state Hep C in remission PLAN Consults: nephrology, ID, pulmonology, cardiology Empiric antibiotics sepsis protocol cardiology consult May need tunneled dialysis catheter removal in the near future glucose management protocol D/W RN NO FAMILY PRESENT to give accurate hx NEED RECENT RECORDS [facility] 35 min cc time History of Present Illness History of Present Illness Mr Prieto is a 64 year old male with a history of end-stage renal failure on hemodialysis and diabetes who was sent here for from the dialysis center due to altered mental status. Not much history was able to obtain. Patient was dropped off to the dialysis center by van transport , for dialysis today, when they tried to obtain his vital signs patient was very confused. EMS was, called blood sugar was 24 per EMS. Upon arrival to room patient was hypothermic and encephalopathic COVID STATUS is negative No family present to assist with history. 04/02: Afebrile. Still on O2. He is very confused continues to ask to get coffee. Ammonia elevated. Family wishes for referral to palliative care. 04/03: To paracentesis this morning with 7L removal. To dialysis Still confused. NA 130. Ex- and sister have made it clear that they would [facility] 04/04: Afebrile. Little more alert. Having bowel movements. Abdomen swollen again today despite paracentesis on 04/03. 04/05: Afebrile. Seen on dialysis. No chest pain or shortness of breath. Had 4 bowel movements in past 24 hours. He is amenable to going to hospice at [facility] understands that this shortens his life span but he wants to be near his ex-. Afebrile. No chest pain or shortness of breath. Slept well overnight. Still having BM. transitioned to PO cefdinir. Less confused. Vitals/I&O Vitals/I&O: Vital Signs Date Time Temp Pulse Resp B/P (MAP) Pulse Ox O2 Delivery O2 Flow Rate FiO2 04/06/20 03:11 98.2 109 20 101/64 (76) 93 Room Air 98.2 04/05/20 20:00 4.0 I & O 04/05/20 04/05/20 04/06/20 14:59 22:59 06:59 Intake Total 30 ml 780 ml 1120 ml Balance 30 ml 780 ml 1120 ml Physical Exam Physical Exam: GENERAL: Confused male, arousable, does answer all questions. HEENT: Normocephalic, atraumatic. Anicteric. Oral mucosa dry. NECK: Supple. LUNGS: Decreased breath sounds at the bases, some expiratory rhonchi. HEART: S1, S2, no murmurs. ABDOMEN: Soft, mildly distended, nontender, nondistended. EXTREMITIES: No edema, no cyanosis. DERMATOLOGIC: No generalized rash. 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 deficit General: Alert, Cooperative, No acute distress Heart: Regular rate (SR) Lungs: Clear Abdomen: Soft, Other (distended ) Extremities: Other (2+ bilateral LE pitting edema ) Skin: No significant lesion Labs Labs: Laboratory Tests Test 04/05/20 17:15 04/05/20 20:04 04/06/20 04:30 Glucose (Fingerstick) 232 mg/dL (70-99) 305 mg/dL (70-99) Sodium Level 134 mmol/L (136-145) Potassium Level 3.3 mmol/L (3.5-5.1) Chloride Level 96 mmol/L (98-107) Carbon Dioxide Level 25 mmol/L (21-32) Anion Gap 13 (6-14) Blood Urea Nitrogen 26 mg/dL (8-26) Creatinine 3.0 mg/dL (0.7-1.3) Estimated GFR (Cockcroft-Gault) 21.2 Glucose Level 234 mg/dL (70-99) Calcium Level 8.0 mg/dL (8.5-10.1) Phosphorus Level 2.6 mg/dL (2.6-4.7) Magnesium Level 2.0 mg/dL (1.8-2.4) Albumin 2.9 g/dL (3.4-5.0) Assessment and Plan Assessmemt and Plan Problems Medical Problems: (1) ESRD (end stage renal disease) on dialysis Status: Acute (2) Hypoglycemia Status: Acute (3) Hypokalemia Status: Acute (4) Severe sepsis Status: Acute Comment Review of Relevant I have reviewed the following items jaqueline (where applicable) has been applied. Medications: Current Medications Medications (Trade) Dose Ordered Sig/Missy Route PRN Reason Start Time Stop Time Status Last Admin Dose Admin Albumin Human 200 ml @ 200 mls/hr 1X PRN PRN IV Hypotension 04/05/20 08:30 04/05/20 14:29 DC 04/05/20 09:05 Famotidine (Pepcid) 20 mg PRN DAILY PRN PO INDIGESTION 04/05/20 20:00 04/05/20 20:06 Justifications for Admission Other Justification DYAO CANSECO MD Apr 06, 2020 07:57
[2020-04-06] MEDS ORDERED: POTASSIUM BICARB 20 MEQ EFFERVESCENT TABLET. PO ONE (08:00)
--- NOTE | 2020-04-06 08:03 | PDOC3 ---
Discharge Summary Visit Information Date of Admission: Mar 31, 2020 Date of Discharge: Apr 06, 2020 Admitting Diagnosis: Acute encephalopathy Final Diagnosis Problems Medical Problems: (1) ESRD (end stage renal disease) on dialysis Status: Acute (2) Hypoglycemia Status: Acute (3) Hypokalemia Status: Acute (4) Severe sepsis Status: Acute Brief Hospital Course Allergies Allergies Coded Allergies Type Severity Reaction Last Updated Verified peanut Allergy Severe Anaphylaxis 03/31/20 Yes Penicillins Allergy Intermediate hives 03/31/20 Yes aspirin Allergy Intermediate rash 03/31/20 Yes latex Allergy Intermediate 03/31/20 Yes metformin Allergy Intermediate 03/31/20 Yes nitroglycerin Allergy Intermediate 03/31/20 Yes ondansetron Allergy Intermediate 03/31/20 Yes Vital Signs Vital Signs Date Time Temp Pulse Resp B/P (MAP) Pulse Ox O2 Delivery O2 Flow Rate FiO2 04/06/20 03:11 98.2 109 20 101/64 (76) 93 Room Air 98.2 04/05/20 20:00 4.0 Lab Results Laboratory Tests Test 04/04/20 11:27 04/04/20 16:01 04/04/20 21:57 04/05/20 06:30 Glucose (Fingerstick) 157 mg/dL (70-99) 253 mg/dL (70-99) 268 mg/dL (70-99) Sodium Level 127 mmol/L (136-145) Potassium Level 3.8 mmol/L (3.5-5.1) Chloride Level 94 mmol/L (98-107) Carbon Dioxide Level 25 mmol/L (21-32) Anion Gap 8 (6-14) Blood Urea Nitrogen 32 mg/dL (8-26) Creatinine 3.8 mg/dL (0.7-1.3) Estimated GFR (Cockcroft-Gault) 16.2 Glucose Level 213 mg/dL (70-99) Calcium Level 8.4 mg/dL (8.5-10.1) Phosphorus Level 3.4 mg/dL (2.6-4.7) Magnesium Level 2.0 mg/dL (1.8-2.4) Albumin 2.4 g/dL (3.4-5.0) Test 04/05/20 07:43 04/05/20 17:15 04/05/20 20:04 04/06/20 04:30 Glucose (Fingerstick) 273 mg/dL (70-99) 232 mg/dL (70-99) 305 mg/dL (70-99) Sodium Level 134 mmol/L (136-145) Potassium Level 3.3 mmol/L (3.5-5.1) Chloride Level 96 mmol/L (98-107) Carbon Dioxide Level 25 mmol/L (21-32) Anion Gap 13 (6-14) Blood Urea Nitrogen 26 mg/dL (8-26) Creatinine 3.0 mg/dL (0.7-1.3) Estimated GFR (Cockcroft-Gault) 21.2 Glucose Level 234 mg/dL (70-99) Calcium Level 8.0 mg/dL (8.5-10.1) Phosphorus Level 2.6 mg/dL (2.6-4.7) Magnesium Level 2.0 mg/dL (1.8-2.4) Albumin 2.9 g/dL (3.4-5.0) Laboratory Tests Test 04/05/20 17:15 04/05/20 20:04 04/06/20 04:30 Glucose (Fingerstick) 232 mg/dL (70-99) 305 mg/dL (70-99) Sodium Level 134 mmol/L (136-145) Potassium Level 3.3 mmol/L (3.5-5.1) Chloride Level 96 mmol/L (98-107) Carbon Dioxide Level 25 mmol/L (21-32) Anion Gap 13 (6-14) Blood Urea Nitrogen 26 mg/dL (8-26) Creatinine 3.0 mg/dL (0.7-1.3) Estimated GFR (Cockcroft-Gault) 21.2 Glucose Level 234 mg/dL (70-99) Calcium Level 8.0 mg/dL (8.5-10.1) Phosphorus Level 2.6 mg/dL (2.6-4.7) Magnesium Level 2.0 mg/dL (1.8-2.4) Albumin 2.9 g/dL (3.4-5.0) Brief Hospital Course Mr Prieto is a 64 year old male with a history of end-stage renal failure on hemodialysis and diabetes who was sent here for from the dialysis center due to altered mental status. Not much history was able to obtain. Patient was dropped off to the dialysis center by van transport , for dialysis today, when they tried to obtain his vital signs patient was very confused. EMS was, called blood sugar was 24 per EMS. Upon arrival to room patient was hypothermic and encephalopathic COVID STATUS is negative No family present to assist with history initially, but found that he has hep C in remission, cirrhosis and recent discharge from [facility] for similar where he and family were pre-contemplative for palliative care. 04/02: Afebrile. Still on O2. He is very confused continues to ask to get coffee. Ammonia elevated. Family wishes for referral to palliative care. 04/03: To paracentesis this morning with 7L removal. To dialysis Still confused. NA 130. Ex- and sister have made it clear that they would like a referral for hospice at [facility] on discharge. 04/04: Afebrile. Little more alert. Having bowel movements. Abdomen swollen again today despite paracentesis on 04/03. 04/05: Afebrile. Seen on dialysis. No chest pain or shortness of breath. Had 4 bowel movements in past 24 hours. Afebrile. No chest pain or shortness of breath. Slept well overnight. Still having BM. transitioned to PO cefdinir. Less confused. He is amenable to going to hospice at [facility] understands that this shortens his life span but he wants to be near his ex-. Problem list: SEVERE Sepsis with shock - no etiology discovered Acute metabolic encephalopathy - decompensated cirrhosis and hypoglycemia Diffuse interstitial infiltrate and small pleural effusions. Severe hypothermia Severe hypokalemia SEVERE Hypoglycemia ESRD ON DIALYSIS Recent MS Hypothyroid state Hep C in remission Cirrhosis with large ascites Consults: nephrology, ID, pulmonology, cardiology Greater than 30 minutes spent on d/c to SNF Discharge Information Condition at Discharge: Stable Follow Up: Weeks Disposition/Orders: D/C to Another Facility Scheduled Acetaminophen (Acetaminophen) 500 Mg Tablet, 1 TAB PO Q8HRS for pain for 15 Days, #60 Ref 0 (Reported) Entered as Reported by: SHIRA GOLDEN on 04/01/20 1344 Last Action: Continued on 04/01/20 1348 by SHIRA GOLDEN Cefdinir (Cefdinir) 300 Mg Capsule, 300 MG PO DAILY for Sepsis for 5 Days, #5 Prescribed by: DAYO CANSECO MD on 04/04/20 1529 Cetirizine Hcl (Zyrtec) 10 Mg Tablet, 1 TAB PO DAILY for allergies, #30 Ref 2 (Reported) Entered as Reported by: SHIRA GOLDEN on 04/01/201343 Last Taken: UNKNOWN on Unknown Date & Time Last Action: Continued on 04/01/201347 by SHIRA GOLDEN Dexlansoprazole (Dexilant) 60 Mg Cap., 1 CAP PO DAILY for gerd for 30 Days, #30 Ref 0 (Reported) Entered as Reported by: SHIRA GOLDEN on 04/01/201343 Last Action: Converted on 04/01/201347 by SHIRA GOLDEN Gabapentin (Gabapentin ) 100 Mg Capsule, 100 MG PO HS for NEUROGENIC PAIN, (Reported) Entered as Reported by: SHIRA GOLDEN on 04/01/201343 Last Taken: UNKNOWN on Unknown Date & Time Last Action: Continued on 04/02/201115 by DAYO CANSECO MD Insulin Glargine,Hum.rec.anlog (Basaglar Kwikpen U-100) 100 Unit/1 Ml Insuln.pen, 22 UNIT SQ QHS for diabetes for 30 Days, #1 Prescribed by: DAYO CANSECO MD on 04/04/20 1529 Insulin Lispro (Humalog) 100 Unit/1 Ml Vial, 3 UNIT SQ TIDWMEALS for diabetes, (Reported) Entered as Reported by: SHIRA GOLDEN on 04/01/201343 Last Taken: UNKNOWN on Unknown Date & Time Last Action: Continued on 04/02/201115 by ADYO CANSECO MD Levothyroxine Sodium (Levothyroxine Sodium) 25 Mcg Tablet, 1 TAB PO DAILY for hypothyroidism, #30 Ref 5 (Reported) Entered as Reported by: SHIRA GOLDEN on 04/01/201343 Last Taken: UNKNOWN on Unknown Date & Time Last Action: Continued on 04/01/201347 by SHIRA GOLDEN Melatonin (Melatonin) 3 Mg Tablet.er, 1 TAB PO QHS for sleep for 30 Days, #30 Ref 0 (Reported) Entered as Reported by: SHIRA GOLDEN on 04/01/201343 Last Taken: UNKNOWN on Unknown Date & Time Last Action: New Order on 04/01/201343 by SHIRA GOLDEN Midodrine Hcl (Midodrine Hcl) 5 Mg Tablet, 15 MG PO TID for ., (Reported) Entered as Reported by: SHIRA GOLDEN on 04/01/201343 Last Action: Continued on 04/02/201115 by DAYO CANSECO MD Multivits,Stress Formula (Stress Formula) 1 Each Tablet, 600 EACH PO DAILY for vitamin, (Reported) Entered as Reported by: SHIRA GOLDEN on 04/01/201343 Last Taken: UNKNOWN on Unknown Date & Time Last Action: Converted on 04/01/201347 by SHIRA GOLDEN Polyethylene Glycol 3350 (Polyethylene Glycol 3350) 2,500 Gm Powder, 17 GM PO BID for constipation, #255 Ref 0 (Reported) Entered as Reported by: SHIRA GOLDEN on 04/01/201343 Last Taken: UNKNOWN on Unknown Date & Time Last Action: Converted on 04/01/201347 by SHIRA GOLDEN Rifaximin (Xifaxan) 550 Mg Tablet, 1 TAB PO BID for . for 10 Days, #20 Ref 0 (Reported) Entered as Reported by: SHIRA GOLDEN on 04/01/201343 Last Taken: UNKNOWN on Unknown Date & Time Last Action: Continued on 07/18 by DAYO CANSECO MD Rosuvastatin Calcium (Crestor) 5 Mg Tablet, 1 TAB PO HS for ., #30 Ref 5 (Reported) Entered as Reported by: SHIRA GOLDEN on 04/01/201343 Last Taken: UNKNOWN on Unknown Date & Time Last Action: Converted on 04/02/201115 by DAYO CANSECO MD Sildenafil Citrate (Sildenafil) 20 Mg Tablet, 20 MG PO TID for PULMONARY HYPERTENSION, (Reported) Entered as Reported by: SHIRA GOLDEN on 04/01/201343 Last Taken: UNKNOWN on Unknown Date & Time Last Action: New Order on 04/01/201343 by SHIRA GOLDEN Zinc Sulfate (Zinc Sulfate) 220 Mg Tablet, 220 MG PO DAILY for supplement, (Reported) Entered as Reported by: SHIRA GOLDEN on 04/01/201343 Last Taken: UNKNOWN on Unknown Date & Time Last Action: Converted on 04/01/201347 by SHIRA GOLDEN Scheduled PRN Lactulose (Lactulose) 10 Gm Packet, 10 GM PO PRN DAILY PRN for CONSTIPATION, (Reported) Entered as Reported by: SHIRA GOLDEN on 04/01/201343 Last Taken: UNKNOWN on Unknown Date & Time Last Action: Converted on 04/02/20 1116 by DAYO CANSECO MD Discontinued Medications Ciprofloxacin Hcl (Cipro) 250 Mg Tablet, 1 TAB PO DAILY for infection for 7 Days, #7 Ref 0 (Reported) Entered as Reported by: SHIRA GOLDEN on 04/01/201343 Last Action: New Order on 04/01/201343 by SHIRA GOLDEN Justicifation of Admission Dx: Justifications for Admission: Justification of Admission Dx: Yes Acute Renal Failure: 75% Reduction in GFR Sepsis: Altered Mental Status DAYO CANSECO MD Apr 06, 2020 08:03
[2020-04-06] MEDS: LACTULOSE 20 GM/30 ML SOLUTION. PO SCH (08:05)
[2020-04-06] MEDS: POLYETHYLENE GLYCOL 3350 17 GM PACKET. PO SCH (08:05)
[2020-04-06] MEDS: rifAXIMin 550 MG TABLET PO SCH (08:20)
[2020-04-06] MEDS: ZINC SULFATE 220 MG CAPSULE. PO SCH (08:20)
[2020-04-06] MEDS: CEFDINIR 300 MG CAPSULE PO SCH (08:20)
[2020-04-06 08:21] VITALS: BP 103/61
[2020-04-06] MEDS: CETIRIZINE HCL 10 MG TABLET. PO SCH (08:21)
[2020-04-06] MEDS: FOLIC/VIT B COMP W-C (RENAL) TABLET. PO SCH (08:21)
[2020-04-06] MEDS: LACTOBACILLUS RHAMNOSUS GG 1 CAPSULE. PO SCH (08:21)
[2020-04-06] MEDS: MIDODRINE 5 MG TABLET PO SCH (08:21)
[2020-04-06] MEDS: INSULIN LISPRO 300 UNITS/3 ML VIAL. SQ SCH ×2 (08:28→08:29)
--- NOTE | 2020-04-06 08:49 | PDOC ---
Infectious Disease Note Subjective Subjective pt is awake, says feeling better, Vital Sign Vital Signs Vital Signs Date Time Temp Pulse Resp B/P (MAP) Pulse Ox O2 Delivery O2 Flow Rate FiO2 04/06/20 08:21 99 103/61 04/06/20 07:00 98.2 96 Nasal Cannula 2.0 98.2 04/06/20 03:11 20 Physical Exam PHYSICAL EXAM GENERAL: Confused male, arousable, does answer all questions. HEENT: Normocephalic, atraumatic. Anicteric. Oral mucosa dry. NECK: Supple. LUNGS: Decreased breath sounds at the bases, some expiratory rhonchi. HEART: S1, S2, no murmurs. ABDOMEN: Soft, mildly distended, nontender, nondistended. EXTREMITIES: No edema, no cyanosis. DERMATOLOGIC: No generalized rash. 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8-2.4) Albumin 2.9 g/dL (3.4-5.0) Micro Microbiology 03/31/20 Blood Culture - Preliminary, Resulted NO GROWTH AFTER 1 DAY Objective Assessment 1. sepsis, source unclear. 2. Hypothermia. 3. Metabolic encephalopathy. 4. End-stage renal disease, on hemodialysis. 5. Hypoglycemia. 6. COVID upper respiratory infection. 7. Lactic acidosis. 8. Thrombocytopenia. 9. Diabetes mellitus 2. Plan Plan of Care p.o. cefdinir for 7 days All cultures are negative PT OT NORI BROWER MD Apr 06, 2020 08:49
--- NOTE | 2020-04-06 09:18 | PDOC ---
PROGRESS NOTES Date of Service DATE: 04/06/20 TIME: 09:17 Assessment Problems Medical Problems: (1) ESRD (end stage renal disease) on dialysis Status: Acute (2) Hypoglycemia Status: Acute (3) Hypokalemia Status: Acute (4) Severe sepsis Status: Acute Metabolic encephalopathy due to hypoglycemia, diabetes, renal disease, hypothermia/sepsis, much better today. No evidence of stroke, ongoing seizure activity, or intracranial infection. Diabetic neuropathy Other medical issues: Covid negative, end-stage renal disease on dialysis, lactic acidosis, thrombocytopenia, anemia, sepsis, thrombocytopenia, coagulopathy, elevated LFTs , mild hyperammonemia, cirrhosis, hepatis C history, ascites, possible history of variceal banding, cholelithiasis S/P paracentesis (04/03) Plan Holding on additional neurological tests Observation Treat medical diseases. Send back to [place] when stable Note plans for possible hospice Discussed with Dr. Ellsworth Subjective No complaint Objective Vital Signs Date Time Temp Pulse Resp B/P (MAP) Pulse Ox O2 Delivery O2 Flow Rate FiO2 04/06/20 08:21 99 103/61 04/06/20 07:00 98.2 96 Nasal Cannula 2.0 98.2 04/06/20 03:11 20 Intake and Output 04/06/20 07:00 Intake Total 1930 ml Balance 1930 ml Intake Oral 1930 ml # Bowel Movements 8 PHYSICAL EXAM Alert. Oriented to person, place, and time. PERRL. EOMI. CN: no focal findings. Muscle tone: normal. Muscle strength: 4/5 DTR: 0+ Plantar reflex: flexor Gait: not examined in bed. Sensory exam: stocking loss No cerebellar signs elicited. Review of Relevant I have reviewed the following items jaqueline (where applicable) has been applied. Labs Laboratory Tests Test 04/04/20 11:27 04/04/20 16:01 04/04/20 21:57 04/05/20 06:30 Glucose (Fingerstick) 157 mg/dL (70-99) 253 mg/dL (70-99) 268 mg/dL (70-99) Sodium Level 127 mmol/L (136-145) Potassium Level 3.8 mmol/L (3.5-5.1) Chloride Level 94 mmol/L (98-107) Carbon Dioxide Level 25 mmol/L (21-32) Anion Gap 8 (6-14) Blood Urea Nitrogen 32 mg/dL (8-26) Creatinine 3.8 mg/dL (0.7-1.3) Estimated GFR (Cockcroft-Gault) 16.2 Glucose Level 213 mg/dL (70-99) Calcium Level 8.4 mg/dL (8.5-10.1) Phosphorus Level 3.4 mg/dL (2.6-4.7) Magnesium Level 2.0 mg/dL (1.8-2.4) Albumin 2.4 g/dL (3.4-5.0) Test 04/05/20 07:43 04/05/20 17:15 04/05/20 20:04 04/06/20 04:30 Glucose (Fingerstick) 273 mg/dL (70-99) 232 mg/dL (70-99) 305 mg/dL (70-99) Sodium Level 134 mmol/L (136-145) Potassium Level 3.3 mmol/L (3.5-5.1) Chloride Level 96 mmol/L (98-107) Carbon Dioxide Level 25 mmol/L (21-32) Anion Gap 13 (6-14) Blood Urea Nitrogen 26 mg/dL (8-26) Creatinine 3.0 mg/dL (0.7-1.3) Estimated GFR (Cockcroft-Gault) 21.2 Glucose Level 234 mg/dL (70-99) Calcium Level 8.0 mg/dL (8.5-10.1) Phosphorus Level 2.6 mg/dL (2.6-4.7) Magnesium Level 2.0 mg/dL (1.8-2.4) Albumin 2.9 g/dL (3.4-5.0) Test 04/06/20 07:58 Glucose (Fingerstick) 203 mg/dL (70-99) Laboratory Tests Test 04/05/20 17:15 04/05/20 20:04 04/06/20 04:30 04/06/20 07:58 Glucose (Fingerstick) 232 mg/dL (70-99) 305 mg/dL (70-99) 203 mg/dL (70-99) Sodium Level 134 mmol/L (136-145) Potassium Level 3.3 mmol/L (3.5-5.1) Chloride Level 96 mmol/L (98-107) Carbon Dioxide Level 25 mmol/L (21-32) Anion Gap 13 (6-14) Blood Urea Nitrogen 26 mg/dL (8-26) Creatinine 3.0 mg/dL (0.7-1.3) Estimated GFR (Cockcroft-Gault) 21.2 Glucose Level 234 mg/dL (70-99) Calcium Level 8.0 mg/dL (8.5-10.1) Phosphorus Level 2.6 mg/dL (2.6-4.7) Magnesium Level 2.0 mg/dL (1.8-2.4) Albumin 2.9 g/dL (3.4-5.0) Microbiology 04/01/20 Blood Culture - Preliminary, Resulted NO GROWTH AFTER 4 DAYS Medications Current Medications Dextrose (Dextrose 50%-Water Syringe) 25 gm 1X ONCE IV Last administered on 03/31/20at 13:51; Start 03/31/20 at 13:15; Stop 03/31/20 at 13:26; Status DC Sodium Chloride 1,000 ml @ 1,000 mls/hr 1X ONCE IV Last administered on 03/31/20at 17:34; Start 03/31/20 at 15:30; Stop 03/31/20 at 16:29; Status DC Piperacillin Sod/ Tazobactam Sod 3.375 gm/Sodium Chloride 50 ml @ 100 mls/hr 1X ONCE IV ; Start 03/31/20 at 15:30; Stop 03/31/20 at 15:59; Status DC Potassium Chloride 40 meq/ Dextrose 1,020 ml @ 75 mls/hr [id number] IV Last administered on 04/01/20at 09:55; Start 03/31/20 at 16:00; Stop 04/01/20 at 12:59; Status DC Dextrose (Dextrose 50%-Water Syringe) 25 gm 1X ONCE IV Last administered on 03/31/20at 15:36; Start 03/31/20 at 15:30; Stop 03/31/20 at 15:31; Status DC Lorazepam (Ativan Inj) 1 mg 1X ONCE IVP Last administered on 03/31/20at 15:46; Start 03/31/20 at 15:45; Stop 03/31/20 at 15:46; Status DC Cefepime HCl (Maxipime) 2 gm 1X ONCE IVP Last administered on 03/31/20at 16:53; Start 03/31/20 at 16:15; Stop 03/31/20 at 16:16; Status DC Sodium Chloride 1,000 ml @ 75 mls/hr [id number] IV Last administered on 03/31/20at 18:36; Start 03/31/20 at 17:30; Stop 04/01/20 at 17:29; Status DC Sodium Chloride 1,000 ml @ 1,000 mls/hr Q1H IV Last administered on 04/01/20at 01:05; Start 03/31/20 at 21:30; Stop 03/31/20 at 23:49; Status DC Sodium Chloride 500 ml @ 1,000 mls/hr PRN Q30MIN PRN IV SEE COMMENTS; Start 03/31/20 at 21:15 Norepinephrine Bitartrate 8 mg/ Dextrose 258 ml @ 0 mls/hr CONT PRN IV SEE I/O RECORD Last administered on 04/02/20at 02:23; Start 03/31/20 at 21:15 Dextrose (Dextrose 50%-Water Syringe) 25 gm STK-MED ONCE IV ; Start 04/01/20 at 05:20; Stop 04/01/20 at 05:20; Status DC Dextrose (Dextrose 50%-Water Syringe) 25 gm 1X ONCE IV Last administered on 04/01/20at 05:21; Start 04/01/20 at 08:45; Stop 04/01/20 at 08:46; Status DC Insulin Human Lispro (HumaLOG) 0-5 UNITS TIDWMEALS SQ Last administered on 04/06/20at 08:28; Start 04/01/20 at 12:00 Dextrose (Dextrose 50%-Water Syringe) 12.5 gm PRN Q15MIN PRN IV SEE COMMENTS; Start 04/01/20 at 11:00 Sodium Chloride 1,000 ml @ 1,000 mls/hr Q1H PRN IV hypotension; Start 04/01/20 at 12:15; Stop 04/01/20 at 18:14; Status DC Albumin Human 200 ml @ 200 mls/hr 1X PRN PRN IV Hypotension Last administered on 04/01/20at 12:16; Start 04/01/20 at 12:15; Stop 04/01/20 at 18:14; Status DC Sodium Chloride (Normal Saline Flush) 10 ml 1X PRN PRN IV AP catheter pack; Start 04/01/20 at 12:15; Stop 04/02/20 at 12:14; Status DC Sodium Chloride (Normal Saline Flush) 10 ml 1X PRN PRN IV [employer] catheter pack; Start 04/01/20 at 12:15; Stop 04/02/20 at 12:14; Status DC Sodium Chloride 1,000 ml @ 400 mls/hr Q2H30M PRN IV PATENCY; Start 04/01/20 at 12:15; Stop 04/02/20 at 00:14; Status DC Info (PHARMACY MONITORING -- do not chart) 1 each PRN DAILY PRN MC SEE COMMENTS; Start 04/01/20 at 12:15; Stop 04/01/20 at 12:12; Status DC Info (PHARMACY MONITORING -- do not chart) 1 each PRN DAILY PRN MC SEE COMMENTS; Start 04/01/20 at 12:15; Status Cancel Vancomycin HCl (Vanco Per Pharmacy) 1 each PRN DAILY PRN MC SEE COMMENTS Last administered on 04/04/20at 07:32; Start 04/01/20 at 12:30; Stop 04/04/20 at 13:22; Status DC Meropenem 1 gm/ Sodium Chloride 100 ml @ 200 mls/hr DAILY IV Last administered on 04/04/20at 08:37; Start 04/01/20 at 13:00; Stop 04/04/20 at 11:34; Status DC Vancomycin HCl 2 gm/Sodium Chloride 500 ml @ 250 mls/hr 1X ONCE IV Last administered on 04/01/20at 15:06; Start 04/01/20 at 12:45; Stop 04/01/20 at 14:44; Status DC Sodium Bicarbonate 50 meq/Potassium Chloride 20 meq/ Sodium Chloride 80 meq/Dextrose 580 ml @ 30 mls/hr [id number] IV ; Start 04/01/20 at 15:00; Stop at 11:12; Status DC Magnesium Sulfate 50 ml @ 25 mls/hr PRN DAILY PRN IV for Mag < 1.7 on am labs; Start 04/01/20 at 13:00 Epoetin Sree (PROCRIT for DIALYSIS PTS) 10,000 unit QMWF SQ Last administered on 04/04/20at 17:40; Start 04/02/20 at 16:00 Magnesium Sulfate 50 ml @ 25 mls/hr PRN DAILY PRN IV for Mag < 1.7 on am labs; Start 04/01/20 at 13:00; Stop 04/01/20 at 13:01; Status DC Vitamin B Complex/ Vitamin C (Meg-Severiano) 1 tab DAILY PO Last administered on 04/06/20at 08:21; Start 04/01/20 at 09:00 Acetaminophen (Tylenol) 500 mg Q8HRS PO Last administered on 04/06/20at 06:13; Start 04/01/20 at 14:00 Cetirizine HCl (ZyrTEC) 10 mg DAILY PO Last administered on 04/06/20at 08:21; Start 04/02/20 at 09:00 Levothyroxine Sodium (Synthroid) 25 mcg DAILY06 PO Last administered on 04/06/20at 06:13; Start 04/01/20 at 16:00 Pantoprazole Sodium (Protonix) 40 mg DAILYAC PO Last administered on 04/02/20at 0 8:54; Start 04/02/20 at 07:30; Stop 04/03/20 at 10:08; Status DC Multivitamins (Thera M Plus) 1 tab DAILY PO ; Start 04/02/20 at 09:00; Stop 04/02/20 at 16:19; Status DC Polyethylene Glycol (miraLAX PACKET) 17 gm BID PO ; Start 04/01/20 at 21:00 Zinc Sulfate (Orazinc) 220 mg DAILY PO Last administered on 04/06/20at 08:20; Start 04/02/20 at 09:00 Vancomycin HCl (Vancomycin Random Level) 1 each 1X ONCE MC Last administered on 04/03/20at 15:00; Start 04/03/20 at 15:00; Stop 04/03/20 at 15:01; Status DC Sodium Bicarbonate 50 meq/Potassium Chloride 20 meq/ Sodium Chloride 80 meq/Dextrose 580 ml @ 30 mls/hr [id number] IV Last administered on 04/02/20at 08:55; Start 04/01/20 at 16:00; Stop 04/03/20 at 11:31; Status DC Potassium Chloride (Klor-Con) 20 meq PRN Q6HRS PRN PO SEE COMMENTS Last administered on 04/03/20at 20:09; Start 04/01/20 at 21:00 Gabapentin (Neurontin) 100 mg HS PO Last administered on 04/05/20at 20:06; Start 04/02/20 at 21:00 Insulin Human Lispro (HumaLOG) 3 units TIDWMEALS SQ Last administered on 04/06/20at 08:29; Start 04/02/20 at 12:00 Midodrine (Proamatine) 10 mg [id number] PO Last administered on 04/06/20at 08:21; Start 04/02/20 at 13:00 Rifaximin (Xifaxan) 550 mg BID PO Last administered on 04/06/20at 08:20; Start 04/02/20 at 12:00 Insulin Glargine (Lantus Syringe) 22 unit QHS SQ Last administered on 04/05/20at 20:08; Start 04/02/20 at 21:00 Lactulose (Lactulose) 10 gm TID PO Last administered on 04/02/20at 12:35; Start 04/02/20 at 14:00 Atorvastatin Calcium (Lipitor) 20 mg QHS PO Last administered on 04/05/20at 20:06; Start 04/02/20 at 21:00 Lidocaine HCl (Buffered Lidocaine 1%) 3 ml STK-MED ONCE .ROUTE ; Start 04/03/20 at 08:35; Stop 04/03/20 at 08:36; Status DC Lidocaine HCl (Buffered Lidocaine 1%) 6 ml 1X ONCE INJ Last administered on 04/03/20at 09:05; Start 04/03/20 at 09:15; Stop 04/03/20 at 09:16; Status DC Albumin Human 200 ml @ As Directed STK-MED ONCE IV ; Start 04/03/20 at 09:25; Stop 04/03/20 at 09:25; Status DC Albumin Human 100 ml @ 100 mls/hr 1X ONCE IV Last administered on 04/03/20at 09:30; Start 04/03/20 at 09:30; Stop 04/03/20 at 10:29; Status DC Albumin Human 100 ml @ 100 mls/hr 1X ONCE IV Last administered on 04/03/20at 10:20; Start 04/03/20 at 09:30; Stop 04/03/20 at 10:29; Status DC Sodium Chloride 1,000 ml @ 1,000 mls/hr Q1H PRN IV hypotension; Start 04/03/20 at 09:45; Stop 04/03/20 at 15:44; Status DC Albumin Human 200 ml @ 200 mls/hr 1X PRN PRN IV Hypotension; Start 04/03/20 at 09:45; Stop 04/03/20 at 15:44; Status DC Sodium Chloride 1,000 ml @ 400 mls/hr Q2H30M PRN IV PATENCY; Start 04/03/20 at 09:45; Stop 04/03/20 at 21:44; Status DC Info (PHARMACY MONITORING -- do not chart) 1 each PRN DAILY PRN MC SEE COMMENTS; Start 04/03/20 at 09:45; Stop 04/03/20 at 09:46; Status DC Info (PHARMACY MONITORING -- do not chart) 1 each PRN DAILY PRN MC SEE COMMENTS; Start 04/03/20 at 09:45; Stop 04/03/20 at 09:46; Status DC Vancomycin HCl 500 mg/Sodium Chloride 100 ml @ 100 mls/hr QTUTHSA IV Last administered on 04/03/20at 16:20; Start 04/03/20 at 16:00; Stop 04/04/20 at 11:34; Status DC Lactobacillus Rhamnosus (Culturelle) 1 cap BID PO Last administered on 04/06/20at 08:21; Start 04/03/20 at 21:00 Cefdinir (Omnicef) 300 mg DAILY PO Last administered on 04/06/20at 08:20; Start 04/04/20 at 12:00 Sodium Chloride 1,000 ml @ 1,000 mls/hr Q1H PRN IV hypotension; Start 04/05/20 at 08:30; Stop 04/05/20 at 14:29; Status DC Albumin Human 200 ml @ 200 mls/hr 1X PRN PRN IV Hypotension Last administered on 04/05/20at 09:05; Start 04/05/20 at 08:30; Stop 04/05/20 at 14:29; Status DC Sodium Chloride 1,000 ml @ 400 mls/hr Q2H30M PRN IV PATENCY; Start 04/05/20 at 08:30; Stop 04/05/20 at 20:29; Status DC Info (PHARMACY MONITORING -- do not chart) 1 each PRN DAILY PRN MC SEE COMMENTS; Start 04/05/20 at 08:30; Status Cancel Info (PHARMACY MONITORING -- do not chart) 1 each PRN DAILY PRN MC SEE CO MMENTS; Start 04/05/20 at 08:30 Famotidine (Pepcid) 20 mg PRN DAILY PRN PO INDIGESTION Last administered on 04/05/20at 20:06; Start 04/05/20 at 20:00 Potassium Bicarbonate (Potassium Effervescent Tablet) 40 meq 1X ONCE PO Last administered on 04/06/20at 08:18; Start 04/06/20 at 08:00; Stop 04/06/20 at 08:01; Status DC Active Scripts Active Cefdinir 300 Mg Capsule 300 Mg PO DAILY 5 Days Basaglar Kwikpen U-100 (Insulin Glargine,Hum.rec.anlog) 100 Unit/1 Ml Insuln.pen 22 Unit SQ QHS 30 Days Reported Zyrtec (Cetirizine Hcl) 10 Mg Tablet 1 Tab PO DAILY Zinc Sulfate 220 Mg Tablet 220 Mg PO DAILY Xifaxan (Rifaximin) 550 Mg Tablet 1 Tab PO BID 10 Days Stress Formula (Multivits,Stress Formula) 1 Each Tablet 600 Each PO DAILY Sildenafil (Sildenafil Citrate) 20 Mg Tablet 20 Mg PO TID Crestor (Rosuvastatin Calcium) 5 Mg Tablet 1 Tab PO HS Polyethylene Glycol 3350 2,500 Gm Powder 17 Gm PO BID Midodrine Hcl 5 Mg Tablet 15 Mg PO TID Melatonin 3 Mg Tablet.er 1 Tab PO QHS 30 Days Lactulose 10 Gm Packet 10 Gm PO PRN DAILY PRN Gabapentin (Gabapentin) 100 Mg Capsule 100 Mg PO HS Levothyroxine Sodium 25 Mcg Tablet 1 Tab PO DAILY Humalog (Insulin Lispro) 100 Unit/1 Ml Vial 3 Unit SQ TIDWMEALS Dexilant (Dexlansoprazole) 60 Mg Cap. 1 Cap PO DAILY 30 Days Acetaminophen 500 Mg Tablet 1 Tab PO Q8HRS 15 Days Vitals/I & O Vital Sign - Last 24 Hours 04/05/20 04/05/20 04/05/20 04/05/20 13:18 15:00 17:38 19:22 Temp 97.5 98.5 97.5 98.5 Pulse 102 103 106 99 Resp 22 22 B/P (MAP) 85/50 114/68 (83) 116/61 93/59 (70) Pulse Ox 99 99 O2 Delivery Nasal Cannula Nasal Cannula O2 Flow Rate 4.0 4.0 04/05/20 04/05/20 04/06/20 04/06/20 20:00 23:00 03:11 07:00 Temp 98.2 98.2 98.2 98.2 98.2 98.2 Pulse 109 109 99 Resp 20 20 B/P (MAP) 101/52 (68) 101/64 (76) 103/61 (75) Pulse Ox 95 93 96 O2 Delivery Nasal Cannula Room Air Room Air Nasal Cannula O2 Flow Rate 4.0 2.0 04/06/20 08:21 Pulse 99 B/P (MAP) 103/61 Intake and Output 04/05/20 04/05/20 04/06/20 15:00 23:00 07:00 Intake Total 30 ml 780 ml 1120 ml Balance 30 ml 780 ml 1120 ml Justicifation of Admission Dx: Justifications for Admission: Justification of Admission Dx: Yes Acute Renal Failure: 75% Reduction in GFR Sepsis: Altered Mental Status CUATE OMER MD Apr 06, 2020 09:18
--- NOTE | 2020-04-06 09:51 | PDOC ---
DATE OF SERVICE DATE: 04/06/20 TIME: 09:51 SUBJECTIVE ROS stable, dc today OBJECTIVE Vital Signs Vital Signs Date Time Temp Pulse Resp B/P (MAP) Pulse Ox O2 Delivery O2 Flow Rate FiO2 04/06/20 08:21 99 103/61 04/06/20 08:00 Nasal Cannula 2.0 04/06/20 07:00 98.2 96 98.2 04/06/20 03:11 20 I & 0 Intake and Output 04/06/20 07:00 Intake Total 1930 ml Balance 1930 ml Intake Oral 1930 ml # Bowel Movements 8 PHYSICAL EXAM Physical Exam GENERAL: nad HEENT: Normocephalic, atraumatic. Oral mucosa moist NECK: Supple. LUNGS: Decreased breath sounds at the bases,non labored HEART: S1, S2, no murmurs. ABDOMEN: Soft, nontender, EXTREMITIES: Edema 1-2 + DERMATOLOGIC: No generalized rash. [employer]PER[employer] , no focal deficit DIAGNOSIS/ASSESSMENT Assessment & Plan ESRD: on HD TTS [facility] . DC today , transitioning to Hospice . Not certain if he will continue Dialysis. Dced with claudette, Instructions given for care and follow up with his primary extension service specialist at [facility], source unclear- ID following, Discussed with ID for HDC removal, recommend holding off as BC negative. Metabolic encephalopathy. COVID upper respiratory infection Negative 03/31/20 Diabetes mellitus 2-Elevated BG Elevated LFT's per primary/GI Cirrhosis, h/o Hep C (?treated), ascites ?and frequent paracentesis, ?h/o variceal banding. Per GI COMMENT/RELEVANT DATA Meds Current Medications Medications (Trade) Dose Ordered Sig/Missy Start Time Stop Time Status Last Admin Dose Admin Acetaminophen (Tylenol) 500 mg Q8HRS 04/01/20 14:00 04/06/20 06:13 500 MG Albumin Human 200 ml @ 200 mls/hr 1X PRN PRN 04/05/20 08:30 04/05/20 14:29 DC 04/05/20 09:05 200 MLS/HR Atorvastatin Calcium (Lipitor) 20 mg QHS 04/02/20 21:00 04/05/20 20:06 20 MG Cefdinir (Omnicef) 300 mg DAILY 04/04/20 12:00 04/06/20 08:20 300 MG Cefepime HCl (Maxipime) 2 gm 1X ONCE 1/2/21 16:15 03/31/20 16:16 DC 03/31/20 16:53 2 GM Cetirizine HCl (ZyrTEC) 10 mg DAILY 04/02/20 09:00 04/06/20 08:21 10 MG Dextrose (Dextrose 50%-Water Syringe) 12.5 gm PRN Q15MIN PRN 04/01/20 11:00 Epoetin Sree (PROCRIT for DIALYSIS PTS) 10,000 unit QMWF 04/02/20 16:00 04/04/20 17:40 10,000 UNIT Famotidine (Pepcid) 20 mg PRN DAILY PRN 04/05/20 20:00 04/05/20 20:06 20 MG Gabapentin (Neurontin) 100 mg HS 04/02/20 21:00 04/05/20 20:06 100 MG Info (PHARMACY MONITORING -- do not chart) 1 each PRN DAILY PRN 04/05/20 08:30 Insulin Glargine (Lantus Syringe) 22 unit QHS 04/02/20 21:00 04/05/20 20:08 22 UNIT Insulin Human Lispro (HumaLOG) 3 units TIDWMEALS 04/02/20 12:00 04/06/20 08:29 3 UNITS Lactobacillus Rhamnosus (Culturelle) 1 cap BID 04/03/20 21:00 04/06/20 08:21 1 CAP Lactulose (Lactulose) 10 gm TID 04/02/20 14:00 04/02/20 12:35 10 GM Levothyroxine Sodium (Synthroid) 25 mcg DAILY06 04/01/20 16:00 04/06/20 06:13 25 MCG Lidocaine HCl (Buffered Lidocaine 1%) 6 ml 1X ONCE 04/03/20 09:15 04/03/20 09:16 DC 04/03/20 09:05 6 ML Lorazepam (Ativan Inj) 1 mg 1X ONCE 03/31/20 15:45 03/31/20 15:46 DC 03/31/20 15:46 1 MG Magnesium Sulfate 50 ml @ 25 mls/hr PRN DAILY PRN 04/01/20 13:00 04/01/20 13:01 DC Meropenem 1 gm/ Sodium Chloride 100 ml @ 200 mls/hr DAILY 04/01/20 13:00 04/04/20 11:34 DC 04/04/20 08:37 200 MLS/HR Midodrine (Proamatine) 10 mg [id number] 04/02/20 13:00 04/06/20 08:21 10 MG Multivitamins (Thera M Plus) 1 tab DAILY 04/02/20 09:00 04/02/20 16:19 DC Norepinephrine Bitartrate 8 mg/ Dextrose 258 ml @ 0 mls/hr CONT PRN 03/31/20 21:15 04/02/20 02:23 17.8 MLS/HR Pantoprazole Sodium (Protonix) 40 mg DAILYAC 04/02/20 07:30 04/03/20 10:08 DC 04/02/20 08:54 40 MG Piperacillin Sod/ Tazobactam Sod 3.375 gm/Sodium Chloride 50 ml @ 100 mls/hr 1X ONCE 03/31/20 15:30 03/31/20 15:59 DC Polyethylene Glycol (miraLAX PACKET) 17 gm BID 04/01/20 21:00 Potassium Bicarbonate (Potassium Effervescent Tablet) 40 meq 1X ONCE 04/06/20 08:00 04/06/20 08:01 DC 04/06/20 08:18 40 MEQ Potassium Chloride 40 meq/ Dextrose 1,020 ml @ 75 mls/hr [id number] 03/31/20 16:00 04/01/20 12:59 DC 04/01/20 09:55 75 MLS/HR Potassium Chloride (Klor-Con) 20 meq PRN Q6HRS PRN 04/01/20 21:00 04/03/20 20:09 20 MEQ Rifaximin (Xifaxan) 550 mg BID 04/02/20 12:00 04/06/20 08:20 550 MG Sodium Bicarbonate 50 meq/Potassium Chloride 20 meq/ Sodium Chloride 80 meq/Dextrose 580 ml @ 30 mls/hr [id number] 04/01/20 16:00 04/03/20 11:31 DC 04/02/20 08:55 30 MLS/HR Sodium Chloride 1,000 ml @ 400 mls/hr Q2H30M PRN 04/05/20 08:30 04/05/20 20:29 DC Sodium Chloride (Normal Saline Flush) 10 ml 1X PRN PRN 04/01/20 12:15 04/02/20 12:14 DC Vancomycin HCl (Vanco Per Pharmacy) 1 each PRN DAILY PRN 04/01/20 12:30 04/04/20 13:22 DC 04/04/20 07:32 1 EACH Vancomycin HCl (Vancomycin Random Level) 1 each 1X ONCE 04/03/20 15:00 04/03/20 15:01 DC 04/03/20 15:00 1 EACH Vancomycin HCl 500 mg/Sodium Chloride 100 ml @ 100 mls/hr QTUTHSA 04/03/20 16:00 04/04/20 11:34 DC 04/03/20 16:20 100 MLS/HR Vancomycin HCl 2 gm/Sodium Chloride 500 ml @ 250 mls/hr 1X ONCE 04/01/20 12:45 04/01/20 14:44 DC 04/01/20 15:06 250 MLS/HR Vitamin B Complex/ Vitamin C (Meg-Severiano) 1 tab DAILY 04/01/20 09:00 04/06/20 08:21 1 TAB Zinc Sulfate (Orazinc) 220 mg DAILY 04/02/20 09:00 04/06/20 08:20 220 MG Lab Laboratory Tests Test 04/05/20 17:15 04/05/20 20:04 04/06/20 04:30 04/06/20 07:58 Glucose (Fingerstick) 232 mg/dL (70-99) 305 mg/dL (70-99) 203 mg/dL (70-99) Sodium Level 134 mmol/L (136-145) Potassium Level 3.3 mmol/L (3.5-5.1) Chloride Level 96 mmol/L (98-107) Carbon Dioxide Level 25 mmol/L (21-32) Anion Gap 13 (6-14) Blood Urea Nitrogen 26 mg/dL (8-26) Creatinine 3.0 mg/dL (0.7-1.3) Estimated GFR (Cockcroft-Gault) 21.2 Glucose Level 234 mg/dL (70-99) Calcium Level 8.0 mg/dL (8.5-10.1) Phosphorus Level 2.6 mg/dL (2.6-4.7) Magnesium Level 2.0 mg/dL (1.8-2.4) Albumin 2.9 g/dL (3.4-5.0) Results All relevant outside records, renal labs, imaging studies, telemetry/EKG's were reviewed. Justicifation of Admission Dx: Justifications for Admission: Justification of Admission Dx: Yes Acute Renal Failure: 75% Reduction in GFR Sepsis: Altered Mental Status JASPREET BUNDY MD Apr 06, 2020 09:51
--- NOTE | 2020-04-06 10:09 | PDOC ---
Date of Service: DATE: 04/06/20 TIME: 10:07 Subjective: Subjective: Feels fine. Objective: Objective: D/w nurse - to DC to facility w/ Hospice this morning. Vital Signs: Vital Signs Date Time Temp Pulse Resp B/P (MAP) Pulse Ox O2 Delivery O2 Flow Rate FiO2 04/06/20 08:21 99 103/61 04/06/20 08:00 Nasal Cannula 2.0 04/06/20 07:00 98.2 96 98.2 04/06/20 03:11 20 Labs: Laboratory Tests Test 04/05/20 17:15 04/05/20 20:04 04/06/20 04:30 04/06/20 07:58 Glucose (Fingerstick) 232 mg/dL 305 mg/dL 203 mg/dL Sodium Level 134 mmol/L Potassium Level 3.3 mmol/L Chloride Level 96 mmol/L Carbon Dioxide Level 25 mmol/L Anion Gap 13 Blood Urea Nitrogen 26 mg/dL Creatinine 3.0 mg/dL Estimated GFR (Cockcroft-Gault) 21.2 Glucose Level 234 mg/dL Calcium Level 8.0 mg/dL Phosphorus Level 2.6 mg/dL Magnesium Level 2.0 mg/dL Albumin 2.9 g/dL BLOOD CULTURE Final NO GROWTH AFTER 5 DAYS PE: GEN: NAD LUNGS: diminished HEART: mildly tachycardic ABD: distended/tight, non-tender NEURO/PSYCH: A & O 3 A/P: ESLD, ESRD -- Dc per primary. Justicifation of Admission Dx: Justifications for Admission: Justification of Admission Dx: Yes Acute Renal Failure: 75% Reduction in GFR Sepsis: Altered Mental Status MARISSA AYALA Apr 06, 2020 10:09
== END 2020-04-06 11:43 | disposition hospice, inpatient (51) | DRG 871 ==
LOC: ER 13:02 → ED HOLD 19:05 → 1 WEST ICU 04-01 06:45 → CVICU 04-01 21:38
PROVIDERS: ADMIT Family Medicine; ATTEND Family Medicine
PROC: 5A1D70Z Performance of Urinary Filtration, Intermittent, Less than 6 Hours Per Day (ICD-10-PCS; principal; 2020-04-01)
PROC: 5A1D70Z Performance of Urinary Filtration, Intermittent, Less than 6 Hours Per Day (ICD-10-PCS; 2020-04-03)
PROC: 0W9G3ZZ Drainage of Peritoneal Cavity, Percutaneous Approach (ICD-10-PCS; 2020-04-03)
PROC: 5A1D70Z Performance of Urinary Filtration, Intermittent, Less than 6 Hours Per Day (ICD-10-PCS; 2020-04-05)
DX: A41.9 Sepsis, unspecified organism (principal); J96.01 Acute respiratory failure with hypoxia; N18.6 End stage renal disease; D68.9 Coagulation defect, unspecified; R65.21 Severe sepsis with septic shock; G92 Toxic encephalopathy; I50.33 Acute on chronic diastolic (congestive) heart failure; R18.8 Other ascites; E46 Unspecified protein-calorie malnutrition; I13.2 Hypertensive heart and chronic kidney disease with heart failure and with stage 5 chronic kidney disease, or end stage renal disease; I85.10 Secondary esophageal varices without bleeding; J98.11 Atelectasis; K76.6 Portal hypertension; E87.6 Hypokalemia; K21.9 Gastro-esophageal reflux disease without esophagitis; E10.22 Type 1 diabetes mellitus with diabetic chronic kidney disease; Z20.822 Contact with and (suspected) exposure to COVID-19; E10.649 Type 1 diabetes mellitus with hypoglycemia without coma; D69.6 Thrombocytopenia, unspecified; F32.9 Major depressive disorder, single episode, unspecified; E10.40 Type 1 diabetes mellitus with diabetic neuropathy, unspecified; E03.9 Hypothyroidism, unspecified; D64.9 Anemia, unspecified; K74.60 Unspecified cirrhosis of liver; R68.0 Hypothermia, not associated with low environmental temperature; B19.20 Unspecified viral hepatitis C without hepatic coma; I27.21 Secondary pulmonary arterial hypertension; J06.9 Acute upper respiratory infection, unspecified; K80.20 Calculus of gallbladder without cholecystitis without obstruction; Z68.29 Body mass index [BMI] 29.0-29.9, adult; Z79.4 Long term (current) use of insulin; Z91.040 Latex allergy status; Z88.0 Allergy status to penicillin; Z88.8 Allergy status to other drugs, medicaments and biological substances; Z88.6 Allergy status to analgesic agent; Z91.010 Allergy to peanuts; Z99.2 Dependence on renal dialysis; Z82.49 Family history of ischemic heart disease and other diseases of the circulatory system
CPT/HCPCS: 36415; 49083; 70450; 71045; 71250; 74176; 76700; 80053; 80069; 80076; 80202; 82140; 82150; 82945; 82962; 83540; 83550; 83605; 83615; 83735; 84100; 84132; 84145; 84157; 84443; 85025; 85379; 85384; 85610; 86705; 86709; 86803; 87040; 87340; 87426; 87522; 87804; 88112; 88305; 89050; 93005; 96361; 96374; 96375; 96376; C1892; J0692; J1815; J2060; J2185; J3370; J3480; J3490; J7030; J7040; J7060; P9046; U0003; 92526-GN; 92610-GN; 97110-GP; 97535-GO; 99285-25; G0378; Q4081